=== PATIENT | female | born 1945 | race African-American/Black ===

== ENCOUNTER 2021-05-13 13:48 | Inpatient (IN) | payer MEDICARE, OTHER ==
[~2021-05-13] VITALS: Ht 157.5 cm; Wt 105.8 kg
[2021-05-13 14:52] LABS: BASO % 1 % (0-3); EOS % 0 % (0-3); HEMOGLOBIN 11.1 g/dL (12.0-15.5); LYMPH # 1.1 x10^3/uL (1.0-4.8); LYMPH % 28 % (24-48); MEAN CORPUSCULAR HEMOGLOBIN 30 pg (25-35); MEAN CORPUSCULAR HGB CONC 33 g/dL (31-37); MEAN CORPUSCULAR VOLUME 91 fL (79-100); MONO # 0.4 x10^3/uL (0.0-1.1); MONO % 11 % (0-9); NEUT # 2.4 x10^3/uL (1.8-7.7); NEUT % 60 % (31-73); PLATELET COUNT 156 x10^3/uL (140-400); RED BLOOD COUNT 3.74 x10^6/uL (3.50-5.40); RED CELL DISTRIBUTION WIDTH 14.3 % (11.5-14.5)
[2021-05-13 15:06] LABS: CALCIUM 8.8 mg/dL (8.5-10.1); CREATININE 2.4 mg/dL (0.6-1.0); GFR 23.7; POTASSIUM 4.6 mmol/L (3.5-5.1)
[2021-05-13 15:12] LABS: ALBUMIN 2.9 g/dL (3.4-5.0); ALBUMIN/GLOBULIN RATIO 0.6 (1.0-1.7); MAGNESIUM 1.7 mg/dL (1.8-2.4); TOTAL BILIRUBIN 0.3 mg/dL (0.2-1.0); TOTAL PROTEIN 7.6 g/dL (6.4-8.2)
--- NOTE | 2021-05-13 15:26 | RAD ---
Single view of the chest. 05/13/2021 2:56 PM Indication: Reason: SOA / Spl. Instructions: / History: Comparison: None Findings: There are patchy bilateral interstitial alveolar infiltrates. Left basilar obscuration coul d reflect an associated pleural effusion or atelectasis. No pneumothorax is identified. Median sterno efrain noted. No acute osseous changes are seen. IMPRESSION: 1. Bilateral interstitial alveolar infiltrates. 2. Left basilar effusion or atelectasis Electronically signed by: Shravan Winkler MD (05/13/2021 3:23 PM) [id number]
[2021-05-13] MEDS ORDERED: MAGNESIUM SULFATE 2GM 50 ML IV ONE ×2 (15:45→16:15)
[2021-05-13] MEDS ORDERED: methylPREDNISolone SOD SUCC PF 125 MG/2 ML VIAL. IV ONE (15:45)
[2021-05-13] MEDS ORDERED: cefTRIAXone IV Push 1 GM VIAL. IVP ONE (16:00)
--- NOTE | 2021-05-13 16:01 | PHYS DOC ---
Past Medical History Past Medical History: CAD, CHF, Diabetes-Type II Past Surgical History: Coronary Bypass Surgery Smoking Status: Never Smoker Alcohol Use: None General Adult EDM: Chief Complaint: SHORTNESS OF BREATH HPI: HPI: Patient is a 75 year old female who present to ER due to trouble breathing, cough, fever for 1 week. Patient was not vaccinated for COVID-19. Patient denies any chest pain. Patient denies abdominal pain, no nausea vomiting. Patient is not on any oxygen at home. Review of Systems: Review of Systems: Constitutional: Positive for fever or chills. [] Eyes: Denies change in visual acuity. [] HENT: Denies nasal congestion or sore throat. [] Respiratory: Positive for cough and shortness of breath. [] Cardiovascular: Denies chest pain or edema. [] GI: Denies abdominal pain, nausea, vomiting, bloody stools or diarrhea. [] : Denies dysuria. [] Musculoskeletal: Denies back pain or joint pain. [] Integument: Denies rash. [] Neurologic: Denies headache, focal weakness or sensory changes. [] Endocrine: Denies polyuria or polydipsia. [] Lymphatic: Denies swollen glands. [] Psychiatric: Denies depression or anxiety. [] Heart Score: C/O Chest Pain: N/A Risk Factors: Risk Factors: DM, Current or recent (<one month) smoker, HTN, HLP, family history of CAD, obesity. Risk Scores: Score 0 - 3: 2.5% MACE over next 6 weeks - Discharge Home Score 4 - 6: 20.3% MACE over next 6 weeks - Admit for Clinical Observation Score 7 - 10: 72.7% MACE over next 6 weeks - Early Invasive Strategies Current Medications: Current Medications Medications (Trade) Dose Ordered Sig/Lemuel Start Time Stop Time Status Last Admin Dose Admin Magnesium Sulfate 50 ml @ 25 mls/hr 1X ONCE 05/13/21 15:45 05/13/21 17:44 05/13/21 15:58 25 MLS/HR Methylprednisolone Sodium Succinate (SOLU-Medrol 125MG VIAL) 125 mg 1X ONCE 05/13/21 15:45 05/13/21 15:46 DC 05/13/21 15:58 125 MG Allergies: Allergies: Allergies Coded Allergies Type Severity Reaction Last Updated Verified No Known Drug Allergies 05/13/21 No Physical Exam: PE: Constitutional: Well developed, well nourished, no acute distress, non-toxic appearance. [] HENT: Normocephalic, atraumatic, bilateral external ears normal, oropharynx moist, no oral exudates, nose normal. [] Eyes: right eye blind (chronic) , conjunctiva normal on left, no discharge. [] Neck: Normal range of motion, no tenderness, supple, no stridor. [] Cardiovascular:Heart rate regular rhythm, no murmur [] Lungs & Thorax: Bilateral breath sounds with crackles at lung bases to auscultation [] Abdomen: Bowel sounds normal, soft, no tenderness, no masses, no pulsatile masses. [] Skin: Warm, dry, no erythema, no rash. [] Back: No tenderness, no CVA tenderness. [] Extremities: No tenderness, no cyanosis, no clubbing, ROM intact, no edema. [] Neurologic: Alert and oriented X 3, normal motor function, normal sensory function, no focal deficits noted. [] Psychologic: Affect normal, judgement normal, mood normal. [] Current Patient Data: Labs: Laboratory Tests Test 05/13/21 14:19 05/13/21 14:40 SARS-CoV-2 Antigen (Rapid) Positive (NEGATIVE) *A White Blood Count 4.0 x10^3/uL (4.0-11.0) Red Blood Count 3.74 x10^6/uL (3.50-5.40) Hemoglobin 11.1 g/dL (12.0-15.5) L Hematocrit 34.0 % (36.0-47.0) L Mean Corpuscular Volume 91 fL (79-100) Mean Corpuscular Hemoglobin 30 pg (25-35) Mean Corpuscular Hemoglobin Concent 33 g/dL (31-37) Red Cell Distribution Width 14.3 % (11.5-14.5) Platelet Count 156 x10^3/uL (140-400) Neutrophils (%) (Auto) 60 % (31-73) Lymphocytes (%) (Auto) 28 % (24-48) Monocytes (%) (Auto) 11 % (0-9) H Eosinophils (%) (Auto) 0 % (0-3) Basophils (%) (Auto) 1 % (0-3) Neutrophils # (Auto) 2.4 x10^3/uL (1.8-7.7) Lymphocytes # (Auto) 1.1 x10^3/uL (1.0-4.8) Monocytes # (Auto) 0.4 x10^3/uL (0.0-1.1) Eosinophils # (Auto) 0.0 x10^3/uL (0.0-0.7) Basophils # (Auto) 0.0 x10^3/uL (0.0-0.2) Sodium Level 140 mmol/L (136-145) Potassium Level 4.6 mmol/L (3.5-5.1) Chloride Level 102 mmol/L (98-107) Carbon Dioxide Level 28 mmol/L (21-32) Anion Gap 10 (6-14) Blood Urea Nitrogen 50 mg/dL (7-20) H Creatinine 2.4 mg/dL (0.6-1.0) H Estimated GFR (Cockcroft-Gault) 23.7 BUN/Creatinine Ratio 21 (6-20) H Glucose Level 117 mg/dL (70-99) H Lactic Acid Level 0.6 mmol/L (0.4-2.0) Calcium Level 8.8 mg/dL (8.5-10.1) Magnesium Level 1.7 mg/dL (1.8-2.4) L Total Bilirubin 0.3 mg/dL (0.2-1.0) Aspartate Amino Transferase (AST) 25 U/L (15-37) Alanine Aminotransferase (ALT) 22 U/L (14-59) Alkaline Phosphatase 116 U/L (46-116) Troponin I Quantitative 0.032 ng/mL (0.000-0.055) [id number]-Vxu-[id number]-Type Natriuretic Peptide 2067 pg/mL (0-449) H Total Protein 7.6 g/dL (6.4-8.2) Albumin 2.9 g/dL (3.4-5.0) L Albumin/Globulin Ratio 0.6 (1.0-1.7) L Laboratory Tests 05/13/21 14:40 Laboratory Tests 05/13/21 14:40 Vital Signs: Vital Signs Date Time Temp Pulse Resp B/P (MAP) Pulse Ox O2 Delivery O2 Flow Rate FiO2 05/13/21 13:55 101.3 76 20 168/76 89 Room Air 101.3 EKG: EKG: EKG was done at 1356, heart rate of 75 bpm, sinus rhythm, no ST segment elevation. Radiology/Procedures: Radiology/Procedures: [facility] [address] [place] [address] IMAGING REPORT Signed PATIENT: VALERIE TRAVIS ACCOUNT: [id number] : 1945 LOCATION: ER AGE: 75 SEX: F EXAM STATUS: REG ER ORD. PHYSICIAN: ROSHAN ANSARI DO REASON: SOA PROCEDURE: CHEST AP ONLY Single view of the chest. 05/13/2021 2:56 PM Indication: Reason: SOA / Spl. Instructions: / History: Comparison: None Findings: There are patchy bilateral interstitial alveolar infiltrates. Left basilar obscuration could reflect an associated pleural effusion or atelectasis. No pneumothorax is identified. Median sternotomy noted. No acute osseous changes are seen. IMPRESSION: 1. Bilateral interstitial alveolar infiltrates. 2. Left basilar effusion or atelectasis Electronically signed by: Shravan Hutson MD (05/13/2021 3:23 PM) [id number] DICTATED and SIGNED BY: SHRAVAN HUTSON MD DATE: 05/13/21 [id number] Course & Med Decision Making: Course & Med Decision Making Pertinent Labs and Imaging studies reviewed. (See chart for details) Patient is a 75-year-old female who present to ER due to cough and trouble breathing with fever. Patient was tested positive for COVID-19. Patient is hypoxic, therefore patient will need to be admitted to hospital for further evaluation and treatment, discussed with the hospitalist on-call Dr. Amor who agreed to admit the patient. Dragon Disclaimer: Dragon Disclaimer: This electronic medical record was generated, in whole or in part, using a voice recognition dictation system. Departure Departure Impression: Primary Impression: Pneumonia due to COVID-19 virus Additional Impressions: Hypoxia Hypomagnesemia syndrome Disposition: ADMITTED INPATIENT Admitting Physician: MAIRA (Dr. Amor) Condition: STABLE Referrals: PHANI MCNAMARA MD (PCP) ROSHAN ANSARI DO May 13, 2021 16:01
[2021-05-13] MEDS ORDERED: PIP/TAZO PER PHARMACY MC PRN (16:15)
[2021-05-13] MEDS ORDERED: guaiFENesin/CODEINE 100mg/10mg 5 ML LIQUID PO PRN (16:15)
[2021-05-13] MEDS ORDERED: AZITHRMYCN 500MG IVPB FOR OMNI 250 ML IV ONE (16:15)
[2021-05-13] MEDS ORDERED: oxyCODONE IR 5 MG TABLET PO PRN (17:00)
[2021-05-13] MEDS ORDERED: ACETAMINOPHEN 325 MG TABLET. PO PRN (17:00)
[2021-05-13] MEDS ORDERED: ZOLPIDEM 5 MG TABLET. PO PRN (17:00)
[2021-05-13] MEDS ORDERED: ELECTROLYTE (NON-ICU) PROTOCOL. MC PRN (17:00)
[2021-05-13] MEDS ORDERED: CALCIUM CARBONATE 500 MG TAB.CHEW PO PRN (17:00)
[2021-05-13] MEDS ORDERED: ONDANSETRON PF 4 MG/2 ML VIAL. IVP PRN (17:00)
[2021-05-13] MEDS ORDERED: REMDESIVIR LOAD in IV NORMAL SALINE 250ML TV IV ONE (17:00)
[2021-05-13] MEDS ORDERED: MAGN500C10 PO (17:26)
[2021-05-13] MEDS ORDERED: LOSA-73 PO (17:26)
[2021-05-13] MEDS ORDERED: ATOR80TA72 PO (17:26)
[2021-05-13] MEDS ORDERED: METF500T16 PO (17:26)
[2021-05-13] MEDS ORDERED: HYDR-2761 PO (17:27)
[2021-05-13] MEDS ORDERED: HYDR-2868 PO (17:27)
[2021-05-13] MEDS ORDERED: EZET10TA20 PO (17:27)
[2021-05-13] MEDS ORDERED: FURO40TA4 PO (17:27)
[2021-05-13] MEDS ORDERED: AMLO-186 PO (17:27)
[2021-05-13] MEDS ORDERED: ALLO100T PO (17:27)
[2021-05-13] MEDS ORDERED: GABA-585 PO (17:27)
[2021-05-13] MEDS ORDERED: LEVO175T5 PO (17:27)
[2021-05-13] MEDS ORDERED: ASPI-630 PO (17:27)
[2021-05-13] MEDS: PIPERACILLIN/TAZOBACTAM 2.25 GM in IV NORMAL SALINE 50ML 50 ML IV SCH (17:58)
--- NOTE | 2021-05-13 18:24 | PDOC1 ---
History and Physical Date of Service: DOS: DATE: 05/13/21 TIME: 18:20 Chief Complaint: Problems: (1) Pneumonia due to COVID-19 virus (2) Hypoxia (3) Hypomagnesemia syndrome History of Present Illness: HPI: Patient is 75-year-old female who presented to the emergency room this morning due to shortness of breath, cough, subjective fever, and fatigue for the past 7 to 10 days patient reports initially thought it was a common cold but when it kept persisting presents to the emergency room today. In the emergency room she was found to be COVID-19 positive. Patient did not receive Covid vaccine. Unknown of Covid exposures. Patient develops O2 requirement in emergency room of 2 L. Received Solu-Medrol and Rocephin and was then admitted. Evaluated patient was resting on 2 L nasal cannula. She was denying any headache, vision changes, dizziness, chest pain, abdominal pain, dysuria, abnormal joint pains. Past Medical/Surgical History: PMH/PSH: CAD, type 2 diabetes Allergies: Allergies: Coded Allergies: No Known Drug Allergies (Unverified , 05/13/21) Family History: Family History: Unknown Social History: Social History: Denies alcohol tobacco or drug use Current Medications: Current Medications Current Medications Magnesium Sulfate 50 ml @ 25 mls/hr 1X ONCE IV Last administered on 05/13/21at 15:58; Start 05/13/21 at 15:45; Stop 05/13/21 at 17:44; Status DC Methylprednisolone Sodium Succinate (SOLU-Medrol 125MG VIAL) 125 mg 1X ONCE IV Last administered on 05/13/21at 15:58; Start 05/13/21 at 15:45; Stop 05/13/21 at 15:46; Status DC Ceftriaxone Sodium (Rocephin) 1 gm 1X ONCE IVP Last administered on 05/13/21at 16:37; Start 05/13/21 at 16:00; Stop 05/13/21 at 16:02; Status DC Piperacillin Sod/ Tazobactam Sod (Zosyn Per Pharmacy) 1 each PRN DAILY PRN MC SEE COMMENTS; Start 05/13/21 at 16:15 Dexamethasone Sodium Phosphate (Decadron) 6 mg DAILY IVP ; Start 05/14/21 at 09:00 Remdesivir 200 mg/ Sodium Chloride 210 ml @ 210 mls/hr 1X ONCE IV ; Start 05/13/21 at 17:00; Stop 05/13/21 at 17:59; Status DC Remdesivir 100 mg/ Sodium Chloride 230 ml @ 460 mls/hr Q24H IV ; Start 05/14/21 at 17:00; Stop 05/17/21 at 17:29 Multivitamins (Thera M Plus) 1 tab DAILY PO ; Start 05/14/21 at 09:00 Aspirin (Ecotrin) 81 mg DAILYWBKFT PO ; Start 05/14/21 at 08:00; Stop 05/13/21 at 18:10; Status DC Guaifenesin/ Codeine Phosphate (Robitussin Ac) 5 ml PRN Q6HRS PRN PO COUGH; Start 05/13/21 at 16:15 Azithromycin 250 ml @ 250 mls/hr 1X ONCE IV Last administered on 05/13/21at 16:37; Start 05/13/21 at 16:15; Stop 05/13/21 at 17:14; Status DC Magnesium Sulfate 50 ml @ 25 mls/hr 1X ONCE IV ; Start 05/13/21 at 16:15; Stop 05/13/21 at 18:14; Status Cancel Piperacillin Sod/ Tazobactam Sod 2.25 gm/Sodium Chloride 50 ml @ 100 mls/hr Q6HRS IV Last administered on 05/13/21at 17:58; Start 05/13/21 at 18:00 Ondansetron HCl (Zofran) 4 mg PRN Q6HRS PRN IVP NAUSEA/VOMITING; Start 05/13/21 at 17:00 Calcium Carbonate/ Glycine (Tums) 500 mg PRN Q3HRS PRN PO UPSET STOMACH; Start 05/13/21 at 17:00 Zolpidem Tartrate (Ambien) 5 mg PRN QHS PRN PO INSOMNIA, MAY REPEAT IN 1HR; Start 05/13/21 at 17:00 Info (Non-Icu Electrolyte Protocol) 1 ea PRN DAILY PRN MC SEE COMMENTS; Start 05/13/21 at 17:00 Oxycodone HCl (Roxicodone) 5 mg PRN Q3HRS PRN PO BREAKTHROUGH PAIN; Start 05/13/21 at 17:00 Oxycodone/ Acetaminophen (Percocet 5/325) 1 tab PRN Q4HRS PRN PO MILD PAIN, 1ST CHOICE; Start 05/13/21 at 17:00 Oxycodone/ Acetaminophen (Percocet 5/325) 2 tab PRN Q4HRS PRN PO MODERATE PAIN, SEVERE PAIN; Start 05/13/21 at 17:00 Acetaminophen (Tylenol) 650 mg PRN Q6HRS PRN PO Headaches, Temp > 101.5F; Start 05/13/21 at 17:00 Senna/Docusate Sodium (Senna Plus) 1 tab BID PO ; Start 05/13/21 at 21:00 Heparin Sodium (Porcine) (Heparin Sodium) 5,000 unit Q8HRS SQ ; Start 05/13/21 at 22:00 Allopurinol (Zyloprim) 100 mg DAILY PO ; Start 05/14/21 at 09:00 Amlodipine Besylate (Norvasc) 5 mg DAILY PO ; Start 05/14/21 at 09:00 Aspirin (Aspirin Chewable) 81 mg DAILY PO ; Start 05/14/21 at 09:00 EZETIMIBE (Zetia) 10 mg DAILY PO ; Start 05/14/21 at 09:00 Furosemide (Lasix) 40 mg DAILY PO ; Start 05/14/21 at 09:00 Gabapentin (Neurontin) 100 mg HS PO ; Start 05/13/21 at 21:00 Levothyroxine Sodium (Synthroid) 175 mcg DAILYAC PO ; Start 05/14/21 at 07:30 Losartan Potassium (Cozaar) 50 mg DAILY PO ; Start 05/14/21 at 09:00 Atorvastatin Calcium (Lipitor) 80 mg QHS PO ; Start 05/13/21 at 21:00 Active Scripts Active Reported Zetia (Ezetimibe) 10 Mg Tablet 10 Mg PO DAILY Furosemide 40 Mg Tablet 1 Tab PO DAILY Hydrocodone-Apap 5-325 (Hydrocodone Bit/Acetaminophen) 1 Tab Tablet 1 Tab PO PRN BID PRN Allopurinol 100 Mg Tablet 1 Tab PO DAILY Aspirin 81 Mg Tab.chew 1 Tab PO DAILY Levothyroxine Sodium 175 Mcg Tablet 175 Mcg PO DAILYAC Amlodipine Besylate 5 Mg Tablet 5 Mg PO DAILY Hydralazine Hcl 25 Mg Tablet 1 Tab PO TID Gabapentin (Gabapentin) 100 Mg Capsule 100 Mg PO HS Atorvastatin Calcium 80 Mg Tablet 80 Mg PO DAILY Losartan Potassium 50 Mg Tablet 50 Mg PO DAILY Metformin Hcl 500 Mg Tablet 500 Mg PO BIDWMEALS Magnesium (Magnesium Oxide) 500 Mg Capsule 1 Cap PO BID 30 Days ROS: Review of Systems Review of System Negative unless noted in HPI Physical Exam: Vital Signs: Vital Signs Date Time Temp Pulse Resp B/P (MAP) Pulse Ox O2 Delivery O2 Flow Rate FiO2 05/13/21 15:58 74 23 126/58 (80) 97 Nasal Cannula 2.0 05/13/21 13:55 101.3 101.3 Physcial Exam: GEN: No apparent distress. Alert and oriented HEENT: Normal cephalic, atraumatic, external auditory canals are patent EYES: Extraocular muscles are intact, pupil are equally round and reactive to light and accommodation MUSCULOSKELETAL: Well developed , well nourished, good range of motion ENDOCRINE: No thyromegaly was palpated LYMPHATICS: No cervical chain or axillary nodes were noted HEMATOPOIETIC: No bruising NECK: Supple, no JVD, no thyromegaly was noted LUNGS: Decreased air entry throughout HEART: RRR, S1, S2 present. Peripheral pulses intact, no obvious murmurs noted ABDOMEN: Soft, nontender. Positive bowel sounds, no organomegaly, normal bowel sounds EXTREMITIES: Without clubbing, cyanosis, or edema. Pedal pulses intact. Negative Homans sign NEUROLOGIC: Normal speech and tone. A&O x 3, moves all extremities, no obvious focal deficits PSYCHIATRIC: Normal affect, normal mood. Stable SKIN: No ulcerations or rashes, good skin turgor, no jaundice VASCULAR: Good capillary refill, neurovascular bundle appears to be intact Labs: Labs: Laboratory Tests Test 05/13/21 14:19 05/13/21 14:40 SARS-CoV-2 Antigen (Rapid) Positive (NEGATIVE) White Blood Count 4.0 x10^3/uL (4.0-11.0) Red Blood Count 3.74 x10^6/uL (3.50-5.40) Hemoglobin 11.1 g/dL (12.0-15.5) Hematocrit 34.0 % (36.0-47.0) Mean Corpuscular Volume 91 fL (79-100) Mean Corpuscular Hemoglobin 30 pg (25-35) Mean Corpuscular Hemoglobin Concent 33 g/dL (31-37) Red Cell Distribution Width 14.3 % (11.5-14.5) Platelet Count 156 x10^3/uL (140-400) Neutrophils (%) (Auto) 60 % (31-73) Lymphocytes (%) (Auto) 28 % (24-48) Monocytes (%) (Auto) 11 % (0-9) Eosinophils (%) (Auto) 0 % (0-3) Basophils (%) (Auto) 1 % (0-3) Neutrophils # (Auto) 2.4 x10^3/uL (1.8-7.7) Lymphocytes # (Auto) 1.1 x10^3/uL (1.0-4.8) Monocytes # (Auto) 0.4 x10^3/uL (0.0-1.1) Eosinophils # (Auto) 0.0 x10^3/uL (0.0-0.7) Basophils # (Auto) 0.0 x10^3/uL (0.0-0.2) Sodium Level 140 mmol/L (136-145) Potassium Level 4.6 mmol/L (3.5-5.1) Chloride Level 102 mmol/L (98-107) Carbon Dioxide Level 28 mmol/L (21-32) Anion Gap 10 (6-14) Blood Urea Nitrogen 50 mg/dL (7-20) Creatinine 2.4 mg/dL (0.6-1.0) Estimated GFR (Cockcroft-Gault) 23.7 BUN/Creatinine Ratio 21 (6-20) Glucose Level 117 mg/dL (70-99) Lactic Acid Level 0.6 mmol/L (0.4-2.0) Calcium Level 8.8 mg/dL (8.5-10.1) Magnesium Level 1.7 mg/dL (1.8-2.4) Total Bilirubin 0.3 mg/dL (0.2-1.0) Aspartate Amino Transf (AST/SGOT) 25 U/L (15-37) Alanine Aminotransferase (ALT/SGPT) 22 U/L (14-59) Alkaline Phosphatase 116 U/L (46-116) Troponin I Quantitative 0.032 ng/mL (0.000-0.055) VV-Wnt-X-Type Natriuretic Peptide 2067 pg/mL (0-449) Total Protein 7.6 g/dL (6.4-8.2) Albumin 2.9 g/dL (3.4-5.0) Albumin/Globulin Ratio 0.6 (1.0-1.7) Laboratory Tests Test 05/13/21 14:19 05/13/21 14:40 SARS-CoV-2 Antigen (Rapid) Positive (NEGATIVE) White Blood Count 4.0 x10^3/uL (4.0-11.0) Red Blood Count 3.74 x10^6/uL (3.50-5.40) Hemoglobin 11.1 g/dL (12.0-15.5) Hematocrit 34.0 % (36.0-47.0) Mean Corpuscular Volume 91 fL (79-100) Mean Corpuscular Hemoglobin 30 pg (25-35) Mean Corpuscular Hemoglobin Concent 33 g/dL (31-37) Red Cell Distribution Width 14.3 % (11.5-14.5) Platelet Count 156 x10^3/uL (140-400) Neutrophils (%) (Auto) 60 % (31-73) Lymphocytes (%) (Auto) 28 % (24-48) Monocytes (%) (Auto) 11 % (0-9) Eosinophils (%) (Auto) 0 % (0-3) Basophils (%) (Auto) 1 % (0-3) Neutrophils # (Auto) 2.4 x10^3/uL (1.8-7.7) Lymphocytes # (Auto) 1.1 x10^3/uL (1.0-4.8) Monocytes # (Auto) 0.4 x10^3/uL (0.0-1.1) Eosinophils # (Auto) 0.0 x10^3/uL (0.0-0.7) Basophils # (Auto) 0.0 x10^3/uL (0.0-0.2) Sodium Level 140 mmol/L (136-145) Potassium Level 4.6 mmol/L (3.5-5.1) Chloride Level 102 mmol/L (98-107) Carbon Dioxide Level 28 mmol/L (21-32) Anion Gap 10 (6-14) Blood Urea Nitrogen 50 mg/dL (7-20) Creatinine 2.4 mg/dL (0.6-1.0) Estimated GFR (Cockcroft-Gault) 23.7 BUN/Creatinine Ratio 21 (6-20) Glucose Level 117 mg/dL (70-99) Lactic Acid Level 0.6 mmol/L (0.4-2.0) Calcium Level 8.8 mg/dL (8.5-10.1) Magnesium Level 1.7 mg/dL (1.8-2.4) Total Bilirubin 0.3 mg/dL (0.2-1.0) Aspartate Amino Transf (AST/SGOT) 25 U/L (15-37) Alanine Aminotransferase (ALT/SGPT) 22 U/L (14-59) Alkaline Phosphatase 116 U/L (46-116) Troponin I Quantitative 0.032 ng/mL (0.000-0.055) KD-Ovj-G-Type Natriuretic Peptide 2067 pg/mL (0-449) Total Protein 7.6 g/dL (6.4-8.2) Albumin 2.9 g/dL (3.4-5.0) Albumin/Globulin Ratio 0.6 (1.0-1.7) Assessment/Plan Assessment/Plan Pneumonia secondary to COVID-19 infection, acute hypoxic respiratory failure, hypomagnesemia, CAD, CHF, type 2 diabetes Patient with 1 week history of shortness of breath cough fevers fatigue Found to be COVID-19 positive in emergency room today, not Covid vaccinated Required 2 L nasal cannula, increase decrease as needed Covid measures with remdesivir, Zosyn, azithromycin, Decadron ordered Metered-dose inhaler as needed We will hold off on consults unless patient deteriorates clinically DVT prophylaxis ordered Home meds resumed as indicated Justifications for Admission Other Justification GENO QUICK MD May 13, 2021 18:24
--- NOTE | 2021-05-13 18:34 | EKG ---
[facility] [address] [place] [address] Test Date: 2021-05-13 Test Time: 13:56:42 Pat Name: VALERIE TRAVIS Department: Room: Gender: F Caponizer: : 1945 Requested By: ROSHAN ANSARI Order Number: [id number] Reading MD: Measurements Intervals [place] Rate: 75 P: 51 NV: 162 QRS: 67 QRSD: 96 T: 53 QT: 394 QTc: 443 Interpretive Statements No previous ECG available for comparison
[2021-05-13 20:07] VITALS: BP 166/50
[2021-05-13] MEDS: SENNOSIDES/DOCUSATE 8.6/50MG TABLET. PO SCH (21:00)
[2021-05-13] MEDS: ATORVASTATIN CALCIUM 40 MG TABLET. PO SCH (21:00)
[2021-05-13] MEDS: GABAPENTIN 100 MG CAPSULE. PO SCH (21:00)
[2021-05-13] MEDS: HEPARIN for SUB-Q USE 5,000 UNIT/ML VIAL. SQ SCH (21:03)
[2021-05-13 23:49] VITALS: BP 148/61
[2021-05-14] MEDS: PIPERACILLIN/TAZOBACTAM 2.25 GM in IV NORMAL SALINE 50ML 50 ML IV SCH ×6 (00:06→23:09)
[2021-05-14 03:00] VITALS: BP 188/71
[2021-05-14] MEDS: HEPARIN for SUB-Q USE 5,000 UNIT/ML VIAL. SQ SCH ×3 (05:43→20:32)
[2021-05-14 07:09] VITALS: BP 143/69
[2021-05-14] MEDS ORDERED: ASPIRIN ENTERIC COATED 81 MG TABLET.DR. PO SCH (08:00)
[2021-05-14] MEDS: LOSARTAN POTASSIUM 50 MG TABLET. PO SCH (09:28)
[2021-05-14] MEDS: FUROSEMIDE 40 MG TABLET. PO SCH (09:28)
[2021-05-14] MEDS: MULTIVITAMIN with MINERAL TABLET. PO SCH (09:28)
[2021-05-14] MEDS: EZETIMIBE 10 MG TABLET. PO SCH (09:28)
[2021-05-14] MEDS: ALLOPURINOL 100 MG TABLET. PO SCH (09:28)
[2021-05-14] MEDS: ASPIRIN CHEWABLE 81 MG TABLET. PO SCH (09:29)
[2021-05-14] MEDS: LEVOTHYROXINE 175 MCG TABLET PO SCH (09:29)
[2021-05-14] MEDS: SENNOSIDES/DOCUSATE 8.6/50MG TABLET. PO SCH ×2 (09:29→20:32)
[2021-05-14] MEDS: DEXAMETHASONE SOD PHOS 4 MG/ML VIAL IVP SCH (09:29)
[2021-05-14 11:00] VITALS: BP 161/71
--- NOTE | 2021-05-14 12:21 | PDOC ---
[employer] PROGRESS NOTE Date of Service DOS: DATE: 05/14/21 TIME: 12:10 Chief Complaint Chief Complaint Pneumonia secondary to COVID-19 infection Acute Hypoxic Respiratory Failure Hypomagnesemia CAD CHF Type II Diabetes History of Present Illness History of Present Illness 05/14: Mrs. Braswell was seen and evaluated in her room this morning. Overall, she seemed week and was resting. She is currently on the COVID-19 protocol (Remdesivir, Aspirin, Multivitamins, Dexamethsone, Heparin SOdium, Piperaci llin/Tazobactam, Acetaminophen). Mrs. Braswell states that she only received 1 dose of the COVID-19 vaccination. Vitals/I&O Vitals/I&O: Vital Signs Date Time Temp Pulse Resp B/P (MAP) Pulse Ox O2 Delivery O2 Flow Rate FiO2 05/14/21 11:00 98.0 82 18 161/71 (101) 100 Nasal Cannula 2.0 98.0 I & O 05/13/21 05/13/21 05/14/21 15:00 23:00 07:00 Intake Total 550 ml 100 ml Output Total 1 ml 1 ml Balance 549 ml 99 ml Physical Exam General: Alert, No acute distress Heart: Regular rate, No murmurs Abdomen: Normal bowel sounds Extremities: No clubbing Skin: No rashes Labs Labs: Laboratory Tests Test 05/13/21 14:19 05/13/21 14:40 05/13/21 20:29 05/14/21 07:27 SARS-CoV-2 Antigen (Rapid) Positive (NEGATIVE) White Blood Count 4.0 x10^3/uL (4.0-11.0) Red Blood Count 3.74 x10^6/uL (3.50-5.40) Hemoglobin 11.1 g/dL (12.0-15.5) Hematocrit 34.0 % (36.0-47.0) Mean Corpuscular Volume 91 fL (79-100) Mean Corpuscular Hemoglobin 30 pg (25-35) Mean Corpuscular Hemoglobin Concent 33 g/dL (31-37) Red Cell Distribution Width 14.3 % (11.5-14.5) Platelet Count 156 x10^3/uL (140-400) Neutrophils (%) (Auto) 60 % (31-73) Lymphocytes (%) (Auto) 28 % (24-48) Monocytes (%) (Auto) 11 % (0-9) Eosinophils (%) (Auto) 0 % (0-3) Basophils (%) (Auto) 1 % (0-3) Neutrophils # (Auto) 2.4 x10^3/uL (1.8-7.7) Lymphocytes # (Auto) 1.1 x10^3/uL (1.0-4.8) Monocytes # (Auto) 0.4 x10^3/uL (0.0-1.1) Eosinophils # (Auto) 0.0 x10^3/uL (0.0-0.7) Basophils # (Auto) 0.0 x10^3/uL (0.0-0.2) Sodium Level 140 mmol/L (136-145) Potassium Level 4.6 mmol/L (3.5-5.1) Chloride Level 102 mmol/L (98-107) Carbon Dioxide Level 28 mmol/L (21-32) Anion Gap 10 (6-14) Blood Urea Nitrogen 50 mg/dL (7-20) Creatinine 2.4 mg/dL (0.6-1.0) Estimated GFR (Cockcroft-Gault) 23.7 BUN/Creatinine Ratio 21 (6-20) Glucose Level 117 mg/dL (70-99) Lactic Acid Level 0.6 mmol/L (0.4-2.0) Calcium Level 8.8 mg/dL (8.5-10.1) Magnesium Level 1.7 mg/dL (1.8-2.4) Total Bilirubin 0.3 mg/dL (0.2-1.0) Aspartate Amino Transf (AST/SGOT) 25 U/L (15-37) Alanine Aminotransferase (ALT/SGPT) 22 U/L (14-59) Alkaline Phosphatase 116 U/L (46-116) Troponin I Quantitative 0.032 ng/mL (0.000-0.055) IH-Gkk-B-Type Natriuretic Peptide 2067 pg/mL (0-449) Total Protein 7.6 g/dL (6.4-8.2) Albumin 2.9 g/dL (3.4-5.0) Albumin/Globulin Ratio 0.6 (1.0-1.7) Glucose (Fingerstick) 176 mg/dL (70-99) 272 mg/dL (70-99) Test 05/14/21 10:45 Glucose (Fingerstick) 339 mg/dL (70-99) Review of Systems Review of Systems: No rashes No bleeding Assessment and Plan Assessmemt and Plan Problems Medical Problems: (1) Hypomagnesemia syndrome Status: Acute (2) Hypoxia Status: Acute (3) Pneumonia due to COVID-19 virus Status: Acute Patient with 1 week history of shortness of breath cough fevers fatigue Found to be COVID-19 positive in emergency room today, not Covid vaccinated Required 2 L nasal cannula, increase decrease as needed Covid measures with remdesivir, Zosyn, azithromycin, Decadron ordered Metered-dose inhaler as needed We will hold off on consults unless patient deteriorates clinically DVT prophylaxis ordered Home meds resumed as indicated 1) Continue COVID-19 Protocol 2) Continue DVT Prophylaxis 3) Continue respiratory isolation 4) Home Medications 5) Full Code Comment Review of Relevant I have reviewed the following items maged (where applicable) has been applied. Medications: Current Medications Medications (Trade) Dose Ordered Sig/Lemuel Route PRN Reason Start Time Stop Time Status Last Admin Dose Admin Magnesium Sulfate 50 ml @ 25 mls/hr 1X ONCE IV 05/13/21 15:45 05/13/21 17:44 DC 05/13/21 15:58 Methylprednisolone Sodium Succinate (SOLU-Medrol 125MG VIAL) 125 mg 1X ONCE IV 05/13/21 15:45 05/13/21 15:46 DC 05/13/21 15:58 Ceftriaxone Sodium (Rocephin) 1 gm 1X ONCE IVP 05/13/21 16:00 05/13/21 16:02 DC 05/13/21 16:37 Dexamethasone Sodium Phosphate (Decadron) 6 mg DAILY IVP 05/14/21 09:00 05/14/21 09:29 Remdesivir 200 mg/ Sodium Chloride 210 ml @ 210 mls/hr 1X ONCE IV 05/13/21 17:00 05/13/21 17:59 DC 05/13/21 20:59 Multivitamins (Thera M Plus) 1 tab DAILY PO 05/14/21 09:00 05/14/21 09:28 Azithromycin 250 ml @ 250 mls/hr 1X ONCE IV 05/13/21 16:15 05/13/21 17:14 DC 05/13/21 16:37 Piperacillin Sod/ Tazobactam Sod 2.25 gm/Sodium Chloride 50 ml @ 100 mls/hr Q6HRS IV 05/13/21 18:00 05/14/21 05:42 Acetaminophen (Tylenol) 650 mg PRN Q6HRS PRN PO Headaches, Temp > 101.5F 05/13/21 17:00 05/13/21 21:00 Senna/Docusate Sodium (Senna Plus) 1 tab BID PO 05/13/21 21:00 05/14/21 09:29 Heparin Sodium (Porcine) (Heparin Sodium) 5,000 unit Q8HRS SQ 05/13/21 22:00 05/14/21 05:43 Allopurinol (Zyloprim) 100 mg DAILY PO 05/14/21 09:00 05/14/21 09:28 Amlodipine Besylate (Norvasc) 5 mg DAILY PO 05/14/21 09:00 05/14/21 09:29 Aspirin (Aspirin Chewable) 81 mg DAILY PO 05/14/21 09:00 05/14/21 09:29 EZETIMIBE (Zetia) 10 mg DAILY PO 05/14/21 09:00 05/14/21 09:28 Furosemide (Lasix) 40 mg DAILY PO 05/14/21 09:00 05/14/21 09:28 Gabapentin (Neurontin) 100 mg HS PO 05/13/21 21:00 05/13/21 21:00 Levothyroxine Sodium (Synthroid) 175 mcg DAILYAC PO 05/14/21 07:30 05/14/21 09:29 Losartan Potassium (Cozaar) 50 mg DAILY PO 05/14/21 09:00 05/14/21 09:28 Atorvastatin Calcium (Lipitor) 80 mg QHS PO 05/13/21 21:00 05/13/21 21:00 Justifications for Admission Other Justification KIRAN MONDRAGON III DO May 14, 2021 12:21
[2021-05-14 14:48] VITALS: BP 140/63
[2021-05-14] MEDS: REMDESIVIR 100mg in NORMAL SALINE 250ML X 4 DAYS IV SCH (17:23)
[2021-05-14] MEDS ORDERED: INSULIN LISPRO 300 UNITS/3 ML VIAL. SQ ONE ×2 (17:30→23:30)
[2021-05-14 19:00] VITALS: BP 140/65
[2021-05-14] MEDS: ATORVASTATIN CALCIUM 40 MG TABLET. PO SCH (20:32)
[2021-05-14] MEDS: GABAPENTIN 100 MG CAPSULE. PO SCH (20:32)
[2021-05-14] MEDS: INSULIN GLARGINE SYRINGE. SQ SCH (23:27)
[2021-05-14 23:50] VITALS: BP 130/59
[2021-05-15 03:45] VITALS: BP 118/52
[2021-05-15] MEDS: PIPERACILLIN/TAZOBACTAM 2.25 GM in IV NORMAL SALINE 50ML 50 ML IV SCH ×4 (05:16→23:58)
[2021-05-15] MEDS: HEPARIN for SUB-Q USE 5,000 UNIT/ML VIAL. SQ SCH ×3 (05:16→22:10)
[2021-05-15 07:00] VITALS: BP 125/84
[2021-05-15] MEDS: MULTIVITAMIN with MINERAL TABLET. PO SCH (08:18)
[2021-05-15] MEDS: EZETIMIBE 10 MG TABLET. PO SCH (08:18)
[2021-05-15] MEDS: FUROSEMIDE 40 MG TABLET. PO SCH (08:18)
[2021-05-15] MEDS: ASPIRIN CHEWABLE 81 MG TABLET. PO SCH (08:18)
[2021-05-15] MEDS: LEVOTHYROXINE 175 MCG TABLET PO SCH (08:18)
[2021-05-15] MEDS: SENNOSIDES/DOCUSATE 8.6/50MG TABLET. PO SCH ×2 (08:18→22:09)
[2021-05-15] MEDS: LOSARTAN POTASSIUM 50 MG TABLET. PO SCH (08:22)
[2021-05-15] MEDS: ALLOPURINOL 100 MG TABLET. PO SCH (08:23)
[2021-05-15] MEDS: DEXAMETHASONE SOD PHOS 4 MG/ML VIAL IVP SCH (08:24)
[2021-05-15] MEDS: INSULIN LISPRO 300 UNITS/3 ML VIAL. SQ SCH ×3 (08:25→17:08)
[2021-05-15] MEDS: INSULIN GLARGINE SYRINGE. SQ SCH ×2 (10:28→22:11)
--- NOTE | 2021-05-15 10:50 | PDOC ---
[employer] PROGRESS NOTE Date of Service DOS: DATE: 05/15/21 TIME: 10:45 Chief Complaint Chief Complaint Pneumonia secondary to COVID-19 infection Acute Hypoxic Respiratory Failure Hypomagnesemia CAD CHF Type II Diabetes History of Present Illness History of Present Illness 05/14: Mrs. Braswell was seen and evaluated in her room this morning. Overall, she seemed week and was resting. She is currently on the COVID-19 protocol (Remdesivir, Aspirin, Multivitamins, Dexamethsone, Heparin SOdium, Piperaci llin/Tazobactam, Acetaminophen). Mrs. Braswell states that she only received 1 dose of the COVID-19 vaccination. 05/15: Mrs. Braswell was evaluated and seen in while in her room this morning. She states that overall she is feeling better. This morning, she was able to eat her breakfast. She remains on the COVID-19 Protocol (Remdesivir, Aspirin, Multivitamins, Dexamethsone, Heparin Sodium, Piperacillin/Tazobactam, Acetaminophen). We reviewed the patient's chart and discussed with RN Vitals/I&O Vitals/I&O: Vital Signs Date Time Temp Pulse Resp B/P (MAP) Pulse Ox O2 Delivery O2 Flow Rate FiO2 05/15/21 08:22 61 125/84 05/15/21 07:00 97.7 16 97 Nasal Cannula 3.0 97.7 I & O 05/14/21 05/14/21 05/15/21 15:00 23:00 07:00 Intake Total 400 ml 400 ml 0 ml Output Total 1 ml 2 ml Balance 400 ml 399 ml -2 ml Physical Exam General: Alert, Oriented X3, Cooperative, No acute distress Heart: Regular rate, No murmurs Lungs: Wheezing Abdomen: Normal bowel sounds Extremities: No clubbing Skin: No rashes Labs Labs: Laboratory Tests Test 05/14/21 16:20 05/14/21 19:40 05/15/21 00:12 05/15/21 07:31 Glucose (Fingerstick) 427 mg/dL (70-99) 391 mg/dL (70-99) 336 mg/dL (70-99) 169 mg/dL (70-99) Review of Systems Review of Systems: No bleeding No rashes Assessment and Plan Assessmemt and Plan Problems Medical Problems: (1) Hypomagnesemia syndrome Status: Acute (2) Hypoxia Status: Acute (3) Pneumonia due to COVID-19 virus Status: Acute Pneumonia secondary to COVID-19 infection Acute Hypoxic Respiratory Failure Hypomagnesemia CAD CHF Type II Diabetes Plan 1) Continue COVID-19 Protocol (remdesivir antibiotics aspirin vitamins steroids Zosyn cough syrup oxygen beta agonist) 2) Continue DVT Prophylaxis 3) Home Medications 4) Continue Respiratory Isolation 5) Full Code 6) trend labs Comment Review of Relevant I have reviewed the following items maged (where applicable) has been applied. Medications: Current Medications Medications (Trade) Dose Ordered Sig/Lemuel Route PRN Reason Start Time Stop Time Status Last Admin Dose Admin Remdesivir 100 mg/ Sodium Chloride 230 ml @ 460 mls/hr Q24H IV 05/14/21 17:00 05/17/21 17:29 05/14/21 17:23 Insulin Human Lispro (HumaLOG) 10 units 1X ONCE SQ 05/14/21 17:30 05/14/21 17:31 DC 05/14/21 17:24 Insulin Human Lispro (HumaLOG) 0-9 UNITS TIDWMEALS SQ 05/15/21 08:00 05/15/21 08:25 Insulin Human Lispro (HumaLOG) 9 units 1X ONCE SQ 05/14/21 23:30 05/14/21 23:31 DC 05/14/21 23:22 Insulin Glargine (Lantus Syringe) 10 unit BID SQ 05/14/21 23:30 05/15/21 10:28 Justifications for Admission Other Justification KIRAN MONDRAGON III DO May 15, 2021 10:50
[2021-05-15 11:00] VITALS: BP 127/56
[2021-05-15 15:00] VITALS: BP 123/60
[2021-05-15] MEDS: REMDESIVIR 100mg in NORMAL SALINE 250ML X 4 DAYS IV SCH (17:05)
[2021-05-15 19:00] VITALS: BP 136/52
[2021-05-15] MEDS: GABAPENTIN 100 MG CAPSULE. PO SCH (22:08)
[2021-05-15] MEDS: ATORVASTATIN CALCIUM 40 MG TABLET. PO SCH (22:09)
[2021-05-15 22:49] VITALS: BP 134/59
[2021-05-16 03:00] VITALS: BP 132/58
[2021-05-16] MEDS: PIPERACILLIN/TAZOBACTAM 2.25 GM in IV NORMAL SALINE 50ML 50 ML IV SCH ×3 (05:35→17:35)
[2021-05-16] MEDS: LEVOTHYROXINE 175 MCG TABLET PO SCH (05:36)
[2021-05-16] MEDS: HEPARIN for SUB-Q USE 5,000 UNIT/ML VIAL. SQ SCH ×3 (05:37→22:33)
[2021-05-16 07:00] VITALS: BP 138/72
--- NOTE | 2021-05-16 07:29 | PDOC ---
[employer] PROGRESS NOTE Date of Service DOS: DATE: 05/16/21 TIME: 07:29 Chief Complaint Chief Complaint Pneumonia secondary to COVID-19 infection Acute Hypoxic Respiratory Failure Hypomagnesemia CAD CHF Type II Diabetes History of Present Illness History of Present Illness Ms Braswell is a 75yo F w/ PMHx HTN, DM2, CHF, CAD s/p CABG who came to ED on 05/13/2020 progressive shortness of breath over the prior week. In ED with O2 saturations 86% on room air febrile to 101.3 F. Tested positive for COVID-19. She had not been fully vaccinated. 05/14: Weak and was resting. She is currently on the COVID-19 protocol (Remdesivir, Aspirin, Multivitamins, Dexamethsone, Heparin SOdium, Piperacillin/Tazobactam, Acetaminophen). Mrs. Braswell states that she only received 1 dose of the COVID-19 vaccination. 05/15: She is feeling better. This morning, she was able to eat her breakfast. She remains on the COVID-19 Protocol (Remdesivir, Aspirin, Multivitamins, Dexamethsone, Heparin Sodium, Piperacillin/Tazobactam, Acetaminophen). We reviewed the patient's chart and discussed with RN Afebrile overnight. Glucose in the 200s. O2 saturations 89 to 91% on 2 L nasal cannula oxygen. She is feeling short of breath and weak. No chest pain.. Vitals/I&O Vitals/I&O: Vital Signs Date Time Temp Pulse Resp B/P (MAP) Pulse Ox O2 Delivery O2 Flow Rate FiO2 05/16/21 03:00 97.8 68 18 132/58 (82) 98 Nasal Cannula 1.0 97.8 I & O 05/15/21 05/15/21 05/16/21 15:00 23:00 07:00 Intake Total 620 ml 0 ml 300 ml Balance 620 ml 0 ml 300 ml Physical Exam General: Alert, Oriented X3, Cooperative, No acute distress Heart: Regular rate, No murmurs Lungs: Wheezing Abdomen: Normal bowel sounds Extremities: No clubbing Skin: No rashes Labs Labs: Laboratory Tests Test 05/15/21 07:31 05/15/21 11:45 05/15/21 16:48 05/15/21 19:11 Glucose (Fingerstick) 169 mg/dL (70-99) 214 mg/dL (70-99) 278 mg/dL (70-99) 292 mg/dL (70-99) Assessment and Plan Assessmemt and Plan Problems Medical Problems: (1) Hypomagnesemia syndrome Status: Acute (2) Hypoxia Status: Acute (3) Pneumonia due to COVID-19 virus Status: Acute Comment Review of Relevant I have reviewed the following items maged (where applicable) has been applied. Medications: Current Medications Medications (Trade) Dose Ordered Sig/Lemuel Route PRN Reason Start Time Stop Time Status Last Admin Dose Admin Insulin Human Lispro (HumaLOG) 0-9 UNITS TIDWMEALS SQ 05/15/21 08:00 05/15/21 17:08 Justifications for Admission Other Justification GENO YEBOAH MD May 16, 2021 07:29
[2021-05-16] MEDS ORDERED: guaiFENesin DM 200MG/20MG 10 ML SYRUP PO PRN (07:30)
[2021-05-16] MEDS: ALLOPURINOL 100 MG TABLET. PO SCH (10:08)
[2021-05-16] MEDS: DEXAMETHASONE SOD PHOS 4 MG/ML VIAL IVP SCH (10:08)
[2021-05-16] MEDS: EZETIMIBE 10 MG TABLET. PO SCH (10:08)
[2021-05-16] MEDS: FUROSEMIDE 40 MG TABLET. PO SCH (10:09)
[2021-05-16] MEDS: ASPIRIN CHEWABLE 81 MG TABLET. PO SCH (10:09)
[2021-05-16] MEDS: SENNOSIDES/DOCUSATE 8.6/50MG TABLET. PO SCH ×2 (10:09→20:58)
[2021-05-16] MEDS: LOSARTAN POTASSIUM 50 MG TABLET. PO SCH (10:09)
[2021-05-16] MEDS: MULTIVITAMIN with MINERAL TABLET. PO SCH (10:09)
[2021-05-16] MEDS: INSULIN GLARGINE SYRINGE. SQ SCH ×2 (10:24→21:09)
--- NOTE | 2021-05-16 10:24 | NUR ---
SW following. Discussed with RN, pt from home with daughter, 2L (does not use oxygen at home), cardiac diet. Rapid COVID-19 positive. Cardiology consult. Pt can return home to daughter at discharge. RN advised no SW needs at this time. SW will continue to follow.
[2021-05-16] MEDS: INSULIN LISPRO 300 UNITS/3 ML VIAL. SQ SCH ×5 (10:27→21:30)
[2021-05-16 11:00] VITALS: BP 144/60
--- NOTE | 2021-05-16 13:10 | PDOC2 ---
MOISES AGUILAR [employer]ITY GUARD 05/16/21 1310: CARDIAC CONSULT DATE OF CONSULT Date of Consult DATE: 05/16/21 TIME: 13:05 REASON FOR CONSULT Reason for Consult: v-tach REFERRING PHYSICIAN Referring Physician: Dr. Lee SOURCE Source: Chart review, Patient HISTORY OF PRESENT ILLNESS HISTORY OF PRESENT ILLNESS This is a 75 yo female who presented secondary to shortness of breath, bough, and fevers x 1 week. She initially presented to [facility] 05/13/21, but left AMA. See provider note below. Patient then presented to [facility] ED for further evaluation and treatment. Had episode of 18-beast NSVT on tele, which prompted this consult. She denies any chest pain, palpitations, dizziness, diaphoresis, or nausea/vomiting. Has a history of CAD, CHF. Follows with Dr. Lidia GARCIA. Is COVID + and not vaccinated against COVID 19. [facility] Brief Hospital Course: Ms. Braswell presented to Cardiology clinic today for routine follow-up. There she was noted to be hypoxic with oxygen saturation of 86% on room air and febrile with temperature of 101.6. She was placed on 2 L of supplemental oxygen in clinic with improvement in her oxygen saturation. Given new onset respiratory failure, fever, cough, and decreased sense of taste there was concern for potential COVID-19 infection and need for hospitalization and further workup. Patient admitted to [facility] and COVID-19 testing in addition to other workup for etiology of respiratory failure and fever. Given the fact that she was being ruled out for COVID she was not permitted to have a visitor. The patient and her daughter expressed their wishes to leave the unit. Discussed that if COVID test was negative patient could be transferred to a unit which allowed visitors. Additionally I offered for them to go via emergency department for evaluation but they declined this. Patient and her daughter expressed their desire to leav e. I stated that this would be against medical advice especially in the setting of requiring supplemental oxygen. Counseled regarding risks of worsening condition and . Patient and her daughter expressed understand and continued wish to leave. Reiterated that they were welcome to come back for care at if they desired. Per my determination the patient had medical decision making capacity and understood risks and benefits. PAST MEDICAL HISTORY Cardiovascular: CAD, CHF, HTN, Hyperlipidemia, Other (bradycardia ) Pulmonary: COPD, Other (BRITTANI) Renal/: Chronic renal insuff Endocrine: Diabetes, Hypothyroidism PAST SURGICAL HISTORY Past Surgical History: CABG FAMILY HISTORY Family History: Heart Disease, Hypertension SOCIAL HISTORY Smoke: No ALCOHOL: none Drugs: None Lives: with Family ALLERGIES ALLERGIES: Coded Allergies: No Known Drug Allergies (Unverified , 05/13/21) ROS Review of System 14 point ROS conducted with pertinent positives noted above in HPI PHYSICAL EXAM General: Alert, Oriented X3, Cooperative, No acute distress HEENT: Atraumatic Lungs: Other (on NC) Heart: Regular rate (SR/SB rate presently 56) Abdomen: Other (obese) Extremities: Other (trace bilateral LE edema ) Skin: No significant lesion Neuro: Normal speech, Sensation intact Psych/Mental Status: Mental status NL, Mood NL MUSCULOSKELETAL: Osteoarthritic changes both hands VITALS/I&O VITALS/I&O: Vital Signs Date Time Temp Pulse Resp B/P (MAP) Pulse Ox O2 Delivery O2 Flow Rate FiO2 05/16/21 10:10 68 138/72 05/16/21 08:00 Nasal Cannula 2.0 05/16/21 07:00 97.6 17 98 97.6 I & O 05/15/21 05/15/21 05/16/21 15:00 23:00 07:00 Intake Total 620 ml 0 ml 300 ml Balance 620 ml 0 ml 300 ml LABS Lab: Laboratory Tests Test 05/15/21 16:48 05/15/21 19:11 05/16/21 07:32 05/16/21 11:45 Glucose (Fingerstick) 278 mg/dL (70-99) H 292 mg/dL (70-99) H 276 mg/dL (70-99) H Magnesium Level 2.4 mg/dL (1.8-2.4) Test 05/16/21 12:06 Glucose (Fingerstick) 259 mg/dL (70-99) H ECHOCARDIOGRAM ECHOCARDIOGRAM 04/28/21 - 2D + DOPPLER ECHO Interpretation Summary Limited study given poor visualization of cardiac structures. Normal left ventricular systolic function with an ejection fraction of 55%. The right ventricle is poorly seen. Function appears to be borderline/mildly impaired. Moderate/grade 2 diastolic dysfunction. Evidence of elevated left atrial pressure. Mild right atrial enlargement. Mild left atrial enlargement. Moderate mitral annular calcification, visual restriction of anterior/posterior leaflet excursion. Mean gradient 5 to 6 mmHg suggestive of mild mitral stenosis. No pericardial effusion. Visualized portions of the aortic root and ascending thoracic aorta are within normal limits. CVP not estimated given poorly IVC. Peak PA systolic pressure cannot be estimated the current study. Compared to a prior September 2019 study. Continued preservation of LV systolic function. Limited views of cardiac structures. There has been interval increase in the mean gradient across the mitral valve now estimated 5 to 6 mmHg suggestive of a mild mitral valve stenosis with a ventricular rate of 59 to 62 bpm. The RV was not well seen on the current study though there is visual sug gestion of at least borderline/mild impairment of systolic function. No other clinically significant interval findings. STRESS TEST STRESS TEST 10/17/19 - Procedure: D-SPECT MULTI GATED THALLIUM REGADENOSON MPI STRESS TEST SUMMARY/OPINION: This study is abnormal. There is a moderate-sized area of moderate to severe intensity equally fixed and reversible inferolateral perfusion abnormality from apex to base suggestive of injury and ischemia in the circumflex distribution. Viability appears to be preserved in all the segments. Left ventricular systolic function is borderline. There are no high risk prognostic indicators present. The pharmacologic ECG portion of the study is negative for ischemia. No prior study is available for direct comparison. Patient had prior study dated 03/29/2016, a pharmacological stress thallium study using DSPECT camera. Previous study was abnormal and demonstrated moderate size moderate intensity predominantly reversible inferolateral perfusion abnormality. Left ventricular ejection fraction was 66%, end-diastolic volume 69 mL and pulmonary to myocardial count ratio was 0.25. Compared to the prior report (images are not available), current study demonstrate less reversibility in the inferolateral segments. Compared to scanned images, reversibility again appears to be less prominent in the inferolateral segments. In aggregate the current study is intermediate risk in regards to predicted annual cardiovascular mortality rate. HEART CATH HEART CATH 04/02/16 Cath: Severe [place] 3-vessel coronary artery disease. Patent vein graft to the posterior descending arterial branch with a 50% lesion of the distal anastomotic site. Sequential patent vein graft to the diagonal branch, to ramus intermedius, to the obtuse marginal branch, and then to the distal circumflex artery. The ramus intermedius has an area of about 70% to 80% lesion, probably the area which is picked up on the stress test. This is a small vessel. Patent LEIJA graft to the left anterior descending artery with moderate to significant disease of the mid LAD, but the LAD appears to be a small vessel distal. No evidence of any significant gradient across the aortic valve. ASSESSMENT/PLAN ASSESSMENT/PLAN 1. Acute respiratory failure secondary to COVID PNA 2. Arrhythmia; 18-beat NSVT noted on tele. Otherwise SR. Mg WNL. Unable to place on BB or CCB due to underlying sinus bradycardia at baseline. 3. CAD s/p CABG 2004. Follows with Dr. Lidia GARCIA. Most recent stress test as noted above 4. Chronic diastolic CHF; Echo 05/07 with preserved LV systolic function 5. Accelerated hypertension; now controlled 6. Hyperlipidemia; statin, Zetia 7. Diabetes, II 8. SUZIE on CKD; 1.1 at [facility] 05/13/21 9. Hypothyroidism 10. Morbid obesity, BRITTANI. noncompliant with CPAP Recommendations Continue secondary prevention ASA, statin therapy. Avoid AV mariaam block agents with bradycardia Hold Lasix, losartan with SUZIE Am labs Hydralazine IV PRN Keep Mg > 2.0 and K > 4.0 Ongoing lung optimization, treatment of PNA Supportive care FIOR PALMER MD 05/16/21 1652: CARDIAC CONSULT ASSESSMENT/PLAN ASSESSMENT/PLAN Patient seen and evaluated. I agree with our nurse practitioners assessment and plan. Acute respiratory failure secondary to COVID PNA. Continuing on medications as above. Arrhythmia; 18-beat NSVT noted on tele. Otherwise SR. Mg WNL. Intact LV systolic function. Unable to place on BB or CCB due to underlying sinus bradycardia at baseline. Continue to monitor. CAD s/p CABG 2004. Follows with Dr. Lidia GARCIA. Most recent stress test as noted above Chronic diastolic CHF Accelerated hypertension; now controlled Hyperlipidemia; statin, Zetia SUZIE on CKD; 1.1 at [facility] 05/13/21. Holding losartan. Morbid obesity, BRITTANI. noncompliant with CPAP MOISES AGUILAR APRN May 16, 2021 13:10 FIOR PALMER MD May 16, 2021 16:52
[2021-05-16 15:00] VITALS: BP 133/54
[2021-05-16] MEDS: REMDESIVIR 100mg in NORMAL SALINE 250ML X 4 DAYS IV SCH (16:51)
[2021-05-16 19:00] VITALS: BP 142/62
[2021-05-16] MEDS: ATORVASTATIN CALCIUM 40 MG TABLET. PO SCH (21:07)
[2021-05-16] MEDS: LACTOBACILLUS RHAMNOSUS GG 1 CAPSULE. PO SCH (21:07)
[2021-05-16] MEDS: GABAPENTIN 100 MG CAPSULE. PO SCH (21:07)
[2021-05-16] MEDS: ALBUTEROL SULFATE 8GM INHALER. INH PRN (21:15)
[2021-05-16 23:19] VITALS: BP 132/66
[2021-05-17] MEDS: PIPERACILLIN/TAZOBACTAM 2.25 GM in IV NORMAL SALINE 50ML 50 ML IV SCH ×5 (00:10→23:40)
[2021-05-17 02:38] VITALS: BP 152/56
[2021-05-17] MEDS: LEVOTHYROXINE 175 MCG TABLET PO SCH (05:43)
[2021-05-17] MEDS: HEPARIN for SUB-Q USE 5,000 UNIT/ML VIAL. SQ SCH ×3 (05:47→20:31)
[2021-05-17 07:00] VITALS: BP 117/48
[2021-05-17 07:08] LABS: BASO % 0 % (0-3); EOS % 0 % (0-3); HEMOGLOBIN 10.9 g/dL (12.0-15.5); LYMPH # 0.7 x10^3/uL (1.0-4.8); LYMPH % 21 % (24-48); MEAN CORPUSCULAR HEMOGLOBIN 30 pg (25-35); MEAN CORPUSCULAR HGB CONC 31 g/dL (31-37); MEAN CORPUSCULAR VOLUME 95 fL (79-100); MONO # 0.4 x10^3/uL (0.0-1.1); MONO % 14 % (0-9); NEUT % 64 % (31-73); PLATELET COUNT 174 x10^3/uL (140-400); RED BLOOD COUNT 3.67 x10^6/uL (3.50-5.40); RED CELL DISTRIBUTION WIDTH 15.1 % (11.5-14.5); WHITE BLOOD COUNT 3.1 x10^3/uL (4.0-11.0)
[2021-05-17 07:30] LABS: ALBUMIN 2.3 g/dL (3.4-5.0); ALBUMIN/GLOBULIN RATIO 0.6 (1.0-1.7); CREATININE 5.6 mg/dL (0.6-1.0); GFR 8.9; POTASSIUM 4.9 mmol/L (3.5-5.1); TOTAL BILIRUBIN 0.1 mg/dL (0.2-1.0); TOTAL PROTEIN 6.2 g/dL (6.4-8.2)
[2021-05-17] MEDS: DEXAMETHASONE SOD PHOS 4 MG/ML VIAL IVP SCH (08:10)
[2021-05-17] MEDS: ASPIRIN CHEWABLE 81 MG TABLET. PO SCH (08:10)
[2021-05-17] MEDS: MULTIVITAMIN with MINERAL TABLET. PO SCH (08:10)
[2021-05-17] MEDS: EZETIMIBE 10 MG TABLET. PO SCH (08:10)
[2021-05-17] MEDS: ISOSORBIDE MONONITRATE ER 30 MG TAB.ER.24H PO SCH (08:11)
[2021-05-17] MEDS: ALLOPURINOL 100 MG TABLET. PO SCH (08:11)
[2021-05-17] MEDS: LACTOBACILLUS RHAMNOSUS GG 1 CAPSULE. PO SCH ×2 (08:12→20:28)
[2021-05-17] MEDS: SENNOSIDES/DOCUSATE 8.6/50MG TABLET. PO SCH ×2 (08:14→20:28)
[2021-05-17] MEDS: INSULIN LISPRO 300 UNITS/3 ML VIAL. SQ SCH ×4 (08:14→20:31)
[2021-05-17] MEDS: INSULIN GLARGINE SYRINGE. SQ SCH ×2 (10:35→20:32)
[2021-05-17 11:00] VITALS: BP 148/62
--- NOTE | 2021-05-17 11:07 | PDOC ---
MOISES AGUILAR BOTTLE LABELER 05/17/21 1107: CARDIO Progress Notes Date and Time Date of Service 05/17/21 Time of Evaluation 1110 Subjective Subjective: No Chest Pain, No Palpitations, No Dizziness, Other (not more SOA. reports fatigue) Vitals Vitals Vital Signs Date Time Temp Pulse Resp B/P (MAP) Pulse Ox O2 Delivery O2 Flow Rate FiO2 05/17/21 08:12 60 117/48 05/17/21 07:00 98.4 24 98 Nasal Cannula 2.0 98.4 Weight Weight [ ] Input and Output Intake and Output Intake and Output 05/17/21 07:00 Intake Total 540 ml Balance 540 ml Intake Oral 540 ml # Voids 4 # Bowel Movements 3 Laboratory Labs Laboratory Tests Test 05/16/21 11:45 05/16/21 12:06 05/16/21 17:00 05/16/21 20:19 Magnesium Level 2.4 mg/dL (1.8-2.4) Glucose (Fingerstick) 259 mg/dL (70-99) 302 mg/dL (70-99) 323 mg/dL (70-99) Test 05/17/21 05:50 05/17/21 07:14 White Blood Count 3.1 x10^3/uL (4.0-11.0) Red Blood Count 3.67 x10^6/uL (3.50-5.40) Hemoglobin 10.9 g/dL (12.0-15.5) Hematocrit 35.0 % (36.0-47.0) Mean Corpuscular Volume 95 fL (79-100) Mean Corpuscular Hemoglobin 30 pg (25-35) Mean Corpuscular Hemoglobin Concent 31 g/dL (31-37) Red Cell Distribution Width 15.1 % (11.5-14.5) Platelet Count 174 x10^3/uL (140-400) Neutrophils (%) (Auto) 64 % (31-73) Lymphocytes (%) (Auto) 21 % (24-48) Monocytes (%) (Auto) 14 % (0-9) Eosinophils (%) (Auto) 0 % (0-3) Basophils (%) (Auto) 0 % (0-3) Neutrophils # (Auto) 2.0 x10^3/uL (1.8-7.7) Lymphocytes # (Auto) 0.7 x10^3/uL (1.0-4.8) Monocytes # (Auto) 0.4 x10^3/uL (0.0-1.1) Eosinophils # (Auto) 0.0 x10^3/uL (0.0-0.7) Basophils # (Auto) 0.0 x10^3/uL (0.0-0.2) Sodium Level 137 mmol/L (136-145) Potassium Level 4.9 mmol/L (3.5-5.1) Chloride Level 100 mmol/L (98-107) Carbon Dioxide Level 21 mmol/L (21-32) Anion Gap 16 (6-14) Blood Urea Nitrogen 89 mg/dL (7-20) Creatinine 5.6 mg/dL (0.6-1.0) Estimated GFR (Cockcroft-Gault) 8.9 BUN/Creatinine Ratio 16 (6-20) Glucose Level 228 mg/dL (70-99) Calcium Level 8.0 mg/dL (8.5-10.1) Total Bilirubin 0.1 mg/dL (0.2-1.0) Aspartate Amino Transf (AST/SGOT) 24 U/L (15-37) Alanine Aminotransferase (ALT/SGPT) 21 U/L (14-59) Alkaline Phosphatase 103 U/L (46-116) Total Protein 6.2 g/dL (6.4-8.2) Albumin 2.3 g/dL (3.4-5.0) Albumin/Globulin Ratio 0.6 (1.0-1.7) Glucose (Fingerstick) 210 mg/dL (70-99) Microbiology Micro Microbiology 05/13/21 Blood Culture - Preliminary, Resulted NO GROWTH AFTER 3 DAYS Physical Exam HEENT: Neck Supple W Full Motion Chest: Symmetric LUNGS: Other (on NC) Heart: RRR (SR/SB) Abdomen: Other (non-distended) Extremities: No Edema Neurology: alert, oriented, follow commands Assessment Assessment 1. Acute respiratory failure secondary to COVID PNA 2. Arrhythmia; 18-beat NSVT noted on tele 05/16. Otherwise SR. Mg WNL. Unable to place on BB or CCB due to underlying sinus bradycardia at baseline. 3. CAD s/p CABG 2004. Follows with Dr. Lidia GARCIA. 4. Chronic diastolic CHF; Echo 05/07 with preserved LV systolic function 5. Accelerated hypertension; now controlled 6. Hyperlipidemia; statin, Zetia 7. Diabetes, II 8. SUZIE on CKD; 1.1 at [facility] 05/13/21. Cr ^ 5.6 9. Hypothyroidism 10. Morbid obesity, BRITTANI. noncompliant with CPAP Recommendations Continue secondary prevention ASA, statin therapy. Avoid AV mariama block agents with bradycardia No Lasix, losartan with SUZIE Avoid nephrotoxins Renal consult Hydralazine IV PRN Keep Mg > 2.0 and K > 4.0 Ongoing lung optimization, treatment of COVID Supportive care Justicifation of Admission Dx: Justifications for Admission: Justification of Admission Dx: Yes Comments: SUZIE COVID PNA FIOR PALMER MD 05/17/21 1636: CARDIO Progress Notes Assessment Assessment Patient seen and evaluated. I agree with our nurse practitioners assessment and plan. Acute respiratory failure secondary to COVID PNA. Continuing present treatment. Arrhythmia; 18-beat NSVT noted on tele 05/16. Otherwise SR. Mg WNL. Unable to place on BB or CCB due to underlying sinus bradycardia at baseline. Continues in sinus rhythm. CAD s/p CABG 2004. Follows with Dr. Lidia GARCIA. Chronic diastolic CHF; Echo 05/07 with preserved LV systolic function Accelerated hypertension; now controlled Hyperlipidemia; statin, Zetia Diabetes, II SUZIE on CKD; 1.1 at [facility] 05/13/21. Cr ^ 5.6. Renal evaluation. Morbid obesity, BRITTANI. noncompliant with CPAP MOISES AGUILAR APRN May 17, 2021 11:07 FIOR PALMER MD May 17, 2021 16:36
--- NOTE | 2021-05-17 11:32 | PDOC2 ---
CONSULT Date of Consult Date of Consult DATE: 05/17/21 TIME: 11:19 Reason for Consult Reason for Consult: SUZIE on CKD Referring Physician Referring Physician: Andria Wilson ([employer]) Source Source: Chart review, Patient History of Present Illness Reason for Visit: Patient is 75-year-old AA female who presented to the emergency room on 05/13 with c/o shortness of breath, cough, subjective fever, and fatigue for the past 7 to 10 days patient reports initially thought it was a common cold but when it kept persisting presents to the emergency room In ED with O2 saturations 86% on room air febrile to 101.3 F. Tested positive for COVID-19.Had episode of 18-beast NSVT on tele She had not been fully vaccinated. She initially presented to [facility] 05/13/21, but left AMA. She is currently on the COVID-19 protocol (Remdesivir, Aspirin, Multivitamins, Dexamethsone, Heparin SOdium, Piperacillin/Tazobactam, Acetaminophen).She reported that that she only received 1 dose of the COVID-19 vaccination. Currently denies any N/V/D. No CP . She is feeling short of breath and weak. O2 saturations 89 to 91% on 2 L nasal cannula oxygen. No chest pain.. Denies headache, vision changes, dizziness, chest pain, abdominal pain, dysuria, abnormal joint pains.No Urinary complaints Past Medical History Cardiovascular: CAD, CHF, HTN, Hyperlipidemia, Other (bradycardia ) Pulmonary: COPD, Other (BRITTANI) Renal/: Chronic renal insuff Endocrine: Diabetes, Hypothyroidism Past Surgical History Past Surgical History: CABG Family History Family History: Heart Disease, Hypertension Social History No ALCOHOL: none Drugs: None Lives: with Family Current Problem List Problem List Problems Medical Problems: (1) Hypomagnesemia syndrome Status: Acute (2) Hypoxia Status: Acute (3) Pneumonia due to COVID-19 virus Status: Acute Current Medications Current Medications Current Medications Magnesium Sulfate 50 ml @ 25 mls/hr 1X ONCE IV Last administered on 05/13/21at 15:58; Start 05/13/21 at 15:45; Stop 05/13/21 at 17:44; Status DC Methylprednisolone Sodium Succinate (SOLU-Medrol 125MG VIAL) 125 mg 1X ONCE IV Last administered on 05/13/21at 15:58; Start 05/13/21 at 15:45; Stop 05/13/21 at 15:46; Status DC Ceftriaxone Sodium (Rocephin) 1 gm 1X ONCE IVP Last administered on 05/13/21at 16:37; Start 05/13/21 at 16:00; Stop 05/13/21 at 16:02; Status DC Piperacillin Sod/ Tazobactam Sod (Zosyn Per Pharmacy) 1 each PRN DAILY PRN MC SEE COMMENTS; Start 05/13/21 at 16:15 Dexamethasone Sodium Phosphate (Decadron) 6 mg DAILY IVP Last administered on 05/17/21at 08:10; Start 05/14/21 at 09:00 Remdesivir 200 mg/ Sodium Chloride 210 ml @ 210 mls/hr 1X ONCE IV Last administered on 05/13/21at 20:59; Start 05/13/21 at 17:00; Stop 05/13/21 at 17:59; Status DC Remdesivir 100 mg/ Sodium Chloride 230 ml @ 460 mls/hr Q24H IV Last administered on 05/16/21at 16:51; Start 05/14/21 at 17:00; Stop 05/17/21 at 17:29 Multivitamins (Thera M Plus) 1 tab DAILY PO Last administered on 05/17/21at 08: 10; Start 05/14/21 at 09:00 Aspirin (Ecotrin) 81 mg DAILYWBKFT PO ; Start 05/14/21 at 08:00; Stop 05/13/21 at 18:10; Status DC Guaifenesin/ Codeine Phosphate (Robitussin Ac) 5 ml PRN Q6HRS PRN PO COUGH; Start 05/13/21 at 16:15; Stop 05/16/21 at 07:29; Status DC Azithromycin 250 ml @ 250 mls/hr 1X ONCE IV Last administered on 05/13/21at 16:37; Start 05/13/21 at 16:15; Stop 05/13/21 at 17:14; Status DC Magnesium Sulfate 50 ml @ 25 mls/hr 1X ONCE IV ; Start 05/13/21 at 16:15; Stop 05/13/21 at 18:14; Status Cancel Piperacillin Sod/ Tazobactam Sod 2.25 gm/Sodium Chloride 50 ml @ 100 mls/hr Q6HRS IV Last administered on 05/17/21at 05:39; Start 05/13/21 at 18:00 Ondansetron HCl (Zofran) 4 mg PRN Q6HRS PRN IVP NAUSEA/VOMITING; Start 05/13/21 at 17:00 Calcium Carbonate/ Glycine (Tums) 500 mg PRN Q3HRS PRN PO UPSET STOMACH; Start 05/13/21 at 17:00 Zolpidem Tartrate (Ambien) 5 mg PRN QHS PRN PO INSOMNIA, MAY REPEAT IN 1HR; Start 05/13/21 at 17:00; Stop 05/16/21 at 07:29; Status DC Info (Non-Icu Electrolyte Protocol) 1 ea PRN DAILY PRN MC SEE COMMENTS; Start 05/13/21 at 17:00 Oxycodone HCl (Roxicodone) 5 mg PRN Q3HRS PRN PO BREAKTHROUGH PAIN; Start 05/13/21 at 17:00 Oxycodone/ Acetaminophen (Percocet 5/325) 1 tab PRN Q4HRS PRN PO MILD PAIN, 1ST CHOICE; Start 05/13/21 at 17:00 Oxycodone/ Acetaminophen (Percocet 5/325) 2 tab PRN Q4HRS PRN PO MODERATE PAIN, SEVERE PAIN; Start 05/13/21 at 17:00 Acetaminophen (Tylenol) 650 mg PRN Q6HRS PRN PO Headaches, Temp > 101.5F Last administered on 05/13/21at 21:00; Start 05/13/21 at 17:00 Senna/Docusate Sodium (Senna Plus) 1 tab BID PO Last administered on 05/16/21at 10:09; Start 05/13/21 at 21:00 Heparin Sodium (Porcine) (Heparin Sodium) 5,000 unit Q8HRS SQ Last administered on 05/17/21at 05:47; Start 05/13/21 at 22:00 Allopurinol (Zyloprim) 100 mg DAILY PO Last administered on 05/17/21at 08:11; Start 05/14/21 at 09:00 Amlodipine Besylate (Norvasc) 5 mg DAILY PO Last administered on 05/17/21at 08:12; Start 05/14/21 at 09:00 Aspirin (Aspirin Chewable) 81 mg DAILY PO Last administered on 05/17/21at 08:10; Start 05/14/21 at 09:00 EZETIMIBE (Zetia) 10 mg DAILY PO Last administered on 05/17/21 08:10; Start 05/14/21 at 09:00 Furosemide (Lasix) 40 mg DAILY PO Last administered on 05/16/21at 10:09; Start 05/14/21 at 09:00; Stop 05/16/21 at 14:56; Status DC Gabapentin (Neurontin) 100 mg HS PO Last administered on 05/16/21 21:07; Start 05/13/21 at 21:00 Levothyroxine Sodium (Synthroid) 175 mcg DAILYAC PO Last administered on 05/17/21 05:43; Start 05/14/21 at 07:30 Losartan Potassium (Cozaar) 50 mg DAILY PO Last administered on 05/16/21 10:09; Start 05/14/21 at 09:00; Stop 05/16/21 at 14:56; Status DC Atorvastatin Calcium (Lipitor) 80 mg QHS PO Last administered on 05/16/21at 21:07; Start 05/13/21 at 21:00 Insulin Human Lispro (HumaLOG) 10 units 1X ONCE SQ Last administered on 05/14/21at 17:24; Start 05/14/21 at 17:30; Stop 05/14/21 at 17:31; Status DC Insulin Human Lispro (HumaLOG) 0-9 UNITS TIDWMEALS SQ Last administered on 05/16/21at 17:12; Start 05/15/21 at 08:00; Stop 05/16/21 at 21:03; Status DC Dextrose (Dextrose 50%-Water Syringe) 12.5 gm PRN Q15MIN PRN IV SEE COMMENTS; Start 05/14/21 at 17:30 Insulin Human Lispro (HumaLOG) 9 units 1X ONCE SQ Last administered on 05/14/21at 23:22; Start 05/14/21 at 23:30; Stop 05/14/21 at 23:31; Status DC Insulin Glargine (Lantus Syringe) 10 unit BID SQ Last administered on 05/17/21at 10:35; Start 05/14/21 at 23:30 Guaifenesin (Robitussin Dm) 10 ml PRN Q6HRS PRN PO COUGH Last administered on 8/30/21at 21:16; Start 05/16/21 at 07:30 Lactobacillus Rhamnosus (Culturelle) 1 cap BID PO Last administered on 05/17/21at 08:12; Start 05/16/21 at 21:00 Hydralazine HCl (Apresoline Inj) 10 mg PRN Q4HRS PRN IVP ELEVATED BP, SEE COMMENTS; Start 05/16/21 at 15:00 Isosorbide Mononitrate (Imdur) 30 mg DAILY PO Last administered on 05/17/21at 08:11; Start 05/17/21 at 09:00 Albuterol Sulfate (Ventolin Hfa) 2 puff PRN Q4HRS PRN INH WHEEZING Last administered on 05/16/21at 21:15; Start 05/16/21 at 20:00 Insulin Human Lispro (HumaLOG) 0-9 UNITS QIDACHS SQ Last administered on 05/17/21at 08:14; Start 05/16/21 at 21:30 Active Scripts Active Reported Zetia (Ezetimibe) 10 Mg Tablet 10 Mg PO DAILY Furosemide 40 Mg Tablet 1 Tab PO DAILY Hydrocodone-Apap 5-325 (Hydrocodone Bit/Acetaminophen) 1 Tab Tablet 1 Tab PO PRN BID PRN Allopurinol 100 Mg Tablet 1 Tab PO DAILY Aspirin 81 Mg Tab.chew 1 Tab PO DAILY Levothyroxine Sodium 175 Mcg Tablet 175 Mcg PO DAILYAC Amlodipine Besylate 5 Mg Tablet 5 Mg PO DAILY Hydralazine Hcl 25 Mg Tablet 1 Tab PO TID Gabapentin (Gabapentin) 100 Mg Capsule 100 Mg PO HS Atorvastatin Calcium 80 Mg Tablet 80 Mg PO DAILY Losartan Potassium 50 Mg Tablet 50 Mg PO DAILY Metformin Hcl 500 Mg Tablet 500 Mg PO BIDWMEALS Magnesium (Magnesium Oxide) 500 Mg Capsule 1 Cap PO BID 30 Days Allergies Allergies: Coded Allergies: No Known Drug Allergies (Unverified , 05/13/21) ROS Review of System As per HPI, rest of the ROS is negative Physical Exam Physical Exam General: No acute distress HEENT: OM moist Neck Supple Lungs: CTA ant, Non labored Heart: Regular rate Abdomen: obese, NT Extremities: trace bilateral LE edema Skin: No significant lesion, no rash Neuro: Normal speech, Sensation intact Psych/Mental Status: Mental status NL, Mood NL No sanchez, No CVA or SP tenderness Vital Signs Vital Signs Date Time Temp Pulse Resp B/P (MAP) Pulse Ox O2 Delivery O2 Flow Rate FiO2 05/17/21 11:00 61 26 148/62 (90) 93 Nasal Cannula 2.0 05/17/21 07:00 98.4 98.4 Assessment & Plan SUZIE - Cr elevated at presentation to the ER to 2.5 , no labs until today - worsening renal function . Agree with holding Lasix and Losartan Check UA, Renal US , supportive care,maintain hydration (cautious with Hx of CHF ) strict I/O , avoid nephrotoxins CKD; 1.1 at [facility] 05/13/21 (no labs in our system) Acute respiratory failure secondary to COVID PNA Arrhythmia; 18-beat NSVT noted on tele. Otherwise SR. CAD s/p CABG 2004. Follows with [facility], Dr. Murillo. Chronic diastolic CHF; Echo 05/07 with preserved LV systolic function Accelerated hypertension; now controlled Diabetes, II Morbid obesity, BRITTANI. noncompliant with CPAP Labs Labs Laboratory Tests Test 05/15/21 11:45 05/15/21 16:48 05/15/21 19:11 05/16/21 07:32 Glucose (Fingerstick) 214 mg/dL (70-99) 278 mg/dL (70-99) 292 mg/dL (70-99) 276 mg/dL (70-99) Test 05/16/21 11:45 05/16/21 12:06 05/16/21 17:00 05/16/21 20:19 Magnesium Level 2.4 mg/dL (1.8-2.4) Glucose (Fingerstick) 259 mg/dL (70-99) 302 mg/dL (70-99) 323 mg/dL (70-99) Test 05/17/21 05:50 05/17/21 07:14 White Blood Count 3.1 x10^3/uL (4.0-11.0) Red Blood Count 3.67 x10^6/uL (3.50-5.40) Hemoglobin 10.9 g/dL (12.0-15.5) Hematocrit 35.0 % (36.0-47.0) Mean Corpuscular Volume 95 fL (79-100) Mean Corpuscular Hemoglobin 30 pg (25-35) Mean Corpuscular Hemoglobin Concent 31 g/dL (31-37) Red Cell Distribution Width 15.1 % (11.5-14.5) Platelet Count 174 x10^3/uL (140-400) Neutrophils (%) (Auto) 64 % (31-73) Lymphocytes (%) (Auto) 21 % (24-48) Monocytes (%) (Auto) 14 % (0-9) Eosinophils (%) (Auto) 0 % (0-3) Basophils (%) (Auto) 0 % (0-3) Neutrophils # (Auto) 2.0 x10^3/uL (1.8-7.7) Lymphocytes # (Auto) 0.7 x10^3/uL (1.0-4.8) Monocytes # (Auto) 0.4 x10^3/uL (0.0-1.1) Eosinophils # (Auto) 0.0 x10^3/uL (0.0-0.7) Basophils # (Auto) 0.0 x10^3/uL (0.0-0.2) Sodium Level 137 mmol/L (136-145) Potassium Level 4.9 mmol/L (3.5-5.1) Chloride Level 100 mmol/L (98-107) Carbon Dioxide Level 21 mmol/L (21-32) Anion Gap 16 (6-14) Blood Urea Nitrogen 89 mg/dL (7-20) Creatinine 5.6 mg/dL (0.6-1.0) Estimated GFR (Cockcroft-Gault) 8.9 BUN/Creatinine Ratio 16 (6-20) Glucose Level 228 mg/dL (70-99) Calcium Level 8.0 mg/dL (8.5-10.1) Total Bilirubin 0.1 mg/dL (0.2-1.0) Aspartate Amino Transf (AST/SGOT) 24 U/L (15-37) Alanine Aminotransferase (ALT/SGPT) 21 U/L (14-59) Alkaline Phosphatase 103 U/L (46-116) Total Protein 6.2 g/dL (6.4-8.2) Albumin 2.3 g/dL (3.4-5.0) Albumin/Globulin Ratio 0.6 (1.0-1.7) Glucose (Fingerstick) 210 mg/dL (70-99) Laboratory Tests Test 05/16/21 11:45 05/16/21 12:06 05/16/21 17:00 05/16/21 20:19 Magnesium Level 2.4 mg/dL (1.8-2.4) Glucose (Fingerstick) 259 mg/dL (70-99) 302 mg/dL (70-99) 323 mg/dL (70-99) Test 05/17/21 05:50 05/17/21 07:14 White Blood Count 3.1 x10^3/uL (4.0-11.0) Red Blood Count 3.67 x10^6/uL (3.50-5.40) Hemoglobin 10.9 g/dL (12.0-15.5) Hematocrit 35.0 % (36.0-47.0) Mean Corpuscular Volume 95 fL (79-100) Mean Corpuscular Hemoglobin 30 pg (25-35) Mean Corpuscular Hemoglobin Concent 31 g/dL (31-37) Red Cell Distribution Width 15.1 % (11.5-14.5) Platelet Count 174 x10^3/uL (140-400) Neutrophils (%) (Auto) 64 % (31-73) Lymphocytes (%) (Auto) 21 % (24-48) Monocytes (%) (Auto) 14 % (0-9) Eosinophils (%) (Auto) 0 % (0-3) Basophils (%) (Auto) 0 % (0-3) Neutrophils # (Auto) 2.0 x10^3/uL (1.8-7.7) Lymphocytes # (Auto) 0.7 x10^3/uL (1.0-4.8) Monocytes # (Auto) 0.4 x10^3/uL (0.0-1.1) Eosinophils # (Auto) 0.0 x10^3/uL (0.0-0.7) Basophils # (Auto) 0.0 x10^3/uL (0.0-0.2) Sodium Level 137 mmol/L (136-145) Potassium Level 4.9 mmol/L (3.5-5.1) Chloride Level 100 mmol/L (98-107) Carbon Dioxide Level 21 mmol/L (21-32) Anion Gap 16 (6-14) Blood Urea Nitrogen 89 mg/dL (7-20) Creatinine 5.6 mg/dL (0.6-1.0) Estimated GFR (Cockcroft-Gault) 8.9 BUN/Creatinine Ratio 16 (6-20) Glucose Level 228 mg/dL (70-99) Calcium Level 8.0 mg/dL (8.5-10.1) Total Bilirubin 0.1 mg/dL (0.2-1.0) Aspartate Amino Transf (AST/SGOT) 24 U/L (15-37) Alanine Aminotransferase (ALT/SGPT) 21 U/L (14-59) Alkaline Phosphatase 103 U/L (46-116) Total Protein 6.2 g/dL (6.4-8.2) Albumin 2.3 g/dL (3.4-5.0) Albumin/Globulin Ratio 0.6 (1.0-1.7) Glucose (Fingerstick) 210 mg/dL (70-99) Review All relevant outside records, renal labs, imaging studies, telemetry/EKG's were reviewed. Images Images Findings: There are patchy bilateral interstitial alveolar infiltrates. Left bas ilar obscuration could reflect an associated pleural effusion or atelectasis. No pneumothorax is identified. Median sternotomy noted. No acute osseous changes are seen. IMPRESSION: 1. Bilateral interstitial alveolar infiltrates. 2. Left basilar effusion or atelectasis AMINA MÁRQUEZ MD May 17, 2021 11:32
--- NOTE | 2021-05-17 11:40 | PDOC ---
[employer] PROGRESS NOTE Date of Service DOS: DATE: 05/17/21 TIME: 11:40 Chief Complaint Chief Complaint Pneumonia secondary to COVID-19 infection Acute Hypoxic Respiratory Failure Hypomagnesemia CAD CHF Type II Diabetes History of Present Illness History of Present Illness Ms Braswell is a 75yo F w/ PMHx HTN, DM2, CHF, CAD s/p CABG who came to ED on 05/13/2020 progressive shortness of breath over the prior week. In ED with O2 saturations 86% on room air febrile to 101.3 F. Tested positive for COVID-19. She had not been fully vaccinated. 05/14: Weak and was resting. She is currently on the COVID-19 protocol (Remdesivir, Aspirin, Multivitamins, Dexamethsone, Heparin SOdium, Piperacillin/Tazobactam, Acetaminophen). Mrs. Braswell states that she only received 1 dose of the COVID-19 vaccination. 05/15: She is feeling better. This morning, she was able to eat her breakfast. She remains on the COVID-19 Protocol (Remdesivir, Aspirin, Multivitamins, Dexamethsone, Heparin Sodium, Piperacillin/Tazobactam, Acetaminophen). We reviewed the patient's chart and discussed with RN 05/16: Afebrile overnight. Glucose in the 200s. O2 saturations 89 to 91% on 2 L nasal cannula oxygen. She is feeling short of breath and weak. No chest pain.. Had some V. tach overnight. Afebrile. BUN over 88 and creatinine elevated. Holding furosemide and losartan. Baseline CR at [facility] was 1.1. Cardiology nephrology consulted today. Vitals/I&O Vitals/I&O: Vital Signs Date Time Temp Pulse Resp B/P (MAP) Pulse Ox O2 Delivery O2 Flow Rate FiO2 05/17/21 11:00 61 26 148/62 (90) 93 Nasal Cannula 2.0 05/17/21 07:00 98.4 98.4 I & O 05/16/21 05/16/21 05/17/21 15:00 23:00 07:00 Intake Total 190 ml 50 ml 300 ml Balance 190 ml 50 ml 300 ml Physical Exam General: Alert, Oriented X3, Cooperative, No acute distress Heart: Regular rate (SR/SB rate presently 56) Lungs: Wheezing Abdomen: Other (obese) Extremities: Other (trace bilateral LE edema ) Skin: No significant lesion Labs Labs: Laboratory Tests Test 05/16/21 11:45 05/16/21 12:06 05/16/21 17:00 05/16/21 20:19 Magnesium Level 2.4 mg/dL (1.8-2.4) Glucose (Fingerstick) 259 mg/dL (70-99) 302 mg/dL (70-99) 323 mg/dL (70-99) Test 05/17/21 05:50 05/17/21 07:14 White Blood Count 3.1 x10^3/uL (4.0-11.0) Red Blood Count 3.67 x10^6/uL (3.50-5.40) Hemoglobin 10.9 g/dL (12.0-15.5) Hematocrit 35.0 % (36.0-47.0) Mean Corpuscular Volume 95 fL (79-100) Mean Corpuscular Hemoglobin 30 pg (25-35) Mean Corpuscular Hemoglobin Concent 31 g/dL (31-37) Red Cell Distribution Width 15.1 % (11.5-14.5) Platelet Count 174 x10^3/uL (140-400) Neutrophils (%) (Auto) 64 % (31-73) Lymphocytes (%) (Auto) 21 % (24-48) Monocytes (%) (Auto) 14 % (0-9) Eosinophils (%) (Auto) 0 % (0-3) Basophils (%) (Auto) 0 % (0-3) Neutrophils # (Auto) 2.0 x10^3/uL (1.8-7.7) Lymphocytes # (Auto) 0.7 x10^3/uL (1.0-4.8) Monocytes # (Auto) 0.4 x10^3/uL (0.0-1.1) Eosinophils # (Auto) 0.0 x10^3/uL (0.0-0.7) Basophils # (Auto) 0.0 x10^3/uL (0.0-0.2) Sodium Level 137 mmol/L (136-145) Potassium Level 4.9 mmol/L (3.5-5.1) Chloride Level 100 mmol/L (98-107) Carbon Dioxide Level 21 mmol/L (21-32) Anion Gap 16 (6-14) Blood Urea Nitrogen 89 mg/dL (7-20) Creatinine 5.6 mg/dL (0.6-1.0) Estimated GFR (Cockcroft-Gault) 8.9 BUN/Creatinine Ratio 16 (6-20) Glucose Level 228 mg/dL (70-99) Calcium Level 8.0 mg/dL (8.5-10.1) Total Bilirubin 0.1 mg/dL (0.2-1.0) Aspartate Amino Transf (AST/SGOT) 24 U/L (15-37) Alanine Aminotransferase (ALT/SGPT) 21 U/L (14-59) Alkaline Phosphatase 103 U/L (46-116) Total Protein 6.2 g/dL (6.4-8.2) Albumin 2.3 g/dL (3.4-5.0) Albumin/Globulin Ratio 0.6 (1.0-1.7) Glucose (Fingerstick) 210 mg/dL (70-99) Assessment and Plan Assessmemt and Plan Problems Medical Problems: (1) Hypomagnesemia syndrome Status: Acute (2) Hypoxia Status: Acute (3) Pneumonia due to COVID-19 virus Status: Acute Comment Review of Relevant I have reviewed the following items maged (where applicable) has been applied. Medications: Current Medications Medications (Trade) Dose Ordered Sig/Lemuel Route PRN Reason Start Time Stop Time Status Last Admin Dose Admin Lactobacillus Rhamnosus (Culturelle) 1 cap BID PO 05/16/21 21:00 05/17/21 08:12 Isosorbide Mononitrate (Imdur) 30 mg DAILY PO 05/17/21 09:00 05/17/21 08:11 Albuterol Sulfate (Ventolin Hfa) 2 puff PRN Q4HRS PRN INH WHEEZING 05/16/21 20:00 05/16/21 21:15 Insulin Human Lispro (HumaLOG) 0-9 UNITS QIDACHS SQ 05/16/21 21:30 05/17/21 08:14 Justifications for Admission Other Justification GENO YEBOAH MD May 17, 2021 11:40
[2021-05-17] MEDS: IV NORMAL SALINE 1000ML BAG 1,000 ML IV SCH ×2 (13:13→23:41)
[2021-05-17 15:00] VITALS: BP 115/48
--- NOTE | 2021-05-17 17:23 | RAD ---
EXAM: RENAL ULTRASOUND CLINICAL HISTORY: Acute renal insufficiency. COMPARISON: None available. TECHNIQUE: Ultrasound examination of the bilateral kidneys and urinary bladder was performed. FINDINGS: The right kidney measures 10.1 x 3.8 x 4.8 cm. The left kidney measures 10.0 x 3.8 x 4.5 cm. The bladder is empty. Very limited study due to patient body habitus. IMPRESSION: Limited examination due to patient body habitus. No evidence of hydronephrosis. Electronically signed by: Hu Velazquez MD (05/17/2021 5:20 PM) [id number]
[2021-05-17] MEDS: REMDESIVIR 100mg in NORMAL SALINE 250ML X 4 DAYS IV SCH (17:45)
[2021-05-17 19:00] VITALS: BP 123/57
[2021-05-17] MEDS: GABAPENTIN 100 MG CAPSULE. PO SCH (20:29)
[2021-05-17] MEDS: ATORVASTATIN CALCIUM 40 MG TABLET. PO SCH (20:29)
[2021-05-17 23:00] VITALS: BP 140/50
[2021-05-18 03:00] VITALS: BP 114/50
[2021-05-18] MEDS: PIPERACILLIN/TAZOBACTAM 2.25 GM in IV NORMAL SALINE 50ML 50 ML IV SCH ×3 (05:45→17:44)
[2021-05-18] MEDS: HEPARIN for SUB-Q USE 5,000 UNIT/ML VIAL. SQ SCH ×3 (05:58→20:52)
[2021-05-18 07:00] VITALS: BP 151/53
[2021-05-18] MEDS: INSULIN LISPRO 300 UNITS/3 ML VIAL. SQ SCH ×4 (07:23→20:52)
[2021-05-18] MEDS: LEVOTHYROXINE 175 MCG TABLET PO SCH (07:51)
[2021-05-18 08:18] LABS: ALBUMIN 2.1 g/dL (3.4-5.0); CALCIUM 7.9 mg/dL (8.5-10.1); CREATININE 6.9 mg/dL (0.6-1.0); PHOSPHORUS 8.1 mg/dL (2.6-4.7); POTASSIUM 4.2 mmol/L (3.5-5.1)
[2021-05-18] MEDS: SENNOSIDES/DOCUSATE 8.6/50MG TABLET. PO SCH ×2 (09:00→20:51)
--- NOTE | 2021-05-18 09:16 | PDOC ---
DATE OF SERVICE DATE: 05/18/21 TIME: 09:12 SUBJECTIVE ROS stable , per nursing she is having diarrhea , No UOP since this morning No N/V OBJECTIVE Vital Signs Vital Signs Date Time Temp Pulse Resp B/P (MAP) Pulse Ox O2 Delivery O2 Flow Rate FiO2 05/18/21 07:00 96.6 87 18 151/53 (85) 95 96.6 05/17/21 20:00 Nasal Cannula 2.0 I & 0 Intake and Output 05/18/21 07:00 Intake Total 970 ml Balance 970 ml Intake Oral 620 ml IV Total 350 ml # Voids 2 # Bowel Movements 3 PHYSICAL EXAM Physical Exam General: No acute distress HEENT: OM moist Neck Supple Lungs: CTA ant, Non labored Heart: Regular rate Abdomen: obese, NT Extremities: trace bilateral LE edema Skin: No significant lesion, no rash Neuro: Normal speech, Sensation intact Psych/Mental Status: Mental status NL, Mood NL No sanchez, No CVA or SP tenderness DIAGNOSIS/ASSESSMENT Assessment & Plan SUZIE - Cr elevated at presentation to the ER to 2.5 worsening renal function . Lasix and Losartan held UA was ordered yesterday, not collected, Renal US unremarkable , supportive care,maintain hydration (cautious with Hx of CHF ) strict I/O (uop not recorded) , avoid nephrotoxins, if no improvement will need dialysis and temp HDC in the morning . Enrique RN CKD; 1.1 at [facility] 05/13/21 (no labs in our system) Acute respiratory failure secondary to COVID PNA Arrhythmia; 18-beat NSVT noted on tele. Otherwise SR. CAD s/p CABG 2004. Follows with [facility], Dr. Murillo. Chronic diastolic CHF; Echo 05/07 with preserved LV systolic function Accelerated hypertension; now controlled Diabetes, II Morbid obesity, BRITTANI. noncompliant with CPAP COMMENT/RELEVANT DATA Meds Current Medications Medications (Trade) Dose Ordered Sig/Lemuel Start Time Stop Time Status Last Admin Dose Admin Acetaminophen (Tylenol) 650 mg PRN Q6HRS PRN 05/13/21 17:00 05/13/21 21:00 650 MG Albuterol Sulfate (Ventolin Hfa) 2 puff PRN Q4HRS PRN 05/16/21 20:00 05/16/21 21:15 2 PUFF Allopurinol (Zyloprim) 100 mg DAILY 05/14/21 09:00 05/17/21 08:11 100 MG Amlodipine Besylate (Norvasc) 5 mg DAILY 05/14/21 09:00 05/17/21 08:12 5 MG Aspirin (Aspirin Chewable) 81 mg DAILY 05/14/21 09:00 05/17/21 08:10 81 MG Aspirin (Ecotrin) 81 mg DAILYWBKFT 05/14/21 08:00 05/13/21 18:10 DC Atorvastatin Calcium (Lipitor) 80 mg QHS 05/13/21 21:00 05/17/21 20:29 80 MG Azithromycin 250 ml @ 250 mls/hr 1X ONCE 05/13/21 16:15 05/13/21 17:14 DC 05/13/21 16:37 250 MLS/HR Calcium Carbonate/ Glycine (Tums) 500 mg PRN Q3HRS PRN 05/13/21 17:00 Ceftriaxone Sodium (Rocephin) 1 gm 1X ONCE 05/13/21 16:00 05/13/21 16:02 DC 05/13/21 16:37 1 GM Dexamethasone Sodium Phosphate (Decadron) 6 mg DAILY 05/14/21 09:00 05/17/21 08:10 6 MG Dextrose (Dextrose 50%-Water Syringe) 12.5 gm PRN Q15MIN PRN 05/14/21 17:30 EZETIMIBE (Zetia) 10 mg DAILY 05/14/21 09:00 05/17/21 08:10 10 MG Furosemide (Lasix) 40 mg DAILY 05/14/21 09:00 05/16/21 14:56 DC 05/16/21 10:09 40 MG Gabapentin (Neurontin) 100 mg HS 05/13/21 21:00 05/17/21 20:29 100 MG Guaifenesin (Robitussin Dm) 10 ml PRN Q6HRS PRN 05/16/21 07:30 05/16/21 21:16 10 ML Guaifenesin/ Codeine Phosphate (Robitussin Ac) 5 ml PRN Q6HRS PRN 05/13/21 16:15 05/16/21 07:29 DC Heparin Sodium (Porcine) (Heparin Sodium) 5,000 unit Q8HRS 05/13/21 22:00 05/18/21 05:58 5,000 UNIT Hydralazine HCl (Apresoline Inj) 10 mg PRN Q4HRS PRN 05/16/21 15:00 Info (Non-Icu Electrolyte Protocol) 1 ea PRN DAILY PRN 05/13/21 17:00 Insulin Glargine (Lantus Syringe) 10 unit BID 05/14/21 23:30 05/17/21 20:32 10 UNIT Insulin Human Lispro (HumaLOG) 0-9 UNITS QIDACHS 05/16/21 21:30 05/17/21 20:31 5 UNITS Isosorbide Mononitrate (Imdur) 30 mg DAILY 05/17/21 09:00 05/17/21 08:11 30 MG Lactobacillus Rhamnosus (Culturelle) 1 cap BID 05/16/21 21:00 05/17/21 20:28 1 CAP Levothyroxine Sodium (Synthroid) 175 mcg DAILYAC 05/14/21 07:30 05/18/21 07:51 175 MCG Losartan Potassium (Cozaar) 50 mg DAILY 05/14/21 09:00 05/16/21 14:56 DC 05/16/21 10:09 50 MG Magnesium Sulfate 50 ml @ 25 mls/hr 1X ONCE 05/13/21 16:15 05/13/21 18:14 Cancel Methylprednisolone Sodium Succinate (SOLU-Medrol 125MG VIAL) 125 mg 1X ONCE 05/13/21 15:45 05/13/21 15:46 DC 05/13/21 15:58 125 MG Multivitamins (Thera M Plus) 1 tab DAILY 05/14/21 09:00 05/17/21 08:10 1 TAB Ondansetron HCl (Zofran) 4 mg PRN Q6HRS PRN 05/13/21 17:00 Oxycodone HCl (Roxicodone) 5 mg PRN Q3HRS PRN 05/13/21 17:00 Oxycodone/ Acetaminophen (Percocet 5/325) 2 tab PRN Q4HRS PRN 05/13/21 17:00 Piperacillin Sod/ Tazobactam Sod (Zosyn Per Pharmacy) 1 each PRN DAILY PRN 05/13/21 16:15 Piperacillin Sod/ Tazobactam Sod 2.25 gm/Sodium Chloride 50 ml @ 100 mls/hr Q6HRS 05/13/21 18:00 05/18/21 05:45 100 MLS/HR Remdesivir 100 mg/ Sodium Chloride 230 ml @ 460 mls/hr Q24H 05/14/21 17:00 05/17/21 17:29 DC 05/17/21 17:45 460 MLS/HR Remdesivir 200 mg/ Sodium Chloride 210 ml @ 210 mls/hr 1X ONCE 05/13/21 17:00 05/13/21 17:59 DC 05/13/21 20:59 210 MLS/HR Senna/Docusate Sodium (Senna Plus) 1 tab BID 05/13/21 21:00 05/17/21 20:28 1 TAB Sodium Chloride 1,000 ml @ 75 mls/hr [id number] 05/17/21 11:45 05/17/21 23:41 75 MLS/HR Zolpidem Tartrate (Ambien) 5 mg PRN QHS PRN 05/13/21 17:00 05/16/21 07:29 DC Lab Laboratory Tests Test 05/17/21 11:58 05/17/21 17:18 05/17/21 21:08 05/18/21 06:40 Glucose (Fingerstick) 231 mg/dL (70-99) 248 mg/dL (70-99) 245 mg/dL (70-99) Sodium Level 138 mmol/L (136-145) Potassium Level 4.2 mmol/L (3.5-5.1) Chloride Level 101 mmol/L (98-107) Carbon Dioxide Level 20 mmol/L (21-32) Anion Gap 17 (6-14) Blood Urea Nitrogen 106 mg/dL (7-20) Creatinine 6.9 mg/dL (0.6-1.0) Estimated GFR (Cockcroft-Gault) 7.0 Glucose Level 139 mg/dL (70-99) Calcium Level 7.9 mg/dL (8.5-10.1) Phosphorus Level 8.1 mg/dL (2.6-4.7) Albumin 2.1 g/dL (3.4-5.0) Test 05/18/21 07:16 Glucose (Fingerstick) 131 mg/dL (70-99) Results All relevant outside records, renal labs, imaging studies, telemetry/EKG's were reviewed. Other Renal US The right kidney measures 10.1 x 3.8 x 4.8 cm. The left kidney measures 10.0 x 3.8 x 4.5 cm. The bladder is empty. Very limited study due to patient body habitus. IMPRESSION: Limited examination due to patient body habitus. No evidence of hydronephrosis. Justicifation of Admission Dx: Justifications for Admission: Justification of Admission Dx: Yes AMINA MÁRQUEZ MD May 18, 2021 09:16
[2021-05-18] MEDS: ASPIRIN CHEWABLE 81 MG TABLET. PO SCH (09:33)
[2021-05-18] MEDS: EZETIMIBE 10 MG TABLET. PO SCH (09:33)
[2021-05-18] MEDS: MULTIVITAMIN with MINERAL TABLET. PO SCH (09:33)
[2021-05-18] MEDS: LACTOBACILLUS RHAMNOSUS GG 1 CAPSULE. PO SCH ×2 (09:33→20:51)
[2021-05-18] MEDS: ALLOPURINOL 100 MG TABLET. PO SCH (09:33)
[2021-05-18] MEDS: ISOSORBIDE MONONITRATE ER 30 MG TAB.ER.24H PO SCH (09:33)
[2021-05-18] MEDS: DEXAMETHASONE SOD PHOS 4 MG/ML VIAL IVP SCH (09:35)
[2021-05-18] MEDS: INSULIN GLARGINE SYRINGE. SQ SCH ×2 (09:38→20:53)
--- NOTE | 2021-05-18 09:57 | PDOC ---
PROGRESS NOTES Date of Service: DATE: 05/18/21 TIME: 09:55 Chief Complaint Chief Complaint Pneumonia secondary to COVID-19 infection Acute Hypoxic Respiratory Failure Hypomagnesemia CAD CHF Type II Diabetes History of Present Illness History of Present Illness Ms Braswell is a 75yo F w/ PMHx HTN, DM2, CHF, CAD s/p CABG who came to ED on 05/13/2020 progressive shortness of breath over the prior week. In ED with O2 saturations 86% on room air febrile to 101.3 F. Tested positive for COVID-19. She had not been fully vaccinated. 05/14: Weak and was resting. She is currently on the COVID-19 protocol (Remdesivir, Aspirin, Multivitamins, Dexamethsone, Heparin SOdium, Piperacillin/Tazobactam, Acetaminophen). Mrs. Braswell states that she only received 1 dose of the COVID-19 vaccination. 05/15: She is feeling better. This morning, she was able to eat her breakfast. She remains on the COVID-19 Protocol (Remdesivir, Aspirin, Multivitamins, Dexamethsone, Heparin Sodium, Piperacillin/Tazobactam, Acetaminophen). We reviewed the patient's chart and discussed with RN 05/16: Afebrile overnight. Glucose in the 200s. O2 saturations 89 to 91% on 2 L nasal cannula oxygen. She is feeling short of breath and weak. No chest pain.. Had some V. tach overnight. Afebrile. BUN over 88 and creatinine elevated. Holding furosemide and losartan. Baseline CR at [facility] was 1.1. Cardiology nephrology consulted today. 05-18 V. tach overnight. 05-16 Afebrile. BUN over 88 and creatinine elevated. 6.9 d/c furosemide and losartan. Baseline CR // [facility] was 1.1. D/W therapist's assistant nephrology consulted ASA, statin therapy. NO AV mariama block agents with bradycardia Hold Lasix, losartan with SUZIE Am labs if no improvement will need dialysis and temp HDC in the morning 05-19. Enrique RN 37 MIN PT exam, chart review, > 50% of time spent with exam, chart review, pt care coordination Vitals Vitals Vital Signs Date Time Temp Pulse Resp B/P (MAP) Pulse Ox O2 Delivery O2 Flow Rate FiO2 05/18/21 09:34 87 151/53 05/18/21 07:00 96.6 18 95 96.6 05/17/21 20:00 Nasal Cannula 2.0 Physical Exam General: Alert, Oriented X3, Cooperative, No acute distress Heart: Regular rate (SR/SB rate presently 56), Normal S1, Normal S2 Lungs: Wheezing Abdomen: Other (obese) Extremities: Other (trace bilateral LE edema ) Skin: No significant lesion Labs LABS alk about your own wishes for healthcare in case youre ever not able to tell your loved ones or healthcare team what your wishes are. If you became really sick tomorrow, would your loved ones or healthcare team know what your wishes were? Here are some examples of different sets of goals and health care directives for your conversations: My wish is to use all medical therapies including resuscitation (such as CPR) and artificial life-sustaining treatments (such as machines and medicine) in an intensive care unit, to keep me alive if at all possible. My wish is to live as long as possible, but I dont want attempts to bring me back to life if my heart and breathing stop. I would like full medical care but without using resuscitation or artificial life-sustaining intensive treatments, if these are unlikely to make me live longer or restore me to a certain quality of life. I will accept treatments that try to fix medical problems, but if Im not getting better or going to have a certain quality of life, I would want to switch to focusing only on my comfort and letting my happen naturally. My wish is for healthcare to focus on my comfort and lessen suffering. I would like medical care that focuses only on my quality of life and that allows me to naturally. Consider: What does a good quality of life mean for me? For many people, it is the ability to live independently and tell their own story. I may define it differently. Under what circumstances would I not want to be kept alive by medical treatments, resuscitation, or intensive care? What kind of changes to my health or life might make me change my mind? If I clearly am facing the last chapter of my life, how do I want the story to end? Who do I want to speak for me if I cant speak for myself? Do they understand my preferences? Are they willing to assume the role of my Durable Power of Needleworker? Can I change my Goals of Care Designation? Yes, your Goals of Care Designation can be changed at any time. It should be reviewed if: your health condition changes your circumstances change (such as new understanding) you are transferred or admitted to another healthcare setting dpoa review, to pt portal 17 min and question review PATIENT: VALERIE BRASWELL ACCOUNT: [id number] : 1945 LOCATION: [address] [place] [address] AGE: 75 SEX: F EXAM STATUS: ADM IN ORD. PHYSICIAN: AMINA MÁRQUEZ MD REASON: SUZIE (Cr 5.6) , CoVid 19 Pneumonia , Baseline Cr 1.1 PROCEDURE: RENAL COMPLETE BILATERAL EXAM: RENAL ULTRASOUND CLINICAL HISTORY: Acute renal insufficiency. COMPARISON: None available. TECHNIQUE: Ultrasound examination of the bilateral kidneys and urinary bladder was performed. FINDINGS: The right kidney measures 10.1 x 3.8 x 4.8 cm. The left kidney measures 10.0 x 3.8 x 4.5 cm. The bladder is empty. Very limited study due to patient body habitus. IMPRESSION: Limited examination due to patient body habitus. No evidence of hydronephrosis. Electronically signed by: Hu Velazquez MD (05/17/2021 5:20 PM) [id number] DICTATED and SIGNED BY: HU VELAZQUEZ MD DATE: 05/17/21 [id number] Laboratory Tests Test 05/17/21 11:58 05/17/21 17:18 05/17/21 21:08 05/18/21 06:40 Glucose (Fingerstick) 231 mg/dL (70-99) 248 mg/dL (70-99) 245 mg/dL (70-99) Sodium Level 138 mmol/L (136-145) Potassium Level 4.2 mmol/L (3.5-5.1) Chloride Level 101 mmol/L (98-107) Carbon Dioxide Level 20 mmol/L (21-32) Anion Gap 17 (6-14) Blood Urea Nitrogen 106 mg/dL (7-20) Creatinine 6.9 mg/dL (0.6-1.0) Estimated GFR (Cockcroft-Gault) 7.0 Glucose Level 139 mg/dL (70-99) Calcium Level 7.9 mg/dL (8.5-10.1) Phosphorus Level 8.1 mg/dL (2.6-4.7) Albumin 2.1 g/dL (3.4-5.0) Test 05/18/21 07:16 Glucose (Fingerstick) 131 mg/dL (70-99) Assessment and Plan Assessmemt and Plan Problems Medical Problems: (1) Hypomagnesemia syndrome Status: Acute (2) Hypoxia Status: Acute (3) Pneumonia due to COVID-19 virus Status: Acute Comment Review of Relevant I have reviewed the following items maged (where applicable) has been applied. Labs Laboratory Tests Test 05/16/21 11:45 05/16/21 12:06 05/16/21 17:00 05/16/21 20:19 Magnesium Level 2.4 mg/dL (1.8-2.4) Glucose (Fingerstick) 259 mg/dL (70-99) 302 mg/dL (70-99) 323 mg/dL (70-99) Test 05/17/21 05:50 05/17/21 07:14 05/17/21 11:58 05/17/21 17:18 White Blood Count 3.1 x10^3/uL (4.0-11.0) Red Blood Count 3.67 x10^6/uL (3.50-5.40) Hemoglobin 10.9 g/dL (12.0-15.5) Hematocrit 35.0 % (36.0-47.0) Mean Corpuscular Volume 95 fL (79-100) Mean Corpuscular Hemoglobin 30 pg (25-35) Mean Corpuscular Hemoglobin Concent 31 g/dL (31-37) Red Cell Distribution Width 15.1 % (11.5-14.5) Platelet Count 174 x10^3/uL (140-400) Neutrophils (%) (Auto) 64 % (31-73) Lymphocytes (%) (Auto) 21 % (24-48) Monocytes (%) (Auto) 14 % (0-9) Eosinophils (%) (Auto) 0 % (0-3) Basophils (%) (Auto) 0 % (0-3) Neutrophils # (Auto) 2.0 x10^3/uL (1.8-7.7) Lymphocytes # (Auto) 0.7 x10^3/uL (1.0-4.8) Monocytes # (Auto) 0.4 x10^3/uL (0.0-1.1) Eosinophils # (Auto) 0.0 x10^3/uL (0.0-0.7) Basophils # (Auto) 0.0 x10^3/uL (0.0-0.2) Sodium Level 137 mmol/L (136-145) Potassium Level 4.9 mmol/L (3.5-5.1) Chloride Level 100 mmol/L (98-107) Carbon Dioxide Level 21 mmol/L (21-32) Anion Gap 16 (6-14) Blood Urea Nitrogen 89 mg/dL (7-20) Creatinine 5.6 mg/dL (0.6-1.0) Estimated GFR (Cockcroft-Gault) 8.9 BUN/Creatinine Ratio 16 (6-20) Glucose Level 228 mg/dL (70-99) Calcium Level 8.0 mg/dL (8.5-10.1) Total Bilirubin 0.1 mg/dL (0.2-1.0) Aspartate Amino Transf (AST/SGOT) 24 U/L (15-37) Alanine Aminotransferase (ALT/SGPT) 21 U/L (14-59) Alkaline Phosphatase 103 U/L (46-116) Creatine Kinase 85 U/L (26-192) Total Protein 6.2 g/dL (6.4-8.2) Albumin 2.3 g/dL (3.4-5.0) Albumin/Globulin Ratio 0.6 (1.0-1.7) Glucose (Fingerstick) 210 mg/dL (70-99) 231 mg/dL (70-99) 248 mg/dL (70-99) Test 05/17/21 21:08 05/18/21 06:40 05/18/21 07:16 Glucose (Fingerstick) 245 mg/dL (70-99) 131 mg/dL (70-99) Sodium Level 138 mmol/L (136-145) Potassium Level 4.2 mmol/L (3.5-5.1) Chloride Level 101 mmol/L (98-107) Carbon Dioxide Level 20 mmol/L (21-32) Anion Gap 17 (6-14) Blood Urea Nitrogen 106 mg/dL (7-20) Creatinine 6.9 mg/dL (0.6-1.0) Estimated GFR (Cockcroft-Gault) 7.0 Glucose Level 139 mg/dL (70-99) Calcium Level 7.9 mg/dL (8.5-10.1) Phosphorus Level 8.1 mg/dL (2.6-4.7) Albumin 2.1 g/dL (3.4-5.0) Laboratory Tests Test 05/17/21 11:58 05/17/21 17:18 05/17/21 21:08 05/18/21 06:40 Glucose (Fingerstick) 231 mg/dL (70-99) 248 mg/dL (70-99) 245 mg/dL (70-99) Sodium Level 138 mmol/L (136-145) Potassium Level 4.2 mmol/L (3.5-5.1) Chloride Level 101 mmol/L (98-107) Carbon Dioxide Level 20 mmol/L (21-32) Anion Gap 17 (6-14) Blood Urea Nitrogen 106 mg/dL (7-20) Creatinine 6.9 mg/dL (0.6-1.0) Estimated GFR (Cockcroft-Gault) 7.0 Glucose Level 139 mg/dL (70-99) Calcium Level 7.9 mg/dL (8.5-10.1) Phosphorus Level 8.1 mg/dL (2.6-4.7) Albumin 2.1 g/dL (3.4-5.0) Test 05/18/21 07:16 Glucose (Fingerstick) 131 mg/dL (70-99) Microbiology 05/13/21 Blood Culture - Preliminary, Resulted NO GROWTH AFTER 4 DAYS Medications Current Medications Magnesium Sulfate 50 ml @ 25 mls/hr 1X ONCE IV Last administered on 05/13/21at 15:58; Start 05/13/21 at 15:45; Stop 05/13/21 at 17:44; Status DC Methylprednisolone Sodium Succinate (SOLU-Medrol 125MG VIAL) 125 mg 1X ONCE IV Last administered on 05/13/21at 15:58; Start 05/13/21 at 15:45; Stop 05/13/21 at 15:46; Status DC Ceftriaxone Sodium (Rocephin) 1 gm 1X ONCE IVP Last administered on 05/13/21at 16:37; Start 05/13/21 at 16:00; Stop 05/13/21 at 16:02; Status DC Piperacillin Sod/ Tazobactam Sod (Zosyn Per Pharmacy) 1 each PRN DAILY PRN MC SEE COMMENTS; Start 05/13/21 at 16:15 Dexamethasone Sodium Phosphate (Decadron) 6 mg DAILY IVP Last administered on 05/18/21at 09:35; Start 05/14/21 at 09:00 Remdesivir 200 mg/ Sodium Chloride 210 ml @ 210 mls/hr 1X ONCE IV Last administered on 05/13/21at 20:59; Start 05/13/21 at 17:00; Stop 05/13/21 at 17:59; Status DC Remdesivir 100 mg/ Sodium Chloride 230 ml @ 460 mls/hr Q24H IV Last administered on 05/17/21at 17:45; Start 05/14/21 at 17:00; Stop 05/17/21 at 17:29; Status DC Multivitamins (Thera M Plus) 1 tab DAILY PO Last administered on 05/18/21at 09:33; Start 05/14/21 at 09:00 Aspirin (Ecotrin) 81 mg DAILYWBKFT PO ; Start 05/14/21 at 08:00; Stop 05/13/21 at 18:10; Status DC Guaifenesin/ Codeine Phosphate (Robitussin Ac) 5 ml PRN Q6HRS PRN PO COUGH; Start 05/13/21 at 16:15; Stop 05/16/21 at 07:29; Status DC Azithromycin 250 ml @ 250 mls/hr 1X ONCE IV Last administered on 05/13/21at 16:37; Start 05/13/21 at 16:15; Stop 05/13/21 at 17:14; Status DC Magnesium Sulfate 50 ml @ 25 mls/hr 1X ONCE IV ; Start 05/13/21 at 16:15; Stop 05/13/21 at 18:14; Status Cancel Piperacillin Sod/ Tazobactam Sod 2.25 gm/Sodium Chloride 50 ml @ 100 mls/hr Q6HRS IV Last administered on 05/18/21at 05:45; Start 05/13/21 at 18:00 Ondansetron HCl (Zofran) 4 mg PRN Q6HRS PRN IVP NAUSEA/VOMITING; Start 05/13/21 at 17:00 Calcium Carbonate/ Glycine (Tums) 500 mg PRN Q3HRS PRN PO UPSET STOMACH; Start 05/13/21 at 17:00 Zolpidem Tartrate (Ambien) 5 mg PRN QHS PRN PO INSOMNIA, MAY REPEAT IN 1HR; Start 05/13/21 at 17:00; Stop 05/16/21 at 07:29; Status DC Info (Non-Icu Electrolyte Protocol) 1 ea PRN DAILY PRN MC SEE COMMENTS; Start 05/13/21 at 17:00 Oxycodone HCl (Roxicodone) 5 mg PRN Q3HRS PRN PO BREAKTHROUGH PAIN; Start 05/13/21 at 17:00 Oxycodone/ Acetaminophen (Percocet 5/325) 1 tab PRN Q4HRS PRN PO MILD PAIN, 1ST CHOICE; Start 05/13/21 at 17:00 Oxycodone/ Acetaminophen (Percocet 5/325) 2 tab PRN Q4HRS PRN PO MODERATE PAIN, SEVERE PAIN; Start 05/13/21 at 17:00 Acetaminophen (Tylenol) 650 mg PRN Q6HRS PRN PO Headaches, Temp > 101.5F Last administered on 05/13/21at 21:00; Start 05/13/21 at 17:00 Senna/Docusate Sodium (Senna Plus) 1 tab BID PO Last administered on 05/17/21at 20:28; Start 05/13/21 at 21:00 Heparin Sodium (Porcine) (Heparin Sodium) 5,000 unit Q8HRS SQ Last administered on 05/18/21at 05:58; Start 05/13/21 at 22:00 Allopurinol (Zyloprim) 100 mg DAILY PO Last administered on 05/18/21at 09:33; Start 05/14/21 at 09:00 Amlodipine Besylate (Norvasc) 5 mg DAILY PO Last administered on 05/18/21at 09:34; Start 05/14/21 at 09:00 Aspirin (Aspirin Chewable) 81 mg DAILY PO Last administered on 05/18/21 09:33; Start 05/14/21 at 09:00 EZETIMIBE (Zetia) 10 mg DAILY PO Last administered on 05/18/21 09:33; Start 05/14/21 at 09:00 Furosemide (Lasix) 40 mg DAILY PO Last administered on 05/16/21at 10:09; Start 05/14/21 at 09:00; Stop 05/16/21 at 14:56; Status DC Gabapentin (Neurontin) 100 mg HS PO Last administered on 05/17/21at 20:29; Start 05/13/21 at 21:00 Levothyroxine Sodium (Synthroid) 175 mcg DAILYAC PO Last administered on 05/18/21at 07:51; Start 05/14/21 at 07:30 Losartan Potassium (Cozaar) 50 mg DAILY PO Last administered on 05/16/21at 10:09; Start 05/14/21 at 09:00; Stop 05/16/21 at 14:56; Status DC Atorvastatin Calcium (Lipitor) 80 mg QHS PO Last administered on 05/17/21at 20:29; Start 05/13/21 at 21:00 Insulin Human Lispro (HumaLOG) 10 units 1X ONCE SQ Last administered on 05/14/21at 17:24; Start 05/14/21 at 17:30; Stop 05/14/21 at 17:31; Status DC Insulin Human Lispro (HumaLOG) 0-9 UNITS TIDWMEALS SQ Last administered on 05/16/21at 17:12; Start 05/15/21 at 08:00; Stop 05/16/21 at 21:03; Status DC Dextrose (Dextrose 50%-Water Syringe) 12.5 gm PRN Q15MIN PRN IV SEE COMMENTS; Start 05/14/21 at 17:30 Insulin Human Lispro (HumaLOG) 9 units 1X ONCE SQ Last administered on 05/14/21at 23:22; Start 05/14/21 at 23:30; Stop 05/14/21 at 23:31; Status DC Insulin Glargine (Lantus Syringe) 10 unit BID SQ Last administered on 05/18/21at 09:38; Start 05/14/21 at 23:30 Guaifenesin (Robitussin Dm) 10 ml PRN Q6HRS PRN PO COUGH Last administered on 05/16/21at 21:16; Start 05/16/21 at 07:30 Lactobacillus Rhamnosus (Culturelle) 1 cap BID PO Last administered on 05/18/21at 09:33; Start 05/16/21 at 21:00 Hydralazine HCl (Apresoline Inj) 10 mg PRN Q4HRS PRN IVP ELEVATED BP, SEE COMMENTS; Start 05/16/21 at 15:00 Isosorbide Mononitrate (Imdur) 30 mg DAILY PO Last administered on 05/18/21at 09:33; Start 05/17/21 at 09:00 Albuterol Sulfate (Ventolin Hfa) 2 puff PRN Q4HRS PRN INH WHEEZING Last administered on 05/16/21at 21:15; Start 05/16/21 at 20:00 Insulin Human Lispro (HumaLOG) 0-9 UNITS QIDACHS SQ Last administered on 05/17/21at 20:31; Start 05/16/21 at 21:30 Sodium Chloride 1,000 ml @ 75 mls/hr [id number] IV Last administered on 05/17/21at 23:41; Start 05/17/21 at 11:45 Active Scripts Active Reported Zetia (Ezetimibe) 10 Mg Tablet 10 Mg PO DAILY Furosemide 40 Mg Tablet 1 Tab PO DAILY Hydrocodone-Apap 5-325 (Hydrocodone Bit/Acetaminophen) 1 Tab Tablet 1 Tab PO PRN BID PRN Allopurinol 100 Mg Tablet 1 Tab PO DAILY Aspirin 81 Mg Tab.chew 1 Tab PO DAILY Levothyroxine Sodium 175 Mcg Tablet 175 Mcg PO DAILYAC Amlodipine Besylate 5 Mg Tablet 5 Mg PO DAILY Hydralazine Hcl 25 Mg Tablet 1 Tab PO TID Gabapentin (Gabapentin) 100 Mg Capsule 100 Mg PO HS Atorvastatin Calcium 80 Mg Tablet 80 Mg PO DAILY Losartan Potassium 50 Mg Tablet 50 Mg PO DAILY Metformin Hcl 500 Mg Tablet 500 Mg PO BIDWMEALS Magnesium (Magnesium Oxide) 500 Mg Capsule 1 Cap PO BID 30 Days Vitals/I & O Vital Sign - Last 24 Hours 05/17/21 05/17/21 05/17/21 05/17/21 11:00 15:00 19:00 20:00 Temp 97.8 96.0 97.8 96.0 Pulse 61 56 71 Resp 26 22 20 B/P (MAP) 148/62 (90) 115/48 (70) 123/57 (79) Pulse Ox 93 98 94 O2 Delivery Nasal Cannula Nasal Cannula Nasal Cannula O2 Flow Rate 2.0 2.0 2.0 05/17/21 05/18/21 05/18/21 05/18/21 23:00 03:00 07:00 09:33 Temp 96.8 96.9 96.6 96.8 96.9 96.6 Pulse 73 75 87 87 Resp 18 18 18 B/P (MAP) 140/50 (80) 114/50 (71) 151/53 (85) 151/53 Pulse Ox 97 96 95 05/18/21 09:34 Pulse 87 B/P (MAP) 151/53 Intake and Output 05/17/21 05/17/21 05/18/21 14:59 22:59 06:59 Intake Total 50 ml 920 ml Balance 50 ml 920 ml Justicifation of Admission Dx: Justifications for Admission: Justification of Admission Dx: Yes HEENA LOVE MD May 18, 2021 09:57
--- NOTE | 2021-05-18 10:21 | NUR ---
SW following. Discussed with RN, pt from home with daughter, 2L (does not use oxygen at home), cardiac diet. COVID-19 positive. Pt will need a 6 minute walk prior to discharge. BUN/ Creatinine elevated today. SW will continue to follow.
--- NOTE | 2021-05-18 10:57 | PDOC ---
MOISES AGUILAR TWISTER TENDER 05/18/21 1057: CARDIO Progress Notes Date and Time Date of Service 05/18/21 Time of Evaluation 1050 Subjective Subjective: No Chest Pain, No Palpitations, No Dizziness, Other (not more SOA) Vitals Vitals Vital Signs Date Time Temp Pulse Resp B/P (MAP) Pulse Ox O2 Delivery O2 Flow Rate FiO2 05/18/21 09:34 87 151/53 05/18/21 07:00 96.6 18 95 96.6 05/17/21 20:00 Nasal Cannula 2.0 Weight Weight [ ] Input and Output Intake and Output Intake and Output 05/18/21 07:00 Intake Total 970 ml Balance 970 ml Intake Oral 620 ml IV Total 350 ml # Voids 2 # Bowel Movements 3 Laboratory Labs Laboratory Tests Test 05/17/21 11:58 05/17/21 17:18 05/17/21 21:08 05/18/21 06:40 Glucose (Fingerstick) 231 mg/dL (70-99) 248 mg/dL (70-99) 245 mg/dL (70-99) Sodium Level 138 mmol/L (136-145) Potassium Level 4.2 mmol/L (3.5-5.1) Chloride Level 101 mmol/L (98-107) Carbon Dioxide Level 20 mmol/L (21-32) Anion Gap 17 (6-14) Blood Urea Nitrogen 106 mg/dL (7-20) Creatinine 6.9 mg/dL (0.6-1.0) Estimated GFR (Cockcroft-Gault) 7.0 Glucose Level 139 mg/dL (70-99) Calcium Level 7.9 mg/dL (8.5-10.1) Phosphorus Level 8.1 mg/dL (2.6-4.7) Albumin 2.1 g/dL (3.4-5.0) Test 05/18/21 07:16 Glucose (Fingerstick) 131 mg/dL (70-99) Microbiology Micro Microbiology 05/13/21 Blood Culture - Preliminary, Resulted NO GROWTH AFTER 4 DAYS Physical Exam HEENT: Neck Supple W Full Motion Chest: Symmetric LUNGS: Other (on NC) Heart: RRR (SR/SB) Abdomen: Other (non-distended) Extremities: No Edema Neurology: alert, oriented, follow commands Assessment Assessment 1. Acute respiratory failure secondary to COVID PNA 2. Arrhythmia; 18-beat NSVT noted on tele 05/16. Otherwise SR. Mg WNL. Unable to place on BB or CCB due to underlying sinus bradycardia at baseline. 3. CAD s/p CABG 2004. Follows with Dr. Lidia GARCIA. 4. Chronic diastolic CHF; Echo 05/07 with preserved LV systolic function 5. Accelerated hypertension; now controlled 6. Hyperlipidemia; statin, Zetia 7. Diabetes, II 8. SUZIE on CKD; 1.1 at [facility] 05/13/21. Cr ^ 6.9 9. Hypothyroidism 10. Morbid obesity, BRITTANI. noncompliant with CPAP Recommendations Continue secondary prevention ASA, statin therapy. Avoid AV mariama block agents with bradycardia No Lasix, losartan with SUZIE Avoid nephrotoxins Follow renal recs Hydralazine IV PRN Keep Mg > 2.0 and K > 4.0 Ongoing lung optimization, treatment of COVID Supportive care Justicifation of Admission Dx: Justifications for Admission: Justification of Admission Dx: Yes FIOR PALMER MD 05/18/21 1605: CARDIO Progress Notes Assessment Assessment Patient seen and evaluated. I agree with our nurse practitioners assessment and plan. Acute respiratory failure secondary to COVID PNA. Mildly improved. Continue present treatment. Arrhythmia; 18-beat NSVT noted on tele 05/16. Otherwise SR. Mg WNL. Unable to place on BB or CCB due to underlying sinus bradycardia at baseline. CAD s/p CABG 2004. Follows with Dr. Lidia GARCIA. Chronic diastolic CHF; Echo 05/07 with preserved LV systolic function Accelerated hypertension; now controlled Hyperlipidemia; statin, Zetia Diabetes, II SUZIE on CKD; as per renal. Morbid obesity, BRITTANI. noncompliant with CPAP MOISES AGUILAR APRN May 18, 2021 10:57 FIOR PALMER MD May 18, 2021 16:05
[2021-05-18 11:00] VITALS: BP 126/54
[2021-05-18] MEDS: IV NORMAL SALINE 1000ML BAG 1,000 ML IV SCH (13:54)
[2021-05-18 15:00] VITALS: BP 143/70
[2021-05-18 19:00] VITALS: BP 143/64
[2021-05-18] MEDS: ATORVASTATIN CALCIUM 40 MG TABLET. PO SCH (20:51)
[2021-05-18] MEDS: GABAPENTIN 100 MG CAPSULE. PO SCH (20:51)
[2021-05-18 23:00] VITALS: BP 148/89
[2021-05-19] MEDS: PIPERACILLIN/TAZOBACTAM 2.25 GM in IV NORMAL SALINE 50ML 50 ML IV SCH ×4 (00:03→18:17)
[2021-05-19 03:00] VITALS: BP 121/48
[2021-05-19] MEDS: IV NORMAL SALINE 1000ML BAG 1,000 ML IV SCH ×2 (03:50→18:17)
[2021-05-19] MEDS: HEPARIN for SUB-Q USE 5,000 UNIT/ML VIAL. SQ SCH ×3 (05:53→22:00)
[2021-05-19 07:00] VITALS: BP 141/49
[2021-05-19] MEDS: INSULIN LISPRO 300 UNITS/3 ML VIAL. SQ SCH ×4 (07:30→21:00)
[2021-05-19] MEDS: SENNOSIDES/DOCUSATE 8.6/50MG TABLET. PO SCH ×2 (09:00→22:47)
[2021-05-19] MEDS: INSULIN GLARGINE SYRINGE. SQ SCH ×2 (09:00→21:00)
--- NOTE | 2021-05-19 09:01 | PDOC ---
DATE OF SERVICE DATE: 05/19/21 TIME: 09:00 SUBJECTIVE ROS stable , No N/V OBJECTIVE Vital Signs Vital Signs Date Time Temp Pulse Resp B/P (MAP) Pulse Ox O2 Delivery O2 Flow Rate FiO2 05/19/21 03:00 97.8 82 20 121/48 (72) 92 Nasal Cannula 97.8 05/18/21 20:00 2.0 I & 0 Intake and Output 05/19/21 07:00 Intake Total 40 ml Balance 40 ml Intake Oral 40 ml # Voids 3 # Bowel Movements 2 PHYSICAL EXAM Physical Exam General: No acute distress HEENT: OM moist Neck Supple Lungs: CTA ant, Non labored Heart: Regular rate Abdomen: obese, NT Extremities: trace bilateral LE edema Skin: No significant lesion, no rash Neuro: Normal speech, Sensation intact Psych/Mental Status: Mental status NL, Mood NL No sanchez, No CVA or SP tenderness DIAGNOSIS/ASSESSMENT Assessment & Plan SUZIE - Cr elevated at presentation to the ER to 2.5 worsening renal function . Lasix and Losartan held . Will Initiate dialysis, 1st treatment today, needs Temp HDC . Discussed treatment plan with Reinaldo UA was ordered 05/17 - not collected , Renal US unremarkable , supportive care,maintain hydration (cautious with Hx of CHF ) strict I/O (uop not recorded) , avoid nephrotoxins, if no improvement will need dialysis and temp HDC in the morning . Enrique RN CKD; 1.1 at [facility] 05/13/21 (no labs in our system) Acute respiratory failure secondary to COVID PNA Arrhythmia; 18-beat NSVT noted on tele. Otherwise SR. CAD s/p CABG 2004. Follows with [facility], Dr. Murillo. Chronic diastolic CHF; Echo 05/07 with preserved LV systolic function Accelerated hypertension; now controlled Diabetes, II Morbid obesity, BRITTANI. noncompliant with CPAP COMMENT/RELEVANT DATA Meds Current Medications Medications (Trade) Dose Ordered Sig/Lemuel Start Time Stop Time Status Last Admin Dose Admin Acetaminophen (Tylenol) 650 mg PRN Q6HRS PRN 05/13/21 17:00 05/13/21 21:00 650 MG Albuterol Sulfate (Ventolin Hfa) 2 puff PRN Q4HRS PRN 05/16/21 20:00 05/16/21 21:15 2 PUFF Allopurinol (Zyloprim) 100 mg DAILY 05/14/21 09:00 05/18/21 09:33 100 MG Amlodipine Besylate (Norvasc) 5 mg DAILY 05/14/21 09:00 05/18/21 09:34 5 MG Aspirin (Aspirin Chewable) 81 mg DAILY 05/14/21 09:00 05/18/21 09:33 81 MG Aspirin (Ecotrin) 81 mg [id number] 05/14/21 08:00 05/13/21 18:10 DC Atorvastatin Calcium (Lipitor) 80 mg QHS 05/13/21 21:00 05/18/21 20:51 80 MG Azithromycin 250 ml @ 250 mls/hr 1X ONCE 05/13/21 16:15 05/13/21 17:14 DC 05/13/21 16:37 250 MLS/HR Calcium Carbonate/ Glycine (Tums) 500 mg PRN Q3HRS PRN 05/13/21 17:00 Ceftriaxone Sodium (Rocephin) 1 gm 1X ONCE 05/13/21 16:00 05/13/21 16:02 DC 05/13/21 16:37 1 GM Dexamethasone Sodium Phosphate (Decadron) 6 mg DAILY 05/14/21 09:00 05/18/21 09:35 6 MG Dextrose (Dextrose 50%-Water Syringe) 12.5 gm PRN Q15MIN PRN 05/14/21 17:30 EZETIMIBE (Zetia) 10 mg DAILY 05/14/21 09:00 05/18/21 09:33 10 MG Furosemide (Lasix) 40 mg DAILY 05/14/21 09:00 05/16/21 14:56 DC 05/16/21 10:09 40 MG Gabapentin (Neurontin) 100 mg HS 05/13/21 21:00 05/18/21 20:51 100 MG Guaifenesin (Robitussin Dm) 10 ml PRN Q6HRS PRN 05/16/21 07:30 05/16/21 21:16 10 ML Guaifenesin/ Codeine Phosphate (Robitussin Ac) 5 ml PRN Q6HRS PRN 05/13/21 16:15 05/16/21 07:29 DC Heparin Sodium (Porcine) (Heparin Sodium) 5,000 unit Q8HRS 05/13/21 22:00 05/19/21 05:53 5,000 UNIT Hydralazine HCl (Apresoline Inj) 10 mg PRN Q4HRS PRN 05/16/21 15:00 Info (Non-Icu Electrolyte Protocol) 1 ea PRN DAILY PRN 05/13/21 17:00 Insulin Glargine (Lantus Syringe) 10 unit BID 05/14/21 23:30 05/18/21 20:53 10 UNIT Insulin Human Lispro (HumaLOG) 0-9 UNITS QIDACHS 05/16/21 21:30 05/18/21 20:52 5 UNITS Isosorbide Mononitrate (Imdur) 30 mg DAILY 05/17/21 09:00 05/18/21 09:33 30 MG Lactobacillus Rhamnosus (Culturelle) 1 cap BID 05/16/21 21:00 05/18/21 20:51 1 CAP Levothyroxine Sodium (Synthroid) 175 mcg DAILYAC 05/14/21 07:30 05/18/21 07:51 175 MCG Losartan Potassium (Cozaar) 50 mg DAILY 05/14/21 09:00 05/16/21 14:56 DC 05/16/21 10:09 50 MG Magnesium Sulfate 50 ml @ 25 mls/hr 1X ONCE 05/13/21 16:15 05/13/21 18:14 Cancel Methylprednisolone Sodium Succinate (SOLU-Medrol 125MG VIAL) 125 mg 1X ONCE 05/13/21 15:45 05/13/21 15:46 DC 05/13/21 15:58 125 MG Multivitamins (Thera M Plus) 1 tab DAILY 05/14/21 09:00 05/18/21 09:33 1 TAB Ondansetron HCl (Zofran) 4 mg PRN Q6HRS PRN 05/13/21 17:00 Oxycodone HCl (Roxicodone) 5 mg PRN Q3HRS PRN 05/13/21 17:00 Oxycodone/ Acetaminophen (Percocet 5/325) 2 tab PRN Q4HRS PRN 05/13/21 17:00 Piperacillin Sod/ Tazobactam Sod (Zosyn Per Pharmacy) 1 each PRN DAILY PRN 05/13/21 16:15 Piperacillin Sod/ Tazobactam Sod 2.25 gm/Sodium Chloride 50 ml @ 100 mls/hr Q6HRS 05/13/21 18:00 9/21 05:49 100 MLS/HR Remdesivir 100 mg/ Sodium Chloride 230 ml @ 460 mls/hr Q24H 05/14/21 17:00 05/17/21 17:29 DC 05/17/21 17:45 460 MLS/HR Remdesivir 200 mg/ Sodium Chloride 210 ml @ 210 mls/hr 1X ONCE 05/13/21 17:00 05/13/21 17:59 DC 05/13/21 20:59 210 MLS/HR Senna/Docusate Sodium (Senna Plus) 1 tab BID 05/13/21 21:00 05/17/21 20:28 1 TAB Sodium Chloride 1,000 ml @ 75 mls/hr [id number] 05/17/21 11:45 05/19/21 03:50 75 MLS/HR Zolpidem Tartrate (Ambien) 5 mg PRN QHS PRN 05/13/21 17:00 05/16/21 07:29 DC Lab Laboratory Tests Test 05/18/21 12:15 05/18/21 16:48 05/18/21 20:47 05/19/21 08:37 Glucose (Fingerstick) 116 mg/dL (70-99) 225 mg/dL (70-99) 238 mg/dL (70-99) 94 mg/dL (70-99) Results All relevant outside records, renal labs, imaging studies, telemetry/EKG's were reviewed. Justicifation of Admission Dx: Justifications for Admission: Justification of Admission Dx: Yes AMINA MÁRQUEZ MD May 19, 2021 09:01
--- NOTE | 2021-05-19 09:14 | PDOC ---
PROGRESS NOTES Date of Service: DATE: 05/19/21 TIME: 09:13 Chief Complaint Chief Complaint impression Pneumonia secondary to COVID-19 infection Acute Hypoxic Respiratory Failure Hypomagnesemia CAD CHF Type II Diabetes History of Present Illness History of Present Illness Ms Braswell is a 75yo F w/ PMHx HTN, DM2, CHF, CAD s/p CABG who came to ED on 05/13/2020 progressive shortness of breath over the prior week. In ED with O2 saturations 86% on room air febrile to 101.3 F. Tested positive for COVID-19. She had not been fully vaccinated. 05/14: Weak and was resting. She is currently on the COVID-19 protocol (Re mdesivir, Aspirin, Multivitamins, Dexamethsone, Heparin SOdium, Piperacillin/Tazobactam, Acetaminophen). Mrs. Braswell states that she only received 1 dose of the COVID-19 vaccination. 05/15: She is feeling better. This morning, she was able to eat her breakfast. She remains on the COVID-19 Protocol (Remdesivir, Aspirin, Multivitamins, Dexamethsone, Heparin Sodium, Piperacillin/Tazobactam, Acetaminophen). We reviewed the patient's chart and discussed with RN 05/16: Afebrile overnight. Glucose in the 200s. O2 saturations 89 to 91% on 2 L nasal cannula oxygen. She is feeling short of breath and weak. No chest pain.. Had some V. tach overnight. Afebrile. BUN over 88 and creatinine elevated. Holding furosemide and losartan. Baseline CR at [facility] was 1.1. Cardiology nephrology consulted today. 05-18 V. tach overnight. 8-30 Afebrile. BUN over 88 and creatinine elevated. 6.9 d/c furosemide and losartan. Baseline CR // [facility] was 1.1. D/W pmp certified project manager nephrology consulted ASA, statin therapy. NO AV mariama block agents with bradycardia Hold Lasix, losartan with SUZIE Am labs if no improvement will need dialysis and temp HDC in the morning 05-19. Enrique RN 37 MIN PT exam, chart review, > 50% of time spent with exam, chart review, pt care coordination 05-19 V. tach overnight. 8-30 Afebrile. BUN over 88 and creatinine elevated. 6.9 d/c furosemide and losartan. Baseline CR // [facility] was 1.1. D/W pmp certified project manager nephrology consulted ASA, statin therapy. NO AV mariama block agents with bradycardia Hold Lasix, losartan with SUZIE Am labs if no improvement will need dialysis and temp HDC in the morning -. Enrique RN 36 MIN PT exam, chart review, > 50% of time spent with exam, chart review, pt care coordination Vitals Vitals Vital Signs Date Time Temp Pulse Resp B/P (MAP) Pulse Ox O2 Delivery O2 Flow Rate FiO2 05/19/21 03:00 97.8 82 20 121/48 (72) 92 Nasal Cannula 97.8 05/18/21 20:00 2.0 Physical Exam General: Alert, Oriented X3, Cooperative, No acute distress Heart: Regular rate (SR/SB rate presently 56), Normal S1, Normal S2 Lungs: Wheezing Abdomen: Other (obese) Extremities: Other (trace bilateral LE edema ) Skin: No significant lesion Labs LABS Laboratory Tests Test 05/18/21 12:15 05/18/21 16:48 05/18/21 20:47 05/19/21 08:37 Glucose (Fingerstick) 116 mg/dL (70-99) 225 mg/dL (70-99) 238 mg/dL (70-99) 94 mg/dL (70-99) Assessment and Plan Assessmemt and Plan Problems Medical Problems: (1) Hypomagnesemia syndrome Status: Acute (2) Hypoxia Status: Acute (3) Pneumonia due to COVID-19 virus Status: Acute Comment Review of Relevant I have reviewed the following items maged (where applicable) has been applied. Labs Laboratory Tests Test 05/17/21 11:58 05/17/21 17:18 05/17/21 21:08 05/18/21 06:40 Glucose (Fingerstick) 231 mg/dL (70-99) 248 mg/dL (70-99) 245 mg/dL (70-99) Sodium Level 138 mmol/L (136-145) Potassium Level 4.2 mmol/L (3.5-5.1) Chloride Level 101 mmol/L (98-107) Carbon Dioxide Level 20 mmol/L (21-32) Anion Gap 17 (6-14) Blood Urea Nitrogen 106 mg/dL (7-20) Creatinine 6.9 mg/dL (0.6-1.0) Estimated GFR (Cockcroft-Gault) 7.0 Glucose Level 139 mg/dL (70-99) Calcium Level 7.9 mg/dL (8.5-10.1) Phosphorus Level 8.1 mg/dL (2.6-4.7) Albumin 2.1 g/dL (3.4-5.0) Test 05/18/21 07:16 05/18/21 12:15 05/18/21 16:48 05/18/21 20:47 Glucose (Fingerstick) 131 mg/dL (70-99) 116 mg/dL (70-99) 225 mg/dL (70-99) 238 mg/dL (70-99) Test 05/19/21 08:37 Glucose (Fingerstick) 94 mg/dL (70-99) Laboratory Tests Test 05/18/21 12:15 05/18/21 16:48 05/18/21 20:47 05/19/21 08:37 Glucose (Fingerstick) 116 mg/dL (70-99) 225 mg/dL (70-99) 238 mg/dL (70-99) 94 mg/dL (70-99) Microbiology 05/13/21 Blood Culture - Final, Complete NO GROWTH AFTER 5 DAYS Medications Current Medications Magnesium Sulfate 50 ml @ 25 mls/hr 1X ONCE IV Last administered on 05/13/21at 15:58; Start 05/13/21 at 15:45; Stop 05/13/21 at 17:44; Status DC Methylprednisolone Sodium Succinate (SOLU-Medrol 125MG VIAL) 125 mg 1X ONCE IV Last administered on 05/13/21at 15:58; Start 05/13/21 at 15:45; Stop 05/13/21 at 15:46; Status DC Ceftriaxone Sodium (Rocephin) 1 gm 1X ONCE IVP Last administered on 05/13/21at 16:37; Start 05/13/21 at 16:00; Stop 05/13/21 at 16:02; Status DC Piperacillin Sod/ Tazobactam Sod (Zosyn Per Pharmacy) 1 each PRN DAILY PRN MC SEE COMMENTS; Start 05/13/21 at 16:15 Dexamethasone Sodium Phosphate (Decadron) 6 mg DAILY IVP Last administered on 05/18/21at 09:35; Start 05/14/21 at 09:00 Remdesivir 200 mg/ Sodium Chloride 210 ml @ 210 mls/hr 1X ONCE IV Last administered on 05/13/21at 20:59; Start 05/13/21 at 17:00; Stop 05/13/21 at 17:59; Status DC Remdesivir 100 mg/ Sodium Chloride 230 ml @ 460 mls/hr Q24H IV Last administered on 05/17/21at 17:45; Start 05/14/21 at 17:00; Stop 05/17/21 at 17:29; Status DC Multivitamins (Thera M Plus) 1 tab DAILY PO Last administered on 05/18/21at 09:33; Start 05/14/21 at 09:00 Aspirin (Ecotrin) 81 mg DAILYWBKFT PO ; Start 05/14/21 at 08:00; Stop 05/13/21 at 18:10; Status DC Guaifenesin/ Codeine Phosphate (Robitussin Ac) 5 ml PRN Q6HRS PRN PO COUGH; Start 05/13/21 at 16:15; Stop 05/16/21 at 07:29; Status DC Azithromycin 250 ml @ 250 mls/hr 1X ONCE IV Last administered on 05/13/21at 16:37; Start 05/13/21 at 16:15; Stop 05/13/21 at 17:14; Status DC Magnesium Sulfate 50 ml @ 25 mls/hr 1X ONCE IV ; Start 05/13/21 at 16:15; Stop 05/13/21 at 18:14; Status Cancel Piperacillin Sod/ Tazobactam Sod 2.25 gm/Sodium Chloride 50 ml @ 100 mls/hr Q6HRS IV Last administered on 05/19/21at 05:49; Start 05/13/21 at 18:00 Ondansetron HCl (Zofran) 4 mg PRN Q6HRS PRN IVP NAUSEA/VOMITING; Start 05/13/21 at 17:00 Calcium Carbonate/ Glycine (Tums) 500 mg PRN Q3HRS PRN PO UPSET STOMACH; Start 05/13/21 at 17:00 Zolpidem Tartrate (Ambien) 5 mg PRN QHS PRN PO INSOMNIA, MAY REPEAT IN 1HR; Start 05/13/21 at 17:00; Stop 05/16/21 at 07:29; Status DC Info (Non-Icu Electrolyte Protocol) 1 ea PRN DAILY PRN MC SEE COMMENTS; Start 05/13/21 at 17:00 Oxycodone HCl (Roxicodone) 5 mg PRN Q3HRS PRN PO BREAKTHROUGH PAIN; Start 05/13/21 at 17:00 Oxycodone/ Acetaminophen (Percocet 5/325) 1 tab PRN Q4HRS PRN PO MILD PAIN, 1ST CHOICE; Start 05/13/21 at 17:00 Oxycodone/ Acetaminophen (Percocet 5/325) 2 tab PRN Q4HRS PRN PO MODERATE PAIN, SEVERE PAIN; Start 05/13/21 at 17:00 Acetaminophen (Tylenol) 650 mg PRN Q6HRS PRN PO Headaches, Temp > 101.5F Last administered on 05/13/21at 21:00; Start 05/13/21 at 17:00 Senna/Docusate Sodium (Senna Plus) 1 tab BID PO Last administered on 05/17/21at 20:28; Start 05/13/21 at 21:00 Heparin Sodium (Porcine) (Heparin Sodium) 5,000 unit Q8HRS SQ Last administered on 05/19/21at 05:53; Start 05/13/21 at 22:00 Allopurinol (Zyloprim) 100 mg DAILY PO Last administered on 05/18/21at 09:33; Start 05/14/21 at 09:00 Amlodipine Besylate (Norvasc) 5 mg DAILY PO Last administered on 05/18/21at 09:34; Start 05/14/21 at 09:00 Aspirin (Aspirin Chewable) 81 mg DAILY PO Last administered on 05/18/21at 09:33; Start 05/14/21 at 09:00 EZETIMIBE (Zetia) 10 mg DAILY PO Last administered on 05/18/21 09:33; Start 05/14/21 at 09:00 Furosemide (Lasix) 40 mg DAILY PO Last administered on 05/16/21at 10:09; Start 05/14/21 at 09:00; Stop 05/16/21 at 14:56; Status DC Gabapentin (Neurontin) 100 mg HS PO Last administered on 05/18/21at 20:51; Start 05/13/21 at 21:00 Levothyroxine Sodium (Synthroid) 175 mcg DAILYAC PO Last administered on 05/18/21at 07:51; Start 05/14/21 at 07:30 Losartan Potassium (Cozaar) 50 mg DAILY PO Last administered on 05/16/21at 10:09; Start 05/14/21 at 09:00; Stop 05/16/21 at 14:56; Status DC Atorvastatin Calcium (Lipitor) 80 mg QHS PO Last administered on 05/18/21at 20:51; Start 05/13/21 at 21:00 Insulin Human Lispro (HumaLOG) 10 units 1X ONCE SQ Last administered on 05/14/21at 17:24; Start 05/14/21 at 17:30; Stop 05/14/21 at 17:31; Status DC Insulin Human Lispro (HumaLOG) 0-9 UNITS TIDWMEALS SQ Last administered on 05/16/21at 17:12; Start 05/15/21 at 08:00; Stop 05/16/21 at 21:03; Status DC Dextrose (Dextrose 50%-Water Syringe) 12.5 gm PRN Q15MIN PRN IV SEE COMMENTS; Start 05/14/21 at 17:30 Insulin Human Lispro (HumaLOG) 9 units 1X ONCE SQ Last administered on 05/14/21at 23:22; Start 05/14/21 at 23:30; Stop 05/14/21 at 23:31; Status DC Insulin Glargine (Lantus Syringe) 10 unit BID SQ Last administered on 05/18/21at 20:53; Start 05/14/21 at 23:30 Guaifenesin (Robitussin Dm) 10 ml PRN Q6HRS PRN PO COUGH Last administered on 05/16/21at 21:16; Start 05/16/21 at 07:30 Lactobacillus Rhamnosus (Culturelle) 1 cap BID PO Last administered on 05/18/21at 20:51; Start 05/16/21 at 21:00 Hydralazine HCl (Apresoline Inj) 10 mg PRN Q4HRS PRN IVP ELEVATED BP, SEE COMMENTS; Start 05/16/21 at 15:00 Isosorbide Mononitrate (Imdur) 30 mg DAILY PO Last administered on 05/18/21at 09:33; Start 05/17/21 at 09:00 Albuterol Sulfate (Ventolin Hfa) 2 puff PRN Q4HRS PRN INH WHEEZING Last administered on 05/16/21at 21:15; Start 05/16/21 at 20:00 Insulin Human Lispro (HumaLOG) 0-9 UNITS QIDACHS SQ Last administered on 05/18/21at 20:52; Start 05/16/21 at 21:30 Sodium Chloride 1,000 ml @ 75 mls/hr [id number] IV Last administered on 05/19/21at 03:50; Start 05/17/21 at 11:45 Active Scripts Active Reported Zetia (Ezetimibe) 10 Mg Tablet 10 Mg PO DAILY Furosemide 40 Mg Tablet 1 Tab PO DAILY Hydrocodone-Apap 5-325 (Hydrocodone Bit/Acetaminophen) 1 Tab Tablet 1 Tab PO PRN BID PRN Allopurinol 100 Mg Tablet 1 Tab PO DAILY Aspirin 81 Mg Tab.chew 1 Tab PO DAILY Levothyroxine Sodium 175 Mcg Tablet 175 Mcg PO DAILYAC Amlodipine Besylate 5 Mg Tablet 5 Mg PO DAILY Hydralazine Hcl 25 Mg Tablet 1 Tab PO TID Gabapentin (Gabapentin) 100 Mg Capsule 100 Mg PO HS Atorvastatin Calcium 80 Mg Tablet 80 Mg PO DAILY Losartan Potassium 50 Mg Tablet 50 Mg PO DAILY Metformin Hcl 500 Mg Tablet 500 Mg PO BIDWMEALS Magnesium (Magnesium Oxide) 500 Mg Capsule 1 Cap PO BID 30 Days Vitals/I & O Vital Sign - Last 24 Hours 05/18/21 05/18/21 05/18/21 05/18/21 09:33 09:34 11:00 15:00 Temp 97.2 97.4 97.2 97.4 Pulse 87 87 62 69 Resp 18 18 B/P (MAP) 151/53 151/53 126/54 (78) 143/70 (94) Pulse Ox 93 93 05/18/21 05/18/21 05/18/21 05/19/21 19:00 20:00 23:00 03:00 Temp 98.1 96.6 97.8 98.1 96.6 97.8 Pulse 80 77 82 Resp 20 20 20 B/P (MAP) 143/64 (90) 148/89 (108) 121/48 (72) Pulse Ox 96 96 92 O2 Delivery Nasal Cannula Nasal Cannula Nasal Cannula Nasal Cannula O2 Flow Rate 2.0 Intake and Output 05/18/21 05/18/21 05/19/21 15:00 23:00 07:00 Intake Total 40 ml Balance 40 ml Justicifation of Admission Dx: Justifications for Admission: Justification of Admission Dx: Yes HEENA LOVE MD May 19, 2021 09:13
[2021-05-19 09:37] LABS: CALCIUM 8.3 mg/dL (8.5-10.1); CREATININE 8.2 mg/dL (0.6-1.0); GFR 5.8; POTASSIUM 4.4 mmol/L (3.5-5.1)
[2021-05-19] MEDS: LACTOBACILLUS RHAMNOSUS GG 1 CAPSULE. PO SCH ×2 (09:38→22:51)
[2021-05-19] MEDS: EZETIMIBE 10 MG TABLET. PO SCH (09:38)
[2021-05-19] MEDS: LEVOTHYROXINE 175 MCG TABLET PO SCH (09:38)
[2021-05-19] MEDS: ISOSORBIDE MONONITRATE ER 30 MG TAB.ER.24H PO SCH (09:39)
[2021-05-19] MEDS: ALLOPURINOL 100 MG TABLET. PO SCH (09:39)
[2021-05-19] MEDS: ASPIRIN CHEWABLE 81 MG TABLET. PO SCH (09:39)
[2021-05-19] MEDS: MULTIVITAMIN with MINERAL TABLET. PO SCH (09:39)
[2021-05-19] MEDS: DEXAMETHASONE SOD PHOS 4 MG/ML VIAL IVP SCH (09:40)
[2021-05-19 09:48] LABS: FECAL OB PT POSITIVE (NEG)
[2021-05-19 11:00] VITALS: BP 156/57
[2021-05-19] MEDS: ALBUTEROL SULFATE 8GM INHALER. INH PRN (13:29)
--- NOTE | 2021-05-19 13:30 | PDOC2 ---
GI CONSULT Date of Service: DATE: 05/19/21 TIME: 13:21 Reason For Consult: GI bleed HPI: HPI: 75 y/o female w/ COVID and SUZIE w/ plans for HD. D/w nurse - pt is more confused today. Not able to give much history. Nurse reports diarrhea that was dark brown and looked like coffee grounds so a H emoccult was checked which was positive. We are asked to see for this. C Diff was also ordered. Pt denies bleeding and says she has never had a colonoscopy. Hgb was 11.1, now 10.9. BUN 111, Cr 8.2. PMH: PMH: per chart: CAD, CHF, HTN, HLD, DM, CKD, hypothyroidism, BRITTANI CABG FH: Family History: Other (unable to obtain) Social History: Smoke: No ALCOHOL: none Drugs: None ROS: difficult to obtain Vitals: Vitals: Vital Signs Date Time Temp Pulse Resp B/P (MAP) Pulse Ox O2 Delivery O2 Flow Rate FiO2 05/19/21 11:00 97.3 73 20 156/57 (90) 100 Nasal Cannula 2.0 97.3 Labs: Labs: Laboratory Tests Test 05/18/21 16:48 05/18/21 20:47 05/19/21 07:40 05/19/21 08:37 Glucose (Fingerstick) 225 mg/dL (70-99) 238 mg/dL (70-99) 94 mg/dL (70-99) Stool Occult Blood Positive (NEG) Test 05/19/21 08:40 05/19/21 11:56 Sodium Level 137 mmol/L (136-145) Potassium Level 4.4 mmol/L (3.5-5.1) Chloride Level 99 mmol/L (98-107) Carbon Dioxide Level 22 mmol/L (21-32) Anion Gap 16 (6-14) Blood Urea Nitrogen 111 mg/dL (7-20) Creatinine 8.2 mg/dL (0.6-1.0) Estimated GFR (Cockcroft-Gault) 5.8 Glucose Level 102 mg/dL (70-99) Calcium Level 8.3 mg/dL (8.5-10.1) Hepatitis B Surface Antigen Nonreactive (Nonreactive) Hepatitis B Surface Antibody Nonreactive Glucose (Fingerstick) 105 mg/dL (70-99) BLOOD CULTURE Final NO GROWTH AFTER 5 DAYS Allergies: Coded Allergies: No Known Drug Allergies (Unverified , 05/13/21) Medications: see emr Imaging: Imaging: CXR 05/13 IMPRESSION: 1. Bilateral interstitial alveolar infiltrates. 2. Left basilar effusion or atelectasis. Renal US 05/17 IMPRESSION: Limited examination due to patient body habitus. No evidence of hydronephrosis. PE: GEN: appears ill HEENT: Atraumatic, PERRLA LUNGS: diminished, NC 2L HEART: RRR ABD: quiet BS, soft, non-tender, large EXTREMITY: No edema SKIN: No rashes, no jaundice NEURO/PSYCH: lethargic A/P: A/P: COVID pneumonia, SUZIE/CKD, AMS Dark diarrhea, +Hemoccult Mild anemia CRC screen - none CAD on ASA BMI 43 -- Observe. Check anemia parameters. Add acid-patient ambassador. Await C Diff. Address resp and renal issues. Not a good endoscopy candidate. HARJINDER LAFLEUR May 19, 2021 13:30
[2021-05-19] MEDS ORDERED: LIDOCAINE WITH 8.4% SOD BICARB 3 ML DISP.SYRIN. ONE (13:31)
[2021-05-19] MEDS ORDERED: LIDOCAINE WITH 8.4% SOD BICARB 3 ML DISP.SYRIN. INJ ONE (13:45)
[2021-05-19] MEDS ORDERED: DIALYSIS PATIENT. MC PRN ×2 (14:15)
[2021-05-19] MEDS ORDERED: IV NORMAL SALINE 1000ML BAG 1,000 ML IV PRN ×2 (14:15)
[2021-05-19 15:00] VITALS: BP 148/60
--- NOTE | 2021-05-19 15:45 | RAD ---
Procedure: Temporary hemodialysis catheter placement at the bedside, ultrasound-guided Sterility: All elements of maximal sterile barrier technique including the use of a cap, mask, steril e gown, sterile gloves, large sterile sheet, appropriate hand hygiene, and 2% chlorhexidine for cutan eous antisepsis (or acceptable alternative antiseptic per current guidelines) were followed for this procedure. Consent: The procedure was explained in its entirety to the patient or the patients designated repres entative by a member of the treatment team, including a discussion of the risks, benefits and commonl y accepted alternatives to the procedure, as well as the expected consequences of no therapy whatsoev er. Discussion of the risks included, but was not limited to, those that are most frequent and thos e that are rare but possibly severe or life-threatening, as well as the possibility of unforeseen com plications. Technique and Findings: Following informed consent, the patient was prepped and draped in the usual s terile fashion. Ultrasound interrogation of the right neck revealed patency and compressibility of t he right internal jugular vein. A 21-gauge micropuncture was then used to gain access to this vein u nder ultrasound guidance. A hard copy ultrasound image was recorded. A guidewire was advanced centra lly over which, following dilatation, a temporary dialysis catheter was placed. The new catheter wa s found to flush and aspirate normally. The catheter was secured in place. Sterile dressings were mayela lied. No immediate complications were identified. IMPRESSION: Placement of a right internal jugular temporary dialysis catheter Electronically signed by: Shravan Winkler MD (05/19/2021 3:43 PM) [id number]
[2021-05-19] MEDS: PANTOPRAZOLE 40 MG TABLET.DR. PO SCH (16:30)
--- NOTE | 2021-05-19 16:57 | RAD ---
XR CHEST 1V History: Reason: POST TEMP HDC PLACEMENT / Spl. Instructions: / History: Comparison: May 13, 2021 Findings: Diffuse interstitial thickening with ill-defined opacities, similar compared to prior. And enlarged c ardiac size, unchanged. No pleural effusion. No pneumothorax. Interval placement right IJ central sadiq e with tip projecting over the right atrium. Impression: 1. Interval placement right IJ central line. No pneumothorax. 2. Diffuse interstitial and ill-defined opacities, unchanged. Electronically signed by: Phi Gotti DO (05/19/2021 4:54 PM) [id number]
[2021-05-19 19:00] VITALS: BP 185/87
[2021-05-19 22:32] VITALS: BP 169/82
[2021-05-19] MEDS: GABAPENTIN 100 MG CAPSULE. PO SCH (22:47)
[2021-05-19] MEDS: ATORVASTATIN CALCIUM 40 MG TABLET. PO SCH (22:51)
[2021-05-20] MEDS: PIPERACILLIN/TAZOBACTAM 2.25 GM in IV NORMAL SALINE 50ML 50 ML IV SCH ×4 (00:20→22:43)
[2021-05-20 03:00] VITALS: BP 183/66
[2021-05-20] MEDS: IV NORMAL SALINE 1000ML BAG 1,000 ML IV SCH ×2 (05:07→19:45)
[2021-05-20] MEDS: HEPARIN for SUB-Q USE 5,000 UNIT/ML VIAL. SQ SCH ×3 (05:15→22:43)
[2021-05-20 07:00] VITALS: BP 194/69
[2021-05-20] MEDS: DEXTROSE 50% 25 GM / 50ML DISP.SYRIN. IV PRN (07:27)
[2021-05-20 07:30] LABS: HEMATOCRIT 28.9 % (36.0-47.0); HEMOGLOBIN 9.4 g/dL (12.0-15.5); RED BLOOD COUNT 3.22 x10^6/uL (3.50-5.40); RED CELL DISTRIBUTION WIDTH 15.2 % (11.5-14.5); WHITE BLOOD COUNT 5.3 x10^3/uL (4.0-11.0)
[2021-05-20] MEDS: INSULIN LISPRO 300 UNITS/3 ML VIAL. SQ SCH ×4 (07:30→22:42)
[2021-05-20 07:42] LABS: CALCIUM 8.2 mg/dL (8.5-10.1); CREATININE 5.8 mg/dL (0.6-1.0); GFR 8.6; POTASSIUM 3.6 mmol/L (3.5-5.1)
[2021-05-20] MEDS: INSULIN GLARGINE SYRINGE. SQ SCH ×2 (09:00→22:43)
[2021-05-20] MEDS: ASPIRIN CHEWABLE 81 MG TABLET. PO SCH ×2 (09:00→09:31)
[2021-05-20] MEDS: SENNOSIDES/DOCUSATE 8.6/50MG TABLET. PO SCH ×2 (09:00→22:42)
--- NOTE | 2021-05-20 09:27 | PDOC ---
DATE OF SERVICE DATE: 05/20/21 TIME: 09:26 SUBJECTIVE ROS stable , No N/V, poor appetite OBJECTIVE Vital Signs Vital Signs Date Time Temp Pulse Resp B/P (MAP) Pulse Ox O2 Delivery O2 Flow Rate FiO2 05/20/21 07:00 98.8 68 18 194/69 (110) 97 Nasal Cannula 2.0 98.8 I & 0 Intake and Output 05/20/21 07:00 # Voids 2 # Bowel Movements 2 PHYSICAL EXAM Physical Exam General: No acute distress HEENT: OM moist Neck Supple Lungs: CTA ant, Non labored Heart: Regular rate Abdomen: obese, NT Extremities: trace bilateral LE edema Skin: No significant lesion, no rash Neuro: Normal speech, Sensation intact Psych/Mental Status: Mental status NL, Mood NL No sanchez, No CVA or SP tenderness DIAGNOSIS/ASSESSMENT Assessment & Plan SUZIE - Cr elevated at presentation to the ER to 2.5 worsening renal function . Lasix and Losartan held .Initially family refused dialysis, later agreeable, dialyzed yesterday . Dialysis again today . Discussed Treatment plan with Reinaldo UA was ordered 05/17 - not collected , Renal US unremarkable , supportive care,maintain hydration (cautious with Hx of CHF ) strict I/O (uop not recorded) , CKD; 1.1 at [facility] 05/13/21 (no labs in our system) Acute respiratory failure secondary to COVID PNA Arrhythmia; 18-beat NSVT noted on tele. Otherwise SR. CAD s/p CABG 2004. Follows with [facility], Dr. Murillo. Chronic diastolic CHF; Echo 05/07 with preserved LV systolic function Accelerated hypertension; now controlled Diabetes, II Morbid obesity, BRITTANI. noncompliant with CPAP COMMENT/RELEVANT DATA Meds Current Medications Medications (Trade) Dose Ordered Sig/Lemuel Start Time Stop Time Status Last Admin Dose Admin Acetaminophen (Tylenol) 650 mg PRN Q6HRS PRN 05/13/21 17:00 05/13/21 21:00 650 MG Albuterol Sulfate (Ventolin Hfa) 2 puff PRN Q4HRS PRN 05/16/21 20:00 05/19/21 13:29 2 PUFF Allopurinol (Zyloprim) 100 mg DAILY 05/14/21 09:00 05/19/21 09:39 100 MG Amlodipine Besylate (Norvasc) 5 mg DAILY 05/14/21 09:00 05/19/21 09:39 5 MG Aspirin (Aspirin Chewable) 81 mg DAILY 05/14/21 09:00 05/19/21 09:39 81 MG Aspirin (Ecotrin) 81 mg [id number] 05/14/21 08:00 05/13/21 18:10 DC Atorvastatin Calcium (Lipitor) 80 mg QHS 05/13/21 21:00 05/18/21 20:51 80 MG Azithromycin 250 ml @ 250 mls/hr 1X ONCE 05/13/21 16:15 05/13/21 17:14 DC 05/13/21 16:37 250 MLS/HR Calcium Carbonate/ Glycine (Tums) 500 mg PRN Q3HRS PRN 05/13/21 17:00 Ceftriaxone Sodium (Rocephin) 1 gm 1X ONCE 05/13/21 16:00 05/13/21 16:02 DC 05/13/21 16:37 1 GM Dexamethasone Sodium Phosphate (Decadron) 6 mg DAILY 05/14/21 09:00 05/19/21 09:40 6 MG Dextrose (Dextrose 50%-Water Syringe) 12.5 gm PRN Q15MIN PRN 05/14/21 17:30 05/20/21 07:27 12.5 GM EZETIMIBE (Zetia) 10 mg DAILY 05/14/21 09:00 05/19/21 09:38 10 MG Furosemide (Lasix) 40 mg DAILY 05/14/21 09:00 05/16/21 14:56 DC 05/16/21 10:09 40 MG Gabapentin (Neurontin) 100 mg HS 05/13/21 21:00 05/18/21 20:51 100 MG Guaifenesin (Robitussin Dm) 10 ml PRN Q6HRS PRN 05/16/21 07:30 05/16/21 21:16 10 ML Guaifenesin/ Codeine Phosphate (Robitussin Ac) 5 ml PRN Q6HRS PRN 05/13/21 16:15 05/16/21 07:29 DC Heparin Sodium (Porcine) (Heparin Sodium) 5,000 unit Q8HRS 05/13/21 22:00 05/19/21 05:53 5,000 UNIT Hydralazine HCl (Apresoline Inj) 10 mg PRN Q4HRS PRN 05/16/21 15:00 Info (Non-Icu Electrolyte Protocol) 1 ea PRN DAILY PRN 05/13/21 17:00 Info (PHARMACY MONITORING -- do not chart) 1 each PRN DAILY PRN 05/19/21 14:15 Cancel Insulin Glargine (Lantus Syringe) 10 unit BID 05/14/21 23:30 05/18/21 20:53 10 UNIT Insulin Human Lispro (HumaLOG) 0-9 UNITS QIDACHS 05/16/21 21:30 05/18/21 20:52 5 UNITS Isosorbide Mononitrate (Imdur) 30 mg DAILY 05/17/21 09:00 05/19/21 09:39 30 MG Lactobacillus Rhamnosus (Culturelle) 1 cap BID 05/16/21 21:00 05/19/21 09:38 1 CAP Levothyroxine Sodium (Synthroid) 175 mcg DAILYAC 05/14/21 07:30 05/19/21 09:38 175 MCG Lidocaine HCl (Buffered Lidocaine 1%) 3 ml 1X ONCE 05/19/21 13:45 05/19/21 13:46 DC 05/19/21 14:15 6 ML Losartan Potassium (Cozaar) 50 mg DAILY 05/14/21 09:00 05/16/21 14:56 DC 05/16/21 10:09 50 MG Magnesium Sulfate 50 ml @ 25 mls/hr 1X ONCE 05/13/21 16:15 05/13/21 18:14 Cancel Methylprednisolone Sodium Succinate (SOLU-Medrol 125MG VIAL) 125 mg 1X ONCE 05/13/21 15:45 05/13/21 15:46 DC 05/13/21 15:58 125 MG Multivitamins (Thera M Plus) 1 tab DAILY 05/14/21 09:00 05/19/21 09:39 1 TAB Ondansetron HCl (Zofran) 4 mg PRN Q6HRS PRN 05/13/21 17:00 Oxycodone HCl (Roxicodone) 5 mg PRN Q3HRS PRN 05/13/21 17:00 Oxycodone/ Acetaminophen (Percocet 5/325) 2 tab PRN Q4HRS PRN 05/13/21 17:00 Pantoprazole Sodium (Protonix) 40 mg DAILYAC 05/19/21 16:30 Piperacillin Sod/ Tazobactam Sod (Zosyn Per Pharmacy) 1 each PRN DAILY PRN 05/13/21 16:15 Piperacillin Sod/ Tazobactam Sod 2.25 gm/Sodium Chloride 50 ml @ 100 mls/hr Q6HRS 05/13/21 18:00 05/20/21 05:07 100 MLS/HR Remdesivir 100 mg/ Sodium Chloride 230 ml @ 460 mls/hr Q24H 05/14/21 17:00 05/17/21 17:29 DC 05/17/21 17:45 460 MLS/HR Remdesivir 200 mg/ Sodium Chloride 210 ml @ 210 mls/hr 1X ONCE 05/13/21 17:00 05/13/21 17:59 DC 05/13/21 20:59 210 MLS/HR Senna/Docusate Sodium (Senna Plus) 1 tab BID 05/13/21 21:00 05/17/21 20:28 1 TAB Sodium Chloride 1,000 ml @ 400 mls/hr Q2H30M PRN 05/19/21 14:15 05/20/21 02:14 DC Zolpidem Tartrate (Ambien) 5 mg PRN QHS PRN 05/13/21 17:00 05/16/21 07:29 DC Lab Laboratory Tests Test 05/19/21 11:56 05/19/21 18:25 05/19/21 19:16 05/20/21 07:10 Glucose (Fingerstick) 105 mg/dL (70-99) 115 mg/dL (70-99) 113 mg/dL (70-99) White Blood Count 5.3 x10^3/uL (4.0-11.0) Red Blood Count 3.22 x10^6/uL (3.50-5.40) Hemoglobin 9.4 g/dL (12.0-15.5) Hematocrit 28.9 % (36.0-47.0) Mean Corpuscular Volume 90 fL (79-100) Mean Corpuscular Hemoglobin 29 pg (25-35) Mean Corpuscular Hemoglobin Concent 33 g/dL (31-37) Red Cell Distribution Width 15.2 % (11.5-14.5) Platelet Count 192 x10^3/uL (140-400) Sodium Level 140 mmol/L (136-145) Potassium Level 3.6 mmol/L (3.5-5.1) Chloride Level 102 mmol/L (98-107) Carbon Dioxide Level 27 mmol/L (21-32) Anion Gap 11 (6-14) Blood Urea Nitrogen 60 mg/dL (7-20) Creatinine 5.8 mg/dL (0.6-1.0) Estimated GFR (Cockcroft-Gault) 8.6 Glucose Level 65 mg/dL (70-99) Calcium Level 8.2 mg/dL (8.5-10.1) Test 05/20/21 07:21 05/20/21 08:04 Glucose (Fingerstick) 58 mg/dL (70-99) 126 mg/dL (70-99) Results All relevant outside records, renal labs, imaging studies, telemetry/EKG's were reviewed. Justicifation of Admission Dx: Justifications for Admission: Justification of Admission Dx: Yes AMINA MÁRQUEZ MD May 20, 2021 09:27
[2021-05-20] MEDS: PANTOPRAZOLE 40 MG TABLET.DR. PO SCH (09:30)
[2021-05-20] MEDS: ALLOPURINOL 100 MG TABLET. PO SCH (09:30)
[2021-05-20] MEDS: MULTIVITAMIN with MINERAL TABLET. PO SCH (09:30)
[2021-05-20] MEDS: LACTOBACILLUS RHAMNOSUS GG 1 CAPSULE. PO SCH ×2 (09:30→22:42)
[2021-05-20] MEDS: EZETIMIBE 10 MG TABLET. PO SCH (09:30)
[2021-05-20] MEDS: DEXAMETHASONE SOD PHOS 4 MG/ML VIAL IVP SCH (09:32)
[2021-05-20] MEDS: LEVOTHYROXINE 175 MCG TABLET PO SCH (09:32)
[2021-05-20] MEDS: ISOSORBIDE MONONITRATE ER 30 MG TAB.ER.24H PO SCH (09:32)
--- NOTE | 2021-05-20 10:57 | PDOC ---
PROGRESS NOTES Date of Service: DATE: 05/20/21 TIME: 10:56 Chief Complaint Chief Complaint impression Pneumonia secondary to COVID-19 infection Acute Hypoxic Respiratory Failure Hypomagnesemia CAD CHF Type II Diabetes History of Present Illness History of Present Illness Ms Braswell is a 75yo F w/ PMHx HTN, DM2, CHF, CAD s/p CABG who came to ED on 05/13/2020 progressive shortness of breath over the prior week. In ED with O2 saturations 86% on room air febrile to 101.3 F. Tested positive for COVID-19. She had not been fully vaccinated. 05/14: Weak and was resting. She is currently on the COVID-19 protocol (Re mdesivir, Aspirin, Multivitamins, Dexamethsone, Heparin SOdium, Piperacillin/Tazobactam, Acetaminophen). Mrs. Braswell states that she only received 1 dose of the COVID-19 vaccination. 05/15: She is feeling better. This morning, she was able to eat her breakfast. She remains on the COVID-19 Protocol (Remdesivir, Aspirin, Multivitamins, Dexamethsone, Heparin Sodium, Piperacillin/Tazobactam, Acetaminophen). We reviewed the patient's chart and discussed with RN 05/16: Afebrile overnight. Glucose in the 200s. O2 saturations 89 to 91% on 2 L nasal cannula oxygen. She is feeling short of breath and weak. No chest pain.. Had some V. tach overnight. Afebrile. BUN over 88 and creatinine elevated. Holding furosemide and losartan. Baseline CR at [facility] was 1.1. Cardiology nephrology consulted today. 05-18 V. tach overnight. 8-30 Afebrile. BUN over 88 and creatinine elevated. 6.9 d/c furosemide and losartan. Baseline CR // [facility] was 1.1. D/W supervisor [facility] nephrology consulted ASA, statin therapy. NO AV mariama block agents with bradycardia Hold Lasix, losartan with SUZIE Am labs if no improvement will need dialysis and temp HDC in the morning 05-19. Enrique RN 37 MIN PT exam, chart review, > 50% of time spent with exam, chart review, pt care coordination 05-19 V. tach overnight. 8-30 Afebrile. BUN over 88 and creatinine elevated. 6.9 d/c furosemide and losartan. Baseline CR // [facility] was 1.1. D/W supervisor [facility] nephrology consulted ASA, statin therapy. NO AV mariama block agents with bradycardia Hold Lasix, losartan with SUZIE Am labs if no improvement will need dialysis and temp HDC in the morning 05-19. Enrique RN 36 MIN PT exam, chart review, > 50% of time spent with exam, chart review, pt care coordination 05-20 Continue empiric PPI. Follow hemoglobin. Confused, not eating well V. tach overnight. 8-30 Afebrile. BUN over 88 and creatinine elevated. 6.9 d/c furosemide and losartan. Baseline CR // [facility] was 1.1. D/W supervisor [facility] consulted ASA, statin therapy. NO AV mariama block agents with bradycardia Hold Lasix, losartan with SUZIE Am labs if no improvement will need dialysis and temp HDC in the morning 05-19. Enrique RN 37 MIN PT exam, chart review, > 50% of time spent with exam, chart review, pt care coordination Vitals Vitals Vital Signs Date Time Temp Pulse Resp B/P (MAP) Pulse Ox O2 Delivery O2 Flow Rate FiO2 05/20/21 09:33 80 170/77 05/20/21 07:00 98.8 18 97 Nasal Cannula 2.0 98.8 Physical Exam General: Alert, Oriented X3, Cooperative, No acute distress Heart: Regular rate (SR/SB rate presently 56), Normal S1, Normal S2 Lungs: Wheezing Abdomen: Other (obese) Extremities: Other (trace bilateral LE edema ) Skin: No significant lesion Labs LABS Laboratory Tests Test 05/19/21 11:56 05/19/21 18:25 05/19/21 19:16 05/20/21 07:10 Glucose (Fingerstick) 105 mg/dL (70-99) 115 mg/dL (70-99) 113 mg/dL (70-99) White Blood Count 5.3 x10^3/uL (4.0-11.0) Red Blood Count 3.22 x10^6/uL (3.50-5.40) Hemoglobin 9.4 g/dL (12.0-15.5) Hematocrit 28.9 % (36.0-47.0) Mean Corpuscular Volume 90 fL (79-100) Mean Corpuscular Hemoglobin 29 pg (25-35) Mean Corpuscular Hemoglobin Concent 33 g/dL (31-37) Red Cell Distribution Width 15.2 % (11.5-14.5) Platelet Count 192 x10^3/uL (140-400) Sodium Level 140 mmol/L (136-145) Potassium Level 3.6 mmol/L (3.5-5.1) Chloride Level 102 mmol/L (98-107) Carbon Dioxide Level 27 mmol/L (21-32) Anion Gap 11 (6-14) Blood Urea Nitrogen 60 mg/dL (7-20) Creatinine 5.8 mg/dL (0.6-1.0) Estimated GFR (Cockcroft-Gault) 8.6 Glucose Level 65 mg/dL (70-99) Calcium Level 8.2 mg/dL (8.5-10.1) Test 05/20/21 07:21 05/20/21 08:04 Glucose (Fingerstick) 58 mg/dL (70-99) 126 mg/dL (70-99) Assessment and Plan Assessmemt and Plan Problems Medical Problems: (1) Hypomagnesemia syndrome Status: Acute (2) Hypoxia Status: Acute (3) Pneumonia due to COVID-19 virus Status: Acute Comment Review of Relevant I have reviewed the following items maged (where applicable) has been applied. Labs Laboratory Tests Test 05/18/21 12:15 05/18/21 16:48 05/18/21 20:47 05/19/21 07:40 Glucose (Fingerstick) 116 mg/dL (70-99) 225 mg/dL (70-99) 238 mg/dL (70-99) Stool Occult Blood Positive (NEG) Clostridium difficile Toxin (PCR) Negative (NEGATIVE) Test 05/19/21 08:37 05/19/21 08:40 05/19/21 11:56 05/19/21 18:25 Glucose (Fingerstick) 94 mg/dL (70-99) 105 mg/dL (70-99) 115 mg/dL (70-99) Sodium Level 137 mmol/L (136-145) Potassium Level 4.4 mmol/L (3.5-5.1) Chloride Level 99 mmol/L (98-107) Carbon Dioxide Level 22 mmol/L (21-32) Anion Gap 16 (6-14) Blood Urea Nitrogen 111 mg/dL (7-20) Creatinine 8.2 mg/dL (0.6-1.0) Estimated GFR (Cockcroft-Gault) 5.8 Glucose Level 102 mg/dL (70-99) Calcium Level 8.3 mg/dL (8.5-10.1) Iron Level 138 ug/dL (50-170) Total Iron Binding Capacity 147 ug/dL (250-450) Iron Saturation 94 % (15-34) Vitamin B12 Level 983 pg/mL (247-911) Hepatitis B Surface Antigen Nonreactive (Nonreactive) Hepatitis B Surface Antibody Nonreactive Test 05/19/21 19:16 05/20/21 07:10 05/20/21 07:21 05/20/21 08:04 Glucose (Fingerstick) 113 mg/dL (70-99) 58 mg/dL (70-99) 126 mg/dL (70-99) White Blood Count 5.3 x10^3/uL (4.0-11.0) Red Blood Count 3.22 x10^6/uL (3.50-5.40) Hemoglobin 9.4 g/dL (12.0-15.5) Hematocrit 28.9 % (36.0-47.0) Mean Corpuscular Volume 90 fL (79-100) Mean Corpuscular Hemoglobin 29 pg (25-35) Mean Corpuscular Hemoglobin Concent 33 g/dL (31-37) Red Cell Distribution Width 15.2 % (11.5-14.5) Platelet Count 192 x10^3/uL (140-400) Sodium Level 140 mmol/L (136-145) Potassium Level 3.6 mmol/L (3.5-5.1) Chloride Level 102 mmol/L (98-107) Carbon Dioxide Level 27 mmol/L (21-32) Anion Gap 11 (6-14) Blood Urea Nitrogen 60 mg/dL (7-20) Creatinine 5.8 mg/dL (0.6-1.0) Estimated GFR (Cockcroft-Gault) 8.6 Glucose Level 65 mg/dL (70-99) Calcium Level 8.2 mg/dL (8.5-10.1) Laboratory Tests Test 05/19/21 11:56 05/19/21 18:25 05/19/21 19:16 05/20/21 07:10 Glucose (Fingerstick) 105 mg/dL (70-99) 115 mg/dL (70-99) 113 mg/dL (70-99) White Blood Count 5.3 x10^3/uL (4.0-11.0) Red Blood Count 3.22 x10^6/uL (3.50-5.40) Hemoglobin 9.4 g/dL (12.0-15.5) Hematocrit 28.9 % (36.0-47.0) Mean Corpuscular Volume 90 fL (79-100) Mean Corpuscular Hemoglobin 29 pg (25-35) Mean Corpuscular Hemoglobin Concent 33 g/dL (31-37) Red Cell Distribution Width 15.2 % (11.5-14.5) Platelet Count 192 x10^3/uL (140-400) Sodium Level 140 mmol/L (136-145) Potassium Level 3.6 mmol/L (3.5-5.1) Chloride Level 102 mmol/L (98-107) Carbon Dioxide Level 27 mmol/L (21-32) Anion Gap 11 (6-14) Blood Urea Nitrogen 60 mg/dL (7-20) Creatinine 5.8 mg/dL (0.6-1.0) Estimated GFR (Cockcroft-Gault) 8.6 Glucose Level 65 mg/dL (70-99) Calcium Level 8.2 mg/dL (8.5-10.1) Test 05/20/21 07:21 05/20/21 08:04 Glucose (Fingerstick) 58 mg/dL (70-99) 126 mg/dL (70-99) Microbiology 05/13/21 Blood Culture - Final, Complete NO GROWTH AFTER 5 DAYS Medications Current Medications Magnesium Sulfate 50 ml @ 25 mls/hr 1X ONCE IV Last administered on 05/13/21at 15:58; Start 05/13/21 at 15:45; Stop 05/13/21 at 17:44; Status DC Methylprednisolone Sodium Succinate (SOLU-Medrol 125MG VIAL) 125 mg 1X ONCE IV Last administered on 05/13/21at 15:58; Start 05/13/21 at 15:45; Stop 05/13/21 at 15:46; Status DC Ceftriaxone Sodium (Rocephin) 1 gm 1X ONCE IVP Last administered on 05/13/21at 16:37; Start 05/13/21 at 16:00; Stop 05/13/21 at 16:02; Status DC Piperacillin Sod/ Tazobactam Sod (Zosyn Per Pharmacy) 1 each PRN DAILY PRN MC SEE COMMENTS; Start 05/13/21 at 16:15 Dexamethasone Sodium Phosphate (Decadron) 6 mg DAILY IVP Last administered on 05/20/21at 09:32; Start 05/14/21 at 09:00 Remdesivir 200 mg/ Sodium Chloride 210 ml @ 210 mls/hr 1X ONCE IV Last administered on 05/13/21at 20:59; Start 05/13/21 at 17:00; Stop 05/13/21 at 17:59; Status DC Remdesivir 100 mg/ Sodium Chloride 230 ml @ 460 mls/hr Q24H IV Last administered on 05/17/21at 17:45; Start 05/14/21 at 17:00; Stop 05/17/21 at 17:29; Status DC Multivitamins (Thera M Plus) 1 tab DAILY PO Last administered on 05/20/21at 09:30; Start 05/14/21 at 09:00 Aspirin (Ecotrin) 81 mg DAILYWBKFT PO ; Start 05/14/21 at 08:00; Stop 05/13/21 at 18:10; Status DC Guaifenesin/ Codeine Phosphate (Robitussin Ac) 5 ml PRN Q6HRS PRN PO COUGH; Start 05/13/21 at 16:15; Stop 05/16/21 at 07:29; Status DC Azithromycin 250 ml @ 250 mls/hr 1X ONCE IV Last administered on 05/13/21at 16:37; Start 05/13/21 at 16:15; Stop 05/13/21 at 17:14; Status DC Magnesium Sulfate 50 ml @ 25 mls/hr 1X ONCE IV ; Start 05/13/21 at 16:15; Stop 05/13/21 at 18:14; Status Cancel Piperacillin Sod/ Tazobactam Sod 2.25 gm/Sodium Chloride 50 ml @ 100 mls/hr Q6HRS IV Last administered on 05/20/21at 05:07; Start 05/13/21 at 18:00 Ondansetron HCl (Zofran) 4 mg PRN Q6HRS PRN IVP NAUSEA/VOMITING; Start 05/13/21 at 17:00 Calcium Carbonate/ Glycine (Tums) 500 mg PRN Q3HRS PRN PO UPSET STOMACH; Start 05/13/21 at 17:00 Zolpidem Tartrate (Ambien) 5 mg PRN QHS PRN PO INSOMNIA, MAY REPEAT IN 1HR; Start 05/13/21 at 17:00; Stop 05/16/21 at 07:29; Status DC Info (Non-Icu Electrolyte Protocol) 1 ea PRN DAILY PRN MC SEE COMMENTS; Start 05/13/21 at 17:00 Oxycodone HCl (Roxicodone) 5 mg PRN Q3HRS PRN PO BREAKTHROUGH PAIN; Start 05/13/21 at 17:00 Oxycodone/ Acetaminophen (Percocet 5/325) 1 tab PRN Q4HRS PRN PO MILD PAIN, 1ST CHOICE; Start 05/13/21 at 17:00 Oxycodone/ Acetaminophen (Percocet 5/325) 2 tab PRN Q4HRS PRN PO MODERATE PAIN, SEVERE PAIN; Start 05/13/21 at 17:00 Acetaminophen (Tylenol) 650 mg PRN Q6HRS PRN PO Headaches, Temp > 101.5F Last administered on 05/13/21at 21:00; Start 05/13/21 at 17:00 Senna/Docusate Sodium (Senna Plus) 1 tab BID PO Last administered on 05/17/21at 20:28; Start 05/13/21 at 21:00 Heparin Sodium (Porcine) (Heparin Sodium) 5,000 unit Q8HRS SQ Last administered on 05/19/21at 05:53; Start 05/13/21 at 22:00 Allopurinol (Zyloprim) 100 mg DAILY PO Last administered on 05/20/21at 09:30; Start 05/14/21 at 09:00 Amlodipine Besylate (Norvasc) 5 mg DAILY PO Last administered on 05/20/21at 09:33; Start 05/14/21 at 09:00 Aspirin (Aspirin Chewable) 81 mg DAILY PO Last administered on 05/20/21at 09:31; Start 05/14/21 at 09:00 EZETIMIBE (Zetia) 10 mg DAILY PO Last administered on 05/20/21 09:30; Start 05/14/21 at 09:00 Furosemide (Lasix) 40 mg DAILY PO Last administered on 05/16/21 10:09; Start 05/14/21 at 09:00; Stop 05/16/21 at 14:56; Status DC Gabapentin (Neurontin) 100 mg HS PO Last administered on 05/18/21 20:51; Start 05/13/21 at 21:00 Levothyroxine Sodium (Synthroid) 175 mcg DAILYAC PO Last administered on 05/20/21 09:32; Start 05/14/21 at 07:30 Losartan Potassium (Cozaar) 50 mg DAILY PO Last administered on 05/16/21 10:09; Start 05/14/21 at 09:00; Stop 05/16/21 at 14:56; Status DC Atorvastatin Calcium (Lipitor) 80 mg QHS PO Last administered on 05/18/21 20:51; Start 05/13/21 at 21:00 Insulin Human Lispro (HumaLOG) 10 units 1X ONCE SQ Last administered on 05/14/21at 17:24; Start 05/14/21 at 17:30; Stop 05/14/21 at 17:31; Status DC Insulin Human Lispro (HumaLOG) 0-9 UNITS TIDWMEALS SQ Last administered on 05/16/21at 17:12; Start 05/15/21 at 08:00; Stop 05/16/21 at 21:03; Status DC Dextrose (Dextrose 50%-Water Syringe) 12.5 gm PRN Q15MIN PRN IV SEE COMMENTS Last administered on 05/20/21at 07:27; Start 05/14/21 at 17:30 Insulin Human Lispro (HumaLOG) 9 units 1X ONCE SQ Last administered on 05/14/21 23:22; Start 05/14/21 at 23:30; Stop 05/14/21 at 23:31; Status DC Insulin Glargine (Lantus Syringe) 10 unit BID SQ Last administered on 05/18/21 20:53; Start 05/14/21 at 23:30 Guaifenesin (Robitussin Dm) 10 ml PRN Q6HRS PRN PO COUGH Last administered on 05/16/21at 21:16; Start 05/16/21 at 07:30 Lactobacillus Rhamnosus (Culturelle) 1 cap BID PO Last administered on 05/20/21at 09:30; Start 05/16/21 at 21:00 Hydralazine HCl (Apresoline Inj) 10 mg PRN Q4HRS PRN IVP ELEVATED BP, SEE COMMENTS; Start 05/16/21 at 15:00 Isosorbide Mononitrate (Imdur) 30 mg DAILY PO Last administered on 05/20/21at 09:32; Start 05/17/21 at 09:00 Albuterol Sulfate (Ventolin Hfa) 2 puff PRN Q4HRS PRN INH WHEEZING Last administered on 05/19/21at 13:29; Start 05/16/21 at 20:00 Insulin Human Lispro (HumaLOG) 0-9 UNITS QIDACHS SQ Last administered on 05/18/21at 20:52; Start 05/16/21 at 21:30 Sodium Chloride 1,000 ml @ 75 mls/hr [id number] IV Last administered on 05/20/21at 05:07; Start 05/17/21 at 11:45 Pantoprazole Sodium (Protonix) 40 mg DAILYAC PO Last administered on 05/20/21at 09:30; Start 05/19/21 at 16:30 Lidocaine HCl (Buffered Lidocaine 1%) 3 ml STK-MED ONCE .ROUTE ; Start 05/19/21 at 13:31; Stop 05/19/21 at 13:31; Status DC Lidocaine HCl (Buffered Lidocaine 1%) 3 ml 1X ONCE INJ Last administered on 05/19/21at 14:15; Start 05/19/21 at 13:45; Stop 05/19/21 at 13:46; Status DC Sodium Chloride 1,000 ml @ 1,000 mls/hr Q1H PRN IV hypotension; Start 05/19/21 at 14:15; Stop 05/19/21 at 20:14; Status DC Sodium Chloride 1,000 ml @ 400 mls/hr Q2H30M PRN IV PATENCY; Start 05/19/21 at 14:15; Stop 05/20/21 at 02:14; Status DC Info (PHARMACY MONITORING -- do not chart) 1 each PRN DAILY PRN MC SEE COMMENTS; Start 05/19/21 at 14:15 Info (PHARMACY MONITORING -- do not chart) 1 each PRN DAILY PRN MC SEE COMMENTS; Start 05/19/21 at 14:15; Status Cancel Active Scripts Active Reported Zetia (Ezetimibe) 10 Mg Tablet 10 Mg PO DAILY Furosemide 40 Mg Tablet 1 Tab PO DAILY Hydrocodone-Apap 5-325 (Hydrocodone Bit/Acetaminophen) 1 Tab Tablet 1 Tab PO PRN BID PRN Allopurinol 100 Mg Tablet 1 Tab PO DAILY Aspirin 81 Mg Tab.chew 1 Tab PO DAILY Levothyroxine Sodium 175 Mcg Tablet 175 Mcg PO DAILYAC Amlodipine Besylate 5 Mg Tablet 5 Mg PO DAILY Hydralazine Hcl 25 Mg Tablet 1 Tab PO TID Gabapentin (Gabapentin) 100 Mg Capsule 100 Mg PO HS Atorvastatin Calcium 80 Mg Tablet 80 Mg PO DAILY Losartan Potassium 50 Mg Tablet 50 Mg PO DAILY Metformin Hcl 500 Mg Tablet 500 Mg PO BIDWMEALS Magnesium (Magnesium Oxide) 500 Mg Capsule 1 Cap PO BID 30 Days Vitals/I & O Vital Sign - Last 24 Hours 05/19/21 05/19/21 05/19/21 05/19/21 11:00 15:00 19:00 20:45 Temp 97.3 97.8 99.1 97.3 97.8 99.1 Pulse 73 69 72 Resp 20 20 19 B/P (MAP) 156/57 (90) 148/60 (89) 185/87 (119) Pulse Ox 100 97 95 O2 Delivery Nasal Cannula Nasal Cannula Nasal Cannula Nasal Cannula O2 Flow Rate 2.0 2.0 2.0 2.0 05/19/21 05/20/21 05/20/21 05/20/21 22:32 03:00 07:00 09:32 Temp 98.9 98.9 98.8 98.9 98.9 98.8 Pulse 74 70 68 80 Resp 19 18 18 B/P (MAP) 169/82 (111) 183/66 (105) 194/69 (110) 170/77 Pulse Ox 95 97 97 O2 Delivery Nasal Cannula Nasal Cannula Nasal Cannula O2 Flow Rate 2.0 2.0 2.0 05/20/21 09:33 Pulse 80 B/P (MAP) 170/77 Justicifation of Admission Dx: Justifications for Admission: Justification of Admission Dx: Yes HEENA LOVE MD May 20, 2021 10:57
[2021-05-20 11:00] VITALS: BP 190/86
--- NOTE | 2021-05-20 13:18 | PDOC ---
G I PROGRESS NOTE Reason for Follow-up GIB? Subjective In COVID isolation. Objective Nurses report melena. Physical Exam In isolation. Vital more than stable. Review of Relevant I have reviewed the following items maged (where applicable) has been applied. Labs Laboratory Tests Test 05/18/21 16:48 05/18/21 20:47 05/19/21 07:40 05/19/21 08:37 Glucose (Fingerstick) 225 mg/dL (70-99) 238 mg/dL (70-99) 94 mg/dL (70-99) Stool Occult Blood Positive (NEG) Clostridium difficile Toxin (PCR) Negative (NEGATIVE) Test 05/19/21 08:40 05/19/21 11:56 05/19/21 18:25 05/19/21 19:16 Sodium Level 137 mmol/L (136-145) Potassium Level 4.4 mmol/L (3.5-5.1) Chloride Level 99 mmol/L (98-107) Carbon Dioxide Level 22 mmol/L (21-32) Anion Gap 16 (6-14) Blood Urea Nitrogen 111 mg/dL (7-20) Creatinine 8.2 mg/dL (0.6-1.0) Estimated GFR (Cockcroft-Gault) 5.8 Glucose Level 102 mg/dL (70-99) Calcium Level 8.3 mg/dL (8.5-10.1) Iron Level 138 ug/dL (50-170) Total Iron Binding Capacity 147 ug/dL (250-450) Iron Saturation 94 % (15-34) Vitamin B12 Level 983 pg/mL (247-911) Hepatitis B Surface Antigen Nonreactive (Nonreactive) Hepatitis B Surface Antibody Nonreactive Glucose (Fingerstick) 105 mg/dL (70-99) 115 mg/dL (70-99) 113 mg/dL (70-99) Test 05/20/21 07:10 05/20/21 07:21 05/20/21 08:04 05/20/21 11:35 White Blood Count 5.3 x10^3/uL (4.0-11.0) Red Blood Count 3.22 x10^6/uL (3.50-5.40) Hemoglobin 9.4 g/dL (12.0-15.5) Hematocrit 28.9 % (36.0-47.0) Mean Corpuscular Volume 90 fL (79-100) Mean Corpuscular Hemoglobin 29 pg (25-35) Mean Corpuscular Hemoglobin Concent 33 g/dL (31-37) Red Cell Distribution Width 15.2 % (11.5-14.5) Platelet Count 192 x10^3/uL (140-400) Sodium Level 140 mmol/L (136-145) Potassium Level 3.6 mmol/L (3.5-5.1) Chloride Level 102 mmol/L (98-107) Carbon Dioxide Level 27 mmol/L (21-32) Anion Gap 11 (6-14) Blood Urea Nitrogen 60 mg/dL (7-20) Creatinine 5.8 mg/dL (0.6-1.0) Estimated GFR (Cockcroft-Gault) 8.6 Glucose Level 65 mg/dL (70-99) Calcium Level 8.2 mg/dL (8.5-10.1) Glucose (Fingerstick) 58 mg/dL (70-99) 126 mg/dL (70-99) 83 mg/dL (70-99) Laboratory Tests Test 05/19/21 18:25 05/19/21 19:16 05/20/21 07:10 05/20/21 07:21 Glucose (Fingerstick) 115 mg/dL (70-99) 113 mg/dL (70-99) 58 mg/dL (70-99) White Blood Count 5.3 x10^3/uL (4.0-11.0) Red Blood Count 3.22 x10^6/uL (3.50-5.40) Hemoglobin 9.4 g/dL (12.0-15.5) Hematocrit 28.9 % (36.0-47.0) Mean Corpuscular Volume 90 fL (79-100) Mean Corpuscular Hemoglobin 29 pg (25-35) Mean Corpuscular Hemoglobin Concent 33 g/dL (31-37) Red Cell Distribution Width 15.2 % (11.5-14.5) Platelet Count 192 x10^3/uL (140-400) Sodium Level 140 mmol/L (136-145) Potassium Level 3.6 mmol/L (3.5-5.1) Chloride Level 102 mmol/L (98-107) Carbon Dioxide Level 27 mmol/L (21-32) Anion Gap 11 (6-14) Blood Urea Nitrogen 60 mg/dL (7-20) Creatinine 5.8 mg/dL (0.6-1.0) Estimated GFR (Cockcroft-Gault) 8.6 Glucose Level 65 mg/dL (70-99) Calcium Level 8.2 mg/dL (8.5-10.1) Test 05/20/21 08:04 05/20/21 11:35 Glucose (Fingerstick) 126 mg/dL (70-99) 83 mg/dL (70-99) Microbiology 05/13/21 Blood Culture - Final, Complete NO GROWTH AFTER 5 DAYS Some drift in hemoglobin. C.diff negative. BUN falling. Vitals/I & O Vital Sign - Last 24 Hours 05/19/21 05/19/21 05/19/21 05/19/21 15:00 19:00 20:45 22:32 Temp 97.8 99.1 98.9 97.8 99.1 98.9 Pulse 69 72 74 Resp 20 19 19 B/P (MAP) 148/60 (89) 185/87 (119) 169/82 (111) Pulse Ox 97 95 95 O2 Delivery Nasal Cannula Nasal Cannula Nasal Cannula Nasal Cannula O2 Flow Rate 2.0 2.0 2.0 2.0 05/20/21 05/20/21 05/20/21 05/20/21 03:00 07:00 09:32 09:33 Temp 98.9 98.8 98.9 98.8 Pulse 70 68 80 80 Resp 18 18 B/P (MAP) 183/66 (105) 194/69 (110) 170/77 170/77 Pulse Ox 97 97 O2 Delivery Nasal Cannula Nasal Cannula O2 Flow Rate 2.0 2.0 05/20/21 11:00 Temp 97.5 97.5 Pulse 70 Resp 18 B/P (MAP) 190/86 (120) Pulse Ox 97 O2 Delivery Nasal Cannula O2 Flow Rate 2.0 Problem List Problems Medical Problems: (1) Hypomagnesemia syndrome Status: Acute (2) Hypoxia Status: Acute (3) Pneumonia due to COVID-19 virus Status: Acute Assessment Melena, some drop in hemoglobin but very stable vital sign-mar. Plan of Care Note Continue empiric PPI. Follow hemoglobin. Justicifation of Admission Dx: Justifications for Admission: Justification of Admission Dx: Yes RADHA PADILLA MD May 20, 2021 13:18
[2021-05-20] MEDS ORDERED: DIALYSIS PATIENT. MC PRN (15:15)
--- NOTE | 2021-05-20 15:55 | NUR ---
SS following for discharge planning. SS reviewed pt chart and discussed with pt RN. Pt is from home and is currently requiring oxygen at two liters nasal canula. Pt has no home oxygen. COVID19 positive. Pt on IV Zosyn, IV Decadron, and Clinimix. PT/OT recommended correction unit. Pt has Medicaid and has no benefits for correction unit. SS will continue to follow for discharge planning.
[2021-05-20] MEDS: AA 4.25 %/CALCIUM/LYTES/D5W 1,000 ML IV SCH (16:21)
--- NOTE | 2021-05-20 16:58 | NUR ---
Nurse's note: Received 2 phone calls from the patient's daughters this morning asking about the patient's status. They were updated regarding the patient's care plan. Spoke to Dr. Lee and Dr. Riojas regarding family member's concerns. The patient is confused but knows her name and birthday. She underwent dialysis and came back on the unit at 1630, VSS, call light placed within reach. We will continue to monitor.
[2021-05-20 19:00] VITALS: BP 185/89
[2021-05-20] MEDS: GABAPENTIN 100 MG CAPSULE. PO SCH (22:42)
[2021-05-20] MEDS: ATORVASTATIN CALCIUM 40 MG TABLET. PO SCH (22:42)
[2021-05-20] MEDS: hydrALAZINE 20 MG/ML VIAL. IVP PRN (22:47)
[2021-05-20 23:00] VITALS: BP 180/61
[2021-05-21] MEDS: AA 4.25 %/CALCIUM/LYTES/D5W 1,000 ML IV SCH ×2 (01:45→15:16)
[2021-05-21 03:24] VITALS: BP 159/69
[2021-05-21] MEDS: HEPARIN for SUB-Q USE 5,000 UNIT/ML VIAL. SQ SCH ×3 (06:00→21:19)
[2021-05-21] MEDS: PIPERACILLIN/TAZOBACTAM 2.25 GM in IV NORMAL SALINE 50ML 50 ML IV SCH ×3 (06:19→21:17)
[2021-05-21 07:00] VITALS: BP 154/68
[2021-05-21] MEDS: INSULIN LISPRO 300 UNITS/3 ML VIAL. SQ SCH ×4 (07:30→21:00)
[2021-05-21 08:38] LABS: BASO % 0 % (0-3); EOS % 0 % (0-3); HEMATOCRIT 27.6 % (36.0-47.0); LYMPH # 0.8 x10^3/uL (1.0-4.8); LYMPH % 11 % (24-48); MEAN CORPUSCULAR HEMOGLOBIN 29 pg (25-35); MEAN CORPUSCULAR HGB CONC 33 g/dL (31-37); MEAN CORPUSCULAR VOLUME 89 fL (79-100); MONO # 1.1 x10^3/uL (0.0-1.1); MONO % 16 % (0-9); NEUT # 5.1 x10^3/uL (1.8-7.7); NEUT % 73 % (31-73); PLATELET COUNT 193 x10^3/uL (140-400); RED BLOOD COUNT 3.09 x10^6/uL (3.50-5.40)
[2021-05-21] MEDS: INSULIN GLARGINE SYRINGE. SQ SCH ×2 (09:00→21:16)
[2021-05-21] MEDS: LACTOBACILLUS RHAMNOSUS GG 1 CAPSULE. PO SCH ×2 (09:00→21:19)
[2021-05-21] MEDS: MULTIVITAMIN with MINERAL TABLET. PO SCH (09:00)
[2021-05-21] MEDS: SENNOSIDES/DOCUSATE 8.6/50MG TABLET. PO SCH ×2 (09:00→19:27)
[2021-05-21 09:06] LABS: ALBUMIN 1.9 g/dL (3.4-5.0); CALCIUM 8.3 mg/dL (8.5-10.1); CREATININE 4.3 mg/dL (0.6-1.0); GFR 12.1; PHOSPHORUS 4.4 mg/dL (2.6-4.7); POTASSIUM 3.5 mmol/L (3.5-5.1)
--- NOTE | 2021-05-21 10:35 | PDOC ---
PROGRESS NOTES Date of Service: DATE: 05/21/21 TIME: 10:30 Chief Complaint Chief Complaint impression Pneumonia secondary to COVID-19 infection Acute Hypoxic Respiratory Failure Hypomagnesemia CAD CHF Type II Diabetes History of Present Illness History of Present Illness Ms Braswell is a 75yo F w/ PMHx HTN, DM2, CHF, CAD s/p CABG who came to ED on 05/13/2020 progressive shortness of breath over the prior week. In ED with O2 saturations 86% on room air febrile to 101.3 F. Tested positive for COVID-19. She had not been fully vaccinated. 05/14: Weak and was resting. She is currently on the COVID-19 protocol (Re mdesivir, Aspirin, Multivitamins, Dexamethsone, Heparin SOdium, Piperacillin/Tazobactam, Acetaminophen). Mrs. Braswell states that she only received 1 dose of the COVID-19 vaccination. 05/15: She is feeling better. This morning, she was able to eat her breakfast. She remains on the COVID-19 Protocol (Remdesivir, Aspirin, Multivitamins, Dexamethsone, Heparin Sodium, Piperacillin/Tazobactam, Acetaminophen). We reviewed the patient's chart and discussed with RN 05/16: Afebrile overnight. Glucose in the 200s. O2 saturations 89 to 91% on 2 L nasal cannula oxygen. She is feeling short of breath and weak. No chest pain.. Had some V. tach overnight. Afebrile. BUN over 88 and creatinine elevated. Holding furosemide and losartan. Baseline CR at [facility] was 1.1. Cardiology nephrology consulted today. 05-18 V. tach overnight. 8-30 Afebrile. BUN over 88 and creatinine elevated. 6.9 d/c furosemide and losartan. Baseline CR // [facility] was 1.1. D/W ict sales representative nephrology consulted ASA, statin therapy. NO AV mariama block agents with bradycardia Hold Lasix, losartan with SUZIE Am labs if no improvement will need dialysis and temp HDC in the morning 05-19. Enrique RN 37 MIN PT exam, chart review, > 50% of time spent with exam, chart review, pt care coordination 05-19 V. tach overnight. 8-30 Afebrile. BUN over 88 and creatinine elevated. 6.9 d/c furosemide and losartan. Baseline CR // [facility] was 1.1. D/W ict sales representative nephrology consulted ASA, statin therapy. NO AV mariama block agents with bradycardia Hold Lasix, losartan with SUZIE Am labs if no improvement will need dialysis and temp HDC in the morning 05-19. Enrique RN 36 MIN PT exam, chart review, > 50% of time spent with exam, chart review, pt care coordination 05-20 Continue empiric PPI. Follow hemoglobin. Confused, not eating well V. tach overnight. 8-30 Afebrile. BUN over 88 and creatinine elevated. 6.9 d/c furosemide and losartan. Baseline CR // [facility] was 1.1. D/W ict sales representative nephrology consulted ASA, statin therapy. NO AV mariama block agents with bradycardia Hold Lasix, losartan with SUZIE Am labs if no improvement will need dialysis and temp HDC in the morning 05-19. Enrique RN 37 MIN PT exam, chart review, > 50% of time spent with exam, chart review, pt care coordination 05-21 Continue empiric PPI. Follow hemoglobin. Confused, not eating well pulled out temp dialysis cath 9-4 am V. tach overnight. 8-30 Afebrile. BUN over 88 and creatinine elevated. 6.9 d/c furosemide and losartan. Baseline CR // [facility] was 1.1. D/W ict sales representative/ nephrology consulted ASA, statin therapy. NO AV mariama block agents with bradycardia Hold Lasix, losartan with SUZIE Am labs dialysis and temp HDC in the morning Enrique RN 27 MIN PT exam, chart review, > 50% of time spent with exam, chart review, pt care coordination Vitals Vitals Vital Signs Date Time Temp Pulse Resp B/P (MAP) Pulse Ox O2 Delivery O2 Flow Rate FiO2 05/21/21 07:00 97.7 82 20 154/68 (96) 94 Nasal Cannula 97.7 05/20/21 22:40 2.0 Physical Exam Physical Exam pleasant, confused General: Alert, Oriented X3, Cooperative, No acute distress Heart: Regular rate (SR/SB rate presently 56), Normal S1, Normal S2 Lungs: Wheezing Abdomen: Other (obese) Extremities: Other (trace bilateral LE edema ) Skin: No significant lesion Labs LABS Laboratory Tests Test 05/20/21 11:35 05/20/21 17:23 9/3/21 20:37 05/21/21 06:58 Glucose (Fingerstick) 83 mg/dL (70-99) 115 mg/dL (70-99) 111 mg/dL (70-99) White Blood Count 7.0 x10^3/uL (4.0-11.0) Red Blood Count 3.09 x10^6/uL (3.50-5.40) Hemoglobin 9.0 g/dL (12.0-15.5) Hematocrit 27.6 % (36.0-47.0) Mean Corpuscular Volume 89 fL (79-100) Mean Corpuscular Hemoglobin 29 pg (25-35) Mean Corpuscular Hemoglobin Concent 33 g/dL (31-37) Red Cell Distribution Width 15.0 % (11.5-14.5) Platelet Count 193 x10^3/uL (140-400) Neutrophils (%) (Auto) 73 % (31-73) Lymphocytes (%) (Auto) 11 % (24-48) Monocytes (%) (Auto) 16 % (0-9) Eosinophils (%) (Auto) 0 % (0-3) Basophils (%) (Auto) 0 % (0-3) Neutrophils # (Auto) 5.1 x10^3/uL (1.8-7.7) Lymphocytes # (Auto) 0.8 x10^3/uL (1.0-4.8) Monocytes # (Auto) 1.1 x10^3/uL (0.0-1.1) Eosinophils # (Auto) 0.0 x10^3/uL (0.0-0.7) Basophils # (Auto) 0.0 x10^3/uL (0.0-0.2) Sodium Level 139 mmol/L (136-145) Potassium Level 3.5 mmol/L (3.5-5.1) Chloride Level 102 mmol/L (98-107) Carbon Dioxide Level 26 mmol/L (21-32) Anion Gap 11 (6-14) Blood Urea Nitrogen 47 mg/dL (7-20) Creatinine 4.3 mg/dL (0.6-1.0) Estimated GFR (Cockcroft-Gault) 12.1 Glucose Level 152 mg/dL (70-99) Calcium Level 8.3 mg/dL (8.5-10.1) Phosphorus Level 4.4 mg/dL (2.6-4.7) Albumin 1.9 g/dL (3.4-5.0) Test 05/21/21 07:23 Glucose (Fingerstick) 152 mg/dL (70-99) Assessment and Plan Assessmemt and Plan Problems Medical Problems: (1) Hypomagnesemia syndrome Status: Acute (2) Hypoxia Status: Acute (3) Pneumonia due to COVID-19 virus Status: Acute Comment Review of Relevant I have reviewed the following items maged (where applicable) has been applied. Labs Laboratory Tests Test 05/19/21 11:56 05/19/21 18:25 05/19/21 19:16 05/20/21 07:10 Glucose (Fingerstick) 105 mg/dL (70-99) 115 mg/dL (70-99) 113 mg/dL (70-99) White Blood Count 5.3 x10^3/uL (4.0-11.0) Red Blood Count 3.22 x10^6/uL (3.50-5.40) Hemoglobin 9.4 g/dL (12.0-15.5) Hematocrit 28.9 % (36.0-47.0) Mean Corpuscular Volume 90 fL (79-100) Mean Corpuscular Hemoglobin 29 pg (25-35) Mean Corpuscular Hemoglobin Concent 33 g/dL (31-37) Red Cell Distribution Width 15.2 % (11.5-14.5) Platelet Count 192 x10^3/uL (140-400) Sodium Level 140 mmol/L (136-145) Potassium Level 3.6 mmol/L (3.5-5.1) Chloride Level 102 mmol/L (98-107) Carbon Dioxide Level 27 mmol/L (21-32) Anion Gap 11 (6-14) Blood Urea Nitrogen 60 mg/dL (7-20) Creatinine 5.8 mg/dL (0.6-1.0) Estimated GFR (Cockcroft-Gault) 8.6 Glucose Level 65 mg/dL (70-99) Calcium Level 8.2 mg/dL (8.5-10.1) Test 05/20/21 07:21 05/20/21 08:04 05/20/21 11:35 05/20/21 17:23 Glucose (Fingerstick) 58 mg/dL (70-99) 126 mg/dL (70-99) 83 mg/dL (70-99) 115 mg/dL (70-99) Test 05/20/21 20:37 05/21/21 06:58 05/21/21 07:23 Glucose (Fingerstick) 111 mg/dL (70-99) 152 mg/dL (70-99) White Blood Count 7.0 x10^3/uL (4.0-11.0) Red Blood Count 3.09 x10^6/uL (3.50-5.40) Hemoglobin 9.0 g/dL (12.0-15.5) Hematocrit 27.6 % (36.0-47.0) Mean Corpuscular Volume 89 fL (79-100) Mean Corpuscular Hemoglobin 29 pg (25-35) Mean Corpuscular Hemoglobin Concent 33 g/dL (31-37) Red Cell Distribution Width 15.0 % (11.5-14.5) Platelet Count 193 x10^3/uL (140-400) Neutrophils (%) (Auto) 73 % (31-73) Lymphocytes (%) (Auto) 11 % (24-48) Monocytes (%) (Auto) 16 % (0-9) Eosinophils (%) (Auto) 0 % (0-3) Basophils (%) (Auto) 0 % (0-3) Neutrophils # (Auto) 5.1 x10^3/uL (1.8-7.7) Lymphocytes # (Auto) 0.8 x10^3/uL (1.0-4.8) Monocytes # (Auto) 1.1 x10^3/uL (0.0-1.1) Eosinophils # (Auto) 0.0 x10^3/uL (0.0-0.7) Basophils # (Auto) 0.0 x10^3/uL (0.0-0.2) Sodium Level 139 mmol/L (136-145) Potassium Level 3.5 mmol/L (3.5-5.1) Chloride Level 102 mmol/L (98-107) Carbon Dioxide Level 26 mmol/L (21-32) Anion Gap 11 (6-14) Blood Urea Nitrogen 47 mg/dL (7-20) Creatinine 4.3 mg/dL (0.6-1.0) Estimated GFR (Cockcroft-Gault) 12.1 Glucose Level 152 mg/dL (70-99) Calcium Level 8.3 mg/dL (8.5-10.1) Phosphorus Level 4.4 mg/dL (2.6-4.7) Albumin 1.9 g/dL (3.4-5.0) Laboratory Tests Test 05/20/21 11:35 05/20/21 17:23 05/20/21 20:37 05/21/21 06:58 Glucose (Fingerstick) 83 mg/dL (70-99) 115 mg/dL (70-99) 111 mg/dL (70-99) White Blood Count 7.0 x10^3/uL (4.0-11.0) Red Blood Count 3.09 x10^6/uL (3.50-5.40) Hemoglobin 9.0 g/dL (12.0-15.5) Hematocrit 27.6 % (36.0-47.0) Mean Corpuscular Volume 89 fL (79-100) Mean Corpuscular Hemoglobin 29 pg (25-35) Mean Corpuscular Hemoglobin Concent 33 g/dL (31-37) Red Cell Distribution Width 15.0 % (11.5-14.5) Platelet Count 193 x10^3/uL (140-400) Neutrophils (%) (Auto) 73 % (31-73) Lymphocytes (%) (Auto) 11 % (24-48) Monocytes (%) (Auto) 16 % (0-9) Eosinophils (%) (Auto) 0 % (0-3) Basophils (%) (Auto) 0 % (0-3) Neutrophils # (Auto) 5.1 x10^3/uL (1.8-7.7) Lymphocytes # (Auto) 0.8 x10^3/uL (1.0-4.8) Monocytes # (Auto) 1.1 x10^3/uL (0.0-1.1) Eosinophils # (Auto) 0.0 x10^3/uL (0.0-0.7) Basophils # (Auto) 0.0 x10^3/uL (0.0-0.2) Sodium Level 139 mmol/L (136-145) Potassium Level 3.5 mmol/L (3.5-5.1) Chloride Level 102 mmol/L (98-107) Carbon Dioxide Level 26 mmol/L (21-32) Anion Gap 11 (6-14) Blood Urea Nitrogen 47 mg/dL (7-20) Creatinine 4.3 mg/dL (0.6-1.0) Estimated GFR (Cockcroft-Gault) 12.1 Glucose Level 152 mg/dL (70-99) Calcium Level 8.3 mg/dL (8.5-10.1) Phosphorus Level 4.4 mg/dL (2.6-4.7) Albumin 1.9 g/dL (3.4-5.0) Test 05/21/21 07:23 Glucose (Fingerstick) 152 mg/dL (70-99) Microbiology 05/13/21 Blood Culture - Final, Complete NO GROWTH AFTER 5 DAYS Medications Current Medications Magnesium Sulfate 50 ml @ 25 mls/hr 1X ONCE IV Last administered on 05/13/21at 15:58; Start 05/13/21 at 15:45; Stop 05/13/21 at 17:44; Status DC Methylprednisolone Sodium Succinate (SOLU-Medrol 125MG VIAL) 125 mg 1X ONCE IV Last administered on 05/13/21at 15:58; Start 05/13/21 at 15:45; Stop 05/13/21 at 15:46; Status DC Ceftriaxone Sodium (Rocephin) 1 gm 1X ONCE IVP Last administered on 05/13/21at 16:37; Start 05/13/21 at 16:00; Stop 05/13/21 at 16:02; Status DC Piperacillin Sod/ Tazobactam Sod (Zosyn Per Pharmacy) 1 each PRN DAILY PRN MC SEE COMMENTS; Start 05/13/21 at 16:15 Dexamethasone Sodium Phosphate (Decadron) 6 mg DAILY IVP Last administered on 05/20/21at 09:32; Start 05/14/21 at 09:00 Remdesivir 200 mg/ Sodium Chloride 210 ml @ 210 mls/hr 1X ONCE IV Last administered on 05/13/21at 20:59; Start 05/13/21 at 17:00; Stop 05/13/21 at 17:59; Status DC Remdesivir 100 mg/ Sodium Chloride 230 ml @ 460 mls/hr Q24H IV Last administered on 05/17/21at 17:45; Start 05/14/21 at 17:00; Stop 05/17/21 at 17:29; Status DC Multivitamins (Thera M Plus) 1 tab DAILY PO Last administered on 05/20/21at 09:30; Start 05/14/21 at 09:00 Aspirin (Ecotrin) 81 mg [id number] PO ; Start 05/14/21 at 08:00; Stop 05/13/21 at 18:10; Status DC Guaifenesin/ Codeine Phosphate (Robitussin Ac) 5 ml PRN Q6HRS PRN PO COUGH; Start 05/13/21 at 16:15; Stop 05/16/21 at 07:29; Status DC Azithromycin 250 ml @ 250 mls/hr 1X ONCE IV Last administered on 05/13/21at 16:37; Start 05/13/21 at 16:15; Stop 05/13/21 at 17:14; Status DC Magnesium Sulfate 50 ml @ 25 mls/hr 1X ONCE IV ; Start 05/13/21 at 16:15; Stop 05/13/21 at 18:14; Status Cancel Piperacillin Sod/ Tazobactam Sod 2.25 gm/Sodium Chloride 50 ml @ 100 mls/hr Q6HRS IV Last administered on 05/20/21at 05:07; Start 05/13/21 at 18:00; Stop 05/20/21 at 13:09; Status DC Ondansetron HCl (Zofran) 4 mg PRN Q6HRS PRN IVP NAUSEA/VOMITING; Start 05/13/21 at 17:00 Calcium Carbonate/ Glycine (Tums) 500 mg PRN Q3HRS PRN PO UPSET STOMACH; Start 05/13/21 at 17:00 Zolpidem Tartrate (Ambien) 5 mg PRN QHS PRN PO INSOMNIA, MAY REPEAT IN 1HR; Start 05/13/21 at 17:00; Stop 05/16/21 at 07:29; Status DC Info (Non-Icu Electrolyte Protocol) 1 ea PRN DAILY PRN MC SEE COMMENTS; Start 05/13/21 at 17:00 Oxycodone HCl (Roxicodone) 5 mg PRN Q3HRS PRN PO BREAKTHROUGH PAIN; Start 05/13/21 at 17:00 Oxycodone/ Acetaminophen (Percocet 5/325) 1 tab PRN Q4HRS PRN PO MILD PAIN, 1ST CHOICE; Start 05/13/21 at 17:00 Oxycodone/ Acetaminophen (Percocet 5/325) 2 tab PRN Q4HRS PRN PO MODERATE PAIN, SEVERE PAIN; Start 05/13/21 at 17:00 Acetaminophen (Tylenol) 650 mg PRN Q6HRS PRN PO Headaches, Temp > 101.5F Last administered on 05/13/21at 21:00; Start 05/13/21 at 17:00 Senna/Docusate Sodium (Senna Plus) 1 tab BID PO Last administered on 05/17/21 20:28; Start 05/13/21 at 21:00 Heparin Sodium (Porcine) (Heparin Sodium) 5,000 unit Q8HRS SQ Last administered on 05/19/21 05:53; Start 05/13/21 at 22:00 Allopurinol (Zyloprim) 100 mg DAILY PO Last administered on 05/20/21 09:30; Start 05/14/21 at 09:00 Amlodipine Besylate (Norvasc) 5 mg DAILY PO Last administered on 05/20/21 09:33; Start 05/14/21 at 09:00 Aspirin (Aspirin Chewable) 81 mg DAILY PO Last administered on 05/19/21 09:39; Start 05/14/21 at 09:00 EZETIMIBE (Zetia) 10 mg DAILY PO Last administered on 05/20/21 09:30; Start 05/14/21 at 09:00 Furosemide (Lasix) 40 mg DAILY PO Last administered on 05/16/21 10:09; Start 05/14/21 at 09:00; Stop 05/16/21 at 14:56; Status DC Gabapentin (Neurontin) 100 mg HS PO Last administered on 05/18/21 20:51; Start 05/13/21 at 21:00 Levothyroxine Sodium (Synthroid) 175 mcg DAILYAC PO Last administered on 05/20/21 09:32; Start 05/14/21 at 07:30 Losartan Potassium (Cozaar) 50 mg DAILY PO Last administered on 05/16/21 10:09; Start 05/14/21 at 09:00; Stop 05/16/21 at 14:56; Status DC Atorvastatin Calcium (Lipitor) 80 mg QHS PO Last administered on 05/18/21 20:51; Start 05/13/21 at 21:00 Insulin Human Lispro (HumaLOG) 10 units 1X ONCE SQ Last administered on 05/14/21at 17:24; Start 05/14/21 at 17:30; Stop 05/14/21 at 17:31; Status DC Insulin Human Lispro (HumaLOG) 0-9 UNITS TIDWMEALS SQ Last administered on 05/16/21at 17:12; Start 05/15/21 at 08:00; Stop 05/16/21 at 21:03; Status DC Dextrose (Dextrose 50%-Water Syringe) 12.5 gm PRN Q15MIN PRN IV SEE COMMENTS Last administered on 05/20/21 07:27; Start 05/14/21 at 17:30 Insulin Human Lispro (HumaLOG) 9 units 1X ONCE SQ Last administered on at 23:22; Start 05/14/21 at 23:30; Stop 05/14/21 at 23:31; Status DC Insulin Glargine (Lantus Syringe) 10 unit BID SQ Last administered on 05/18/21 20:53; Start 05/14/21 at 23:30 Guaifenesin (Robitussin Dm) 10 ml PRN Q6HRS PRN PO COUGH Last administered on 05/16/21 21:16; Start 05/16/21 at 07:30 Lactobacillus Rhamnosus (Culturelle) 1 cap BID PO Last administered on 05/20/21 09:30; Start 05/16/21 at 21:00 Hydralazine HCl (Apresoline Inj) 10 mg PRN Q4HRS PRN IVP ELEVATED BP, SEE COMMENTS Last administered on 05/20/21 22:47; Start 05/16/21 at 15:00 Isosorbide Mononitrate (Imdur) 30 mg DAILY PO Last administered on 05/20/21 09: 32; Start 05/17/21 at 09:00 Albuterol Sulfate (Ventolin Hfa) 2 puff PRN Q4HRS PRN INH WHEEZING Last administered on 05/19/21 13:29; Start 05/16/21 at 20:00 Insulin Human Lispro (HumaLOG) 0-9 UNITS QIDACHS SQ Last administered on 05/18/21at 20:52; Start 05/16/21 at 21:30 Sodium Chloride 1,000 ml @ 75 mls/hr [id number] IV Last administered on 05/20/21at 05:07; Start 05/17/21 at 11:45 Pantoprazole Sodium (Protonix) 40 mg DAILYAC PO Last administered on 05/20/21at 09:30; Start 05/19/21 at 16:30 Lidocaine HCl (Buffered Lidocaine 1%) 3 ml STK-MED ONCE .ROUTE ; Start 05/19/21 at 13:31; Stop 05/19/21 at 13:31; Status DC Lidocaine HCl (Buffered Lidocaine 1%) 3 ml 1X ONCE INJ Last administered on 05/19/21at 14:15; Start 05/19/21 at 13:45; Stop 05/19/21 at 13:46; Status DC Sodium Chloride 1,000 ml @ 1,000 mls/hr Q1H PRN IV hypotension; Start 05/19/21 at 14:15; Stop 05/19/21 at 20:14; Status DC Sodium Chloride 1,000 ml @ 400 mls/hr Q2H30M PRN IV PATENCY; Start 05/19/21 at 14:15; Stop 05/20/21 at 02:14; Status DC Info (PHARMACY MONITORING -- do not chart) 1 each PRN DAILY PRN MC SEE COMMENTS; Start 05/19/21 at 14:15 Info (PHARMACY MONITORING -- do not chart) 1 each PRN DAILY PRN MC SEE COMMENTS; Start 05/19/21 at 14:15; Status Cancel Piperacillin Sod/ Tazobactam Sod 2.25 gm/Sodium Chloride 50 ml @ 100 mls/hr Q8HRS IV Last administered on 05/21/21at 06:19; Start 05/20/21 at 14:00 Amino Acids/ Electrolytes/ Dextrose 1,000 ml @ 80 mls/hr [id number] IV Last administered on 05/20/21at 16:21; Start 05/20/21 at 13:15 Info (PHARMACY MONITORING -- do not chart) 1 each PRN DAILY PRN MC SEE COMMENTS; Start 05/20/21 at 15:15 Active Scripts Active Reported Zetia (Ezetimibe) 10 Mg Tablet 10 Mg PO DAILY Furosemide 40 Mg Tablet 1 Tab PO DAILY Hydrocodone-Apap 5-325 (Hydrocodone Bit/Acetaminophen) 1 Tab Tablet 1 Tab PO PRN BID PRN Allopurinol 100 Mg Tablet 1 Tab PO DAILY Aspirin 81 Mg Tab.chew 1 Tab PO DAILY Levothyroxine Sodium 175 Mcg Tablet 175 Mcg PO DAILYAC Amlodipine Besylate 5 Mg Tablet 5 Mg PO DAILY Hydralazine Hcl 25 Mg Tablet 1 Tab PO TID Gabapentin (Gabapentin) 100 Mg Capsule 100 Mg PO HS Atorvastatin Calcium 80 Mg Tablet 80 Mg PO DAILY Losartan Potassium 50 Mg Tablet 50 Mg PO DAILY Metformin Hcl 500 Mg Tablet 500 Mg PO BIDWMEALS Magnesium (Magnesium Oxide) 500 Mg Capsule 1 Cap PO BID 30 Days Vitals/I & O Vital Sign - Last 24 Hours 05/20/21 05/20/21 05/20/21 05/20/21 11:00 19:00 22:40 22:47 Temp 97.5 97.7 97.5 97.7 Pulse 70 89 88 Resp 18 20 B/P (MAP) 190/86 (120) 185/89 (121) 185/89 Pulse Ox 97 99 O2 Delivery Nasal Cannula Nasal Cannula Nasal Cannula O2 Flow Rate 2.0 2.0 05/20/21 05/21/21 05/21/21 23:00 03:24 07:00 Temp 97.8 97.7 97.7 97.8 97.7 97.7 Pulse 91 83 82 Resp 20 20 20 B/P (MAP) 180/61 (100) 159/69 (99) 154/68 (96) Pulse Ox 92 97 94 O2 Delivery Nasal Cannula Nasal Cannula Nasal Cannula Justicifation of Admission Dx: Justifications for Admission: Justification of Admission Dx: Yes HEENA LOVE MD May 21, 2021 10:35
[2021-05-21] MEDS ORDERED: LIDOCAINE WITH 8.4% SOD BICARB 3 ML DISP.SYRIN. ONE (10:43)
[2021-05-21] MEDS ORDERED: HEPARIN for IV BOLUS 10,000 UNIT/10 ML VIAL. ONE (10:44)
[2021-05-21 11:00] VITALS: BP 171/61
[2021-05-21] MEDS ORDERED: LIDOCAINE WITH 8.4% SOD BICARB 3 ML DISP.SYRIN. INJ ONE (11:30)
--- NOTE | 2021-05-21 12:16 | PDOC ---
G I PROGRESS NOTE Subjective Discussed with nursing staff. Still with abnormal stools, but unclearly melena. Apparently pulled out dialysis catheter. Physical Exam Deferred due to COVID+. Review of Relevant I have reviewed the following items maged (where applicable) has been applied. Labs Laboratory Tests Test 05/19/21 18:25 05/19/21 19:16 05/20/21 07:10 05/20/21 07:21 Glucose (Fingerstick) 115 mg/dL (70-99) 113 mg/dL (70-99) 58 mg/dL (70-99) White Blood Count 5.3 x10^3/uL (4.0-11.0) Red Blood Count 3.22 x10^6/uL (3.50-5.40) Hemoglobin 9.4 g/dL (12.0-15.5) Hematocrit 28.9 % (36.0-47.0) Mean Corpuscular Volume 90 fL (79-100) Mean Corpuscular Hemoglobin 29 pg (25-35) Mean Corpuscular Hemoglobin Concent 33 g/dL (31-37) Red Cell Distribution Width 15.2 % (11.5-14.5) Platelet Count 192 x10^3/uL (140-400) Sodium Level 140 mmol/L (136-145) Potassium Level 3.6 mmol/L (3.5-5.1) Chloride Level 102 mmol/L (98-107) Carbon Dioxide Level 27 mmol/L (21-32) Anion Gap 11 (6-14) Blood Urea Nitrogen 60 mg/dL (7-20) Creatinine 5.8 mg/dL (0.6-1.0) Estimated GFR (Cockcroft-Gault) 8.6 Glucose Level 65 mg/dL (70-99) Calcium Level 8.2 mg/dL (8.5-10.1) Test 05/20/21 08:04 05/20/21 11:35 05/20/21 17:23 05/20/21 20:37 Glucose (Fingerstick) 126 mg/dL (70-99) 83 mg/dL (70-99) 115 mg/dL (70-99) 111 mg/dL (70-99) Test 05/21/21 06:58 05/21/21 07:23 05/21/21 11:41 White Blood Count 7.0 x10^3/uL (4.0-11.0) Red Blood Count 3.09 x10^6/uL (3.50-5.40) Hemoglobin 9.0 g/dL (12.0-15.5) Hematocrit 27.6 % (36.0-47.0) Mean Corpuscular Volume 89 fL (79-100) Mean Corpuscular Hemoglobin 29 pg (25-35) Mean Corpuscular Hemoglobin Concent 33 g/dL (31-37) Red Cell Distribution Width 15.0 % (11.5-14.5) Platelet Count 193 x10^3/uL (140-400) Neutrophils (%) (Auto) 73 % (31-73) Lymphocytes (%) (Auto) 11 % (24-48) Monocytes (%) (Auto) 16 % (0-9) Eosinophils (%) (Auto) 0 % (0-3) Basophils (%) (Auto) 0 % (0-3) Neutrophils # (Auto) 5.1 x10^3/uL (1.8-7.7) Lymphocytes # (Auto) 0.8 x10^3/uL (1.0-4.8) Monocytes # (Auto) 1.1 x10^3/uL (0.0-1.1) Eosinophils # (Auto) 0.0 x10^3/uL (0.0-0.7) Basophils # (Auto) 0.0 x10^3/uL (0.0-0.2) Sodium Level 139 mmol/L (136-145) Potassium Level 3.5 mmol/L (3.5-5.1) Chloride Level 102 mmol/L (98-107) Carbon Dioxide Level 26 mmol/L (21-32) Anion Gap 11 (6-14) Blood Urea Nitrogen 47 mg/dL (7-20) Creatinine 4.3 mg/dL (0.6-1.0) Estimated GFR (Cockcroft-Gault) 12.1 Glucose Level 152 mg/dL (70-99) Calcium Level 8.3 mg/dL (8.5-10.1) Phosphorus Level 4.4 mg/dL (2.6-4.7) Albumin 1.9 g/dL (3.4-5.0) Glucose (Fingerstick) 152 mg/dL (70-99) 176 mg/dL (70-99) Laboratory Tests Test 05/20/21 17:23 05/20/21 20:37 05/21/21 06:58 05/21/21 07:23 Glucose (Fingerstick) 115 mg/dL (70-99) 111 mg/dL (70-99) 152 mg/dL (70-99) White Blood Count 7.0 x10^3/uL (4.0-11.0) Red Blood Count 3.09 x10^6/uL (3.50-5.40) Hemoglobin 9.0 g/dL (12.0-15.5) Hematocrit 27.6 % (36.0-47.0) Mean Corpuscular Volume 89 fL (79-100) Mean Corpuscular Hemoglobin 29 pg (25-35) Mean Corpuscular Hemoglobin Concent 33 g/dL (31-37) Red Cell Distribution Width 15.0 % (11.5-14.5) Platelet Count 193 x10^3/uL (140-400) Neutrophils (%) (Auto) 73 % (31-73) Lymphocytes (%) (Auto) 11 % (24-48) Monocytes (%) (Auto) 16 % (0-9) Eosinophils (%) (Auto) 0 % (0-3) Basophils (%) (Auto) 0 % (0-3) Neutrophils # (Auto) 5.1 x10^3/uL (1.8-7.7) Lymphocytes # (Auto) 0.8 x10^3/uL (1.0-4.8) Monocytes # (Auto) 1.1 x10^3/uL (0.0-1.1) Eosinophils # (Auto) 0.0 x10^3/uL (0.0-0.7) Basophils # (Auto) 0.0 x10^3/uL (0.0-0.2) Sodium Level 139 mmol/L (136-145) Potassium Level 3.5 mmol/L (3.5-5.1) Chloride Level 102 mmol/L (98-107) Carbon Dioxide Level 26 mmol/L (21-32) Anion Gap 11 (6-14) Blood Urea Nitrogen 47 mg/dL (7-20) Creatinine 4.3 mg/dL (0.6-1.0) Estimated GFR (Cockcroft-Gault) 12.1 Glucose Level 152 mg/dL (70-99) Calcium Level 8.3 mg/dL (8.5-10.1) Phosphorus Level 4.4 mg/dL (2.6-4.7) Albumin 1.9 g/dL (3.4-5.0) Test 05/21/21 11:41 Glucose (Fingerstick) 176 mg/dL (70-99) Microbiology 05/13/21 Blood Culture - Final, Complete NO GROWTH AFTER 5 DAYS Vitals/I & O Vital Sign - Last 24 Hours 05/20/21 05/20/21 05/20/21 05/20/21 19:00 22:40 22:47 23:00 Temp 97.7 97.8 97.7 97.8 Pulse 89 88 91 Resp 20 20 B/P (MAP) 185/89 (121) 185/89 180/61 (100) Pulse Ox 99 92 O2 Delivery Nasal Cannula Nasal Cannula Nasal Cannula O2 Flow Rate 2.0 05/21/21 05/21/21 05/21/21 03:24 07:00 11:00 Temp 97.7 97.7 98.0 97.7 97.7 98.0 Pulse 83 82 67 Resp 20 20 20 B/P (MAP) 159/69 (99) 154/68 (96) 171/61 (97) Pulse Ox 97 94 97 O2 Delivery Nasal Cannula Nasal Cannula Nasal Cannula Problem List Problems Medical Problems: (1) Hypomagnesemia syndrome Status: Acute (2) Hypoxia Status: Acute (3) Pneumonia due to COVID-19 virus Status: Acute Assessment Melena/fall in hemoglobin--hemoglobin stable x 2. Plan of Care Note Continue PPI, observe. Justicifation of Admission Dx: Justifications for Admission: Justification of Admission Dx: Yes RADHA PADILLA MD May 21, 2021 12:16
[2021-05-21] MEDS: ASPIRIN CHEWABLE 81 MG TABLET. PO SCH (12:56)
[2021-05-21] MEDS: PANTOPRAZOLE 40 MG TABLET.DR. PO SCH (12:56)
[2021-05-21] MEDS: DEXAMETHASONE SOD PHOS 4 MG/ML VIAL IVP SCH (12:56)
[2021-05-21] MEDS: LEVOTHYROXINE 175 MCG TABLET PO SCH (12:57)
[2021-05-21] MEDS: ALLOPURINOL 100 MG TABLET. PO SCH (12:57)
[2021-05-21] MEDS: EZETIMIBE 10 MG TABLET. PO SCH (12:57)
[2021-05-21] MEDS: ISOSORBIDE MONONITRATE ER 30 MG TAB.ER.24H PO SCH (12:58)
[2021-05-21] MEDS: hydrALAZINE 25 MG TABLET PO SCH ×3 (13:06→21:19)
--- NOTE | 2021-05-21 14:09 | RAD ---
Exam Date: 05/21/2021 12:33 PM XR CHEST 1V Indication: Reason: TEMPORARY DIALYSIS CATHETER PLACEMENT / Spl. Instructions: / History: . Comparison: May 19, 2021 FINDINGS/ IMPRESSION: The aorta is calcified. Right central venous catheter terminates near the cavoatrial junction.. Pos toperative changes are again seen. The cardiac silhouette remains enlarged with improving mild congestion. Bibasilar and bilateral rodriguez hilar opacities are slightly improved since the prior exam and may represent atelectasis, infiltrates , and/or edema. There is no appreciable pleural effusion or pneumothorax. Electronically signed by: Geoff Flynn MD (05/21/2021 2:06 PM) [facility]
[2021-05-21 15:00] VITALS: BP 192/82
[2021-05-21] MEDS: IV NORMAL SALINE 1000ML BAG 1,000 ML IV SCH ×2 (15:10→22:25)
--- NOTE | 2021-05-21 18:11 | RAD ---
PLACEMENT OF NON- TUNNELED HEMODIALYSIS CATHETER , ULTRASOUND GUIDED VASCULAR ACCESS. History: Renal failure Procedure: Procedure was explained to the patient including risks, benefits and alternatives. Written informed c onsent was obtained. The patient was in a supine position on the bed. The neck was evaluated sonographically. Ultrasound-guided access: Ultrasound evaluation showed the targeted vein to be patent and compressib le and under ultrasound guidance. An ultrasound image was saved and sent to PACS. Sterile ultrasound technique was used. The patient was prepped and draped using maximum sterile technique, including the use of: Current luz deline approved cutaneous antisepsis, a large sterile sheet to establish a sterile field. 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 Sterile ultrasound technique was used. Under real-time ultrasound a 21-gauge needle was advanced into the internal jugular vein after local anesthesia with 1% lidocaine. Needle placement was confirmed by return of venous blood flow. A 0.018 wire was placed through the needle. The needle was exchanged over the wire for a transitional sheath after a dermatotomy. This was used to introduce an Amplatz guidewire. This was then secured in place with a flow switch. Transitional sheath was exchanged over the wire to introduce the catheter into the jugular vein. The catheter was accessed and showed good clinical function with aspiration and infusion. The cathete r were flushed and packed per protocol. The catheter was secured to the skin with nondissolvable mon ofilament suture. Overhead chest x-ray was performed to evaluate catheter position. Impression: 1. NON- TUNNELED Hemodialysis catheter via the right internal jugular vein approach, ready to utilize . Electronically signed by: Isac oDrsey MD (05/21/2021 6:08 PM) [id number]
--- NOTE | 2021-05-21 18:11 | RAD ---
PLACEMENT OF NON- TUNNELED HEMODIALYSIS CATHETER , ULTRASOUND GUIDED VASCULAR ACCESS. History: Renal failure Procedure: Procedure was explained to the patient including risks, benefits and alternatives. Written informed c onsent was obtained. The patient was in a supine position on the bed. The neck was evaluated sonographically. Ultrasound-guided access: Ultrasound evaluation showed the targeted vein to be patent and compressib le and under ultrasound guidance. An ultrasound image was saved and sent to PACS. Sterile ultrasound technique was used. The patient was prepped and draped using maximum sterile technique, including the use of: Current luz deline approved cutaneous antisepsis, a large sterile sheet to establish a sterile field. 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 Sterile ultrasound technique was used. Under real-time ultrasound a 21-gauge needle was advanced into the internal jugular vein after local anesthesia with 1% lidocaine. Needle placement was confirmed by return of venous blood flow. A 0.018 wire was placed through the needle. The needle was exchanged over the wire for a transitional sheath after a dermatotomy. This was used to introduce an Amplatz guidewire. This was then secured in place with a flow switch. Transitional sheath was exchanged over the wire to introduce the catheter into the jugular vein. The catheter was accessed and showed good clinical function with aspiration and infusion. The cathete r were flushed and packed per protocol. The catheter was secured to the skin with nondissolvable mon ofilament suture. Overhead chest x-ray was performed to evaluate catheter position. Impression: 1. NON- TUNNELED Hemodialysis catheter via the right internal jugular vein approach, ready to utilize . Electronically signed by: Isac Dorsey MD (05/21/2021 6:08 PM) [id number]
[2021-05-21 19:00] VITALS: BP 196/80
[2021-05-21] MEDS: ATORVASTATIN CALCIUM 40 MG TABLET. PO SCH (21:19)
[2021-05-21] MEDS: GABAPENTIN 100 MG CAPSULE. PO SCH (21:19)
[2021-05-21 23:01] VITALS: BP 166/58
[2021-05-22] MEDS: AA 4.25 %/CALCIUM/LYTES/D5W 1,000 ML IV SCH ×2 (02:55→15:15)
[2021-05-22] MEDS: hydrALAZINE 20 MG/ML VIAL. IVP PRN (02:55)
[2021-05-22 03:01] VITALS: BP 196/84
[2021-05-22] MEDS: PIPERACILLIN/TAZOBACTAM 2.25 GM in IV NORMAL SALINE 50ML 50 ML IV SCH ×3 (05:56→21:38)
[2021-05-22] MEDS: HEPARIN for SUB-Q USE 5,000 UNIT/ML VIAL. SQ SCH ×3 (05:58→21:40)
[2021-05-22 07:00] VITALS: BP 178/62
[2021-05-22] MEDS: SENNOSIDES/DOCUSATE 8.6/50MG TABLET. PO SCH ×2 (07:18→19:34)
[2021-05-22 08:59] LABS: BASO % 1 % (0-3); EOS % 0 % (0-3); HEMOGLOBIN 9.2 g/dL (12.0-15.5); LYMPH # 0.9 x10^3/uL (1.0-4.8); LYMPH % 13 % (24-48); MEAN CORPUSCULAR HEMOGLOBIN 29 pg (25-35); MEAN CORPUSCULAR HGB CONC 33 g/dL (31-37); MEAN CORPUSCULAR VOLUME 89 fL (79-100); MONO # 0.8 x10^3/uL (0.0-1.1); MONO % 12 % (0-9); NEUT # 5.5 x10^3/uL (1.8-7.7); NEUT % 75 % (31-73); PLATELET COUNT 209 x10^3/uL (140-400); RED BLOOD COUNT 3.13 x10^6/uL (3.50-5.40); RED CELL DISTRIBUTION WIDTH 14.9 % (11.5-14.5); WHITE BLOOD COUNT 7.3 x10^3/uL (4.0-11.0)
[2021-05-22] MEDS: MULTIVITAMIN with MINERAL TABLET. PO SCH (09:00)
[2021-05-22] MEDS: EZETIMIBE 10 MG TABLET. PO SCH (09:00)
[2021-05-22] MEDS: ALLOPURINOL 100 MG TABLET. PO SCH (09:00)
[2021-05-22] MEDS: ASPIRIN CHEWABLE 81 MG TABLET. PO SCH (09:32)
[2021-05-22] MEDS: LACTOBACILLUS RHAMNOSUS GG 1 CAPSULE. PO SCH ×2 (09:32→21:38)
[2021-05-22] MEDS: hydrALAZINE 25 MG TABLET PO SCH ×3 (09:33→21:39)
[2021-05-22] MEDS: ISOSORBIDE MONONITRATE ER 30 MG TAB.ER.24H PO SCH (09:33)
[2021-05-22] MEDS: PANTOPRAZOLE 40 MG TABLET.DR. PO SCH (09:33)
[2021-05-22] MEDS: DEXAMETHASONE SOD PHOS 4 MG/ML VIAL IVP SCH (09:34)
[2021-05-22] MEDS: INSULIN GLARGINE SYRINGE. SQ SCH ×2 (09:36→21:41)
[2021-05-22] MEDS: INSULIN LISPRO 300 UNITS/3 ML VIAL. SQ SCH ×4 (09:36→21:40)
[2021-05-22] MEDS: LEVOTHYROXINE 175 MCG TABLET PO SCH (09:37)
[2021-05-22 09:42] LABS: ALBUMIN 2.1 g/dL (3.4-5.0); ALBUMIN/GLOBULIN RATIO 0.6 (1.0-1.7); CALCIUM 8.4 mg/dL (8.5-10.1); CREATININE 5.6 mg/dL (0.6-1.0); GFR 8.9; POTASSIUM 3.6 mmol/L (3.5-5.1); TOTAL BILIRUBIN 0.2 mg/dL (0.2-1.0); TOTAL PROTEIN 5.9 g/dL (6.4-8.2)
[2021-05-22] MEDS: oxyCODONE/APAP 5/325 1 TAB TABLET PO PRN (10:01)
--- NOTE | 2021-05-22 10:25 | PDOC ---
PROGRESS NOTES Date of Service: DATE: 05/22/21 TIME: 10:24 Chief Complaint Chief Complaint impression Pneumonia secondary to COVID-19 infection Acute Hypoxic Respiratory Failure Hypomagnesemia CAD CHF Type II Diabetes Melena/fall in hemoglobin--hemoglobin stable x 2. History of Present Illness History of Present Illness Ms Braswell is a 75yo F w/ PMHx HTN, DM2, CHF, CAD s/p CABG who came to ED on 05/13/2020 progressive shortness of breath over the prior week. In ED with O2 saturations 86% on room air febrile to 101.3 F. Tested positive for COVID-19. She had not been fully vaccinated. 05/14: Weak and was resting. She is currently on the COVID-19 protocol (Remdesivir, Aspirin, Multivitamins, Dexamethsone, Heparin SOdium, Piperacillin/ Tazobactam, Acetaminophen). Mrs. Braswell states that she only received 1 dose of the COVID-19 vaccination. 05/15: She is feeling better. This morning, she was able to eat her breakfast. She remains on the COVID-19 Protocol (Remdesivir, Aspirin, Multivitamins, Dexamethsone, Heparin Sodium, Piperacillin/Tazobactam, Acetaminophen). We reviewed the patient's chart and discussed with RN 05/16: Afebrile overnight. Glucose in the 200s. O2 saturations 89 to 91% on 2 L nasal cannula oxygen. She is feeling short of breath and weak. No chest pain.. Had some V. tach overnight. Afebrile. BUN over 88 and creatinine elevated. Holding furosemide and losartan. Baseline CR at [facility] was 1.1. Cardiology nephrology consulted today. 05-18 V. tach overnight. 05-16 Afebrile. BUN over 88 and creatinine elevated. 6.9 d/c furosemide and losartan. Baseline CR // [facility] was 1.1. 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 NO AV mariama block agents with bradycardia Hold Lasix, losartan with SUZIE Am labs if no improvement will need dialysis and temp HDC in the morning 05-19. Enrique RN 37 MIN PT exam, chart review, > 50% of time spent with exam, chart review, pt care coordination 05-19 V. tach overnight. 8-30 Afebrile. BUN over 88 and creatinine elevated. 6.9 d/c furosemide and losartan. Baseline CR // [facility] was 1.1. 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 NO AV mariama block agents with bradycardia Hold Lasix, losartan with SUZIE Am labs if no improvement will need dialysis and temp HDC in the morning 05-19. Enrique RN 36 MIN PT exam, chart review, > 50% of time spent with exam, chart review, pt care coordination 05-20 Continue empiric PPI. Follow hemoglobin. Confused, not eating well V. tach overnight. 8-30 Afebrile. BUN over 88 and creatinine elevated. 6.9 d/c furosemide and losartan. Baseline CR // [facility] was 1.1. 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 NO AV mariama block agents with bradycardia Hold Lasix, losartan with SUZIE Am labs if no improvement will need dialysis and temp HDC in the morning 05-19. Enrique RN 37 MIN PT exam, chart review, > 50% of time spent with exam, chart review, pt care coordination 05-21 Continue empiric PPI. Follow hemoglobin. Confused, not eating well pulled out temp dialysis cath 9-4 am V. tach overnight. 8-30 Afebrile. BUN over 88 and creatinine elevated. 6.9 d/c furosemide and losartan. Baseline CR // [facility] was 1.1. 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 NO AV mariama block agents with bradycardia Hold Lasix, losartan with SUZIE Am labs dialysis and temp HDC in the morning Enrique RN 27 MIN PT exam, chart review, > 50% of time spent with exam, chart review, pt care coordination 05-22 Continue empiric PPI. Follow hemoglobin. Confused, not eating well pulled out temp dialysis cath 9-4 am V. tach overnight. 8-30 Afebrile. BUN over 88 and creatinine elevated. 6.9 d/c furosemide and losartan. Baseline CR // [facility] was 1.1. 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 NO AV mariama block agents with bradycardia Hold Lasix, losartan with SUZIE Am labs dialysis and temp HDC in the morning Enrique RN NON- TUNNELED Hemodialysis catheter via the right internal jugular vein approach, ready to utilize. 29 MIN PT exam, chart review, > 50% of time spent with exam, chart review, pt care coordination Melena/fall in hemoglobin--hemoglobin stable x 2. Vitals Vitals Vital Signs Date Time Temp Pulse Resp B/P (MAP) Pulse Ox O2 Delivery O2 Flow Rate FiO2 05/22/21 10:01 97 Room Air 05/22/21 09:34 73 178/62 05/22/21 07:00 97.9 20 97.9 05/21/21 08:09 2.0 Physical Exam Physical Exam pleasant, confused General: Alert, Oriented X3, Cooperative, No acute distress Heart: Regular rate (SR/SB rate presently 56), Normal S1, Normal S2 Lungs: Wheezing Abdomen: No tenderness, Other (obese) Extremities: No cyanosis, Other (trace bilateral LE edema ) Skin: No significant lesion Labs LABS PLACEMENT OF NON- TUNNELED HEMODIALYSIS CATHETER , ULTRASOUND GUIDED VASCULAR ACCESS. History: Renal failure Procedure: Procedure was explained to the patient including risks, benefits and alternatives. Written informed consent was obtained. The patient was in a supine position on the bed. The neck was evaluated sonographically. Ultrasound-guided access: Ultrasound evaluation showed the targeted vein to be patent and compressible and under ultrasound guidance. An ultrasound image was saved and sent to PACS. Sterile ultrasound technique was used. The patient was prepped and draped using maximum sterile technique, including the use of: Current guideline approved cutaneous antisepsis, a large sterile sheet to establish a sterile field. Additionally the whittling room operator wore a hat, mask, sterile gloves, a sterile gown during the procedure as well as practiced acceptable hand hygiene prior to placing the line. Sterile ultrasound technique was used. Under real-time ultrasound a 21-gauge needle was advanced into the internal jugular vein after local anesthesia with 1% lidocaine. Needle placement was confirmed by return of venous blood flow. A 0.018 wire was placed through the needle. The needle was exchanged over the wire for a transitional sheath after a dermatotomy. This was used to introduce an Amplatz guidewire. This was then secured in place with a flow switch. Transitional sheath was exchanged over the wire to introduce the catheter into the jugular vein. The catheter was accessed and showed good clinical function with aspiration and infusion. The catheter were flushed and packed per protocol. The catheter was secured to the skin with nondissolvable monofilament suture. Overhead chest x-ray was performed to evaluate catheter position. Impression: 1. NON- TUNNELED Hemodialysis catheter via the right internal jugular vein approach, ready to utilize. Electronically signed by: Mic Dorsey MD (05/21/2021 6:08 PM) [id number] DICTATED and SIGNED BY: MIC DORSEY MD DATE: 05/21/21 [id number] Laboratory Tests Test 05/21/21 11:41 05/21/21 16:44 05/21/21 20:49 05/22/21 06:00 Glucose (Fingerstick) 176 mg/dL (70-99) 269 mg/dL (70-99) 198 mg/dL (70-99) White Blood Count 7.3 x10^3/uL (4.0-11.0) Red Blood Count 3.13 x10^6/uL (3.50-5.40) Hemoglobin 9.2 g/dL (12.0-15.5) Hematocrit 28.0 % (36.0-47.0) Mean Corpuscular Volume 89 fL (79-100) Mean Corpuscular Hemoglobin 29 pg (25-35) Mean Corpuscular Hemoglobin Concent 33 g/dL (31-37) Red Cell Distribution Width 14.9 % (11.5-14.5) Platelet Count 209 x10^3/uL (140-400) Neutrophils (%) (Auto) 75 % (31-73) Lymphocytes (%) (Auto) 13 % (24-48) Monocytes (%) (Auto) 12 % (0-9) Eosinophils (%) (Auto) 0 % (0-3) Basophils (%) (Auto) 1 % (0-3) Neutrophils # (Auto) 5.5 x10^3/uL (1.8-7.7) Lymphocytes # (Auto) 0.9 x10^3/uL (1.0-4.8) Monocytes # (Auto) 0.8 x10^3/uL (0.0-1.1) Eosinophils # (Auto) 0.0 x10^3/uL (0.0-0.7) Basophils # (Auto) 0.0 x10^3/uL (0.0-0.2) Sodium Level 136 mmol/L (136-145) Potassium Level 3.6 mmol/L (3.5-5.1) Chloride Level 99 mmol/L (98-107) Carbon Dioxide Level 26 mmol/L (21-32) Anion Gap 11 (6-14) Blood Urea Nitrogen 65 mg/dL (7-20) Creatinine 5.6 mg/dL (0.6-1.0) Estimated GFR (Cockcroft-Gault) 8.9 BUN/Creatinine Ratio 12 (6-20) Glucose Level 214 mg/dL (70-99) Calcium Level 8.4 mg/dL (8.5-10.1) Phosphorus Level 5.5 mg/dL (2.6-4.7) Total Bilirubin 0.2 mg/dL (0.2-1.0) Aspartate Amino Transf (AST/SGOT) 35 U/L (15-37) Alanine Aminotransferase (ALT/SGPT) 53 U/L (14-59) Alkaline Phosphatase 71 U/L (46-116) Total Protein 5.9 g/dL (6.4-8.2) Albumin 2.1 g/dL (3.4-5.0) Albumin/Globulin Ratio 0.6 (1.0-1.7) Test 05/22/21 08:05 Glucose (Fingerstick) 206 mg/dL (70-99) Assessment and Plan Assessmemt and Plan Problems Medical Problems: (1) Hypomagnesemia syndrome Status: Acute (2) Hypoxia Status: Acute (3) Pneumonia due to COVID-19 virus Status: Acute Comment Review of Relevant I have reviewed the following items magde (where applicable) has been applied. Labs Laboratory Tests Test 05/20/21 11:35 05/20/21 17:23 05/20/21 20:37 05/21/21 06:58 Glucose (Fingerstick) 83 mg/dL (70-99) 115 mg/dL (70-99) 111 mg/dL (70-99) White Blood Count 7.0 x10^3/uL (4.0-11.0) Red Blood Count 3.09 x10^6/uL (3.50-5.40) Hemoglobin 9.0 g/dL (12.0-15.5) Hematocrit 27.6 % (36.0-47.0) Mean Corpuscular Volume 89 fL (79-100) Mean Corpuscular Hemoglobin 29 pg (25-35) Mean Corpuscular Hemoglobin Concent 33 g/dL (31-37) Red Cell Distribution Width 15.0 % (11.5-14.5) Platelet Count 193 x10^3/uL (140-400) Neutrophils (%) (Auto) 73 % (31-73) Lymphocytes (%) (Auto) 11 % (24-48) Monocytes (%) (Auto) 16 % (0-9) Eosinophils (%) (Auto) 0 % (0-3) Basophils (%) (Auto) 0 % (0-3) Neutrophils # (Auto) 5.1 x10^3/uL (1.8-7.7) Lymphocytes # (Auto) 0.8 x10^3/uL (1.0-4.8) Monocytes # (Auto) 1.1 x10^3/uL (0.0-1.1) Eosinophils # (Auto) 0.0 x10^3/uL (0.0-0.7) Basophils # (Auto) 0.0 x10^3/uL (0.0-0.2) Sodium Level 139 mmol/L (136-145) Potassium Level 3.5 mmol/L (3.5-5.1) Chloride Level 102 mmol/L (98-107) Carbon Dioxide Level 26 mmol/L (21-32) Anion Gap 11 (6-14) Blood Urea Nitrogen 47 mg/dL (7-20) Creatinine 4.3 mg/dL (0.6-1.0) Estimated GFR (Cockcroft-Gault) 12.1 Glucose Level 152 mg/dL (70-99) Calcium Level 8.3 mg/dL (8.5-10.1) Phosphorus Level 4.4 mg/dL (2.6-4.7) Albumin 1.9 g/dL (3.4-5.0) Test 05/21/21 07:23 05/21/21 11:41 05/21/21 16:44 05/21/21 20:49 Glucose (Fingerstick) 152 mg/dL (70-99) 176 mg/dL (70-99) 269 mg/dL (70-99) 198 mg/dL (70-99) Test 05/22/21 06:00 05/22/21 08:05 White Blood Count 7.3 x10^3/uL (4.0-11.0) Red Blood Count 3.13 x10^6/uL (3.50-5.40) Hemoglobin 9.2 g/dL (12.0-15.5) Hematocrit 28.0 % (36.0-47.0) Mean Corpuscular Volume 89 fL (79-100) Mean Corpuscular Hemoglobin 29 pg (25-35) Mean Corpuscular Hemoglobin Concent 33 g/dL (31-37) Red Cell Distribution Width 14.9 % (11.5-14.5) Platelet Count 209 x10^3/uL (140-400) Neutrophils (%) (Auto) 75 % (31-73) Lymphocytes (%) (Auto) 13 % (24-48) Monocytes (%) (Auto) 12 % (0-9) Eosinophils (%) (Auto) 0 % (0-3) Basophils (%) (Auto) 1 % (0-3) Neutrophils # (Auto) 5.5 x10^3/uL (1.8-7.7) Lymphocytes # (Auto) 0.9 x10^3/uL (1.0-4.8) Monocytes # (Auto) 0.8 x10^3/uL (0.0-1.1) Eosinophils # (Auto) 0.0 x10^3/uL (0.0-0.7) Basophils # (Auto) 0.0 x10^3/uL (0.0-0.2) Sodium Level 136 mmol/L (136-145) Potassium Level 3.6 mmol/L (3.5-5.1) Chloride Level 99 mmol/L (98-107) Carbon Dioxide Level 26 mmol/L (21-32) Anion Gap 11 (6-14) Blood Urea Nitrogen 65 mg/dL (7-20) Creatinine 5.6 mg/dL (0.6-1.0) Estimated GFR (Cockcroft-Gault) 8.9 BUN/Creatinine Ratio 12 (6-20) Glucose Level 214 mg/dL (70-99) Calcium Level 8.4 mg/dL (8.5-10.1) Phosphorus Level 5.5 mg/dL (2.6-4.7) Total Bilirubin 0.2 mg/dL (0.2-1.0) Aspartate Amino Transf (AST/SGOT) 35 U/L (15-37) Alanine Aminotransferase (ALT/SGPT) 53 U/L (14-59) Alkaline Phosphatase 71 U/L (46-116) Total Protein 5.9 g/dL (6.4-8.2) Albumin 2.1 g/dL (3.4-5.0) Albumin/Globulin Ratio 0.6 (1.0-1.7) Glucose (Fingerstick) 206 mg/dL (70-99) Laboratory Tests Test 05/21/21 11:41 05/21/21 16:44 05/21/21 20:49 05/22/21 06:00 Glucose (Fingerstick) 176 mg/dL (70-99) 269 mg/dL (70-99) 198 mg/dL (70-99) White Blood Count 7.3 x10^3/uL (4.0-11.0) Red Blood Count 3.13 x10^6/uL (3.50-5.40) Hemoglobin 9.2 g/dL (12.0-15.5) Hematocrit 28.0 % (36.0-47.0) Mean Corpuscular Volume 89 fL (79-100) Mean Corpuscular Hemoglobin 29 pg (25-35) Mean Corpuscular Hemoglobin Concent 33 g/dL (31-37) Red Cell Distribution Width 14.9 % (11.5-14.5) Platelet Count 209 x10^3/uL (140-400) Neutrophils (%) (Auto) 75 % (31-73) Lymphocytes (%) (Auto) 13 % (24-48) Monocytes (%) (Auto) 12 % (0-9) Eosinophils (%) (Auto) 0 % (0-3) Basophils (%) (Auto) 1 % (0-3) Neutrophils # (Auto) 5.5 x10^3/uL (1.8-7.7) Lymphocytes # (Auto) 0.9 x10^3/uL (1.0-4.8) Monocytes # (Auto) 0.8 x10^3/uL (0.0-1.1) Eosinophils # (Auto) 0.0 x10^3/uL (0.0-0.7) Basophils # (Auto) 0.0 x10^3/uL (0.0-0.2) Sodium Level 136 mmol/L (136-145) Potassium Level 3.6 mmol/L (3.5-5.1) Chloride Level 99 mmol/L (98-107) Carbon Dioxide Level 26 mmol/L (21-32) Anion Gap 11 (6-14) Blood Urea Nitrogen 65 mg/dL (7-20) Creatinine 5.6 mg/dL (0.6-1.0) Estimated GFR (Cockcroft-Gault) 8.9 BUN/Creatinine Ratio 12 (6-20) Glucose Level 214 mg/dL (70-99) Calcium Level 8.4 mg/dL (8.5-10.1) Phosphorus Level 5.5 mg/dL (2.6-4.7) Total Bilirubin 0.2 mg/dL (0.2-1.0) Aspartate Amino Transf (AST/SGOT) 35 U/L (15-37) Alanine Aminotransferase (ALT/SGPT) 53 U/L (14-59) Alkaline Phosphatase 71 U/L (46-116) Total Protein 5.9 g/dL (6.4-8.2) Albumin 2.1 g/dL (3.4-5.0) Albumin/Globulin Ratio 0.6 (1.0-1.7) Test 05/22/21 08:05 Glucose (Fingerstick) 206 mg/dL (70-99) Microbiology 05/13/21 Blood Culture - Final, Complete NO GROWTH AFTER 5 DAYS Medications Current Medications Magnesium Sulfate 50 ml @ 25 mls/hr 1X ONCE IV Last administered on 05/13/21at 15:58; Start 05/13/21 at 15:45; Stop 05/13/21 at 17:44; Status DC Methylprednisolone Sodium Succinate (SOLU-Medrol 125MG VIAL) 125 mg 1X ONCE IV Last administered on 05/13/21at 15:58; Start 05/13/21 at 15:45; Stop 05/13/21 at 15:46; Status DC Ceftriaxone Sodium (Rocephin) 1 gm 1X ONCE IVP Last administered on 05/13/21at 16:37; Start 05/13/21 at 16:00; Stop 05/13/21 at 16:02; Status DC Piperacillin Sod/ Tazobactam Sod (Zosyn Per Pharmacy) 1 each PRN DAILY PRN MC SEE COMMENTS; Start 05/13/21 at 16:15 Dexamethasone Sodium Phosphate (Decadron) 6 mg DAILY IVP Last administered on 05/22/21at 09:34; Start 05/14/21 at 09:00 Remdesivir 200 mg/ Sodium Chloride 210 ml @ 210 mls/hr 1X ONCE IV Last administered on 05/13/21at 20:59; Start 05/13/21 at 17:00; Stop 05/13/21 at 17:59; Status DC Remdesivir 100 mg/ Sodium Chloride 230 ml @ 460 mls/hr Q24H IV Last administered on 05/17/21at 17:45; Start 05/14/21 at 17:00; Stop 05/17/21 at 17 :29; Status DC Multivitamins (Thera M Plus) 1 tab DAILY PO Last administered on 05/20/21at 09:30; Start 05/14/21 at 09:00 Aspirin (Ecotrin) 81 mg [id number] PO ; Start 05/14/21 at 08:00; Stop 05/13/21 at 18:10; Status DC Guaifenesin/ Codeine Phosphate (Robitussin Ac) 5 ml PRN Q6HRS PRN PO COUGH; Start 05/13/21 at 16:15; Stop 05/16/21 at 07:29; Status DC Azithromycin 250 ml @ 250 mls/hr 1X ONCE IV Last administered on 05/13/21at 16:37; Start 05/13/21 at 16:15; Stop 05/13/21 at 17:14; Status DC Magnesium Sulfate 50 ml @ 25 mls/hr 1X ONCE IV ; Start 05/13/21 at 16:15; Stop 05/13/21 at 18:14; Status Cancel Piperacillin Sod/ Tazobactam Sod 2.25 gm/Sodium Chloride 50 ml @ 100 mls/hr Q6HRS IV Last administered on 05/20/21at 05:07; Start 05/13/21 at 18:00; Stop 05/20/21 at 13:09; Status DC Ondansetron HCl (Zofran) 4 mg PRN Q6HRS PRN IVP NAUSEA/VOMITING; Start 05/13/21 at 17:00 Calcium Carbonate/ Glycine (Tums) 500 mg PRN Q3HRS PRN PO UPSET STOMACH; Start 05/13/21 at 17:00 Zolpidem Tartrate (Ambien) 5 mg PRN QHS PRN PO INSOMNIA, MAY REPEAT IN 1HR; Start 05/13/21 at 17:00; Stop 05/16/21 at 07:29; Status DC Info (Non-Icu Electrolyte Protocol) 1 ea PRN DAILY PRN MC SEE COMMENTS; Start 05/13/21 at 17:00 Oxycodone HCl (Roxicodone) 5 mg PRN Q3HRS PRN PO BREAKTHROUGH PAIN; Start 05/13/21 at 17:00 Oxycodone/ Acetaminophen (Percocet 5/325) 1 tab PRN Q4HRS PRN PO MILD PAIN, 1ST CHOICE; Start 05/13/21 at 17:00 Oxycodone/ Acetaminophen (Percocet 5/325) 2 tab PRN Q4HRS PRN PO MODERATE PAIN, SEVERE PAIN Last administered on 05/22/21at 10:01; Start 05/13/21 at 17:00 Acetaminophen (Tylenol) 650 mg PRN Q6HRS PRN PO Headaches, Temp > 101.5F Last administered on 05/13/21at 21:00; Start 05/13/21 at 17:00 Senna/Docusate Sodium (Senna Plus) 1 tab BID PO Last administered on 05/17/21 20:28; Start 05/13/21 at 21:00 Heparin Sodium (Porcine) (Heparin Sodium) 5,000 unit Q8HRS SQ Last administered on 05/22/21 09:35; Start 05/13/21 at 22:00 Allopurinol (Zyloprim) 100 mg DAILY PO Last administered on 05/21/21 12:57; Start 05/14/21 at 09:00 Amlodipine Besylate (Norvasc) 5 mg DAILY PO Last administered on 05/22/21 09:34; Start 05/14/21 at 09:00 Aspirin (Aspirin Chewable) 81 mg DAILY PO Last administered on 05/22/21 09:32; Start 05/14/21 at 09:00 EZETIMIBE (Zetia) 10 mg DAILY PO Last administered on 05/21/21 12:57; Start 05/14/21 at 09:00 Furosemide (Lasix) 40 mg DAILY PO Last administered on 05/16/21at 10:09; Start 05/14/21 at 09:00; Stop 05/16/21 at 14:56; Status DC Gabapentin (Neurontin) 100 mg HS PO Last administered on 05/21/21 21:19; Start 05/13/21 at 21:00 Levothyroxine Sodium (Synthroid) 175 mcg DAILYAC PO Last administered on 05/22/21 09:37; Start 05/14/21 at 07:30 Losartan Potassium (Cozaar) 50 mg DAILY PO Last administered on 05/16/21 10:09; Start 05/14/21 at 09:00; Stop 05/16/21 at 14:56; Status DC Atorvastatin Calcium (Lipitor) 80 mg QHS PO Last administered on 05/21/21 21:19; Start 05/13/21 at 21:00 Insulin Human Lispro (HumaLOG) 10 units 1X ONCE SQ Last administered on 05/14/21 17:24; Start 05/14/21 at 17:30; Stop 05/14/21 at 17:31; Status DC Insulin Human Lispro (HumaLOG) 0-9 UNITS TIDWMEALS SQ Last administered on 05/16/21 17:12; Start 05/15/21 at 08:00; Stop 05/16/21 at 21:03; Status DC Dextrose (Dextrose 50%-Water Syringe) 12.5 gm PRN Q15MIN PRN IV SEE COMMENTS Last administered on 05/20/21 07:27; Start 05/14/21 at 17:30 Insulin Human Lispro (HumaLOG) 9 units 1X ONCE SQ Last administered on 05/14/21at 23:22; Start 05/14/21 at 23:30; Stop 05/14/21 at 23:31; Status DC Insulin Glargine (Lantus Syringe) 10 unit BID SQ Last administered on 05/22/21 09:36; Start 05/14/21 at 23:30 Guaifenesin (Robitussin Dm) 10 ml PRN Q6HRS PRN PO COUGH Last administered on 05/16/21 21:16; Start 05/16/21 at 07:30 Lactobacillus Rhamnosus (Culturelle) 1 cap BID PO Last administered on 05/22/21 09:32; Start 05/16/21 at 21:00 Hydralazine HCl (Apresoline Inj) 10 mg PRN Q4HRS PRN IVP ELEVATED BP, SEE COMM ENTS Last administered on 05/22/21at 02:55; Start 05/16/21 at 15:00 Isosorbide Mononitrate (Imdur) 30 mg DAILY PO Last administered on 05/22/21at 09:33; Start 05/17/21 at 09:00 Albuterol Sulfate (Ventolin Hfa) 2 puff PRN Q4HRS PRN INH WHEEZING Last administered on 05/19/21at 13:29; Start 05/16/21 at 20:00 Insulin Human Lispro (HumaLOG) 0-9 UNITS QIDACHS SQ Last administered on 05/22/21at 09:36; Start 05/16/21 at 21:30 Sodium Chloride 1,000 ml @ 75 mls/hr [id number] IV Last administered on 05/21/21at 15:10; Start 05/17/21 at 11:45 Pantoprazole Sodium (Protonix) 40 mg DAILYAC PO Last administered on 05/22/21at 09:33; Start 05/19/21 at 16:30 Lidocaine HCl (Buffered Lidocaine 1%) 3 ml STK-MED ONCE .ROUTE ; Start 05/19/21 at 13:31; Stop 05/19/21 at 13:31; Status DC Lidocaine HCl (Buffered Lidocaine 1%) 3 ml 1X ONCE INJ Last administered on 05/19/21at 14:15; Start 05/19/21 at 13:45; Stop 05/19/21 at 13:46; Status DC Sodium Chloride 1,000 ml @ 1,000 mls/hr Q1H PRN IV hypotension; Start 05/19/21 at 14:15; Stop 05/19/21 at 20:14; Status DC Sodium Chloride 1,000 ml @ 400 mls/hr Q2H30M PRN IV PATENCY; Start 05/19/21 at 14:15; Stop 05/20/21 at 02:14; Status DC Info (PHARMACY MONITORING -- do not chart) 1 each PRN DAILY PRN MC SEE COMMENTS; Start 05/19/21 at 14:15 Info (PHARMACY MONITORING -- do not chart) 1 each PRN DAILY PRN MC SEE COMMENTS; Start 05/19/21 at 14:15; Status Cancel Piperacillin Sod/ Tazobactam Sod 2.25 gm/Sodium Chloride 50 ml @ 100 mls/hr Q8HRS IV Last administered on 05/22/21at 05:56; Start 05/20/21 at 14:00 Amino Acids/ Electrolytes/ Dextrose 1,000 ml @ 80 mls/hr [id number] IV Last administered on 05/22/21at 02:55; Start 05/20/21 at 13:15 Info (PHARMACY MONITORING -- do not chart) 1 each PRN DAILY PRN MC SEE COMMENTS; Start 05/20/21 at 15:15 Hydralazine HCl (Apresoline) 25 mg TID PO Last administered on 05/22/21at 09:33; Start 05/21/21 at 10:30 Lidocaine HCl (Buffered Lidocaine 1%) 3 ml STK-MED ONCE .ROUTE ; Start 05/21/21 at 10:43; Stop 05/21/21 at 10:43; Status DC Heparin Sodium (Porcine) (Heparin Sodium) 10,000 unit STK-MED ONCE .ROUTE ; Start 05/21/21 at 10:44; Stop 05/21/21 at 10:44; Status DC Lidocaine HCl (Buffered Lidocaine 1%) 6 ml 1X ONCE INJ Last administered on 05/21/21at 12:10; Start 05/21/21 at 11:30; Stop 05/21/21 at 11:33; Status DC Heparin Sodium (Porcine) (Heparin Sodium) 2,500 unit 1X ONCE INT CAT Last administered on 05/21/21at 12:41; Start 05/21/21 at 12:45; Stop 05/21/21 at 12:46; Status DC Active Scripts Active Reported Zetia (Ezetimibe) 10 Mg Tablet 10 Mg PO DAILY Furosemide 40 Mg Tablet 1 Tab PO DAILY Hydrocodone-Apap 5-325 (Hydrocodone Bit/Acetaminophen) 1 Tab Tablet 1 Tab PO PRN BID PRN Allopurinol 100 Mg Tablet 1 Tab PO DAILY Aspirin 81 Mg Tab.chew 1 Tab PO DAILY Levothyroxine Sodium 175 Mcg Tablet 175 Mcg PO DAILYAC Amlodipine Besylate 5 Mg Tablet 5 Mg PO DAILY Hydralazine Hcl 25 Mg Tablet 1 Tab PO TID Gabapentin (Gabapentin) 100 Mg Capsule 100 Mg PO HS Atorvastatin Calcium 80 Mg Tablet 80 Mg PO DAILY Losartan Potassium 50 Mg Tablet 50 Mg PO DAILY Metformin Hcl 500 Mg Tablet 500 Mg PO BIDWMEALS Magnesium (Magnesium Oxide) 500 Mg Capsule 1 Cap PO BID 30 Days Vitals/I & O Vital Sign - Last 24 Hours 05/21/21 05/21/21 05/21/21 05/21/21 11:00 12:56 12:58 13:06 Temp 98.0 98.0 Pulse 67 67 67 67 Resp 20 B/P (MAP) 171/61 (97) 171/61 171/61 171/61 Pulse Ox 97 O2 Delivery Nasal Cannula 05/21/21 05/21/21 05/21/21 05/21/21 14:00 15:00 19:00 20:00 Temp 97.9 98.1 97.9 98.1 Pulse 67 85 83 Resp 20 20 B/P (MAP) 171/61 192/82 (118) 196/80 (118) Pulse Ox 92 94 O2 Delivery Nasal Cannula Nasal Cannula Room Air 05/21/21 05/21/21 05/22/21 05/22/21 21:19 23:01 02:55 03:01 Temp 98.1 98.2 98.1 98.2 Pulse 83 89 89 70 Resp 20 20 B/P (MAP) 196/80 166/58 (94) 166/58 196/84 (121) Pulse Ox 95 98 O2 Delivery Nasal Cannula Nasal Cannula 05/22/21 05/22/21 05/22/21 05/22/21 07:00 09:33 09:33 09:34 Temp 97.9 97.9 Pulse 73 73 73 73 Resp 20 B/P (MAP) 178/62 (100) 178/62 178/62 178/62 Pulse Ox 95 O2 Delivery Room Air 05/22/21 10:01 Pulse Ox 97 O2 Delivery Room Air Intake and Output 05/21/21 05/21/21 05/22/21 15:00 23:00 07:00 Intake Total 0 ml Output Total 0 ml Balance 0 ml 0 ml Justicifation of Admission Dx: Justifications for Admission: Justification of Admission Dx: Yes HEENA LOVE MD May 22, 2021 10:25
[2021-05-22 11:00] VITALS: BP 138/59
[2021-05-22] MEDS: IV NORMAL SALINE 1000ML BAG 1,000 ML IV SCH (11:45)
[2021-05-22 15:00] VITALS: BP 142/61
[2021-05-22 17:24] LABS: BILIRUBIN,URINE NEGATIVE (NEG); CLARITY,URINE CLEAR; COLOR,URINE YELLOW; NITRITE,URINE NEGATIVE (NEG); PROTEIN,URINE 100 mg/dL (NEG-TRACE); UROBILINOGEN,URINE 0.2 mg/dL (0.2 mg/dL)
[2021-05-22 17:34] LABS: BACTERIA,URINE FEW /HPF (0-FEW)
[2021-05-22 19:00] VITALS: BP 150/69
[2021-05-22 21:02] LABS: BASE EXCESS ABG -3 mmol/L (-3-3); HCO3 ABG 23 mmol/L (21-28); PCO2 ABG 40 mmHg (35-46); SAT O2 ABG 83 % (92-99)
[2021-05-22 21:24] LABS: FIO2 ABG 21; PO2 ABG 50 mmHg (65-108)
[2021-05-22] MEDS: ATORVASTATIN CALCIUM 40 MG TABLET. PO SCH (21:38)
[2021-05-22] MEDS: GABAPENTIN 100 MG CAPSULE. PO SCH (21:38)
[2021-05-22 23:00] VITALS: BP 152/51
[2021-05-23] MEDS: IV NORMAL SALINE 1000ML BAG 1,000 ML IV SCH (00:03)
[2021-05-23] MEDS: AA 4.25 %/CALCIUM/LYTES/D5W 1,000 ML IV SCH ×2 (03:27→16:51)
[2021-05-23 03:30] VITALS: BP 143/73
[2021-05-23 05:02] LABS: BASO # 0.1 x10^3/uL (0.0-0.2); BASO % 1 % (0-3); EOS % 1 % (0-3); HEMATOCRIT 23.9 % (36.0-47.0); HEMOGLOBIN 7.9 g/dL (12.0-15.5); LYMPH # 0.8 x10^3/uL (1.0-4.8); LYMPH % 12 % (24-48); MEAN CORPUSCULAR HEMOGLOBIN 30 pg (25-35); MEAN CORPUSCULAR HGB CONC 33 g/dL (31-37); MEAN CORPUSCULAR VOLUME 89 fL (79-100); MONO # 0.7 x10^3/uL (0.0-1.1); MONO % 12 % (0-9); NEUT # 4.7 x10^3/uL (1.8-7.7); NEUT % 74 % (31-73); PLATELET COUNT 187 x10^3/uL (140-400); RED BLOOD COUNT 2.68 x10^6/uL (3.50-5.40); RED CELL DISTRIBUTION WIDTH 14.7 % (11.5-14.5); WHITE BLOOD COUNT 6.4 x10^3/uL (4.0-11.0)
[2021-05-23] MEDS: HEPARIN for SUB-Q USE 5,000 UNIT/ML VIAL. SQ SCH ×3 (05:08→21:00)
[2021-05-23] MEDS: PIPERACILLIN/TAZOBACTAM 2.25 GM in IV NORMAL SALINE 50ML 50 ML IV SCH ×3 (05:13→21:01)
[2021-05-23 05:41] LABS: ALBUMIN 1.9 g/dL (3.4-5.0); CALCIUM 8.1 mg/dL (8.5-10.1); CREATININE 5.9 mg/dL (0.6-1.0); GFR 8.4; PHOSPHORUS 6.6 mg/dL (2.6-4.7); POTASSIUM 4.1 mmol/L (3.5-5.1)
[2021-05-23 07:00] VITALS: BP 167/65
[2021-05-23] MEDS: ALLOPURINOL 100 MG TABLET. PO SCH (07:48)
[2021-05-23] MEDS: LEVOTHYROXINE 175 MCG TABLET PO SCH (07:48)
[2021-05-23] MEDS: LACTOBACILLUS RHAMNOSUS GG 1 CAPSULE. PO SCH ×2 (07:48→20:58)
[2021-05-23] MEDS: EZETIMIBE 10 MG TABLET. PO SCH (07:48)
[2021-05-23] MEDS: MULTIVITAMIN with MINERAL TABLET. PO SCH (07:49)
[2021-05-23] MEDS: hydrALAZINE 25 MG TABLET PO SCH ×3 (07:49→20:58)
[2021-05-23] MEDS: ASPIRIN CHEWABLE 81 MG TABLET. PO SCH (07:49)
[2021-05-23] MEDS: PANTOPRAZOLE 40 MG TABLET.DR. PO SCH (07:50)
[2021-05-23] MEDS: ISOSORBIDE MONONITRATE ER 30 MG TAB.ER.24H PO SCH (07:51)
[2021-05-23] MEDS: SENNOSIDES/DOCUSATE 8.6/50MG TABLET. PO SCH ×2 (07:51→19:15)
[2021-05-23] MEDS: DEXAMETHASONE SOD PHOS 4 MG/ML VIAL IVP SCH (07:51)
[2021-05-23] MEDS: INSULIN LISPRO 300 UNITS/3 ML VIAL. SQ SCH ×4 (08:11→20:59)
[2021-05-23] MEDS: INSULIN GLARGINE SYRINGE. SQ SCH ×2 (08:11→21:00)
[2021-05-23 08:32] LABS: % LYMPHS 16 % (24-48); % MONOS 3 % (0-10); % SEGS 81 % (35-66); PLT ESTIMATE ADEQUATE (ADEQUATE)
[2021-05-23] MEDS ORDERED: ALBUMIN HUMAN 25% 200 ML IV PRN (09:00)
[2021-05-23] MEDS ORDERED: DIALYSIS PATIENT. MC PRN ×2 (09:00)
[2021-05-23] MEDS ORDERED: 0.9 % SODIUM CHLORIDE 10 ML DISP.SYRIN. IV PRN ×2 (09:00)
[2021-05-23] MEDS ORDERED: IV NORMAL SALINE 1000ML BAG 1,000 ML IV PRN ×2 (09:00)
--- NOTE | 2021-05-23 09:38 | PDOC ---
[employer] PROGRESS NOTE Date of Service DOS: DATE: 05/23/21 TIME: 09:36 Chief Complaint Chief Complaint impression Pneumonia secondary to COVID-19 infection Acute Hypoxic Respiratory Failure Hypomagnesemia CAD CHF Type II Diabetes Melena/fall in hemoglobin--hemoglobin stable x 2. History of Present Illness History of Present Illness Ms Braswell is a 75yo F w/ PMHx HTN, DM2, CHF, CAD s/p CABG who came to ED on 05/13/2020 progressive shortness of breath over the prior week. In ED with O2 saturations 86% on room air febrile to 101.3 F. Tested positive for COVID-19. She had not been fully vaccinated. 05/14: Weak and was resting. She is currently on the COVID-19 protocol (Remdesivir, Aspirin, Multivitamins, Dexamethsone, Heparin SOdium, Piperacillin/Tazobactam, Acetaminophen). Mrs. Barswell states that she only received 1 dose of the COVID-19 vaccination. 05/15: She is feeling better. This morning, she was able to eat her breakfast. She remains on the COVID-19 Protocol (Remdesivir, Aspirin, Multivitamins, Dexamethsone, Heparin Sodium, Piperacillin/Tazobactam, Acetaminophen). We reviewed the patient's chart and discussed with RN 05/16: Afebrile overnight. Glucose in the 200s. O2 saturations 89 to 91% on 2 L nasal cannula oxygen. She is feeling short of breath and weak. No chest pain.. Had some V. tach overnight. Afebrile. BUN over 88 and creatinine elevated. Holding furosemide and losartan. Baseline CR at [facility] was 1.1. Cardiology nephrology consulted today. 05-18 V. tach overnight. - Afebrile. BUN over 88 and creatinine elevated. 6.9 d/c furosemide and losartan. Baseline CR // [facility] was 1.1. D/W risk control field representative nephrology consulted ASA, statin therapy. NO AV mariama block agents with bradycardia Hold Lasix, losartan with SUZIE Am labs if no improvement will need dialysis and temp HDC in the morning 05-19. Enrique RN 37 MIN PT exam, chart review, > 50% of time spent with exam, chart review, pt care coordination 05-19 V. tach overnight. 8-30 Afebrile. BUN over 88 and creatinine elevated. 6.9 d/c furosemide and losartan. Baseline CR // [facility] was 1.1. D/W risk control field representative nephrology consulted ASA, statin therapy. NO AV amriama block agents with bradycardia Hold Lasix, losartan with SUZIE Am labs if no improvement will need dialysis and temp HDC in the morning 05-19. Enrique RN 36 MIN PT exam, chart review, > 50% of time spent with exam, chart review, pt care coordination 05-20 Continue empiric PPI. Follow hemoglobin. Confused, not eating well V. tach overnight. 8-30 Afebrile. BUN over 88 and creatinine elevated. 6.9 d/c furosemide and losartan. Baseline CR // [facility] was 1.1. D/W risk control field representative nephrology consulted ASA, statin therapy. NO AV mariama block agents with bradycardia Hold Lasix, losartan with SUZIE Am labs if no improvement will need dialysis and temp HDC in the morning 05-19. Enrique RN 37 MIN PT exam, chart review, > 50% of time spent with exam, chart review, pt c are coordination 05-21 Continue empiric PPI. Follow hemoglobin. Confused, not eating well pulled out temp dialysis cath 9-4 am V. tach overnight. 8-30 Afebrile. BUN over 88 and creatinine elevated. 6.9 d/c furosemide and losartan. Baseline CR // [facility] was 1.1. D/W risk control field representative/ nephrology consulted ASA, statin therapy. NO AV mariama block agents with bradycardia Hold Lasix, losartan with SUZIE Am labs dialysis and temp HDC in the morning Enrique RN 27 MIN PT exam, chart review, > 50% of time spent with exam, chart review, pt care coordination 05-22 Continue empiric PPI. Follow hemoglobin. Confused, not eating well pulled out temp dialysis cath 9-4 am V. tach overnight. 8-30 Afebrile. BUN over 88 and creatinine elevated. 6.9 d/c furosemide and losartan. Baseline CR // [facility] was 1.1. D/W risk control field representative/ nephrology consulted ASA, statin therapy. NO AV mariama block agents with bradycardia Hold Lasix, losartan with SUZIE Am labs dialysis and temp HDC in the morning Enrique HOWARD NON- TUNNELED Hemodialysis catheter via the right internal jugular vein approach, ready to utilize. 29 MIN PT exam, chart review, > 50% of time spent with exam, chart review, pt care coordination Melena/fall in hemoglobin--hemoglobin stable x 2. 05/23/21 Patient seen and examined at bedside. Reports no complaints this morning that her breathing was feeling better. Denying bloody bowel movement. Mild drop in hemoglobin today, plan for dialysis today. Plan of care discussed with bedside nurse. Vitals/I&O Vitals/I&O: Vital Signs Date Time Temp Pulse Resp B/P (MAP) Pulse Ox O2 Delivery O2 Flow Rate FiO2 05/23/21 08:00 Nasal Cannula 2.0 05/23/21 07:51 83 143/73 05/23/21 07:00 97.5 19 100 97.5 I & O 05/22/21 05/22/21 05/23/21 15:00 23:00 07:00 Intake Total 150 ml Output Total 0 ml Balance 150 ml 0 ml Physical Exam Physical Exam: pleasant, confused General: Alert, Oriented X3, No acute distress Heart: Regular rate (SR/SB rate presently 56), Normal S1, Normal S2 Lungs: Clear Abdomen: Normal bowel sounds, Soft, No tenderness, Other (obese) Extremities: No cyanosis, Other (trace bilateral LE edema ) Skin: No significant lesion Labs Labs: Laboratory Tests Test 05/22/21 11:44 05/22/21 16:53 05/22/21 16:55 05/22/21 17:40 Glucose (Fingerstick) 310 mg/dL (70-99) 351 mg/dL (70-99) Urine Collection Type Unknown Urine Color Yellow Urine Clarity Clear Urine pH 5.0 (<5.0-8.0) Urine Specific [place] 1.010 (1.000-1.030) Urine Protein 100 mg/dL (NEG-TRACE) Urine Glucose (UA) Negative mg/dL (NEG) Urine Ketones (Stick) Negative mg/dL (NEG) Urine Blood Small (NEG) Urine Nitrite Negative (NEG) Urine Bilirubin Negative (NEG) Urine Urobilinogen Dipstick 0.2 mg/dL (0.2 mg/dL) Urine Leukocyte Esterase Negative (NEG) Urine RBC 1-2 /HPF (0-2) Urine WBC 1-4 /HPF (0-4) Urine Squamous Epithelial Cells Few /LPF Urine Bacteria Few /HPF (0-FEW) O2 Saturation 83 % (92-99) Arterial Blood pH 7.37 (7.35-7.45) Arterial Blood pCO2 at Patient Temp 40 mmHg (35-46) Arterial Blood pO2 at Patient Temp 50 mmHg (65-108) Arterial Blood HCO3 23 mmol/L (21-28) Arterial Blood Base Excess -3 mmol/L (-3-3) FiO2 21 Test 05/22/21 20:31 05/23/21 04:47 05/23/21 08:04 Glucose (Fingerstick) 350 mg/dL (70-99) 218 mg/dL (70-99) White Blood Count 6.4 x10^3/uL (4.0-11.0) Red Blood Count 2.68 x10^6/uL (3.50-5.40) Hemoglobin 7.9 g/dL (12.0-15.5) Hematocrit 23.9 % (36.0-47.0) Mean Corpuscular Volume 89 fL (79-100) Mean Corpuscular Hemoglobin 30 pg (25-35) Mean Corpuscular Hemoglobin Concent 33 g/dL (31-37) Red Cell Distribution Width 14.7 % (11.5-14.5) Platelet Count 187 x10^3/uL (140-400) Neutrophils (%) (Auto) 74 % (31-73) Lymphocytes (%) (Auto) 12 % (24-48) Monocytes (%) (Auto) 12 % (0-9) Eosinophils (%) (Auto) 1 % (0-3) Basophils (%) (Auto) 1 % (0-3) Neutrophils # (Auto) 4.7 x10^3/uL (1.8-7.7) Lymphocytes # (Auto) 0.8 x10^3/uL (1.0-4.8) Monocytes # (Auto) 0.7 x10^3/uL (0.0-1.1) Eosinophils # (Auto) 0.0 x10^3/uL (0.0-0.7) Basophils # (Auto) 0.1 x10^3/uL (0.0-0.2) Segmented Neutrophils % 81 % (35-66) Lymphocytes % 16 % (24-48) Monocytes % 3 % (0-10) Platelet Estimate Adequate (ADEQUATE) Sodium Level 137 mmol/L (136-145) Potassium Level 4.1 mmol/L (3.5-5.1) Chloride Level 102 mmol/L (98-107) Carbon Dioxide Level 24 mmol/L (21-32) Anion Gap 11 (6-14) Blood Urea Nitrogen 78 mg/dL (7-20) Creatinine 5.9 mg/dL (0.6-1.0) Estimated GFR (Cockcroft-Gault) 8.4 Glucose Level 225 mg/dL (70-99) Calcium Level 8.1 mg/dL (8.5-10.1) Phosphorus Level 6.6 mg/dL (2.6-4.7) Albumin 1.9 g/dL (3.4-5.0) Assessment and Plan Assessmemt and Plan Problems Medical Problems: (1) Hypomagnesemia syndrome Status: Acute (2) Hypoxia Status: Acute (3) Pneumonia due to COVID-19 virus Status: Acute Comment Review of Relevant I have reviewed the following items maged (where applicable) has been applied. Justifications for Admission Other Justification GENO QUICK MD May 23, 2021 09:38
--- NOTE | 2021-05-23 13:24 | PDOC ---
PROGRESS NOTES Date of Service DATE: 05/23/21 TIME: 13:21 Subjective Subjective IN FOLLOW UP OF ARF WITH COVID 19 Objective Objective Vital Signs Date Time Temp Pulse Resp B/P (MAP) Pulse Ox O2 Delivery O2 Flow Rate FiO2 05/23/21 08:00 Nasal Cannula 2.0 05/23/21 07:51 83 143/73 05/23/21 07:00 97.5 19 100 97.5 Intake and Output 05/23/21 07:00 Intake Total 150 ml Output Total 0 ml Balance 150 ml Intake Oral 150 ml Output Urine Total 0 ml Physical Exam COMMENT COVID 19 + SO NO BEDSIDE EXAM Diagnosis RENAL FAILURE: Acute (Acute tubular necrosis) Assessment Assessment Problems Medical Problems: (1) Hypomagnesemia syndrome Status: Acute (2) Hypoxia Status: Acute (3) Pneumonia due to COVID-19 virus Status: Acute Plan Plan of Care DISCUSSED WITH DIALYSIS NURSE. TOLERATING DIALYSIS WELL. CONT Q MWF Comment Review of Relevant I have reviewed the following items maged (where applicable) has been applied. Labs Laboratory Tests Test 05/21/21 16:44 05/21/21 20:49 05/22/21 06:00 05/22/21 08:05 Glucose (Fingerstick) 269 mg/dL (70-99) 198 mg/dL (70-99) 206 mg/dL (70-99) White Blood Count 7.3 x10^3/uL (4.0-11.0) Red Blood Count 3.13 x10^6/uL (3.50-5.40) Hemoglobin 9.2 g/dL (12.0-15.5) Hematocrit 28.0 % (36.0-47.0) Mean Corpuscular Volume 89 fL (79-100) Mean Corpuscular Hemoglobin 29 pg (25-35) Mean Corpuscular Hemoglobin Concent 33 g/dL (31-37) Red Cell Distribution Width 14.9 % (11.5-14.5) Platelet Count 209 x10^3/uL (140-400) Neutrophils (%) (Auto) 75 % (31-73) Lymphocytes (%) (Auto) 13 % (24-48) Monocytes (%) (Auto) 12 % (0-9) Eosinophils (%) (Auto) 0 % (0-3) Basophils (%) (Auto) 1 % (0-3) Neutrophils # (Auto) 5.5 x10^3/uL (1.8-7.7) Lymphocytes # (Auto) 0.9 x10^3/uL (1.0-4.8) Monocytes # (Auto) 0.8 x10^3/uL (0.0-1.1) Eosinophils # (Auto) 0.0 x10^3/uL (0.0-0.7) Basophils # (Auto) 0.0 x10^3/uL (0.0-0.2) Sodium Level 136 mmol/L (136-145) Potassium Level 3.6 mmol/L (3.5-5.1) Chloride Level 99 mmol/L (98-107) Carbon Dioxide Level 26 mmol/L (21-32) Anion Gap 11 (6-14) Blood Urea Nitrogen 65 mg/dL (7-20) Creatinine 5.6 mg/dL (0.6-1.0) Estimated GFR (Cockcroft-Gault) 8.9 BUN/Creatinine Ratio 12 (6-20) Glucose Level 214 mg/dL (70-99) Calcium Level 8.4 mg/dL (8.5-10.1) Phosphorus Level 5.5 mg/dL (2.6-4.7) Total Bilirubin 0.2 mg/dL (0.2-1.0) Aspartate Amino Transf (AST/SGOT) 35 U/L (15-37) Alanine Aminotransferase (ALT/SGPT) 53 U/L (14-59) Alkaline Phosphatase 71 U/L (46-116) Total Protein 5.9 g/dL (6.4-8.2) Albumin 2.1 g/dL (3.4-5.0) Albumin/Globulin Ratio 0.6 (1.0-1.7) Test 05/22/21 11:44 05/22/21 16:53 05/22/21 16:55 05/22/21 17:40 Glucose (Fingerstick) 310 mg/dL (70-99) 351 mg/dL (70-99) Urine Collection Type Unknown Urine Color Yellow Urine Clarity Clear Urine pH 5.0 (<5.0-8.0) Urine Specific [place] 1.010 (1.000-1.030) Urine Protein 100 mg/dL (NEG-TRACE) Urine Glucose (UA) Negative mg/dL (NEG) Urine Ketones (Stick) Negative mg/dL (NEG) Urine Blood Small (NEG) Urine Nitrite Negative (NEG) Urine Bilirubin Negative (NEG) Urine Urobilinogen Dipstick 0.2 mg/dL (0.2 mg/dL) Urine Leukocyte Esterase Negative (NEG) Urine RBC 1-2 /HPF (0-2) Urine WBC 1-4 /HPF (0-4) Urine Squamous Epithelial Cells Few /LPF Urine Bacteria Few /HPF (0-FEW) O2 Saturation 83 % (92-99) Arterial Blood pH 7.37 (7.35-7.45) Arterial Blood pCO2 at Patient Temp 40 mmHg (35-46) Arterial Blood pO2 at Patient Temp 50 mmHg (65-108) Arterial Blood HCO3 23 mmol/L (21-28) Arterial Blood Base Excess -3 mmol/L (-3-3) FiO2 21 Test 05/22/21 20:31 05/23/21 04:47 05/23/21 08:04 Glucose (Fingerstick) 350 mg/dL (70-99) 218 mg/dL (70-99) White Blood Count 6.4 x10^3/uL (4.0-11.0) Red Blood Count 2.68 x10^6/uL (3.50-5.40) Hemoglobin 7.9 g/dL (12.0-15.5) Hematocrit 23.9 % (36.0-47.0) Mean Corpuscular Volume 89 fL (79-100) Mean Corpuscular Hemoglobin 30 pg (25-35) Mean Corpuscular Hemoglobin Concent 33 g/dL (31-37) Red Cell Distribution Width 14.7 % (11.5-14.5) Platelet Count 187 x10^3/uL (140-400) Neutrophils (%) (Auto) 74 % (31-73) Lymphocytes (%) (Auto) 12 % (24-48) Monocytes (%) (Auto) 12 % (0-9) Eosinophils (%) (Auto) 1 % (0-3) Basophils (%) (Auto) 1 % (0-3) Neutrophils # (Auto) 4.7 x10^3/uL (1.8-7.7) Lymphocytes # (Auto) 0.8 x10^3/uL (1.0-4.8) Monocytes # (Auto) 0.7 x10^3/uL (0.0-1.1) Eosinophils # (Auto) 0.0 x10^3/uL (0.0-0.7) Basophils # (Auto) 0.1 x10^3/uL (0.0-0.2) Segmented Neutrophils % 81 % (35-66) Lymphocytes % 16 % (24-48) Monocytes % 3 % (0-10) Platelet Estimate Adequate (ADEQUATE) Sodium Level 137 mmol/L (136-145) Potassium Level 4.1 mmol/L (3.5-5.1) Chloride Level 102 mmol/L (98-107) Carbon Dioxide Level 24 mmol/L (21-32) Anion Gap 11 (6-14) Blood Urea Nitrogen 78 mg/dL (7-20) Creatinine 5.9 mg/dL (0.6-1.0) Estimated GFR (Cockcroft-Gault) 8.4 Glucose Level 225 mg/dL (70-99) Calcium Level 8.1 mg/dL (8.5-10.1) Phosphorus Level 6.6 mg/dL (2.6-4.7) Albumin 1.9 g/dL (3.4-5.0) Laboratory Tests Test 05/22/21 16:53 05/22/21 16:55 05/22/21 17:40 05/22/21 20:31 Urine Collection Type Unknown Urine Color Yellow Urine Clarity Clear Urine pH 5.0 (<5.0-8.0) Urine Specific [place] 1.010 (1.000-1.030) Urine Protein 100 mg/dL (NEG-TRACE) Urine Glucose (UA) Negative mg/dL (NEG) Urine Ketones (Stick) Negative mg/dL (NEG) Urine Blood Small (NEG) Urine Nitrite Negative (NEG) Urine Bilirubin Negative (NEG) Urine Urobilinogen Dipstick 0.2 mg/dL (0.2 mg/dL) Urine Leukocyte Esterase Negative (NEG) Urine RBC 1-2 /HPF (0-2) Urine WBC 1-4 /HPF (0-4) Urine Squamous Epithelial Cells Few /LPF Urine Bacteria Few /HPF (0-FEW) Glucose (Fingerstick) 351 mg/dL (70-99) 350 mg/dL (70-99) O2 Saturation 83 % (92-99) Arterial Blood pH 7.37 (7.35-7.45) Arterial Blood pCO2 at Patient Temp 40 mmHg (35-46) Arterial Blood pO2 at Patient Temp 50 mmHg (65-108) Arterial Blood HCO3 23 mmol/L (21-28) Arterial Blood Base Excess -3 mmol/L (-3-3) FiO2 21 Test 05/23/21 04:47 05/23/21 08:04 White Blood Count 6.4 x10^3/uL (4.0-11.0) Red Blood Count 2.68 x10^6/uL (3.50-5.40) Hemoglobin 7.9 g/dL (12.0-15.5) Hematocrit 23.9 % (36.0-47.0) Mean Corpuscular Volume 89 fL (79-100) Mean Corpuscular Hemoglobin 30 pg (25-35) Mean Corpuscular Hemoglobin Concent 33 g/dL (31-37) Red Cell Distribution Width 14.7 % (11.5-14.5) Platelet Count 187 x10^3/uL (140-400) Neutrophils (%) (Auto) 74 % (31-73) Lymphocytes (%) (Auto) 12 % (24-48) Monocytes (%) (Auto) 12 % (0-9) Eosinophils (%) (Auto) 1 % (0-3) Basophils (%) (Auto) 1 % (0-3) Neutrophils # (Auto) 4.7 x10^3/uL (1.8-7.7) Lymphocytes # (Auto) 0.8 x10^3/uL (1.0-4.8) Monocytes # (Auto) 0.7 x10^3/uL (0.0-1.1) Eosinophils # (Auto) 0.0 x10^3/uL (0.0-0.7) Basophils # (Auto) 0.1 x10^3/uL (0.0-0.2) Segmented Neutrophils % 81 % (35-66) Lymphocytes % 16 % (24-48) Monocytes % 3 % (0-10) Platelet Estimate Adequate (ADEQUATE) Sodium Level 137 mmol/L (136-145) Potassium Level 4.1 mmol/L (3.5-5.1) Chloride Level 102 mmol/L (98-107) Carbon Dioxide Level 24 mmol/L (21-32) Anion Gap 11 (6-14) Blood Urea Nitrogen 78 mg/dL (7-20) Creatinine 5.9 mg/dL (0.6-1.0) Estimated GFR (Cockcroft-Gault) 8.4 Glucose Level 225 mg/dL (70-99) Calcium Level 8.1 mg/dL (8.5-10.1) Phosphorus Level 6.6 mg/dL (2.6-4.7) Albumin 1.9 g/dL (3.4-5.0) Glucose (Fingerstick) 218 mg/dL (70-99) Microbiology 05/13/21 Blood Culture - Final, Complete NO GROWTH AFTER 5 DAYS Medications Current Medications Magnesium Sulfate 50 ml @ 25 mls/hr 1X ONCE IV Last administered on 05/13/21at 15:58; Start 05/13/21 at 15:45; Stop 05/13/21 at 17:44; Status DC Methylprednisolone Sodium Succinate (SOLU-Medrol 125MG VIAL) 125 mg 1X ONCE IV Last administered on 05/13/21at 15:58; Start 05/13/21 at 15:45; Stop 05/13/21 at 15:46; Status DC Ceftriaxone Sodium (Rocephin) 1 gm 1X ONCE IVP Last administered on 05/13/21at 16:37; Start 05/13/21 at 16:00; Stop 05/13/21 at 16:02; Status DC Piperacillin Sod/ Tazobactam Sod (Zosyn Per Pharmacy) 1 each PRN DAILY PRN MC SEE COMMENTS; Start 05/13/21 at 16:15 Dexamethasone Sodium Phosphate (Decadron) 6 mg DAILY IVP Last administered on 05/23/21at 07:51; Start 05/14/21 at 09:00 Remdesivir 200 mg/ Sodium Chloride 210 ml @ 210 mls/hr 1X ONCE IV Last admini stered on 05/13/21at 20:59; Start 05/13/21 at 17:00; Stop 05/13/21 at 17:59; Status DC Remdesivir 100 mg/ Sodium Chloride 230 ml @ 460 mls/hr Q24H IV Last administered on 05/17/21at 17:45; Start 05/14/21 at 17:00; Stop 05/17/21 at 17:29; Status DC Multivitamins (Thera M Plus) 1 tab DAILY PO Last administered on 05/23/21at 07:49; Start 05/14/21 at 09:00 Aspirin (Ecotrin) 81 mg [id number] PO ; Start 05/14/21 at 08:00; Stop 05/13/21 at 18:10; Status DC Guaifenesin/ Codeine Phosphate (Robitussin Ac) 5 ml PRN Q6HRS PRN PO COUGH; Start 05/13/21 at 16:15; Stop 05/16/21 at 07:29; Status DC Azithromycin 250 ml @ 250 mls/hr 1X ONCE IV Last administered on 05/13/21at 16:37; Start 05/13/21 at 16:15; Stop 05/13/21 at 17:14; Status DC Magnesium Sulfate 50 ml @ 25 mls/hr 1X ONCE IV ; Start 05/13/21 at 16:15; Stop 05/13/21 at 18:14; Status Cancel Piperacillin Sod/ Tazobactam Sod 2.25 gm/Sodium Chloride 50 ml @ 100 mls/hr Q6HRS IV Last administered on 05/20/21at 05:07; Start 05/13/21 at 18:00; Stop 05/20/21 at 13:09; Status DC Ondansetron HCl (Zofran) 4 mg PRN Q6HRS PRN IVP NAUSEA/VOMITING; Start 05/13/21 at 17:00 Calcium Carbonate/ Glycine (Tums) 500 mg PRN Q3HRS PRN PO UPSET STOMACH; Start 05/13/21 at 17:00 Zolpidem Tartrate (Ambien) 5 mg PRN QHS PRN PO INSOMNIA, MAY REPEAT IN 1HR; Start 05/13/21 at 17:00; Stop 05/16/21 at 07:29; Status DC Info (Non-Icu Electrolyte Protocol) 1 ea PRN DAILY PRN MC SEE COMMENTS; Start 05/13/21 at 17:00 Oxycodone HCl (Roxicodone) 5 mg PRN Q3HRS PRN PO BREAKTHROUGH PAIN; Start 04/18 04/06 at 17:00 Oxycodone/ Acetaminophen (Percocet 5/325) 1 tab PRN Q4HRS PRN PO MILD PAIN, 1ST CHOICE; Start 05/13/21 at 17:00 Oxycodone/ Acetaminophen (Percocet 5/325) 2 tab PRN Q4HRS PRN PO MODERATE PAIN, SEVERE PAIN Last administered on 05/22/21 10:01; Start 05/13/21 at 17:00 Acetaminophen (Tylenol) 650 mg PRN Q6HRS PRN PO Headaches, Temp > 101.5F Last administered on 05/13/21 21:00; Start 05/13/21 at 17:00 Senna/Docusate Sodium (Senna Plus) 1 tab BID PO Last administered on 05/17/21 20:28; Start 05/13/21 at 21:00 Heparin Sodium (Porcine) (Heparin Sodium) 5,000 unit Q8HRS SQ Last administered on 05/22/21 21:40; Start 05/13/21 at 22:00 Allopurinol (Zyloprim) 100 mg DAILY PO Last administered on 05/23/21 07:48; Start 05/14/21 at 09:00 Amlodipine Besylate (Norvasc) 5 mg DAILY PO Last administered on 05/23/21 07:50; Start 05/14/21 at 09:00 Aspirin (Aspirin Chewable) 81 mg DAILY PO Last administered on 05/23/21 07:49; Start 05/14/21 at 09:00 EZETIMIBE (Zetia) 10 mg DAILY PO Last administered on 05/23/21 07:48; Start 05/14/21 at 09:00 Furosemide (Lasix) 40 mg DAILY PO Last administered on 05/16/21 10:09; Start 05/14/21 at 09:00; Stop 05/16/21 at 14:56; Status DC Gabapentin (Neurontin) 100 mg HS PO Last administered on 05/22/21 21:38; Start 05/13/21 at 21:00 Levothyroxine Sodium (Synthroid) 175 mcg DAILYAC PO Last administered on 05/23/21 07:48; Start 05/14/21 at 07:30 Losartan Potassium (Cozaar) 50 mg DAILY PO Last administered on 05/16/21 10:09; Start 05/14/21 at 09:00; Stop 05/16/21 at 14:56; Status DC Atorvastatin Calcium (Lipitor) 80 mg QHS PO Last administered on 9/5/21at 21:38; Start 05/13/21 at 21:00 Insulin Human Lispro (HumaLOG) 10 units 1X ONCE SQ Last administered on 05/14/21at 17:24; Start 05/14/21 at 17:30; Stop 05/14/21 at 17:31; Status DC Insulin Human Lispro (HumaLOG) 0-9 UNITS TIDWMEALS SQ Last administered on 05/16/21at 17:12; Start 05/15/21 at 08:00; Stop 05/16/21 at 21:03; Status DC Dextrose (Dextrose 50%-Water Syringe) 12.5 gm PRN Q15MIN PRN IV SEE COMMENTS Last administered on 05/20/21 07:27; Start 05/14/21 at 17:30 Insulin Human Lispro (HumaLOG) 9 units 1X ONCE SQ Last administered on 05/14/21at 23:22; Start 05/14/21 at 23:30; Stop 05/14/21 at 23:31; Status DC Insulin Glargine (Lantus Syringe) 10 unit BID SQ Last administered on 05/23/21at 08:11; Start 05/14/21 at 23:30 Guaifenesin (Robitussin Dm) 10 ml PRN Q6HRS PRN PO COUGH Last administered on 05/16/21 21:16; Start 05/16/21 at 07:30 Lactobacillus Rhamnosus (Culturelle) 1 cap BID PO Last administered on 05/23/21 07:48; Start 05/16/21 at 21:00 Hydralazine HCl (Apresoline Inj) 10 mg PRN Q4HRS PRN IVP ELEVATED BP, SEE COMMENTS Last administered on 05/22/21at 02:55; Start 05/16/21 at 15:00 Isosorbide Mononitrate (Imdur) 30 mg DAILY PO Last administered on 05/23/21 07:51; Start 05/17/21 at 09:00 Albuterol Sulfate (Ventolin Hfa) 2 puff PRN Q4HRS PRN INH WHEEZING Last administered on 05/19/21 13:29; Start 05/16/21 at 20:00 Insulin Human Lispro (HumaLOG) 0-9 UNITS QIDACHS SQ Last administered on 05/23/21at 08:11; Start 05/16/21 at 21:30 Sodium Chloride 1,000 ml @ 75 mls/hr [id number] IV Last administered on 05/21/21at 15:10; Start 05/17/21 at 11:45; Stop 05/23/21 at 09:47; Status DC Pantoprazole Sodium (Protonix) 40 mg DAILYAC PO Last administered on 05/23/21at 07:50; Start 05/19/21 at 16:30 Lidocaine HCl (Buffered Lidocaine 1%) 3 ml STK-MED ONCE .ROUTE ; Start 05/19/21 at 13:31; Stop 05/19/21 at 13:31; Status DC Lidocaine HCl (Buffered Lidocaine 1%) 3 ml 1X ONCE INJ Last administered on 05/19/21at 14:15; Start 05/19/21 at 13:45; Stop 05/19/21 at 13:46; Status DC Sodium Chloride 1,000 ml @ 1,000 mls/hr Q1H PRN IV hypotension; Start 05/19/21 at 14:15; Stop 05/19/21 at 20:14; Status DC Sodium Chloride 1,000 ml @ 400 mls/hr Q2H30M PRN IV PATENCY; Start 05/19/21 at 14:15; Stop 05/20/21 at 02:14; Status DC Info (PHARMACY MONITORING -- do not chart) 1 each PRN DAILY PRN MC SEE COMMENTS; Start 05/19/21 at 14:15; Status Cancel Info (PHARMACY MONITORING -- do not chart) 1 each PRN DAILY PRN MC SEE COMMENTS; Start 05/19/21 at 14:15; Status Cancel Piperacillin Sod/ Tazobactam Sod 2.25 gm/Sodium Chloride 50 ml @ 100 mls/hr Q8HRS IV Last administered on 05/23/21at 05:13; Start 05/20/21 at 14:00 Amino Acids/ Electrolytes/ Dextrose 1,000 ml @ 80 mls/hr [id number] IV Last administered on 05/23/21at 03:27; Start 05/20/21 at 13:15 Info (PHARMACY MONITORING -- do not chart) 1 each PRN DAILY PRN MC SEE COMMENTS; Start 05/20/21 at 15:15 Hydralazine HCl (Apresoline) 25 mg TID PO Last administered on 05/23/21at 07:49; Start 05/21/21 at 10:30 Lidocaine HCl (Buffered Lidocaine 1%) 3 ml STK-MED ONCE .ROUTE ; Start 05/21/21 at 10:43; Stop 05/21/21 at 10:43; Status DC Heparin Sodium (Porcine) (Heparin Sodium) 10,000 unit STK-MED ONCE .ROUTE ; Start 05/21/21 at 10:44; Stop 05/21/21 at 10:44; Status DC Lidocaine HCl (Buffered Lidocaine 1%) 6 ml 1X ONCE INJ Last administered on 05/21/21at 12:10; Start 05/21/21 at 11:30; Stop 05/21/21 at 11:33; Status DC Heparin Sodium (Porcine) (Heparin Sodium) 2,500 unit 1X ONCE INT CAT Last administered on 05/21/21at 12:41; Start 05/21/21 at 12:45; Stop 05/21/21 at 12:46; Status DC Sodium Chloride 1,000 ml @ 1,000 mls/hr Q1H PRN IV hypotension; Start 05/23/21 at 09:00; Stop 05/23/21 at 14:59 Albumin Human 200 ml @ 200 mls/hr 1X PRN PRN IV Hypotension; Start 05/23/21 at 09:00; Stop 05/23/21 at 14:59 Sodium Chloride (Normal Saline Flush) 10 ml 1X PRN PRN IV AP catheter pack; Start 05/23/21 at 09:00; Stop 05/24/21 at 08:59 Sodium Chloride (Normal Saline Flush) 10 ml 1X PRN PRN IV TIME RECORDER catheter pack; Start 05/23/21 at 09:00; Stop 05/24/21 at 08:59 Sodium Chloride 1,000 ml @ 400 mls/hr Q2H30M PRN IV PATENCY; Start 05/23/21 at 09:00; Stop 05/23/21 at 20:59 Info (PHARMACY MONITORING -- do not chart) 1 each PRN DAILY PRN MC SEE COMMENTS; Start 05/23/21 at 09:00; Status UNV Info (PHARMACY MONITORING -- do not chart) 1 each PRN DAILY PRN MC SEE COMMENTS; Start 05/23/21 at 09:00 Active Scripts Active Reported Zetia (Ezetimibe) 10 Mg Tablet 10 Mg PO DAILY Furosemide 40 Mg Tablet 1 Tab PO DAILY Hydrocodone-Apap 5-325 (Hydrocodone Bit/Acetaminophen) 1 Tab Tablet 1 Tab PO PRN BID PRN Allopurinol 100 Mg Tablet 1 Tab PO DAILY Aspirin 81 Mg Tab.chew 1 Tab PO DAILY Levothyroxine Sodium 175 Mcg Tablet 175 Mcg PO DAILYAC Amlodipine Besylate 5 Mg Tablet 5 Mg PO DAILY Hydralazine Hcl 25 Mg Tablet 1 Tab PO TID Gabapentin (Gabapentin) 100 Mg Capsule 100 Mg PO HS Atorvastatin Calcium 80 Mg Tablet 80 Mg PO DAILY Losartan Potassium 50 Mg Tablet 50 Mg PO DAILY Metformin Hcl 500 Mg Tablet 500 Mg PO BIDWMEALS Magnesium (Magnesium Oxide) 500 Mg Capsule 1 Cap PO BID 30 Days Vitals/I & O Vital Sign - Last 24 Hours 05/22/21 05/22/21 05/22/21 05/22/21 14:00 15:00 19:00 20:00 Temp 98.1 97.4 98.1 97.4 Pulse 76 76 75 Resp 20 20 B/P (MAP) 142/61 142/61 (88) 150/69 (96) Pulse Ox 96 97 O2 Delivery Room Air Nasal Cannula Nasal Cannula O2 Flow Rate 2.0 05/22/21 05/22/21 05/23/21 05/23/21 21:39 23:00 03:30 07:00 Temp 97.5 97.6 97.5 97.5 97.6 97.5 Pulse 75 75 83 61 Resp 20 20 19 B/P (MAP) 150/69 152/51 (84) 143/73 (96) 167/65 (99) Pulse Ox 100 99 100 O2 Delivery Nasal Cannula Nasal Cannula Nasal Cannula O2 Flow Rate 2.0 05/23/21 05/23/21 05/23/21 05/23/21 07:49 07:50 07:51 08:00 Pulse 83 83 83 B/P (MAP) 143/73 143/73 143/73 O2 Delivery Nasal Cannula O2 Flow Rate 2.0 Intake and Output 05/22/21 05/22/21 05/23/21 15:00 23:00 07:00 Intake Total 150 ml Output Total 0 ml Balance 150 ml 0 ml Justifications for Admission Other Justification RADHA DUFF MD May 23, 2021 13:24
[2021-05-23 15:00] VITALS: BP 179/81
[2021-05-23 19:00] VITALS: BP 159/66
[2021-05-23] MEDS: GABAPENTIN 100 MG CAPSULE. PO SCH (20:59)
[2021-05-23] MEDS: ATORVASTATIN CALCIUM 40 MG TABLET. PO SCH (20:59)
[2021-05-23 23:26] VITALS: BP 160/65
[2021-05-24 03:06] VITALS: BP 131/61
[2021-05-24] MEDS: PIPERACILLIN/TAZOBACTAM 2.25 GM in IV NORMAL SALINE 50ML 50 ML IV SCH ×3 (05:37→23:06)
[2021-05-24] MEDS: AA 4.25 %/CALCIUM/LYTES/D5W 1,000 ML IV SCH ×2 (05:37→18:33)
[2021-05-24] MEDS: HEPARIN for SUB-Q USE 5,000 UNIT/ML VIAL. SQ SCH ×3 (05:38→23:05)
[2021-05-24 07:00] VITALS: BP 158/62
[2021-05-24 07:13] LABS: BASO % 1 % (0-3); EOS # 0.2 x10^3/uL (0.0-0.7); EOS % 3 % (0-3); HEMATOCRIT 23.8 % (36.0-47.0); HEMOGLOBIN 7.7 g/dL (12.0-15.5); LYMPH # 1.1 x10^3/uL (1.0-4.8); LYMPH % 17 % (24-48); MEAN CORPUSCULAR HEMOGLOBIN 29 pg (25-35); MEAN CORPUSCULAR HGB CONC 33 g/dL (31-37); MEAN CORPUSCULAR VOLUME 90 fL (79-100); MONO # 0.6 x10^3/uL (0.0-1.1); MONO % 9 % (0-9); NEUT # 4.6 x10^3/uL (1.8-7.7); NEUT % 71 % (31-73); PLATELET COUNT 186 x10^3/uL (140-400); RED BLOOD COUNT 2.63 x10^6/uL (3.50-5.40); RED CELL DISTRIBUTION WIDTH 14.8 % (11.5-14.5); WHITE BLOOD COUNT 6.5 x10^3/uL (4.0-11.0)
[2021-05-24 07:15] LABS: ALBUMIN 1.9 g/dL (3.4-5.0); CALCIUM 7.6 mg/dL (8.5-10.1); CREATININE 3.8 mg/dL (0.6-1.0)
[2021-05-24] MEDS: ASPIRIN CHEWABLE 81 MG TABLET. PO SCH (09:37)
[2021-05-24] MEDS: hydrALAZINE 25 MG TABLET PO SCH ×3 (09:38→23:02)
[2021-05-24] MEDS: ISOSORBIDE MONONITRATE ER 30 MG TAB.ER.24H PO SCH (09:38)
[2021-05-24] MEDS: ALLOPURINOL 100 MG TABLET. PO SCH (09:38)
[2021-05-24] MEDS: PANTOPRAZOLE 40 MG TABLET.DR. PO SCH (09:38)
[2021-05-24] MEDS: EZETIMIBE 10 MG TABLET. PO SCH (09:38)
[2021-05-24] MEDS: LACTOBACILLUS RHAMNOSUS GG 1 CAPSULE. PO SCH ×2 (09:38→23:01)
[2021-05-24] MEDS: MULTIVITAMIN with MINERAL TABLET. PO SCH (09:38)
[2021-05-24] MEDS: SENNOSIDES/DOCUSATE 8.6/50MG TABLET. PO SCH ×2 (09:38→23:01)
[2021-05-24] MEDS: DEXAMETHASONE SOD PHOS 4 MG/ML VIAL IVP SCH (09:39)
[2021-05-24] MEDS: LEVOTHYROXINE 175 MCG TABLET PO SCH (09:44)
[2021-05-24] MEDS: INSULIN LISPRO 300 UNITS/3 ML VIAL. SQ SCH ×4 (09:46→23:02)
[2021-05-24] MEDS: INSULIN GLARGINE SYRINGE. SQ SCH ×2 (09:46→23:04)
--- NOTE | 2021-05-24 10:25 | PDOC ---
Date of Service: DATE: 05/24/21 TIME: 10:21 Objective: Objective: D/w nurse - ate 100% of breakfast, reports of "dark" stool yesterday. C Diff negative. Vital Signs: Vital Signs Date Time Temp Pulse Resp B/P (MAP) Pulse Ox O2 Delivery O2 Flow Rate FiO2 05/24/21 09:39 66 158/62 05/24/21 07:00 97.7 18 98 Nasal Cannula 2.0 97.7 Labs: Laboratory Tests Test 05/23/21 13:20 05/23/21 16:22 05/23/21 19:12 05/24/21 06:05 Glucose (Fingerstick) 207 mg/dL 265 mg/dL 308 mg/dL White Blood Count 6.5 x10^3/uL Red Blood Count 2.63 x10^6/uL Hemoglobin 7.7 g/dL Hematocrit 23.8 % Mean Corpuscular Volume 90 fL Mean Corpuscular Hemoglobin 29 pg Mean Corpuscular Hemoglobin Concent 33 g/dL Red Cell Distribution Width 14.8 % Platelet Count 186 x10^3/uL Neutrophils (%) (Auto) 71 % Lymphocytes (%) (Auto) 17 % Monocytes (%) (Auto) 9 % Eosinophils (%) (Auto) 3 % Basophils (%) (Auto) 1 % Neutrophils # (Auto) 4.6 x10^3/uL Lymphocytes # (Auto) 1.1 x10^3/uL Monocytes # (Auto) 0.6 x10^3/uL Eosinophils # (Auto) 0.2 x10^3/uL Basophils # (Auto) 0.0 x10^3/uL Sodium Level 139 mmol/L Potassium Level 4.0 mmol/L Chloride Level 102 mmol/L Carbon Dioxide Level 29 mmol/L Anion Gap 8 Blood Urea Nitrogen 46 mg/dL Creatinine 3.8 mg/dL Estimated GFR (Cockcroft-Gault) 14.0 Glucose Level 177 mg/dL Calcium Level 7.6 mg/dL Phosphorus Level 6.0 mg/dL Albumin 1.9 g/dL Test 05/24/21 08:34 Glucose (Fingerstick) 197 mg/dL Imaging: CXR 05/21 The aorta is calcified. Right central venous catheter terminates near the cavoatrial junction.. Postoperative changes are again seen. The cardiac silhouette remains enlarged with improving mild congestion. Bibasilar and bilateral perihilar opacities are slightly improved since the prior exam and may represent atelectasis, infiltrates, and/or edema. There is no appreciable pleural effusion or pneumothorax. PE: GEN: in COVID isolation, exam deferred NC 2L per chart A/P: COVID pneumonia, CKD Dark stools, +Hemoccult Anemia - not iron deficient - drift in Hgb since admission CAD on ASA -- Continue PPI, observation. Not ideal scope candidate. Justicifation of Admission Dx: Justifications for Admission: Justification of Admission Dx: Yes HARJINDER LAFLEUR May 24, 2021 10:25
--- NOTE | 2021-05-24 10:48 | NUR ---
SW following. Discussed with RN. Pt from home with daughter, 2L (does not use oxygen at home), cardiac diet. COVID-19 positive. Pt doing dialysis - RN unsure if this is a terminal manager need. SW will continue to follow.
[2021-05-24 11:00] VITALS: BP 166/64
--- NOTE | 2021-05-24 11:19 | PDOC ---
Renal-Progress Notes Subjective Notes Notes NO NEW COMPLAINTS History of Present Illness Hx of present illness CONFUSED Vitals Vitals Vital Signs Date Time Temp Pulse Resp B/P (MAP) Pulse Ox O2 Delivery O2 Flow Rate FiO2 05/24/21 09:39 66 158/62 05/24/21 07:00 97.7 18 98 Nasal Cannula 2.0 97.7 Weight Weight [ ] I.O. Intake and Output Intake and Output 05/24/21 07:00 Intake Total 620 ml Balance 620 ml Intake Oral 620 ml # Voids 1 # Bowel Movements 1 Labs Labs Laboratory Tests Test 05/23/21 13:20 05/23/21 16:22 05/23/21 19:12 05/24/21 06:05 Glucose (Fingerstick) 207 mg/dL (70-99) 265 mg/dL (70-99) 308 mg/dL (70-99) White Blood Count 6.5 x10^3/uL (4.0-11.0) Red Blood Count 2.63 x10^6/uL (3.50-5.40) Hemoglobin 7.7 g/dL (12.0-15.5) Hematocrit 23.8 % (36.0-47.0) Mean Corpuscular Volume 90 fL (79-100) Mean Corpuscular Hemoglobin 29 pg (25-35) Mean Corpuscular Hemoglobin Concent 33 g/dL (31-37) Red Cell Distribution Width 14.8 % (11.5-14.5) Platelet Count 186 x10^3/uL (140-400) Neutrophils (%) (Auto) 71 % (31-73) Lymphocytes (%) (Auto) 17 % (24-48) Monocytes (%) (Auto) 9 % (0-9) Eosinophils (%) (Auto) 3 % (0-3) Basophils (%) (Auto) 1 % (0-3) Neutrophils # (Auto) 4.6 x10^3/uL (1.8-7.7) Lymphocytes # (Auto) 1.1 x10^3/uL (1.0-4.8) Monocytes # (Auto) 0.6 x10^3/uL (0.0-1.1) Eosinophils # (Auto) 0.2 x10^3/uL (0.0-0.7) Basophils # (Auto) 0.0 x10^3/uL (0.0-0.2) Sodium Level 139 mmol/L (136-145) Potassium Level 4.0 mmol/L (3.5-5.1) Chloride Level 102 mmol/L (98-107) Carbon Dioxide Level 29 mmol/L (21-32) Anion Gap 8 (6-14) Blood Urea Nitrogen 46 mg/dL (7-20) Creatinine 3.8 mg/dL (0.6-1.0) Estimated GFR (Cockcroft-Gault) 14.0 Glucose Level 177 mg/dL (70-99) Calcium Level 7.6 mg/dL (8.5-10.1) Phosphorus Level 6.0 mg/dL (2.6-4.7) Albumin 1.9 g/dL (3.4-5.0) Test 05/24/21 08:34 Glucose (Fingerstick) 197 mg/dL (70-99) Micro Micro Microbiology 05/13/21 Blood Culture - Final, Complete NO GROWTH AFTER 5 DAYS Review of Systems Constitutional: yes: other (CONFUSED) Physical Exam General Appearance: no apparent distress Skin: warm Respiratory: decreased breath sounds Heart: S1S2 Abdomen: soft, bowel sounds present Genitourinary: bladder flat Neurology: alert, confused Assessment Assessment IMP SUZIE-ATN ANEMIA COVID 19 PNEUMONIA ACUTE HYPOXIC RESP FAILURE DM II CAD CHF HX PLAN MONITOR FOR RENAL RECOVERY HD [facility] HOLD [facility] WILL FOLLOW MINGO KLINE MD May 24, 2021 11:19
[2021-05-24 15:00] VITALS: BP 139/61
--- NOTE | 2021-05-24 15:43 | PDOC ---
[employer] PROGRESS NOTE Date of Service DOS: DATE: 05/24/21 TIME: 15:42 Chief Complaint Chief Complaint impression Pneumonia secondary to COVID-19 infection Acute Hypoxic Respiratory Failure Hypomagnesemia CAD CHF Type II Diabetes History of Present Illness History of Present Illness Ms Braswell is a 75yo F w/ PMHx HTN, DM2, CHF, CAD s/p CABG who came to ED on 05/13/2020 progressive shortness of breath over the prior week. In ED with O2 saturations 86% on room air febrile to 101.3 F. Tested positive for COVID-19. She had not been fully vaccinated. 05/14: Weak and was resting. She is currently on the COVID-19 protocol (Remdesivir, Aspirin, Multivitamins, Dexamethsone, Heparin SOdium, Piperacillin/Tazobactam, Acetaminophen). Mrs. Braswell states that she only received 1 dose of the COVID-19 vaccination. 05/15: She is feeling better. This morning, she was able to eat her breakfast. She remains on the COVID-19 Protocol (Remdesivir, Aspirin, Multivitamins, Dexamethsone, Heparin Sodium, Piperacillin/Tazobactam, Acetaminophen). We reviewed the patient's chart and discussed with RN 05/16: Afebrile overnight. Glucose in the 200s. O2 saturations 89 to 91% on 2 L nasal cannula oxygen. She is feeling short of breath and weak. No chest pain.. Had some V. tach overnight. Afebrile. BUN over 88 and creatinine elevated. Holding furosemide and losartan. Baseline CR at [facility] was 1.1. Cardiology n ephrology consulted today. 05-18 V. tach overnight. 8-30 Afebrile. BUN over 88 and creatinine elevated. 6.9 d/c furosemide and losartan. Baseline CR // [facility] was 1.1. 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 NO AV mariama block agents with bradycardia Hold Lasix, losartan with SUZIE Am labs if no improvement will need dialysis and temp HDC in the morning 05-19. Enrique RN 37 MIN PT exam, chart review, > 50% of time spent with exam, chart review, pt care coordination 05-19 V. tach overnight. 8-30 Afebrile. BUN over 88 and creatinine elevated. 6.9 d/c furosemide and losartan. Baseline CR // [facility] was 1.1. 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 NO AV mariama block agents with bradycardia Hold Lasix, losartan with SUZIE Am labs if no improvement will need dialysis and temp HDC in the morning 05-19. Enrique RN 36 MIN PT exam, chart review, > 50% of time spent with exam, chart review, pt care coordination 05-20 Continue empiric PPI. Follow hemoglobin. Confused, not eating well V. tach overnight. 8-30 Afebrile. BUN over 88 and creatinine elevated. 6.9 d/c furosemide and losartan. Baseline CR // [facility] was 1.1. 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 NO AV mariama block agents with bradycardia Hold Lasix, losartan with SUZIE Am labs if no improvement will need dialysis and temp HDC in the morning 05-19. Enrique RN 37 MIN PT exam, chart review, > 50% of time spent with exam, chart review, pt care coordination 05-21 Continue empiric PPI. Follow hemoglobin. Confused, not eating well pulled out temp dialysis cath 9-4 am V. tach overnight. 8-30 Afebrile. BUN over 88 and creatinine elevated. 6.9 d/c furosemide and losartan. Baseline CR // [facility] was 1.1. D/W tree shear operator/ nephrology consulted ASA, statin therapy. NO AV mariama block agents with bradycardia Hold Lasix, losartan with SUZIE Am labs dialysis and temp HDC in the morning Enrique RN 27 MIN PT exam, chart review, > 50% of time spent with exam, chart review, pt care coordination 05-22 Continue empiric PPI. Follow hemoglobin. Confused, not eating well pulled out temp dialysis cath 9-4 am V. tach overnight. 8-30 Afebrile. BUN over 88 and creatinine elevated. 6.9 d/c furosemide and losartan. Baseline CR // [facility] was 1.1. D/W tree shear operator/ nephrology consulted ASA, statin therapy. NO AV mariama block agents with bradycardia Hold Lasix, losartan with SUZIE Am labs dialysis and temp HDC in the morning Enrique RN NON- TUNNELED Hemodialysis catheter via the right internal jugular vein approach, ready to utilize. 29 MIN PT exam, chart review, > 50% of time spent with exam, chart review, pt care coordination Melena/fall in hemoglobin--hemoglobin stable x 2. 9/6/21 Patient seen and examined at bedside. Reports no complaints this morning that her breathing was feeling better. Denying bloody bowel movement. Mild drop in hemoglobin today, plan for dialysis today. Plan of care discussed with bedside nurse. 05/24 Patient seen and evaluated at bedside. She was on the phone talking. No complaints. Dialysis tomorrow. Will likely need rehab for discharge. Vitals/I&O Vitals/I&O: Vital Signs Date Time Temp Pulse Resp B/P (MAP) Pulse Ox O2 Delivery O2 Flow Rate FiO2 05/24/21 15:19 80 139/61 05/24/21 11:00 97.5 18 98 Nasal Cannula 2.0 97.5 I & O 05/23/21 05/23/21 05/24/21 15:00 23:00 07:00 Intake Total 300 ml 200 ml 120 ml Balance 300 ml 200 ml 120 ml Physical Exam Physical Exam: pleasant, confused General: Alert, Oriented X3, No acute distress Heart: Regular rate (SR/SB rate presently 56), Normal S1, Normal S2 Lungs: Clear Abdomen: Normal bowel sounds, Soft, No tenderness, Other (obese) Extremities: No cyanosis, Other (trace bilateral LE edema ) Skin: No significant lesion Labs Labs: Laboratory Tests Test 05/23/21 16:22 05/23/21 19:12 05/24/21 06:05 05/24/21 08:34 Glucose (Fingerstick) 265 mg/dL (70-99) 308 mg/dL (70-99) 197 mg/dL (70-99) White Blood Count 6.5 x10^3/uL (4.0-11.0) Red Blood Count 2.63 x10^6/uL (3.50-5.40) Hemoglobin 7.7 g/dL (12.0-15.5) Hematocrit 23.8 % (36.0-47.0) Mean Corpuscular Volume 90 fL (79-100) Mean Corpuscular Hemoglobin 29 pg (25-35) Mean Corpuscular Hemoglobin Concent 33 g/dL (31-37) Red Cell Distribution Width 14.8 % (11.5-14.5) Platelet Count 186 x10^3/uL (140-400) Neutrophils (%) (Auto) 71 % (31-73) Lymphocytes (%) (Auto) 17 % (24-48) Monocytes (%) (Auto) 9 % (0-9) Eosinophils (%) (Auto) 3 % (0-3) Basophils (%) (Auto) 1 % (0-3) Neutrophils # (Auto) 4.6 x10^3/uL (1.8-7.7) Lymphocytes # (Auto) 1.1 x10^3/uL (1.0-4.8) Monocytes # (Auto) 0.6 x10^3/uL (0.0-1.1) Eosinophils # (Auto) 0.2 x10^3/uL (0.0-0.7) Basophils # (Auto) 0.0 x10^3/uL (0.0-0.2) Sodium Level 139 mmol/L (136-145) Potassium Level 4.0 mmol/L (3.5-5.1) Chloride Level 102 mmol/L (98-107) Carbon Dioxide Level 29 mmol/L (21-32) Anion Gap 8 (6-14) Blood Urea Nitrogen 46 mg/dL (7-20) Creatinine 3.8 mg/dL (0.6-1.0) Estimated GFR (Cockcroft-Gault) 14.0 Glucose Level 177 mg/dL (70-99) Calcium Level 7.6 mg/dL (8.5-10.1) Phosphorus Level 6.0 mg/dL (2.6-4.7) Albumin 1.9 g/dL (3.4-5.0) Test 05/24/21 12:09 Glucose (Fingerstick) 285 mg/dL (70-99) Assessment and Plan Assessmemt and Plan Problems Medical Problems: (1) Hypomagnesemia syndrome Status: Acute (2) Hypoxia Status: Acute (3) Pneumonia due to COVID-19 virus Status: Acute Comment Review of Relevant I have reviewed the following items maged (where applicable) has been applied. Justifications for Admission Other Justification GENO QUICK MD May 24, 2021 15:43
[2021-05-24] MEDS ORDERED: INSULIN LISPRO 300 UNITS/3 ML VIAL. SQ ONE ×2 (18:30→21:00)
--- NOTE | 2021-05-24 18:41 | NUR ---
non-administered 100 dose of sliding scale due to patients blood Sugar being [address] Dueñas for orders. Dr. Dueñas called with orders to give 15X1 of Humalog and to increase her Lantus to 15 BID.
[2021-05-24 19:00] VITALS: BP 147/59
[2021-05-24] MEDS: GABAPENTIN 100 MG CAPSULE. PO SCH (23:01)
[2021-05-24] MEDS: ATORVASTATIN CALCIUM 40 MG TABLET. PO SCH (23:01)
[2021-05-24 23:30] VITALS: BP 156/67
[2021-05-25 03:37] VITALS: BP 119/53
[2021-05-25] MEDS: PIPERACILLIN/TAZOBACTAM 2.25 GM in IV NORMAL SALINE 50ML 50 ML IV SCH (05:34)
[2021-05-25] MEDS: HEPARIN for SUB-Q USE 5,000 UNIT/ML VIAL. SQ SCH ×3 (05:34→20:43)
[2021-05-25] MEDS: AA 4.25 %/CALCIUM/LYTES/D5W 1,000 ML IV SCH (06:38)
[2021-05-25 07:00] VITALS: BP 118/49
[2021-05-25 07:03] LABS: BASO % 1 % (0-3); EOS # 0.1 x10^3/uL (0.0-0.7); EOS % 2 % (0-3); HEMATOCRIT 23.9 % (36.0-47.0); HEMOGLOBIN 7.8 g/dL (12.0-15.5); LYMPH # 1.1 x10^3/uL (1.0-4.8); LYMPH % 16 % (24-48); MEAN CORPUSCULAR HEMOGLOBIN 30 pg (25-35); MEAN CORPUSCULAR HGB CONC 33 g/dL (31-37); MEAN CORPUSCULAR VOLUME 91 fL (79-100); MONO # 0.8 x10^3/uL (0.0-1.1); MONO % 12 % (0-9); NEUT % 70 % (31-73); PLATELET COUNT 204 x10^3/uL (140-400); RED BLOOD COUNT 2.62 x10^6/uL (3.50-5.40); RED CELL DISTRIBUTION WIDTH 14.8 % (11.5-14.5); WHITE BLOOD COUNT 7.1 x10^3/uL (4.0-11.0)
[2021-05-25 07:19] LABS: ALBUMIN 2.3 g/dL (3.4-5.0); CALCIUM 7.7 mg/dL (8.5-10.1); CREATININE 5.3 mg/dL (0.6-1.0); GFR 9.5; POTASSIUM 4.3 mmol/L (3.5-5.1)
[2021-05-25] MEDS ORDERED: ALBUMIN HUMAN 25% 200 ML IV PRN (08:30)
[2021-05-25] MEDS ORDERED: DIALYSIS PATIENT. MC PRN ×2 (08:30)
[2021-05-25] MEDS ORDERED: IV NORMAL SALINE 1000ML BAG 1,000 ML IV PRN ×2 (08:30)
[2021-05-25] MEDS ORDERED: 0.9 % SODIUM CHLORIDE 10 ML DISP.SYRIN. IV PRN ×2 (08:30)
[2021-05-25] MEDS: LEVOTHYROXINE 175 MCG TABLET PO SCH (08:55)
[2021-05-25] MEDS: PANTOPRAZOLE 40 MG TABLET.DR. PO SCH (08:55)
[2021-05-25] MEDS: hydrALAZINE 25 MG TABLET PO SCH ×3 (09:00→20:41)
[2021-05-25] MEDS: INSULIN LISPRO 300 UNITS/3 ML VIAL. SQ SCH ×7 (09:08→20:44)
[2021-05-25] MEDS: DEXAMETHASONE SOD PHOS 4 MG/ML VIAL IVP SCH (09:09)
--- NOTE | 2021-05-25 09:12 | PDOC ---
[employer] PROGRESS NOTE Date of Service DOS: DATE: 05/25/21 TIME: 09:08 Chief Complaint Chief Complaint Pneumonia (Secondary to COVID-19 Infection) Acute Hypoxic Respiratory Failure Hypomagnesemia CAD CHF Type II Diabetes History of Present Illness History of Present Illness Ms Braswell is a 75yo F w/ PMHx HTN, DM2, CHF, CAD s/p CABG who came to ED on 05/13/2020 progressive shortness of breath over the prior week. In ED with O2 saturations 86% on room air febrile to 101.3 F. Tested positive for COVID-19. She had not been fully vaccinated. 05/14: Weak and was resting. She is currently on the COVID-19 protocol (Remdesivir, Aspirin, Multivitamins, Dexamethsone, Heparin SOdium, Piperacillin/Tazobactam, Acetaminophen). Mrs. Braswell states that she only received 1 dose of the COVID-19 vaccination. 05/15: She is feeling better. This morning, she was able to eat her breakfast. She remains on the COVID-19 Protocol (Remdesivir, Aspirin, Multivitamins, Dexamethsone, Heparin Sodium, Piperacillin/Tazobactam, Acetaminophen). We reviewed the patient's chart and discussed with RN 05/16: Afebrile overnight. Glucose in the 200s. O2 saturations 89 to 91% on 2 L nasal cannula oxygen. She is feeling short of breath and weak. No chest pain.. Had some V. tach overnight. Afebrile. BUN over 88 and creatinine elevated. Holding furosemide and losartan. Baseline CR at [facility] was 1.1. Cardiology nephrology consulted today. 05-18 V. tach overnight. 8-30 Afebrile. BUN over 88 and creatinine elevated. 6.9 d/c furosemide and losartan. Baseline CR // [facility] was 1.1. D/W occupational therapy asst nephrology consulted ASA, statin therapy. NO AV mariama block agents with bradycardia Hold Lasix, losartan with SUZIE Am labs if no improvement will need dialysis and temp HDC in the morning 05-19. Enrique RN 37 MIN PT exam, chart review, > 50% of time spent with exam, chart review, pt care coordination 05-19 V. tach overnight. 8-30 Afebrile. BUN over 88 and creatinine elevated. 6.9 d/c furosemide and losartan. Baseline CR // [facility] was 1.1. D/W occupational therapy asst nephrology consulted ASA, statin therapy. NO AV mariama block agents with bradycardia Hold Lasix, losartan with SUZIE Am labs if no improvement will need dialysis and temp HDC in the morning 05-19. Enrique RN 36 MIN PT exam, chart review, > 50% of time spent with exam, chart review, pt care coordination 05-20 Continue empiric PPI. Follow hemoglobin. Confused, not eating well V. tach overnight. 8-30 Afebrile. BUN over 88 and creatinine elevated. 6.9 d/c furosemide and losartan. Baseline CR // [facility] was 1.1. D/W occupational therapy asst nephrology consulted ASA, statin therapy. NO AV mariama block agents with bradycardia Hold Lasix, losartan with SUZIE Am labs if no improvement will need dialysis and temp HDC in the morning 05-19. Enrique RN 37 MIN PT exam, chart review, > 50% of time spent with exam, chart review, pt care coordination 05-21 Continue empiric PPI. Follow hemoglobin. Confused, not eating well pulled out temp dialysis cath 9-4 am V. tach overnight. 8-30 Afebrile. BUN over 88 and creatinine elevated. 6.9 d/c furosemide and losartan. Baseline CR // [facility] was 1.1. D/W occupational therapy asst/ nephrology consulted ASA, statin therapy. NO AV mariama block agents with bradycardia Hold Lasix, losartan with SUZIE Am labs dialysis and temp HDC in the morning Enrique RN 27 MIN PT exam, chart review, > 50% of time spent with exam, chart review, pt care coordination 05-22 Continue empiric PPI. Follow hemoglobin. Confused, not eating well pulled out temp dialysis cath 9-4 am V. tach overnight. 8-30 Afebrile. BUN over 88 and creatinine elevated. 6.9 d/c furosemide and losartan. Baseline CR // [facility] was 1.1. D/W occupational therapy asst/ nephrology consulted ASA, statin therapy. NO AV mariama block agents with bradycardia Hold Lasix, losartan with SUZIE Am labs dialysis and temp HDC in the morning Enrique RN NON- TUNNELED Hemodialysis catheter via the right internal jugular vein approach, ready to utilize. 29 MIN PT exam, chart review, > 50% of time spent with exam, chart review, pt care coordination Melena/fall in hemoglobin--hemoglobin stable x 2. 9/6/21 Patient seen and examined at bedside. Reports no complaints this morning that her breathing was feeling better. Denying bloody bowel movement. Mild drop in hemoglobin today, plan for dialysis today. Plan of care discussed with bedside nurse. 05/24 Patient seen and evaluated at bedside. She was on the phone talking. No complaints. Dialysis tomorrow. Will likely need rehab for discharge. 05/25: Mrs. Braswell was seen and evaluated in her room this morning. She was resting upon entering her room, but awoke and conversed with me. We discussed h er current disposition with her nurse and reviewed her chart. Vitals/I&O Vitals/I&O: Vital Signs Date Time Temp Pulse Resp B/P (MAP) Pulse Ox O2 Delivery O2 Flow Rate FiO2 05/25/21 07:00 97.3 76 22 118/49 (72) 100 Nasal Cannula 2.0 97.3 I & O 05/24/21 05/24/21 05/25/21 15:00 23:00 07:00 Intake Total 50 ml Output Total 0 ml Balance 50 ml Physical Exam Physical Exam: pleasant, confused General: Alert, Oriented X3, Cooperative, No acute distress Heart: Regular rate (SR/SB rate presently 56), Normal S1, Normal S2 Lungs: Clear Abdomen: Normal bowel sounds, Other (obese) Extremities: No clubbing, Other (trace bilateral LE edema ) Skin: No rashes, No significant lesion Labs Labs: Laboratory Tests Test 05/24/21 12:09 05/24/21 16:36 05/24/21 19:28 05/25/21 05:45 Glucose (Fingerstick) 285 mg/dL (70-99) 439 mg/dL (70-99) 457 mg/dL (70-99) White Blood Count 7.1 x10^3/uL (4.0-11.0) Red Blood Count 2.62 x10^6/uL (3.50-5.40) Hemoglobin 7.8 g/dL (12.0-15.5) Hematocrit 23.9 % (36.0-47.0) Mean Corpuscular Volume 91 fL (79-100) Mean Corpuscular Hemoglobin 30 pg (25-35) Mean Corpuscular Hemoglobin Concent 33 g/dL (31-37) Red Cell Distribution Width 14.8 % (11.5-14.5) Platelet Count 204 x10^3/uL (140-400) Neutrophils (%) (Auto) 70 % (31-73) Lymphocytes (%) (Auto) 16 % (24-48) Monocytes (%) (Auto) 12 % (0-9) Eosinophils (%) (Auto) 2 % (0-3) Basophils (%) (Auto) 1 % (0-3) Neutrophils # (Auto) 5.0 x10^3/uL (1.8-7.7) Lymphocytes # (Auto) 1.1 x10^3/uL (1.0-4.8) Monocytes # (Auto) 0.8 x10^3/uL (0.0-1.1) Eosinophils # (Auto) 0.1 x10^3/uL (0.0-0.7) Basophils # (Auto) 0.0 x10^3/uL (0.0-0.2) Sodium Level 136 mmol/L (136-145) Potassium Level 4.3 mmol/L (3.5-5.1) Chloride Level 99 mmol/L (98-107) Carbon Dioxide Level 27 mmol/L (21-32) Anion Gap 10 (6-14) Blood Urea Nitrogen 65 mg/dL (7-20) Creatinine 5.3 mg/dL (0.6-1.0) Estimated GFR (Cockcroft-Gault) 9.5 Glucose Level 219 mg/dL (70-99) Calcium Level 7.7 mg/dL (8.5-10.1) Phosphorus Level 7.0 mg/dL (2.6-4.7) Albumin 2.3 g/dL (3.4-5.0) Test 05/25/21 07:23 Glucose (Fingerstick) 190 mg/dL (70-99) Review of Systems Review of Systems: No bleeding No vomiting Assessment and Plan Assessmemt and Plan Problems Medical Problems: (1) Hypomagnesemia syndrome Status: Acute (2) Hypoxia Status: Acute (3) Pneumonia due to COVID-19 virus Status: Acute Assessment: 1. Pneumonia secondary to COVID-19 infection 2. Acute Hypoxic Respiratory Failure 3. Hypomagnesemia 4. CAD 5. CHF 6. Type II Diabetes Plan: 1. PT/OT 2. Full Code 3. Home medications 4. Discharge/Disposition Pending 5. Continue antibiotics Comment Review of Relevant I have reviewed the following items maged (where applicable) has been applied. Medications: Current Medications Medications (Trade) Dose Ordered Sig/Lemuel Route PRN Reason Start Time Stop Time Status Last Admin Dose Admin Insulin Glargine (Lantus Syringe) 15 unit BID SQ 05/24/21 21:00 05/24/21 23:04 Insulin Human Lispro (HumaLOG) 15 units 1X ONCE SQ 05/24/21 18:30 05/24/21 18:31 DC 05/24/21 18:33 Insulin Human Lispro (HumaLOG) 9 units 1X ONCE SQ 05/24/21 21:00 05/24/21 21:01 DC 05/24/21 23:04 Justifications for Admission Other Justification KIRAN MONDRAGON III DO May 25, 2021 09:12
--- NOTE | 2021-05-25 09:52 | PDOC ---
Date of Service: DATE: 05/25/21 TIME: 09:48 Subjective: Subjective: "I'm fine." Objective: Objective: Staff reports eating and breathing better. Vital Signs: Vital Signs Date Time Temp Pulse Resp B/P (MAP) Pulse Ox O2 Delivery O2 Flow Rate FiO2 05/25/21 07:00 97.3 76 22 118/49 (72) 100 Nasal Cannula 2.0 97.3 Labs: Laboratory Tests Test 05/24/21 12:09 05/24/21 16:36 05/24/21 19:28 05/25/21 05:45 Glucose (Fingerstick) 285 mg/dL 439 mg/dL 457 mg/dL White Blood Count 7.1 x10^3/uL Red Blood Count 2.62 x10^6/uL Hemoglobin 7.8 g/dL Hematocrit 23.9 % Mean Corpuscular Volume 91 fL Mean Corpuscular Hemoglobin 30 pg Mean Corpuscular Hemoglobin Concent 33 g/dL Red Cell Distribution Width 14.8 % Platelet Count 204 x10^3/uL Neutrophils (%) (Auto) 70 % Lymphocytes (%) (Auto) 16 % Monocytes (%) (Auto) 12 % Eosinophils (%) (Auto) 2 % Basophils (%) (Auto) 1 % Neutrophils # (Auto) 5.0 x10^3/uL Lymphocytes # (Auto) 1.1 x10^3/uL Monocytes # (Auto) 0.8 x10^3/uL Eosinophils # (Auto) 0.1 x10^3/uL Basophils # (Auto) 0.0 x10^3/uL Sodium Level 136 mmol/L Potassium Level 4.3 mmol/L Chloride Level 99 mmol/L Carbon Dioxide Level 27 mmol/L Anion Gap 10 Blood Urea Nitrogen 65 mg/dL Creatinine 5.3 mg/dL Estimated GFR (Cockcroft-Gault) 9.5 Glucose Level 219 mg/dL Calcium Level 7.7 mg/dL Phosphorus Level 7.0 mg/dL Albumin 2.3 g/dL Test 05/25/21 07:23 Glucose (Fingerstick) 190 mg/dL PE: GEN: NAD LUNGS: NC 2L HEART: RRR ABD: S/ND/NT NEURO/PSYCH: awake, lethargic A/P: COVID pneumonia, CKD (getting HD) "Dark" stools, +Hemoccult - on PPI Anemia - not iron deficient, Hgb drift from admission but stable now CAD - remains on ASA -- Observe from GI standpoint. Justicifation of Admission Dx: Justifications for Admission: Justification of Admission Dx: Yes HARJINDER LAFLEUR May 25, 2021 09:52
--- NOTE | 2021-05-25 10:37 | PDOC ---
Renal-Progress Notes Subjective Notes Notes NO COMPLAINTS History of Present Illness Hx of present illness REMAINS CONFUSED Vitals Vitals Vital Signs Date Time Temp Pulse Resp B/P (MAP) Pulse Ox O2 Delivery O2 Flow Rate FiO2 05/25/21 07:00 97.3 76 22 118/49 (72) 100 Nasal Cannula 2.0 97.3 Weight Weight [ ] I.O. Intake and Output Intake and Output 05/25/21 07:00 Intake Total 50 ml Output Total 0 ml Balance 50 ml IV Total 50 ml Output Urine Total 0 ml # Bowel Movements 1 Labs Labs Laboratory Tests Test 05/24/21 12:09 05/24/21 16:36 05/24/21 19:28 05/25/21 05:45 Glucose (Fingerstick) 285 mg/dL (70-99) 439 mg/dL (70-99) 457 mg/dL (70-99) White Blood Count 7.1 x10^3/uL (4.0-11.0) Red Blood Count 2.62 x10^6/uL (3.50-5.40) Hemoglobin 7.8 g/dL (12.0-15.5) Hematocrit 23.9 % (36.0-47.0) Mean Corpuscular Volume 91 fL (79-100) Mean Corpuscular Hemoglobin 30 pg (25-35) Mean Corpuscular Hemoglobin Concent 33 g/dL (31-37) Red Cell Distribution Width 14.8 % (11.5-14.5) Platelet Count 204 x10^3/uL (140-400) Neutrophils (%) (Auto) 70 % (31-73) Lymphocytes (%) (Auto) 16 % (24-48) Monocytes (%) (Auto) 12 % (0-9) Eosinophils (%) (Auto) 2 % (0-3) Basophils (%) (Auto) 1 % (0-3) Neutrophils # (Auto) 5.0 x10^3/uL (1.8-7.7) Lymphocytes # (Auto) 1.1 x10^3/uL (1.0-4.8) Monocytes # (Auto) 0.8 x10^3/uL (0.0-1.1) Eosinophils # (Auto) 0.1 x10^3/uL (0.0-0.7) Basophils # (Auto) 0.0 x10^3/uL (0.0-0.2) Sodium Level 136 mmol/L (136-145) Potassium Level 4.3 mmol/L (3.5-5.1) Chloride Level 99 mmol/L (98-107) Carbon Dioxide Level 27 mmol/L (21-32) Anion Gap 10 (6-14) Blood Urea Nitrogen 65 mg/dL (7-20) Creatinine 5.3 mg/dL (0.6-1.0) Estimated GFR (Cockcroft-Gault) 9.5 Glucose Level 219 mg/dL (70-99) Calcium Level 7.7 mg/dL (8.5-10.1) Phosphorus Level 7.0 mg/dL (2.6-4.7) Albumin 2.3 g/dL (3.4-5.0) Test 05/25/21 07:23 Glucose (Fingerstick) 190 mg/dL (70-99) Micro Micro Microbiology 05/13/21 Blood Culture - Final, Complete NO GROWTH AFTER 5 DAYS Review of Systems Constitutional: yes: other (CONFUSED) Physical Exam General Appearance: no apparent distress Skin: warm Respiratory: decreased breath sounds Heart: S1S2 Abdomen: soft, bowel sounds present Genitourinary: bladder flat Neurology: alert, confused Assessment Assessment IMP [id number] ANEMIA COVID 19 PNEUMONIA ACUTE HYPOXIC RESP FAILURE DM II CAD CHF HX PLAN MONITOR FOR RENAL RECOVERY HD TODAY UF 2.0-3.0 TOLERATED HOLD [facility] WILL FOLLOW MINGO KLINE MD May 25, 2021 10:37
[2021-05-25] MEDS: ASPIRIN CHEWABLE 81 MG TABLET. PO SCH (13:19)
[2021-05-25] MEDS: EZETIMIBE 10 MG TABLET. PO SCH (13:19)
[2021-05-25] MEDS: ALLOPURINOL 100 MG TABLET. PO SCH (13:19)
[2021-05-25] MEDS: SENNOSIDES/DOCUSATE 8.6/50MG TABLET. PO SCH ×2 (13:19→20:41)
[2021-05-25] MEDS: LACTOBACILLUS RHAMNOSUS GG 1 CAPSULE. PO SCH ×2 (13:20→20:40)
[2021-05-25] MEDS: MULTIVITAMIN with MINERAL TABLET. PO SCH (13:24)
[2021-05-25] MEDS: ISOSORBIDE MONONITRATE ER 30 MG TAB.ER.24H PO SCH (13:26)
[2021-05-25] MEDS: INSULIN GLARGINE SYRINGE. SQ SCH ×2 (13:40→20:43)
[2021-05-25 15:00] VITALS: BP 150/58
[2021-05-25 19:00] VITALS: BP 140/52
[2021-05-25] MEDS: ATORVASTATIN CALCIUM 40 MG TABLET. PO SCH (20:41)
[2021-05-25] MEDS: GABAPENTIN 100 MG CAPSULE. PO SCH (20:41)
[2021-05-25 22:39] VITALS: BP 138/58
[2021-05-26 03:00] VITALS: BP 124/55
[2021-05-26 05:54] LABS: HEMATOCRIT 23.9 % (36.0-47.0); HEMOGLOBIN 7.8 g/dL (12.0-15.5); RED BLOOD COUNT 2.6 x10^6/uL (3.50-5.40); RED CELL DISTRIBUTION WIDTH 15.3 % (11.5-14.5); WHITE BLOOD COUNT 5.9 x10^3/uL (4.0-11.0)
[2021-05-26] MEDS: HEPARIN for SUB-Q USE 5,000 UNIT/ML VIAL. SQ SCH ×3 (05:56→22:00)
[2021-05-26 06:08] LABS: CALCIUM 8.3 mg/dL (8.5-10.1); CREATININE 3.6 mg/dL (0.6-1.0); GFR 14.9; POTASSIUM 4.1 mmol/L (3.5-5.1)
[2021-05-26 07:00] VITALS: BP 134/61
[2021-05-26] MEDS: INSULIN LISPRO 300 UNITS/3 ML VIAL. SQ SCH ×7 (07:30→21:00)
[2021-05-26] MEDS: LACTOBACILLUS RHAMNOSUS GG 1 CAPSULE. PO SCH ×2 (08:50→21:12)
[2021-05-26] MEDS: MULTIVITAMIN with MINERAL TABLET. PO SCH (08:50)
[2021-05-26] MEDS: EZETIMIBE 10 MG TABLET. PO SCH (08:50)
[2021-05-26] MEDS: ASPIRIN CHEWABLE 81 MG TABLET. PO SCH (08:50)
[2021-05-26] MEDS: hydrALAZINE 25 MG TABLET PO SCH ×3 (08:50→21:00)
[2021-05-26] MEDS: ISOSORBIDE MONONITRATE ER 30 MG TAB.ER.24H PO SCH (08:51)
[2021-05-26] MEDS: SENNOSIDES/DOCUSATE 8.6/50MG TABLET. PO SCH ×2 (08:51→21:12)
[2021-05-26] MEDS: PANTOPRAZOLE 40 MG TABLET.DR. PO SCH (08:51)
[2021-05-26] MEDS: LEVOTHYROXINE 175 MCG TABLET PO SCH (08:51)
[2021-05-26] MEDS: ALLOPURINOL 100 MG TABLET. PO SCH (08:52)
[2021-05-26] MEDS: INSULIN GLARGINE SYRINGE. SQ SCH ×2 (10:09→21:00)
--- NOTE | 2021-05-26 10:35 | PDOC ---
Renal-Progress Notes Subjective Notes Notes CONFUSED History of Present Illness Hx of present illness NO ACUTE CHANGES Vitals Vitals Vital Signs Date Time Temp Pulse Resp B/P (MAP) Pulse Ox O2 Delivery O2 Flow Rate FiO2 05/26/21 08:51 75 134/61 05/26/21 07:00 97.6 20 98 Nasal Cannula 2.0 97.6 Weight Weight [ ] I.O. Intake and Output Intake and Output 05/26/21 07:00 Intake Total 300 ml Balance 300 ml Intake Oral 300 ml # Voids 1 # Bowel Movements 1 Labs Labs Laboratory Tests Test 05/25/21 13:21 05/25/21 17:11 05/25/21 18:34 05/26/21 04:10 Glucose (Fingerstick) 148 mg/dL (70-99) 240 mg/dL (70-99) 237 mg/dL (70-99) White Blood Count 5.9 x10^3/uL (4.0-11.0) Red Blood Count 2.60 x10^6/uL (3.50-5.40) Hemoglobin 7.8 g/dL (12.0-15.5) Hematocrit 23.9 % (36.0-47.0) Mean Corpuscular Volume 92 fL (79-100) Mean Corpuscular Hemoglobin 30 pg (25-35) Mean Corpuscular Hemoglobin Concent 33 g/dL (31-37) Red Cell Distribution Width 15.3 % (11.5-14.5) Platelet Count 186 x10^3/uL (140-400) Sodium Level 137 mmol/L (136-145) Potassium Level 4.1 mmol/L (3.5-5.1) Chloride Level 101 mmol/L (98-107) Carbon Dioxide Level 31 mmol/L (21-32) Anion Gap 5 (6-14) Blood Urea Nitrogen 37 mg/dL (7-20) Creatinine 3.6 mg/dL (0.6-1.0) Estimated GFR (Cockcroft-Gault) 14.9 Glucose Level 103 mg/dL (70-99) Calcium Level 8.3 mg/dL (8.5-10.1) Test 05/26/21 06:49 Glucose (Fingerstick) 93 mg/dL (70-99) Micro Micro Microbiology 05/13/21 Blood Culture - Final, Complete NO GROWTH AFTER 5 DAYS Review of Systems Constitutional: yes: other (CONFUSED) Physical Exam General Appearance: no apparent distress Skin: warm Respiratory: decreased breath sounds Heart: S1S2 Abdomen: soft, bowel sounds present Genitourinary: bladder flat Neurology: alert, confused Assessment Assessment IMP [id number] ANEMIA COVID 19 PNEUMONIA ACUTE HYPOXIC RESP FAILURE DM II CAD CHF HX PLAN MONITOR FOR RENAL RECOVERY HD TOMORROW WILL HAVE TEMP LINE CONVERTED TO TUNNELED HD LINE HOLD [facility] WILL FOLLOW MINGO KLINE MD May 26, 2021 10:35
[2021-05-26 10:42] VITALS: BP 127/56
--- NOTE | 2021-05-26 10:57 | NUR ---
SW following. Discussed with RN, still trying to determine dialysis need. Family wanting home health upon discharge. SW will try [facility] who seem to be the only home health company accepting any form of Medicaid at this time. SW will continue to follow.
--- NOTE | 2021-05-26 11:56 | PDOC ---
Date of Service: DATE: 05/26/21 TIME: 11:53 Objective: Objective: D/w nurse/staff - loose stool, abelino dark brown, tolerating diet. Vital Signs: Vital Signs Date Time Temp Pulse Resp B/P (MAP) Pulse Ox O2 Delivery O2 Flow Rate FiO2 05/26/21 10:42 97.6 79 20 127/56 (79) 97 Nasal Cannula 2.0 97.6 Labs: Laboratory Tests Test 05/25/21 13:21 05/25/21 17:11 05/25/21 18:34 05/26/21 06:49 Glucose (Fingerstick) 148 mg/dL (70-99) 240 mg/dL (70-99) 237 mg/dL (70-99) 93 mg/dL (70-99) Test 05/26/21 11:06 Glucose (Fingerstick) 160 mg/dL (70-99) PE: GEN: laying in bed - getting ready to work with therapy - did not interrupt LUNGS: NC 2L HEART: RR per chart ABD: non-distended NEURO/PSYCH: awake, seems lethargic A/P: COVID pneumonia, CKD (on HD currently) Anemia, +Hemoccult - not iron deficient, on PPI CAD - ASA to be held for tunneled HD cath -- Observe from GI standpoint. Justicifation of Admission Dx: Justifications for Admission: Justification of Admission Dx: Yes HARJINDER LAFLEUR May 26, 2021 11:56
[2021-05-26 14:37] VITALS: BP 114/51
--- NOTE | 2021-05-26 16:12 | PDOC ---
[employer] PROGRESS NOTE Date of Service DOS: DATE: 05/26/21 TIME: 16:11 Chief Complaint Chief Complaint Pneumonia (Secondary to COVID-19 Infection) Acute Hypoxic Respiratory Failure Hypomagnesemia CAD CHF Type II Diabetes History of Present Illness History of Present Illness Ms Braswell is a 75yo F w/ PMHx HTN, DM2, CHF, CAD s/p CABG who came to ED on 05/13/2020 progressive shortness of breath over the prior week. In ED with O2 saturations 86% on room air febrile to 101.3 F. Tested positive for COVID-19. She had not been fully vaccinated. 05/14: Weak and was resting. She is currently on the COVID-19 protocol (Remdesivir, Aspirin, Multivitamins, Dexamethsone, Heparin SOdium, Piperacillin/Tazobactam, Acetaminophen). Mrs. Braswell states that she only received 1 dose of the COVID-19 vaccination. 05/15: She is feeling better. This morning, she was able to eat her breakfast. She remains on the COVID-19 Protocol (Remdesivir, Aspirin, Multivitamins, Dexamethsone, Heparin Sodium, Piperacillin/Tazobactam, Acetaminophen). We reviewed the patient's chart and discussed with RN 05/16: Afebrile overnight. Glucose in the 200s. O2 saturations 89 to 91% on 2 L nasal cannula oxygen. She is feeling short of breath and weak. No chest pain.. Had some V. tach overnight. Afebrile. BUN over 88 and creatinine elevated. Holding furosemide and losartan. Baseline CR at [facility] was 1.1. Cardiology nephrology consulted today. 05-18 V. tach overnight. 8-30 Afebrile. BUN over 88 and creatinine elevated. 6.9 d/c furosemide and losartan. Baseline CR // [facility] was 1.1. D/W health unit supervisor nephrology consulted ASA, statin therapy. NO AV mariama block agents with bradycardia Hold Lasix, losartan with SUZIE Am labs if no improvement will need dialysis and temp HDC in the morning 05-19. Enrique RN 37 MIN PT exam, chart review, > 50% of time spent with exam, chart review, pt care coordination 05-19 V. tach overnight. 8-30 Afebrile. BUN over 88 and creatinine elevated. 6.9 d/c furosemide and losartan. Baseline CR // [facility] was 1.1. D/W health unit supervisor nephrology consulted ASA, statin therapy. NO AV mariama block agents with bradycardia Hold Lasix, losartan with SUZIE Am labs if no improvement will need dialysis and temp HDC in the morning 05-19. Enrique RN 36 MIN PT exam, chart review, > 50% of time spent with exam, chart review, pt care coordination 05-20 Continue empiric PPI. Follow hemoglobin. Confused, not eating well V. tach overnight. 8-30 Afebrile. BUN over 88 and creatinine elevated. 6.9 d/c furosemide and losartan. Baseline CR // [facility] was 1.1. D/W health unit supervisor nephrology consulted ASA, statin therapy. NO AV mariama block agents with bradycardia Hold Lasix, losartan with SUZIE Am labs if no improvement will need dialysis and temp HDC in the morning 05-19. Enrique RN 37 MIN PT exam, chart review, > 50% of time spent with exam, chart review, pt care coordination 05-21 Continue empiric PPI. Follow hemoglobin. Confused, not eating well pulled out temp dialysis cath 9-4 am V. tach overnight. 8-30 Afebrile. BUN over 88 and creatinine elevated. 6.9 d/c furosemide and losartan. Baseline CR // [facility] was 1.1. D/W health unit supervisor/ nephrology consulted ASA, statin therapy. NO AV mariama block agents with bradycardia Hold Lasix, losartan with SUZIE Am labs dialysis and temp HDC in the morning Enrique RN 27 MIN PT exam, chart review, > 50% of time spent with exam, chart review, pt care coordination 05-22 Continue empiric PPI. Follow hemoglobin. Confused, not eating well pulled out temp dialysis cath 9-4 am V. tach overnight. 8-30 Afebrile. BUN over 88 and creatinine elevated. 6.9 d/c furosemide and losartan. Baseline CR // [facility] was 1.1. D/W health unit supervisor/ nephrology consulted ASA, statin therapy. NO AV mariama block agents with bradycardia Hold Lasix, losartan with SUZIE Am labs dialysis and temp HDC in the morning Enrique RN NON- TUNNELED Hemodialysis catheter via the right internal jugular vein approach, ready to utilize. 29 MIN PT exam, chart review, > 50% of time spent with exam, chart review, pt care coordination Melena/fall in hemoglobin--hemoglobin stable x 2. 9/6/21 Patient seen and examined at bedside. Reports no complaints this morning that her breathing was feeling better. Denying bloody bowel movement. Mild drop in hemoglobin today, plan for dialysis today. Plan of care discussed with bedside nurse. 05/24 Patient seen and evaluated at bedside. She was on the phone talking. No complaints. Dialysis tomorrow. Will likely need rehab for discharge. 05/25: Mrs. Braswell was seen and evaluated in her room this morning. She was resting upon entering her room, but awoke and conversed with me. We discussed h er current disposition with her nurse and reviewed her chart. 05/26 Patient evaluated at bedside. No major clinical changes. Will need acute rehab placement. Vitals/I&O Vitals/I&O: Vital Signs Date Time Temp Pulse Resp B/P (MAP) Pulse Ox O2 Delivery O2 Flow Rate FiO2 05/26/21 14:37 97.5 89 22 114/51 (72) 95 Room Air 97.5 05/26/21 10:42 2.0 I & O 05/25/21 05/25/21 05/26/21 15:00 23:00 07:00 Intake Total 300 ml Balance 300 ml Physical Exam Physical Exam: pleasant, confused General: Alert, Oriented X3, Cooperative, No acute distress Heart: Regular rate (SR/SB rate presently 56), Normal S1, Normal S2 Lungs: Clear Abdomen: Normal bowel sounds, Other (obese) Extremities: No clubbing, Other (trace bilateral LE edema ) Skin: No rashes, No significant lesion Labs Labs: Laboratory Tests Test 05/25/21 17:11 05/25/21 18:34 05/26/21 04:10 05/26/21 06:49 Glucose (Fingerstick) 240 mg/dL (70-99) 237 mg/dL (70-99) 93 mg/dL (70-99) White Blood Count 5.9 x10^3/uL (4.0-11.0) Red Blood Count 2.60 x10^6/uL (3.50-5.40) Hemoglobin 7.8 g/dL (12.0-15.5) Hematocrit 23.9 % (36.0-47.0) Mean Corpuscular Volume 92 fL (79-100) Mean Corpuscular Hemoglobin 30 pg (25-35) Mean Corpuscular Hemoglobin Concent 33 g/dL (31-37) Red Cell Distribution Width 15.3 % (11.5-14.5) Platelet Count 186 x10^3/uL (140-400) Sodium Level 137 mmol/L (136-145) Potassium Level 4.1 mmol/L (3.5-5.1) Chloride Level 101 mmol/L (98-107) Carbon Dioxide Level 31 mmol/L (21-32) Anion Gap 5 (6-14) Blood Urea Nitrogen 37 mg/dL (7-20) Creatinine 3.6 mg/dL (0.6-1.0) Estimated GFR (Cockcroft-Gault) 14.9 Glucose Level 103 mg/dL (70-99) Calcium Level 8.3 mg/dL (8.5-10.1) Test 05/26/21 11:06 Glucose (Fingerstick) 160 mg/dL (70-99) Assessment and Plan Assessmemt and Plan Problems Medical Problems: (1) Hypomagnesemia syndrome Status: Acute (2) Hypoxia Status: Acute (3) Pneumonia due to COVID-19 virus Status: Acute Comment Review of Relevant I have reviewed the following items maged (where applicable) has been applied. Justifications for Admission Other Justification GENO QUICK MD May 26, 2021 16:12
[2021-05-26 18:17] VITALS: BP 108/42
[2021-05-26] MEDS: ATORVASTATIN CALCIUM 40 MG TABLET. PO SCH (21:12)
[2021-05-26] MEDS: GABAPENTIN 100 MG CAPSULE. PO SCH (21:12)
[2021-05-26 23:00] VITALS: BP 105/50
--- NOTE | 2021-05-27 04:57 | NUR ---
Assisted to toilet by MATILDE Greene. States she did well. Upon return, pt c/o being PUENTES. O2 2l/nc placed. Informed pt of plan to place tunneled HD cath today and that this RN spoke to her daughters, Radha and Moni, on the phone.
[2021-05-27] MEDS: HEPARIN for SUB-Q USE 5,000 UNIT/ML VIAL. SQ SCH ×3 (06:00→21:53)
[2021-05-27 07:00] VITALS: BP 122/53
[2021-05-27 07:17] LABS: CALCIUM 8.2 mg/dL (8.5-10.1); CREATININE 5.2 mg/dL (0.6-1.0); GFR 9.7; POTASSIUM 4.3 mmol/L (3.5-5.1)
[2021-05-27 07:23] LABS: PROTHROMBIN TIME PATIENT 11.5 SEC (11.7-14.0)
[2021-05-27] MEDS: ASPIRIN CHEWABLE 81 MG TABLET. PO SCH (07:25)
--- NOTE | 2021-05-27 07:27 | NUR ---
Heparin and Aspirin are being held due to pt's tunnelled hemodialysis placement today. Morning medications will be given after procedure and dialysis as pt is NPO.
[2021-05-27] MEDS: INSULIN LISPRO 300 UNITS/3 ML VIAL. SQ SCH ×7 (07:30→20:38)
[2021-05-27] MEDS: hydrALAZINE 25 MG TABLET PO SCH ×3 (09:00→21:41)
[2021-05-27] MEDS: SENNOSIDES/DOCUSATE 8.6/50MG TABLET. PO SCH ×2 (09:00→21:32)
[2021-05-27] MEDS: LACTOBACILLUS RHAMNOSUS GG 1 CAPSULE. PO SCH ×2 (09:00→21:32)
[2021-05-27] MEDS: INSULIN GLARGINE SYRINGE. SQ SCH ×2 (09:00→21:52)
[2021-05-27] MEDS ORDERED: DIALYSIS PATIENT. MC PRN (10:30)
[2021-05-27] MEDS ORDERED: IV NORMAL SALINE 1000ML BAG 1,000 ML IV PRN ×2 (10:30)
--- NOTE | 2021-05-27 10:33 | PDOC ---
Renal-Progress Notes Subjective Notes Notes LESS CONFUSED History of Present Illness Hx of present illness IMPROVED Vitals Vitals Vital Signs Date Time Temp Pulse Resp B/P (MAP) Pulse Ox O2 Delivery O2 Flow Rate FiO2 05/27/21 07:00 97.9 84 18 122/53 (76) 94 Room Air 97.9 05/26/21 10:42 2.0 Weight Weight [ ] I.O. Intake and Output Intake and Output 05/27/21 07:00 Intake Total 880 ml Output Total 0 ml Balance 880 ml Intake Oral 880 ml Stool Total 0 ml # Voids 3 # Bowel Movements 2 Labs Labs Laboratory Tests Test 05/26/21 11:06 05/26/21 16:05 05/26/21 20:25 05/27/21 06:22 Glucose (Fingerstick) 160 mg/dL (70-99) 157 mg/dL (70-99) 182 mg/dL (70-99) Prothrombin Time 11.5 SEC (11.7-14.0) Prothromb Time International Ratio 0.8 (0.8-1.1) Sodium Level 135 mmol/L (136-145) Potassium Level 4.3 mmol/L (3.5-5.1) Chloride Level 100 mmol/L (98-107) Carbon Dioxide Level 31 mmol/L (21-32) Anion Gap 4 (6-14) Blood Urea Nitrogen 45 mg/dL (7-20) Creatinine 5.2 mg/dL (0.6-1.0) Estimated GFR (Cockcroft-Gault) 9.7 Glucose Level 120 mg/dL (70-99) Calcium Level 8.2 mg/dL (8.5-10.1) Test 05/27/21 07:12 Glucose (Fingerstick) 116 mg/dL (70-99) Micro Micro Microbiology 05/13/21 Blood Culture - Final, Complete NO GROWTH AFTER 5 DAYS Review of Systems Constitutional: yes: other (CONFUSED) Physical Exam General Appearance: no apparent distress Skin: warm Respiratory: decreased breath sounds Heart: S1S2 Abdomen: soft, bowel sounds present Genitourinary: bladder flat Neurology: alert, confused Assessment Assessment IMP [id number] CKD ANEMIA COVID 19 PNEUMONIA ACUTE HYPOXIC RESP FAILURE DM II CAD CHF HX DECONDITIONING PLAN CONVERT TEMP TO TUNNELED LINE HD TODAY UF TO TW SHE WILL NEED OP HD SET UP SHE REMAINS IN FULL SUZIE WITH ANURIA AND NO CLEARANCE D/W IR D/W BOTH DAUGHTERS ALSO WILL BENEFIT FROM THERAPY MINGO KLINE MD May 27, 2021 10:33
[2021-05-27 11:00] VITALS: BP 148/57
--- NOTE | 2021-05-27 11:03 | NUR ---
[facility] following. Discussed with RN, pt getting a tunneled cath placed today. [facility] to gather referral for dialysis chair time. [facility] will continue to follow. Addendum: 05/27/21 at 1434 by SCOTT APONTE Awaiting a dialysis lab. [facility] has packet ready to send to [facility] fax on Sunday.
--- NOTE | 2021-05-27 11:25 | PDOC ---
[employer] [facility] PROGRESS NOTE Date of Service DOS: DATE: 05/27/21 TIME: 11:23 Chief Complaint Chief Complaint Pneumonia (Secondary to COVID-19 Infection) Acute Hypoxic Respiratory Failure Hypomagnesemia CAD CHF Type II Diabetes History of Present Illness History of Present Illness Ms Braswell is a 75yo F w/ PMHx HTN, DM2, CHF, CAD s/p CABG who came to ED on 05/13/2020 progressive shortness of breath over the prior week. In ED with O2 saturations 86% on room air febrile to 101.3 F. Tested positive for COVID-19. She had not been fully vaccinated. 05/14: Weak and was resting. She is currently on the COVID-19 protocol (Remdesivir, Aspirin, Multivitamins, Dexamethsone, Heparin SOdium, Piperacillin/Tazobactam, Acetaminophen). Mrs. Braswell states that she only received 1 dose of the COVID-19 vaccination. 05/15: She is feeling better. This morning, she was able to eat her breakfast. She remains on the COVID-19 Protocol (Remdesivir, Aspirin, Multivitamins, Dexamethsone, Heparin Sodium, Piperacillin/Tazobactam, Acetaminophen). We review ed the patient's chart and discussed with RN 05/16: Afebrile overnight. Glucose in the 200s. O2 saturations 89 to 91% on 2 L nasal cannula oxygen. She is feeling short of breath and weak. No chest pain.. Had some V. tach overnight. Afebrile. BUN over 88 and creatinine elevated. Holding furosemide and losartan. Baseline CR at [facility] was 1.1. Cardiology nephrology consulted today. 05-18 V. tach overnight. 8-30 Afebrile. BUN over 88 and creatinine elevated. 6.9 d/c furosemide and losartan. Baseline CR // [facility] was 1.1. D/W esters and emulsifiers supervisor nephrology consulted ASA, statin therapy. NO AV mariama block agents with bradycardia Hold Lasix, losartan with SUZIE Am labs if no improvement will need dialysis and temp HDC in the morning 05-19. Enrique RN 37 MIN PT exam, chart review, > 50% of time spent with exam, chart review, pt care coordination 05-19 V. tach overnight. 8-30 Afebrile. BUN over 88 and creatinine elevated. 6.9 d/c furosemide and losartan. Baseline CR // [facility] was 1.1. D/W esters and emulsifiers supervisor nephrology consulted ASA, statin therapy. NO AV mariama block agents with bradycardia Hold Lasix, losartan with SUZIE Am labs if no improvement will need dialysis and temp HDC in the morning 05-19. Enrique RN 36 MIN PT exam, chart review, > 50% of time spent with exam, chart review, pt care coordination 05-20 Continue empiric PPI. Follow hemoglobin. Confused, not eating well V. tach overnight. 8-30 Afebrile. BUN over 88 and creatinine elevated. 6.9 d/c furosemide and losartan. Baseline CR // [facility] was 1.1. D/W esters and emulsifiers supervisor nephrology consulted ASA, statin therapy. NO AV mariama block agents with bradycardia Hold Lasix, losartan with SUZIE Am labs if no improvement will need dialysis and temp HDC in the morning 05-19. Enrique RN 37 MIN PT exam, chart review, > 50% of time spent with exam, chart review, pt care coordination 05-21 Continue empiric PPI. Follow hemoglobin. Confused, not eating well pulled out temp dialysis cath 9-4 am V. tach overnight. 8-30 Afebrile. BUN over 88 and creatinine elevated. 6.9 d/c furosemide and losartan. Baseline CR // [facility] was 1.1. D/W esters and emulsifiers supervisor/ nephrology consulted ASA, statin therapy. NO AV mariama block agents with bradycardia Hold Lasix, losartan with SUZIE Am labs dialysis and temp HDC in the morning Enrique RN 27 MIN PT exam, chart review, > 50% of time spent with exam, chart review, pt care coordination 05-22 Continue empiric PPI. Follow hemoglobin. Confused, not eating well pulled out temp dialysis cath 9-4 am V. tach overnight. 8-30 Afebrile. BUN over 88 and creatinine elevated. 6.9 d/c furosemide and losartan. Baseline CR // [facility] was 1.1. D/W esters and emulsifiers supervisor/ nephrology consulted ASA, statin therapy. NO AV mariama block agents with bradycardia Hold Lasix, losartan with SUZIE Am labs dialysis and temp HDC in the morning Enrique HOWARD NON- TUNNELED Hemodialysis catheter via the right internal jugular vein approach, ready to utilize. 29 MIN PT exam, chart review, > 50% of time spent with exam, chart review, pt care coordination Melena/fall in hemoglobin--hemoglobin stable x 2. 9/6/21 Patient seen and examined at bedside. Reports no complaints this morning that her breathing was feeling better. Denying bloody bowel movement. Mild drop in hemoglobin today, plan for dialysis today. Plan of care discussed with bedside nurse. 05/24 Patient seen and evaluated at bedside. She was on the phone talking. No complaints. Dialysis tomorrow. Will likely need rehab for discharge. 05/25: Mrs. Braswell was seen and evaluated in her room this morning. She was resting upon entering her room, but awoke and conversed with me. We discussed her current disposition with her nurse and reviewed her chart. 05/26 Patient evaluated at bedside. No major clinical changes. Will need acute rehab placement. 05/27 Patient evaluated at bedside she was resting getting ready to go for tunnel cath placement. Will need outpatient dialysis likely rehab. Vitals/I&O Vitals/I&O: Vital Signs Date Time Temp Pulse Resp B/P (MAP) Pulse Ox O2 Delivery O2 Flow Rate FiO2 05/27/21 11:00 98.0 71 18 148/57 (87) 95 Room Air 98.0 05/26/21 10:42 2.0 I & O 05/26/21 05/26/21 05/27/21 15:00 23:00 07:00 Intake Total 480 ml 400 ml 0 ml Output Total 0 ml Balance 480 ml 400 ml 0 ml Physical Exam Physical Exam: pleasant, confused General: Alert, Oriented X3, Cooperative, No acute distress Heart: Regular rate (SR/SB rate presently 56), Normal S1, Normal S2 Lungs: Clear Abdomen: Normal bowel sounds, Other (obese) Extremities: No clubbing, Other (trace bilateral LE edema ) Skin: No rashes, No significant lesion Labs Labs: Laboratory Tests Test 05/26/21 16:05 05/26/21 20:25 05/27/21 06:22 05/27/21 07:12 Glucose (Fingerstick) 157 mg/dL (70-99) 182 mg/dL (70-99) 116 mg/dL (70-99) Prothrombin Time 11.5 SEC (11.7-14.0) Prothromb Time International Ratio 0.8 (0.8-1.1) Sodium Level 135 mmol/L (136-145) Potassium Level 4.3 mmol/L (3.5-5.1) Chloride Level 100 mmol/L (98-107) Carbon Dioxide Level 31 mmol/L (21-32) Anion Gap 4 (6-14) Blood Urea Nitrogen 45 mg/dL (7-20) Creatinine 5.2 mg/dL (0.6-1.0) Estimated GFR (Cockcroft-Gault) 9.7 Glucose Level 120 mg/dL (70-99) Calcium Level 8.2 mg/dL (8.5-10.1) Assessment and Plan Assessmemt and Plan Problems Medical Problems: (1) Hypomagnesemia syndrome Status: Acute (2) Hypoxia Status: Acute (3) Pneumonia due to COVID-19 virus Status: Acute Comment Review of Relevant I have reviewed the following items maged (where applicable) has been applied. Justifications for Admission Other Justification GENO QUICK MD May 27, 2021 11:24
--- NOTE | 2021-05-27 11:44 | PDOC ---
Date of Service: DATE: 05/27/21 TIME: 11:42 Objective: Objective: Having tunneled dialysis cath placed today. 2 stools charted. Vital Signs: Vital Signs Date Time Temp Pulse Resp B/P (MAP) Pulse Ox O2 Delivery O2 Flow Rate FiO2 05/27/21 11:00 98.0 71 18 148/57 (87) 95 Room Air 98.0 05/26/21 10:42 2.0 Labs: Laboratory Tests Test 05/26/21 16:05 05/26/21 20:25 05/27/21 06:22 05/27/21 07:12 Glucose (Fingerstick) 157 mg/dL 182 mg/dL 116 mg/dL Prothrombin Time 11.5 SEC Prothromb Time International Ratio 0.8 Sodium Level 135 mmol/L Potassium Level 4.3 mmol/L Chloride Level 100 mmol/L Carbon Dioxide Level 31 mmol/L Anion Gap 4 Blood Urea Nitrogen 45 mg/dL Creatinine 5.2 mg/dL Estimated GFR (Cockcroft-Gault) 9.7 Glucose Level 120 mg/dL Calcium Level 8.2 mg/dL Test 05/27/21 11:37 Glucose (Fingerstick) 108 mg/dL PE: GEN: in recliner LUNGS: room air ABD: non-distended NEURO/PSYCH: sleeping, not awakened A/P: COVID pneumonia, CKD on HD, CAD on ASA (held) Anemia, +Hemoccult - not iron deficient, on PPI - Hgb stable -- Continue support/observation. Justicifation of Admission Dx: Justifications for Admission: Justification of Admission Dx: Yes MEREDITH-HARJINDER APPIAH May 27, 2021 11:44
[2021-05-27] MEDS ORDERED: LIDOCAINE 1%/EPI 1:100,000 20 ML VIAL. ONE (12:49)
[2021-05-27] MEDS ORDERED: fentaNYL PF VIAL 100 MCG/2 ML VIAL ONE (13:02)
[2021-05-27] MEDS ORDERED: MIDAZOLAM HCL/PF 2 MG/2 ML VIAL. ONE (13:02)
[2021-05-27] MEDS ORDERED: LIDOCAINE 1%/EPI 1:100,000 20 ML VIAL. INJ ONE (13:30)
[2021-05-27] MEDS ORDERED: fentaNYL PF VIAL 100 MCG/2 ML VIAL IV ONE (13:30)
[2021-05-27] MEDS ORDERED: MIDAZOLAM HCL/PF 2 MG/2 ML VIAL. IV ONE (13:30)
[2021-05-27 13:40] VITALS: BP 126/61
--- NOTE | 2021-05-27 13:56 | RAD ---
Procedure: Tunneled hemodialysis catheter placement, with ultrasound and fluoroscopic guidance Clinical Indication: Renal failure Sedation: Conscious sedation was administered for 30 minutes. The patient was monitored by a [facility] ed independent observer throughout the time of sedation. Please refer to the medical record for exac t doses of medications utilized to achieve moderate sedation. Total fluoroscopy time: 3.1 minutes Dose area product 21 Camara centimeter squared. Sterility: All elements of maximal sterile barrier technique including the use of a cap, mask, steril e gown, sterile gloves, large sterile sheet, appropriate hand hygiene, and 2% chlorhexidine for cutan eous antisepsis (or acceptable alternative antiseptic per current guidelines) were followed for this procedure. Consent: The procedure was explained in its entirety to the patient or the patients designated repres entative by a member of the treatment team, including a discussion of the risks, benefits and commonl y accepted alternatives to the procedure, as well as the expected consequences of no therapy whatsoev er. Discussion of the risks included, but was not limited to, those that are most frequent and thos e that are rare but possibly severe or life-threatening, as well as the possibility of unforeseen com plications. Technique and Findings: Following informed consent, the patient was prepped and draped in the usual s terile fashion. Ultrasound interrogation of the right neck revealed patency and compressibility of t he right internal jugular vein. A 21-gauge micropuncture was then used to gain access to this vein u nder ultrasound guidance. A hard copy ultrasound image was recorded. The needle was exchanged over a wire for a 4 [place] sheath which was used place a guidewire into the IVC. The skin over the right a nterior chest wall was copiously anesthetized with 1% Lidocaine plus Epinephrine and a small dermatot trav was made. A 23 cm tip to cuff palindrome dialysis catheter was then tunneled subcutaneously towa rds the neck dermatotomy and deployed through a large caliber peel-away sheath under fluoroscopic luz dance such that the distal tip resided in the mid right atrium. Manual flow rates were assessed and found to be excellent. The catheter was then flushed, packed with Heparin, capped, and sutured to th e skin. The neck dermatotomy was closed with Dermabond. No immediate complications were identified. Impression: Ultrasound of fluoroscopically guided placement of right internal jugular tunneled hemodi alysis catheter Electronically signed by: Shravan Winkler MD (05/27/2021 1:54 PM) [id number]
[2021-05-27 17:52] VITALS: BP 139/55
[2021-05-27] MEDS: ISOSORBIDE MONONITRATE ER 30 MG TAB.ER.24H PO SCH (17:52)
[2021-05-27] MEDS: MULTIVITAMIN with MINERAL TABLET. PO SCH (17:52)
[2021-05-27] MEDS: LEVOTHYROXINE 175 MCG TABLET PO SCH (17:52)
[2021-05-27] MEDS: ALLOPURINOL 100 MG TABLET. PO SCH (17:52)
[2021-05-27] MEDS: PANTOPRAZOLE 40 MG TABLET.DR. PO SCH (17:52)
[2021-05-27] MEDS: EZETIMIBE 10 MG TABLET. PO SCH (17:53)
[2021-05-27 19:00] VITALS: BP 119/47
[2021-05-27] MEDS: ATORVASTATIN CALCIUM 40 MG TABLET. PO SCH (21:31)
[2021-05-27] MEDS: GABAPENTIN 100 MG CAPSULE. PO SCH (21:32)
[2021-05-27 23:12] VITALS: BP 119/43
--- NOTE | 2021-05-27 23:30 | NUR ---
NURSING NOTE Pts bed alarm going off, pt attempted to get OOB to use bathroom. Pt very weak at this time, took a while to get pt to the bathroom. Pt reported that her right foot was hurting her some. Pt had large dark/black color BM in toilet, was inc of some in brief. Pt had to have assist x2 back to bed from bathroom. Bed alarm on, pt positioned to left side. Call light in reach, will monitor.
[2021-05-28 03:52] VITALS: BP 139/48
[2021-05-28] MEDS: HEPARIN for SUB-Q USE 5,000 UNIT/ML VIAL. SQ SCH ×3 (06:21→21:29)
[2021-05-28] MEDS: LEVOTHYROXINE 175 MCG TABLET PO SCH (06:21)
[2021-05-28 07:00] VITALS: BP 147/61
[2021-05-28] MEDS: INSULIN LISPRO 300 UNITS/3 ML VIAL. SQ SCH ×7 (07:30→21:00)
[2021-05-28] MEDS: SENNOSIDES/DOCUSATE 8.6/50MG TABLET. PO SCH ×2 (09:00→21:30)
[2021-05-28] MEDS: EZETIMIBE 10 MG TABLET. PO SCH (09:35)
[2021-05-28] MEDS: MULTIVITAMIN with MINERAL TABLET. PO SCH (09:35)
[2021-05-28] MEDS: ASPIRIN CHEWABLE 81 MG TABLET. PO SCH (09:36)
[2021-05-28] MEDS: ALLOPURINOL 100 MG TABLET. PO SCH (09:36)
[2021-05-28] MEDS: LACTOBACILLUS RHAMNOSUS GG 1 CAPSULE. PO SCH ×2 (09:36→21:30)
[2021-05-28] MEDS: ISOSORBIDE MONONITRATE ER 30 MG TAB.ER.24H PO SCH (09:36)
[2021-05-28] MEDS: PANTOPRAZOLE 40 MG TABLET.DR. PO SCH (09:37)
[2021-05-28] MEDS: hydrALAZINE 25 MG TABLET PO SCH ×3 (09:37→21:33)
[2021-05-28] MEDS: INSULIN GLARGINE SYRINGE. SQ SCH ×2 (09:40→21:50)
[2021-05-28 11:00] VITALS: BP 116/57
--- NOTE | 2021-05-28 11:06 | PDOC ---
[employer] PROGRESS NOTE Date of Service DOS: DATE: 05/28/21 TIME: 10:58 Chief Complaint Chief Complaint Pneumonia (Secondary to COVID-19 Infection) Acute Hypoxic Respiratory Failure Hypomagnesemia CHF CAD Type II Diabetes History of Present Illness History of Present Illness Ms Braswell is a 75yo F w/ PMHx HTN, DM2, CHF, CAD s/p CABG who came to ED on 05/13/2020 progressive shortness of breath over the prior week. In ED with O2 saturations 86% on room air febrile to 101.3 F. Tested positive for COVID-19. She had not been fully vaccinated. 05/14: Weak and was resting. She is currently on the COVID-19 protocol (Remdesivir, Aspirin, Multivitamins, Dexamethsone, Heparin SOdium, Piperacillin/Tazobactam, Acetaminophen). Mrs. Braswell states that she only received 1 dose of the COVID-19 vaccination. 05/15: She is feeling better. This morning, she was able to eat her breakfast. She remains on the COVID-19 Protocol (Remdesivir, Aspirin, Multivitamins, Dexamethsone, Heparin Sodium, Piperacillin/Tazobactam, Acetaminophen). We review ed the patient's chart and discussed with RN 05/16: Afebrile overnight. Glucose in the 200s. O2 saturations 89 to 91% on 2 L nasal cannula oxygen. She is feeling short of breath and weak. No chest pain.. Had some V. tach overnight. Afebrile. BUN over 88 and creatinine elevated. Holding furosemide and losartan. Baseline CR at [facility] was 1.1. Cardiology nephrology consulted today. 05-18 V. tach overnight. 8-30 Afebrile. BUN over 88 and creatinine elevated. 6.9 d/c furosemide and losartan. Baseline CR // [facility] was 1.1. D/W leather splitter nephrology consulted ASA, statin therapy. NO AV mariama block agents with bradycardia Hold Lasix, losartan with SUZIE Am labs if no improvement will need dialysis and temp HDC in the morning 05-19. Enrique RN 37 MIN PT exam, chart review, > 50% of time spent with exam, chart review, pt care coordination 05-19 V. tach overnight. 8-30 Afebrile. BUN over 88 and creatinine elevated. 6.9 d/c furosemide and losartan. Baseline CR // [facility] was 1.1. D/W leather splitter nephrology consulted ASA, statin therapy. NO AV mariama block agents with bradycardia Hold Lasix, losartan with SUZIE Am labs if no improvement will need dialysis and temp HDC in the morning 05-19. Enrique RN 36 MIN PT exam, chart review, > 50% of time spent with exam, chart review, pt care coordination 05-20 Continue empiric PPI. Follow hemoglobin. Confused, not eating well V. tach overnight. 8-30 Afebrile. BUN over 88 and creatinine elevated. 6.9 d/c furosemide and losartan. Baseline CR // [facility] was 1.1. D/W leather splitter nephrology consulted ASA, statin therapy. NO AV mariama block agents with bradycardia Hold Lasix, losartan with SUZIE Am labs if no improvement will need dialysis and temp HDC in the morning 05-19. Enrique RN 37 MIN PT exam, chart review, > 50% of time spent with exam, chart review, pt care coordination 05-21 Continue empiric PPI. Follow hemoglobin. Confused, not eating well pulled out temp dialysis cath 9-4 am V. tach overnight. 8-30 Afebrile. BUN over 88 and creatinine elevated. 6.9 d/c furosemide and losartan. Baseline CR // [facility] was 1.1. D/W leather splitter/ nephrology consulted ASA, statin therapy. NO AV mariama block agents with bradycardia Hold Lasix, losartan with SUZIE Am labs dialysis and temp HDC in the morning Enrique RN 27 MIN PT exam, chart review, > 50% of time spent with exam, chart review, pt care coordination 05-22 Continue empiric PPI. Follow hemoglobin. Confused, not eating well pulled out temp dialysis cath 9-4 am V. tach overnight. 8-30 Afebrile. BUN over 88 and creatinine elevated. 6.9 d/c furosemide and losartan. Baseline CR // [facility] was 1.1. D/W leather splitter/ nephrology consulted ASA, statin therapy. NO AV mariama block agents with bradycardia Hold Lasix, losartan with SUZIE Am labs dialysis and temp HDC in the morning Enrique HOWARD NON- TUNNELED Hemodialysis catheter via the right internal jugular vein approach, ready to utilize. 29 MIN PT exam, chart review, > 50% of time spent with exam, chart review, pt care coordination Melena/fall in hemoglobin--hemoglobin stable x 2. 9/6/21 Patient seen and examined at bedside. Reports no complaints this morning that her breathing was feeling better. Denying bloody bowel movement. Mild drop in hemoglobin today, plan for dialysis today. Plan of care discussed with bedside nurse. 05/24 Patient seen and evaluated at bedside. She was on the phone talking. No complaints. Dialysis tomorrow. Will likely need rehab for discharge. 05/25: Mrs. Braswell was seen and evaluated in her room this morning. She was resting upon entering her room, but awoke and conversed with me. We discussed her current disposition with her nurse and reviewed her chart. 05/26 Patient evaluated at bedside. No major clinical changes. Will need acute rehab placement. 05/27 Patient evaluated at bedside she was resting getting ready to go for tunnel cath placement. Will need outpatient dialysis likely rehab. 05/28: Mrs. Braswell was seen and evaluated in her room this morning. She was res ting but was able to converse with me this morning. She stated that she had been experiencing chest pain and exhibited an arrhythmia, for which I have consulted Cardiology. Mrs. Braswell is on 3 L of Oxygen. She was originally on the COVID-19 protocol, but has since completed her Remdesivir as of 05/17/2021. We discussed her current disposition with her nurse and reviewed her chart. Vitals/I&O Vitals/I&O: Vital Signs Date Time Temp Pulse Resp B/P (MAP) Pulse Ox O2 Delivery O2 Flow Rate FiO2 05/28/21 09:37 91 147/61 05/28/21 07:00 98.7 28 96 Nasal Cannula 3.0 98.7 I & O 05/27/21 05/27/21 05/28/21 15:00 23:00 07:00 Intake Total 0 ml 100 ml 50 ml Output Total 0 ml 0 ml Balance 0 ml 100 ml 50 ml Physical Exam Physical Exam: pleasant, confused General: Alert, Oriented X3, Cooperative, No acute distress Heart: Other (AFIB) Lungs: Clear Abdomen: Normal bowel sounds, Other (obese) Extremities: No clubbing, Other (trace bilateral LE edema ) Skin: No rashes, No significant lesion Labs Labs: Laboratory Tests Test 05/27/21 11:37 05/27/21 17:33 05/27/21 19:21 05/28/21 07:10 Glucose (Fingerstick) 108 mg/dL (70-99) 103 mg/dL (70-99) 148 mg/dL (70-99) 152 mg/dL (70-99) Review of Systems Review of Systems: No rashes No bleeding Assessment and Plan Assessmemt and Plan Problems Medical Problems: (1) Hypomagnesemia syndrome Status: Acute (2) Hypoxia Status: Acute (3) Pneumonia due to COVID-19 virus Status: Acute Assessment: 1. Pneumonia (Secondary to COVID-19 Infection) 2. Acute Hypoxic Respiratory Failure 3. Hypomagnesemia 4. CHF 5. CAD 6. Type II Diabetes 7. Arrhythmia 8. Chest discomfort Plan: 1. Cardiology Re-Consultation 2. Continue DVT Prophylaxis (Heparin) 3. Full Code 4. Continue supplemental oxygen 5. Dialysis per nephrology Home medications Trend labs (ordered CBC BMP ABG and cardiac enzymes) Cardiac monitoring Appreciate subspecialist input Long-term prognosis guarded Comment Review of Relevant I have reviewed the following items maged (where applicable) has been applied. Medications: Current Medications Medications (Trade) Dose Ordered Sig/Lemuel Route PRN Reason Start Time Stop Time Status Last Admin Dose Admin Midazolam HCl (Versed) 2 mg 1X ONCE IV 05/27/21 13:30 05/27/21 13:31 DC 05/27/21 13:30 Fentanyl Citrate (Fentanyl 2ml Vial) 100 mcg 1X ONCE IV 05/27/21 13:30 05/27/21 13:31 DC 05/27/21 13:30 Lidocaine/ Epinephrine (LIDOCAINE 1%-EPI 1:100,000 Multi-Dose) 20 ml 1X ONCE INJ 05/27/21 13:30 05/27/21 13:31 DC 05/27/21 13:30 Cefazolin Sodium/ Dextrose 50 ml @ 100 mls/hr 1X ONCE IV 05/27/21 13:45 05/27/21 14:14 DC 05/27/21 13:45 Justifications for Admission Other Justification KIRAN MONDRAGON III DO May 28, 2021 11:06
[2021-05-28] MEDS: oxyCODONE/APAP 5/325 1 TAB TABLET PO PRN (12:54)
--- NOTE | 2021-05-28 14:09 | PDOC ---
Renal-Progress Notes Subjective Notes Notes NO NEW COMPLAINTS History of Present Illness Hx of present illness OVERALL IMPROVED BUT STILL IN SUZIE-ATN AND ANURIC Vitals Vitals Vital Signs Date Time Temp Pulse Resp B/P (MAP) Pulse Ox O2 Delivery O2 Flow Rate FiO2 05/28/21 12:54 100 Nasal Cannula 3.0 05/28/21 11:00 98.3 98 22 116/57 (76) 98.3 Weight Weight [ ] I.O. Intake and Output Intake and Output 05/28/21 07:00 Intake Total 150 ml Output Total 0 ml Balance 150 ml Intake Oral 150 ml Stool Total 0 ml # Voids 3 # Bowel Movements 2 Labs Labs Laboratory Tests Test 05/27/21 17:33 05/27/21 19:21 05/28/21 07:10 05/28/21 12:07 Glucose (Fingerstick) 103 mg/dL (70-99) 148 mg/dL (70-99) 152 mg/dL (70-99) 106 mg/dL (70-99) Micro Micro Microbiology 05/13/21 Blood Culture - Final, Complete NO GROWTH AFTER 5 DAYS Review of Systems Constitutional: yes: other (CONFUSED) Physical Exam General Appearance: no apparent distress Skin: warm Respiratory: decreased breath sounds Heart: S1S2 Abdomen: soft, bowel sounds present Genitourinary: bladder flat Neurology: alert, confused Assessment Assessment IMP [id number] CKD ANEMIA COVID 19 PNEUMONIA ACUTE HYPOXIC RESP FAILURE DM II CAD CHF HX DECONDITIONING PLAN S/P TDC HD MWF SHE WILL NEED OP HD SET UP SHE REMAINS IN FULL SUZIE WITH ANURIA AND NO CLEARANCE D/W IR ALSO WILL BENEFIT FROM THERAPY MINGO KLINE MD May 28, 2021 14:09
[2021-05-28 15:00] VITALS: BP 113/57
[2021-05-28 16:05] LABS: BASE EXCESS ABG 0 mmol/L (-3-3); HCO3 ABG 27 mmol/L (21-28); PCO2 ABG 57 mmHg (35-46); PO2 ABG 109 mmHg (65-108); SAT O2 ABG 98 % (92-99)
[2021-05-28 16:17] LABS: ALBUMIN 2.2 g/dL (3.4-5.0); ALBUMIN/GLOBULIN RATIO 0.6 (1.0-1.7); CALCIUM 8.3 mg/dL (8.5-10.1); GFR 13.2; POTASSIUM 4.5 mmol/L (3.5-5.1); TOTAL BILIRUBIN 0.2 mg/dL (0.2-1.0)
[2021-05-28 19:00] VITALS: BP 117/46
[2021-05-28] MEDS: ATORVASTATIN CALCIUM 40 MG TABLET. PO SCH (21:30)
[2021-05-28] MEDS: GABAPENTIN 100 MG CAPSULE. PO SCH (21:30)
--- NOTE | 2021-05-28 21:31 | RAD ---
XR CHEST 1V CLINICAL INDICATIONS: Reason: elevated troponin and low pH COMPARISON: May 21, 2021. Findings: Bilateral lung infiltrates or pulmonary edema are again evident. There has been improvement in the right lung base consolidative infiltrate. No pleural effusion or pneumothorax is evident. Rig ht IJ central line is in place and the inferior tip is located within the inferior aspect of the supe rior vena cava above the level of the right atrium. Sternotomy is evident. The heart size and mediast inum are stable. IMPRESSION: Bilateral lung infiltrates or pulmonary edema are again evident. There is been improvemen t in the right lung base consolidative infiltrate. Electronically signed by: Herman Horan MD (05/28/2021 9:28 PM) [id number]
[2021-05-28 23:16] VITALS: BP 121/52
[2021-05-29] VITALS (10 sets, daily range): BP systolic 103–134; BP diastolic 49–72
[2021-05-29 05:31] LABS: BASO % 1 % (0-3); EOS % 1 % (0-3); LYMPH # 1.1 x10^3/uL (1.0-4.8); LYMPH % 16 % (24-48); MEAN CORPUSCULAR HEMOGLOBIN 30 pg (25-35); MEAN CORPUSCULAR HGB CONC 33 g/dL (31-37); MEAN CORPUSCULAR VOLUME 93 fL (79-100); MONO % 15 % (0-9); NEUT # 4.6 x10^3/uL (1.8-7.7); NEUT % 68 % (31-73); PLATELET COUNT 138 x10^3/uL (140-400); RED CELL DISTRIBUTION WIDTH 15.5 % (11.5-14.5); WHITE BLOOD COUNT 6.7 x10^3/uL (4.0-11.0)
[2021-05-29] MEDS: HEPARIN for SUB-Q USE 5,000 UNIT/ML VIAL. SQ SCH ×3 (06:07→20:44)
[2021-05-29 06:12] LABS: HEMATOCRIT 19.5 % (36.0-47.0); HEMOGLOBIN 6.4 g/dL (12.0-15.5)
[2021-05-29] MEDS: INSULIN LISPRO 300 UNITS/3 ML VIAL. SQ SCH ×7 (07:30→20:38)
[2021-05-29] MEDS: DEXTROSE 50% 25 GM / 50ML DISP.SYRIN. IV PRN (07:38)
[2021-05-29 08:44] LABS: BASE EXCESS ABG 1 mmol/L (-3-3); HCO3 ABG 27 mmol/L (21-28); PCO2 ABG 52 mmHg (35-46); PO2 ABG 135 mmHg (65-108); SAT O2 ABG 99 % (92-99)
[2021-05-29] MEDS: INSULIN GLARGINE SYRINGE. SQ SCH ×2 (09:00→20:38)
[2021-05-29] MEDS: ISOSORBIDE MONONITRATE ER 30 MG TAB.ER.24H PO SCH (09:12)
[2021-05-29] MEDS: MULTIVITAMIN with MINERAL TABLET. PO SCH (09:12)
[2021-05-29] MEDS: LACTOBACILLUS RHAMNOSUS GG 1 CAPSULE. PO SCH ×2 (09:12→20:35)
[2021-05-29] MEDS: ALLOPURINOL 100 MG TABLET. PO SCH (09:12)
[2021-05-29] MEDS: SENNOSIDES/DOCUSATE 8.6/50MG TABLET. PO SCH ×2 (09:12→20:35)
[2021-05-29] MEDS: PANTOPRAZOLE 40 MG TABLET.DR. PO SCH (09:13)
[2021-05-29] MEDS: oxyCODONE/APAP 5/325 1 TAB TABLET PO PRN (09:13)
[2021-05-29] MEDS: LEVOTHYROXINE 175 MCG TABLET PO SCH (09:13)
[2021-05-29] MEDS: ASPIRIN CHEWABLE 81 MG TABLET. PO SCH (09:13)
[2021-05-29] MEDS: EZETIMIBE 10 MG TABLET. PO SCH (09:13)
[2021-05-29] MEDS: hydrALAZINE 25 MG TABLET PO SCH ×3 (09:13→20:34)
--- NOTE | 2021-05-29 10:11 | PDOC ---
Renal-Progress Notes Subjective Notes Notes NO NEW COMPLAINTS History of Present Illness Hx of present illness STABLE Vitals Vitals Vital Signs Date Time Temp Pulse Resp B/P (MAP) Pulse Ox O2 Delivery O2 Flow Rate FiO2 05/29/21 09:13 76 132/49 05/29/21 08:00 Nasal Cannula 1.0 05/29/21 07:00 98.4 22 98 98.4 Weight Weight [ ] I.O. Intake and Output Intake and Output 05/29/21 07:00 Intake Total 0 ml Output Total 0 ml Balance 0 ml Intake Oral 0 ml Stool Total 0 ml # Voids 1 # Bowel Movements 1 Labs Labs Laboratory Tests Test 05/28/21 12:07 05/28/21 15:50 05/28/21 15:55 05/28/21 19:03 Glucose (Fingerstick) 106 mg/dL (70-99) 129 mg/dL (70-99) Sodium Level 137 mmol/L (136-145) Potassium Level 4.5 mmol/L (3.5-5.1) Chloride Level 102 mmol/L (98-107) Carbon Dioxide Level 32 mmol/L (21-32) Anion Gap 3 (6-14) Blood Urea Nitrogen 28 mg/dL (7-20) Creatinine 4.0 mg/dL (0.6-1.0) Estimated GFR (Cockcroft-Gault) 13.2 BUN/Creatinine Ratio 7 (6-20) Glucose Level 131 mg/dL (70-99) Calcium Level 8.3 mg/dL (8.5-10.1) Total Bilirubin 0.2 mg/dL (0.2-1.0) Aspartate Amino Transf (AST/SGOT) 20 U/L (15-37) Alanine Aminotransferase (ALT/SGPT) 32 U/L (14-59) Alkaline Phosphatase 82 U/L (46-116) Troponin I Quantitative 0.095 ng/mL (0.000-0.055) Total Protein 6.0 g/dL (6.4-8.2) Albumin 2.2 g/dL (3.4-5.0) Albumin/Globulin Ratio 0.6 (1.0-1.7) O2 Saturation 98 % (92-99) Arterial Blood pH 7.29 (7.35-7.45) Arterial Blood pCO2 at Patient Temp 57 mmHg (35-46) Arterial Blood pO2 at Patient Temp 109 mmHg (65-108) Arterial Blood HCO3 27 mmol/L (21-28) Arterial Blood Base Excess 0 mmol/L (-3-3) FiO2 3 lpm nc Test 05/29/21 05:00 05/29/21 07:31 05/29/21 08:21 05/29/21 08:30 White Blood Count 6.7 x10^3/uL (4.0-11.0) Red Blood Count 2.10 x10^6/uL (3.50-5.40) Hemoglobin 6.4 g/dL (12.0-15.5) Hematocrit 19.5 % (36.0-47.0) Mean Corpuscular Volume 93 fL (79-100) Mean Corpuscular Hemoglobin 30 pg (25-35) Mean Corpuscular Hemoglobin Concent 33 g/dL (31-37) Red Cell Distribution Width 15.5 % (11.5-14.5) Platelet Count 138 x10^3/uL (140-400) Neutrophils (%) (Auto) 68 % (31-73) Lymphocytes (%) (Auto) 16 % (24-48) Monocytes (%) (Auto) 15 % (0-9) Eosinophils (%) (Auto) 1 % (0-3) Basophils (%) (Auto) 1 % (0-3) Neutrophils # (Auto) 4.6 x10^3/uL (1.8-7.7) Lymphocytes # (Auto) 1.1 x10^3/uL (1.0-4.8) Monocytes # (Auto) 1.0 x10^3/uL (0.0-1.1) Eosinophils # (Auto) 0.0 x10^3/uL (0.0-0.7) Basophils # (Auto) 0.0 x10^3/uL (0.0-0.2) Glucose (Fingerstick) 51 mg/dL (70-99) 125 mg/dL (70-99) O2 Saturation 99 % (92-99) Arterial Blood pH 7.34 (7.35-7.45) Arterial Blood pCO2 at Patient Temp 52 mmHg (35-46) Arterial Blood pO2 at Patient Temp 135 mmHg (65-108) Arterial Blood HCO3 27 mmol/L (21-28) Arterial Blood Base Excess 1 mmol/L (-3-3) FiO2 3 lpm nc Micro Micro Microbiology 05/13/21 Blood Culture - Final, Complete NO GROWTH AFTER 5 DAYS Review of Systems Constitutional: yes: other (CONFUSED) Physical Exam General Appearance: no apparent distress Skin: warm Respiratory: decreased breath sounds Heart: S1S2 Abdomen: soft, bowel sounds present Genitourinary: bladder flat Neurology: alert, confused Assessment Assessment IMP [id number] CKD ANEMIA COVID 19 PNEUMONIA ACUTE HYPOXIC RESP FAILURE DM II CAD CHF HX DECONDITIONING PLAN S/P TDC HD TOMORROW SHE WILL NEED OP HD SET UP SHE REMAINS IN FULL SUZIE WITH ANURIA AND NO CLEARANCE PRBC NEEDED ALSO WILL BENEFIT FROM THERAPY MINGO KLINE MD May 29, 2021 10:11
--- NOTE | 2021-05-29 10:44 | CONS ---
DATE OF CONSULTATION: 05/29/2021 PULMONARY CONSULTATION ATTENDING PHYSICIAN: Rod Amor MD. REASON FOR CONSULTATION: Hypercapnic respiratory failure. HISTORY OF PRESENT ILLNESS: The patient is a 75-year-old morbidly obese patient with a BMI of 43. The patient has a history of end-stage renal disease, on hemodialysis. She was brought into the hospital with dyspnea and some cough along with subjective fever. The patient was tested positive for COVID. The patient did receive 1 dose of vaccine. The patient was consulted yesterday for abnormal ABGs with a pH of 7.29, pCO2 of 57 and a pO2 of 109 and bicarbonate of 27. Her chest x-ray revealed bilateral interstitial infiltrates, more favoring congestive heart failure, this was from 05/28. The patient was also noted to have a hemoglobin of 6.4 today. The patient was kept on BiPAP overnight. Followup ABGs this morning show a pH of 7.34, pCO2 of 52 and a pO2 of 135 on 3 liters. She is awake, following commands. Her mental status has improved. No chest pain, no cough, no fever, no chills. PAST MEDICAL HISTORY: Significant for history of end-stage renal disease on hemodialysis, history of type 2 diabetes. History of coronary artery disease. PAST SURGICAL HISTORY: No recent surgeries. She has a history of coronary artery bypass. SOCIAL HISTORY: Nonsmoker. REVIEW OF SYSTEMS: A 12-point system obtained. Pertinent positives discussed in my present illness, otherwise noncontributory. All systems that were negative were reviewed as well. MEDICATIONS: All reviewed as listed in the MRAD. The patient also has been on oxycodone. She did receive this morning. FAMILY HISTORY: Noncontributory to lungs. PHYSICAL EXAMINATION: VITAL SIGNS: Reviewed. Blood pressure stable, pulse ox is 98% on 3 liters. NECK: Supple. LUNGS: With diminished breath sounds. CARDIOVASCULAR: With a regular rate. ABDOMEN: Soft, obese. EXTREMITIES: With no pitting edema. LABORATORY DATA: Reviewed. ABGs discussed in my history of present illness. Her BUN is 28, creatinine 4.0, albumin 2.2. Hemoglobin is 6.4. IMPRESSION: 1. Acute hypercapnic respiratory failure secondary to likely congestive heart failure. Underlying COVID-19 pneumonia as well. 2. Abnormal chest x-ray with bilateral interstitial infiltrates, likely congestive heart failure. 3. COVID-19 positive by the rapid test. 4. End-stage renal disease, on hemodialysis. 5. Anemia, also contributing to her dyspnea. 6. Encephalopathy, improved post-BiPAP. 7. Mildly increased troponin level. 8. Severe protein-calorie malnutrition. RECOMMENDATIONS: 1. Continue BiPAP at bedtime and p.r.n. during the day. 2. Avoid hyperoxia. Her pO2 is too good. We will reduce the oxygen down to 1 liter. 3. Hemodialysis with ultrafiltration per renal. 4. PRN bronchodilators. 5. Transfuse with dialysis. 6. Okay to continue heparin for DVT prophylaxis for now. 7. Continue supportive care. 8. Discussed with RN and we will follow along with you. ZIGGY DR: Elgin TID: [id number]
--- NOTE | 2021-05-29 10:57 | PDOC ---
[employer] PROGRESS NOTE Date of Service DOS: DATE: 05/29/21 TIME: 10:48 Chief Complaint Chief Complaint Pneumonia (Secondary to COVID-19 Infection) Acute Hypoxic Respiratory Failure Hypomagnesemia CAD CHF Type II Diabetes History of Present Illness History of Present Illness Ms Braswell is a 75yo F w/ PMHx HTN, DM2, CHF, CAD s/p CABG who came to ED on 05/13/2020 progressive shortness of breath over the prior week. In ED with O2 saturations 86% on room air febrile to 101.3 F. Tested positive for COVID-19. She had not been fully vaccinated. 05/14: Weak and was resting. She is currently on the COVID-19 protocol (Remdesivir, Aspirin, Multivitamins, Dexamethsone, Heparin SOdium, Piperacillin/Tazobactam, Acetaminophen). Mrs. Braswell states that she only received 1 dose of the COVID-19 vaccination. 05/15: She is feeling better. This morning, she was able to eat her breakfast. She remains on the COVID-19 Protocol (Remdesivir, Aspirin, Multivitamins, Dexamethsone, Heparin Sodium, Piperacillin/Tazobactam, Acetaminophen). We review ed the patient's chart and discussed with RN 05/16: Afebrile overnight. Glucose in the 200s. O2 saturations 89 to 91% on 2 L nasal cannula oxygen. She is feeling short of breath and weak. No chest pain.. Had some V. tach overnight. Afebrile. BUN over 88 and creatinine elevated. Holding furosemide and losartan. Baseline CR at [facility] was 1.1. Cardiology nephrology consulted today. 05-18 V. tach overnight. 8-30 Afebrile. BUN over 88 and creatinine elevated. 6.9 d/c furosemide and losartan. Baseline CR // [facility] was 1.1. D/W fountain helper nephrology consulted ASA, statin therapy. NO AV mariama block agents with bradycardia Hold Lasix, losartan with SUZIE Am labs if no improvement will need dialysis and temp HDC in the morning 05-19. Enrique RN 37 MIN PT exam, chart review, > 50% of time spent with exam, chart review, pt care coordination 05-19 V. tach overnight. 8-30 Afebrile. BUN over 88 and creatinine elevated. 6.9 d/c furosemide and losartan. Baseline CR // [facility] was 1.1. D/W fountain helper nephrology consulted ASA, statin therapy. NO AV mariama block agents with bradycardia Hold Lasix, losartan with SUZIE Am labs if no improvement will need dialysis and temp HDC in the morning 05-19. Enrique RN 36 MIN PT exam, chart review, > 50% of time spent with exam, chart review, pt care coordination 05-20 Continue empiric PPI. Follow hemoglobin. Confused, not eating well V. tach overnight. 8-30 Afebrile. BUN over 88 and creatinine elevated. 6.9 d/c furosemide and losartan. Baseline CR // [facility] was 1.1. D/W fountain helper nephrology consulted ASA, statin therapy. NO AV mariama block agents with bradycardia Hold Lasix, losartan with SUZIE Am labs if no improvement will need dialysis and temp HDC in the morning 05-19. Enrique RN 37 MIN PT exam, chart review, > 50% of time spent with exam, chart review, pt care coordination 05-21 Continue empiric PPI. Follow hemoglobin. Confused, not eating well pulled out temp dialysis cath 9-4 am V. tach overnight. 8-30 Afebrile. BUN over 88 and creatinine elevated. 6.9 d/c furosemide and losartan. Baseline CR // [facility] was 1.1. D/W fountain helper/ nephrology consulted ASA, statin therapy. NO AV mariama block agents with bradycardia Hold Lasix, losartan with SUZIE Am labs dialysis and temp HDC in the morning Enrique RN 27 MIN PT exam, chart review, > 50% of time spent with exam, chart review, pt care coordination 05-22 Continue empiric PPI. Follow hemoglobin. Confused, not eating well pulled out temp dialysis cath 9-4 am V. tach overnight. 8-30 Afebrile. BUN over 88 and creatinine elevated. 6.9 d/c furosemide and losartan. Baseline CR // [facility] was 1.1. D/W fountain helper/ nephrology consulted ASA, statin therapy. NO AV mariama block agents with bradycardia Hold Lasix, losartan with SUZIE Am labs dialysis and temp HDC in the morning Enrique HOWARD NON- TUNNELED Hemodialysis catheter via the right internal jugular vein approach, ready to utilize. 29 MIN PT exam, chart review, > 50% of time spent with exam, chart review, pt care coordination Melena/fall in hemoglobin--hemoglobin stable x 2. 9/6/21 Patient seen and examined at bedside. Reports no complaints this morning that her breathing was feeling better. Denying bloody bowel movement. Mild drop in hemoglobin today, plan for dialysis today. Plan of care discussed with bedside nurse. 05/24 Patient seen and evaluated at bedside. She was on the phone talking. No complaints. Dialysis tomorrow. Will likely need rehab for discharge. 05/25: Mrs. Braswell was seen and evaluated in her room this morning. She was resting upon entering her room, but awoke and conversed with me. We discussed her current disposition with her nurse and reviewed her chart. 05/26 Patient evaluated at bedside. No major clinical changes. Will need acute rehab placement. 05/27 Patient evaluated at bedside she was resting getting ready to go for tunnel cath placement. Will need outpatient dialysis likely rehab. 05/28: Mrs. Braswell was seen and evaluated in her room this morning. She was res ting but was able to converse with me this morning. She stated that she had been experiencing chest pain and exhibited an arrhythmia, for which I have consulted Cardiology. Mrs. Braswell is on 3 L of Oxygen. She was originally on the COVID-19 protocol, but has since completed her Remdesivir as of 05/17/2021. We discussed her current disposition with her nurse and reviewed her chart. 05/29: Mrs. Braswell was evaluated and seen in her room this morning. She was laying down and resting but conversed with me. Mrs. Braswell is currently on 1L of Oxygen. Her Hgb was 6.4 L and orders have been placed to address this. Overnight, her blood sugar did drop and she was given breakfast this morning to address this. Her blood sugar was increased to 125. Mrs. Braswell's daughter is concerned about her mothers foot pain. We discussed the patient's current disposition with her nurse and reviewed her chart. Vitals/I&O Vitals/I&O: Vital Signs Date Time Temp Pulse Resp B/P (MAP) Pulse Ox O2 Delivery O2 Flow Rate FiO2 05/29/21 09:13 76 132/49 05/29/21 08:00 Nasal Cannula 1.0 05/29/21 07:00 98.4 22 98 98.4 I & O 05/28/21 05/28/21 05/29/21 15:00 23:00 07:00 Intake Total 0 ml Output Total 0 ml Balance 0 ml Physical Exam Physical Exam: pleasant, confused General: Alert, Oriented X3, Cooperative, No acute distress Heart: Other (AFIB) Lungs: Clear Abdomen: Normal bowel sounds, Other (obese) Extremities: No clubbing, Other (trace bilateral LE edema ) Skin: No rashes, No significant lesion Labs Labs: Laboratory Tests Test 05/28/21 12:07 05/28/21 15:50 05/28/21 15:55 05/28/21 19:03 Glucose (Fingerstick) 106 mg/dL (70-99) 129 mg/dL (70-99) Sodium Level 137 mmol/L (136-145) Potassium Level 4.5 mmol/L (3.5-5.1) Chloride Level 102 mmol/L (98-107) Carbon Dioxide Level 32 mmol/L (21-32) Anion Gap 3 (6-14) Blood Urea Nitrogen 28 mg/dL (7-20) Creatinine 4.0 mg/dL (0.6-1.0) Estimated GFR (Cockcroft-Gault) 13.2 BUN/Creatinine Ratio 7 (6-20) Glucose Level 131 mg/dL (70-99) Calcium Level 8.3 mg/dL (8.5-10.1) Total Bilirubin 0.2 mg/dL (0.2-1.0) Aspartate Amino Transf (AST/SGOT) 20 U/L (15-37) Alanine Aminotransferase (ALT/SGPT) 32 U/L (14-59) Alkaline Phosphatase 82 U/L (46-116) Troponin I Quantitative 0.095 ng/mL (0.000-0.055) Total Protein 6.0 g/dL (6.4-8.2) Albumin 2.2 g/dL (3.4-5.0) Albumin/Globulin Ratio 0.6 (1.0-1.7) O2 Saturation 98 % (92-99) Arterial Blood pH 7.29 (7.35-7.45) Arterial Blood pCO2 at Patient Temp 57 mmHg (35-46) Arterial Blood pO2 at Patient Temp 109 mmHg (65-108) Arterial Blood HCO3 27 mmol/L (21-28) Arterial Blood Base Excess 0 mmol/L (-3-3) FiO2 3 lpm nc Test 05/29/21 05:00 05/29/21 07:31 05/29/21 08:21 05/29/21 08:30 White Blood Count 6.7 x10^3/uL (4.0-11.0) Red Blood Count 2.10 x10^6/uL (3.50-5.40) Hemoglobin 6.4 g/dL (12.0-15.5) Hematocrit 19.5 % (36.0-47.0) Mean Corpuscular Volume 93 fL (79-100) Mean Corpuscular Hemoglobin 30 pg (25-35) Mean Corpuscular Hemoglobin Concent 33 g/dL (31-37) Red Cell Distribution Width 15.5 % (11.5-14.5) Platelet Count 138 x10^3/uL (140-400) Neutrophils (%) (Auto) 68 % (31-73) Lymphocytes (%) (Auto) 16 % (24-48) Monocytes (%) (Auto) 15 % (0-9) Eosinophils (%) (Auto) 1 % (0-3) Basophils (%) (Auto) 1 % (0-3) Neutrophils # (Auto) 4.6 x10^3/uL (1.8-7.7) Lymphocytes # (Auto) 1.1 x10^3/uL (1.0-4.8) Monocytes # (Auto) 1.0 x10^3/uL (0.0-1.1) Eosinophils # (Auto) 0.0 x10^3/uL (0.0-0.7) Basophils # (Auto) 0.0 x10^3/uL (0.0-0.2) Glucose (Fingerstick) 51 mg/dL (70-99) 125 mg/dL (70-99) O2 Saturation 99 % (92-99) Arterial Blood pH 7.34 (7.35-7.45) Arterial Blood pCO2 at Patient Temp 52 mmHg (35-46) Arterial Blood pO2 at Patient Temp 135 mmHg (65-108) Arterial Blood HCO3 27 mmol/L (21-28) Arterial Blood Base Excess 1 mmol/L (-3-3) FiO2 3 lpm nc Review of Systems Review of Systems: No vomiting No fever Assessment and Plan Assessmemt and Plan Problems Medical Problems: (1) Hypomagnesemia syndrome Status: Acute (2) Hypoxia Status: Acute (3) Pneumonia due to COVID-19 virus Status: Acute Assessment: 1. Pneumonia (Secondary to COVID-19 Infection) 2. Acute Hypoxic Respiratory Failure 3. Hypomagnesemia 4. CAD 5. CHF 6. Type II Diabetes 7. Arrhythmia 8. Chest discomfort Plan: 1. Continue DVT Prophylaxis (Heparin) 2. Full Code. 3. Continue supplemental oxygen. 4. Home medications. 5. Trend labs 6. Appreciate subspecialist input 7. Long-term prognosis guarded Comment Review of Relevant I have reviewed the following items maged (where applicable) has been applied. Justifications for Admission Other Justification KIRAN MONDRAGON III DO May 29, 2021 10:57
[2021-05-29 15:03] LABS: HEMATOCRIT 23.2 % (36.0-47.0); HEMOGLOBIN 7.5 g/dL (12.0-15.5)
--- NOTE | 2021-05-29 16:45 | NUR ---
Pt found removing the dressing on top of her dialysis catheter. Pt stated "I can't get this off." This RN explained that it needs to stay in place. New dressing applied and mits placed on both hands. Will continue to monitor. Addendum: 05/29/21 at 1815 by JULIAN TODD RN Pt was able to get mitt off her right hand and removed dressing again on dialysis catheter. Catheter redressed and mitt placed back on patient. Will continue to monitor.
[2021-05-29] MEDS: GABAPENTIN 100 MG CAPSULE. PO SCH (20:35)
[2021-05-29] MEDS: ATORVASTATIN CALCIUM 40 MG TABLET. PO SCH (20:38)
[2021-05-30 02:37] VITALS: BP 147/61
[2021-05-30 04:38] LABS: BASO # 0.1 x10^3/uL (0.0-0.2); BASO % 1 % (0-3); EOS % 0 % (0-3); HEMATOCRIT 24.5 % (36.0-47.0); HEMOGLOBIN 7.9 g/dL (12.0-15.5); LYMPH # 0.7 x10^3/uL (1.0-4.8); LYMPH % 7 % (24-48); MEAN CORPUSCULAR HEMOGLOBIN 30 pg (25-35); MEAN CORPUSCULAR HGB CONC 32 g/dL (31-37); MEAN CORPUSCULAR VOLUME 94 fL (79-100); MONO # 0.8 x10^3/uL (0.0-1.1); MONO % 8 % (0-9); NEUT # 8.4 x10^3/uL (1.8-7.7); NEUT % 83 % (31-73); PLATELET COUNT 143 x10^3/uL (140-400); RED BLOOD COUNT 2.62 x10^6/uL (3.50-5.40); RED CELL DISTRIBUTION WIDTH 15.6 % (11.5-14.5); WHITE BLOOD COUNT 10.1 x10^3/uL (4.0-11.0)
[2021-05-30 04:56] LABS: CREATININE 5.7 mg/dL (0.6-1.0); GFR 8.8; POTASSIUM 5.1 mmol/L (3.5-5.1)
[2021-05-30] MEDS: HEPARIN for SUB-Q USE 5,000 UNIT/ML VIAL. SQ SCH ×3 (05:59→22:27)
[2021-05-30 07:00] VITALS: BP 141/56
[2021-05-30] MEDS: INSULIN LISPRO 300 UNITS/3 ML VIAL. SQ SCH ×4 (07:30→21:00)
[2021-05-30] MEDS: PANTOPRAZOLE 40 MG TABLET.DR. PO SCH (07:30)
[2021-05-30] MEDS: LEVOTHYROXINE 175 MCG TABLET PO SCH (07:30)
--- NOTE | 2021-05-30 07:40 | PDOC ---
[employer] PROGRESS NOTE Date of Service DOS: DATE: 05/30/21 TIME: 07:31 Chief Complaint Chief Complaint A/P: Pneumonia (Secondary to COVID-19 Infection) Acute Hypoxic Respiratory Failure COVID 19 Hypomagnesemia CAD CHF Type II Diabetes SUZIE Anemia Hypothyroidism FEN - Renal ADA diet PPX - heparin, PPI FULL CODE Dispo - inpatient, will need rehab on d/c History of Present Illness History of Present Illness Ms Braswell is a 75yo F w/ PMHx HTN, DM2, CHF, CAD s/p CABG who came to ED on 05/13/2020 progressive shortness of breath over the prior week. In ED with O2 saturations 86% on room air febrile to 101.3 F. Tested positive for COVID-19. She had not been fully vaccinated. 05/14: Weak and was resting. (Remdesivir, Dexamethsone, Heparin, Piperacillin/Tazobactam). Mrs. Braswell states that she only received 1 dose of the COVID-19 vaccination. 05/15: She is feeling better. This morning, she was able to eat her breakfast. 05/16: Afebrile overnight. Glucose in the 200s. O2 saturations 89 to 91% on 2 L nasal cannula oxygen. She is feeling short of breath and weak. No chest pain. 05/17: V. tach overnight. Afebrile. BUN over 88 and creatinine elevated. Holding furosemide and losartan. Baseline CR at [facility] was 1.1. Cardiology nephrology consulted today. 05/18: BUN over 88 and creatinine elevated 6.9. Completed remdesivir on 05/17 92: NO AV mariama block agents with bradycardia. Am labs 05/20: Continue empiric PPI. Follow hemoglobin. Confused, not eating well 05/21: Confused, not eating well pulled out temp dialysis cath 9- am 05/22: NON- TUNNELED Hemodialysis catheter via the right internal jugular vein approach, ready to utilize. Melena/fall in hemoglobin--hemoglobin stable x 2. 05/23: Seen and examined at bedside. Reports no complaints this morning, breathing feeling better. Denying bloody bowel movement. Mild drop in hemoglobin today, plan for dialysis 05/24: Patient seen and evaluated at bedside. She was on the phone talking. No complaints. Dialysis tomorrow. Will likely need rehab for discharge. 05/25: Mrs. Braswell was seen and evaluated in her room this morning. She was resting upon entering her room, but awoke and conversed with me. 05/26: Patient evaluated at bedside. No major clinical changes. Will need acute rehab placement. 05/27: Patient evaluated at bedside she was resting getting ready to go for tunnel cath placement. Will need outpatient dialysis likely rehab. 05/28: She stated that she had been experiencing chest pain and exhibited an arrhythmia, for which I have consulted Cardiology. Mrs. Braswell is on 3 L of Oxygen. 05/29: On 1L of Oxygen. Her Hgb was 6.4 L and orders have been placed to address this. Overnight, her blood sugar did drop and she was given breakfast with improvement. Hb 7.9 after 1 u PRBC transfusion. BUN 37, CR 5.7. Seen on dialysis, still a bit confused. Vitals/I&O Vitals/I&O: Vital Signs Date Time Temp Pulse Resp B/P (MAP) Pulse Ox O2 Delivery O2 Flow Rate FiO2 05/30/21 02:37 97.6 93 19 147/61 (89) 97 Nasal Cannula 2.0 97.6 I & O 05/29/21 05/29/21 05/30/21 15:00 23:00 07:00 Intake Total 368 ml 300 ml Balance 368 ml 300 ml Physical Exam Physical Exam: pleasant, confused General: Alert, Cooperative, No acute distress Heart: Other (AFIB) Lungs: Clear Abdomen: Normal bowel sounds, Other (obese) Extremities: No clubbing, Other (trace bilateral LE edema ) Skin: No rashes, No significant lesion Labs Labs: Laboratory Tests Test 05/29/21 08:21 05/29/21 08:30 05/29/21 11:47 05/29/21 14:55 Glucose (Fingerstick) 125 mg/dL (70-99) 91 mg/dL (70-99) O2 Saturation 99 % (92-99) Arterial Blood pH 7.34 (7.35-7.45) Arterial Blood pCO2 at Patient Temp 52 mmHg (35-46) Arterial Blood pO2 at Patient Temp 135 mmHg (65-108) Arterial Blood HCO3 27 mmol/L (21-28) Arterial Blood Base Excess 1 mmol/L (-3-3) FiO2 3 lpm nc Hemoglobin 7.5 g/dL (12.0-15.5) Hematocrit 23.2 % (36.0-47.0) Test 05/29/21 16:36 05/29/21 18:50 05/29/21 22:25 05/30/21 04:33 Glucose (Fingerstick) 159 mg/dL (70-99) 156 mg/dL (70-99) 147 mg/dL (70-99) White Blood Count 10.1 x10^3/uL (4.0-11.0) Red Blood Count 2.62 x10^6/uL (3.50-5.40) Hemoglobin 7.9 g/dL (12.0-15.5) Hematocrit 24.5 % (36.0-47.0) Mean Corpuscular Volume 94 fL (79-100) Mean Corpuscular Hemoglobin 30 pg (25-35) Mean Corpuscular Hemoglobin Concent 32 g/dL (31-37) Red Cell Distribution Width 15.6 % (11.5-14.5) Platelet Count 143 x10^3/uL (140-400) Neutrophils (%) (Auto) 83 % (31-73) Lymphocytes (%) (Auto) 7 % (24-48) Monocytes (%) (Auto) 8 % (0-9) Eosinophils (%) (Auto) 0 % (0-3) Basophils (%) (Auto) 1 % (0-3) Neutrophils # (Auto) 8.4 x10^3/uL (1.8-7.7) Lymphocytes # (Auto) 0.7 x10^3/uL (1.0-4.8) Monocytes # (Auto) 0.8 x10^3/uL (0.0-1.1) Eosinophils # (Auto) 0.0 x10^3/uL (0.0-0.7) Basophils # (Auto) 0.1 x10^3/uL (0.0-0.2) Sodium Level 137 mmol/L (136-145) Potassium Level 5.1 mmol/L (3.5-5.1) Chloride Level 102 mmol/L (98-107) Carbon Dioxide Level 29 mmol/L (21-32) Anion Gap 6 (6-14) Blood Urea Nitrogen 37 mg/dL (7-20) Creatinine 5.7 mg/dL (0.6-1.0) Estimated GFR (Cockcroft-Gault) 8.8 Glucose Level 180 mg/dL (70-99) Calcium Level 9.0 mg/dL (8.5-10.1) Test 05/30/21 07:07 Glucose (Fingerstick) 186 mg/dL (70-99) Assessment and Plan Assessmemt and Plan Problems Medical Problems: (1) Hypomagnesemia syndrome Status: Acute (2) Hypoxia Status: Acute (3) Pneumonia due to COVID-19 virus Status: Acute Comment Review of Relevant I have reviewed the following items maged (where applicable) has been applied. Justifications for Admission Other Justification GENO YEBAOH MD May 30, 2021 07:40
[2021-05-30] MEDS ORDERED: IV NORMAL SALINE 1000ML BAG 1,000 ML IV PRN ×2 (08:30)
[2021-05-30] MEDS ORDERED: DIALYSIS PATIENT. MC PRN ×2 (08:30)
--- NOTE | 2021-05-30 08:31 | NUR ---
Pt sent to dialysis this morning. Insulin held due to not eating breakfast, blood sugar 186. Daily Medications to be administered after dialysis. Will continue to monitor.
[2021-05-30] MEDS: EZETIMIBE 10 MG TABLET. PO SCH (09:00)
[2021-05-30] MEDS: ASPIRIN CHEWABLE 81 MG TABLET. PO SCH (09:00)
[2021-05-30] MEDS: hydrALAZINE 25 MG TABLET PO SCH ×3 (09:00→21:58)
[2021-05-30] MEDS: LACTOBACILLUS RHAMNOSUS GG 1 CAPSULE. PO SCH ×2 (09:00→21:58)
[2021-05-30] MEDS: ALLOPURINOL 100 MG TABLET. PO SCH (09:00)
[2021-05-30] MEDS: ISOSORBIDE MONONITRATE ER 30 MG TAB.ER.24H PO SCH (09:00)
[2021-05-30] MEDS: SENNOSIDES/DOCUSATE 8.6/50MG TABLET. PO SCH ×2 (09:00→21:57)
[2021-05-30] MEDS: MULTIVITAMIN with MINERAL TABLET. PO SCH (09:00)
--- NOTE | 2021-05-30 10:29 | PDOC ---
Date of Service: DATE: 05/30/21 TIME: 10:25 Objective: Objective: D/w nurse - dark formed stool yesterday but not tarry. Tolerates diet but needs help eating. Confused, pulls at lines. Transfused 1 unit over the weekend, issues w/ hypoglycemia. Vital Signs: Vital Signs Date Time Temp Pulse Resp B/P (MAP) Pulse Ox O2 Delivery O2 Flow Rate FiO2 05/30/21 08:00 Nasal Cannula 1.0 05/30/21 07:00 99.4 87 20 141/56 (84) 97 99.4 Labs: Laboratory Tests Test 05/29/21 11:47 05/29/21 16:36 05/29/21 18:50 05/29/21 22:25 Glucose (Fingerstick) 91 mg/dL (70-99) 159 mg/dL (70-99) 156 mg/dL (70-99) 147 mg/dL (70-99) Test 05/30/21 07:07 Glucose (Fingerstick) 186 mg/dL (70-99) PE: GEN: dialyzing, has mittens LUNGS: NC 1L HEART: RRR ABD: soft, apparently non-tender NEURO/PSYCH: sleeping, not awakened A/P: COVID pneumonia, CHF, CKD on HD, CAD Anemia, +Hemoccult - not iron deficient (checked 05/19/21), on PPI and ASA - transfused over the weekend -- Continue support/observation from GI standpoint. Justicifation of Admission Dx: Justifications for Admission: Justification of Admission Dx: Yes HARJINDER LAFLEUR May 30, 2021 10:29
--- NOTE | 2021-05-30 10:30 | PDOC ---
DATE OF SERVICE DATE: 05/30/21 TIME: 10:26 SUBJECTIVE ROS seen on dialysis No new concerns voiced by nursing or patient OBJECTIVE Vital Signs Vital Signs Date Time Temp Pulse Resp B/P (MAP) Pulse Ox O2 Delivery O2 Flow Rate FiO2 05/30/21 08:00 Nasal Cannula 1.0 05/30/21 07:00 99.4 87 20 141/56 (84) 97 99.4 I & 0 Intake and Output 05/30/21 07:00 Intake Total 668 ml Balance 668 ml Intake Oral 300 ml Blood Product IV Normal Saline Flush 368 ml # Voids 1 # Bowel Movements 1 PHYSICAL EXAM Physical Exam General: No acute distress HEENT: OM moist Neck Supple Lungs: CTA ant, Non labored Heart: Regular rate Abdomen: obese, NT Extremities: trace bilateral LE edema Skin: No significant lesion, no rash Neuro: Normal speech, Sensation intact Psych/Mental Status: Mental status NL, Mood NL No sanchez, No CVA or SP tenderness DIAGNOSIS/ASSESSMENT Assessment & Plan SUZIE - Cr elevated at presentation to the ER to 2.5 worsening renal function . I initiated dialysis , No clearance requiring dialysis, currently MWF schedule Seen during treatment, tolerating well. Continue as ordered. Enrique Najera ACccess - Tunnelled HDC , OP chair time pending- please schedule with me CKD; 1.1 at [facility] 05/13/21 (no labs in our system) Acute respiratory failure secondary to COVID PNA Arrhythmia; 18-beat NSVT noted on tele. Otherwise SR. CAD s/p CABG 2004. Follows with [facility], Dr. Murillo. Chronic diastolic CHF; Echo 05/07 with preserved LV systolic function Accelerated hypertension; now controlled Diabetes, II Morbid obesity, BRITTANI. noncompliant with CPAP COMMENT/RELEVANT DATA Meds Current Medications Medications (Trade) Dose Ordered Sig/Lemuel Start Time Stop Time Status Last Admin Dose Admin Acetaminophen (Tylenol) 650 mg PRN Q6HRS PRN 05/13/21 17:00 05/13/21 21:00 650 MG Albumin Human 200 ml @ 200 mls/hr 1X PRN PRN 05/25/21 08:30 05/25/21 14:29 DC Albuterol Sulfate (Ventolin Hfa) 2 puff PRN Q4HRS PRN 05/16/21 20:00 05/19/21 13:29 2 PUFF Allopurinol (Zyloprim) 100 mg DAILY 05/14/21 09:00 05/29/21 09:12 100 MG Amino Acids/ Electrolytes/ Dextrose 1,000 ml @ 80 mls/hr [id number] 05/20/21 13:15 05/25/21 13:30 DC 05/24/21 05:37 80 MLS/HR Amlodipine Besylate (Norvasc) 5 mg DAILY 05/14/21 09:00 05/29/21 09:12 5 MG Aspirin (Aspirin Chewable) 81 mg DAILY 05/14/21 09:00 05/29/21 09:13 81 MG Aspirin (Ecotrin) 81 mg [id number] 05/14/21 08:00 05/13/21 18:10 DC Atorvastatin Calcium (Lipitor) 80 mg QHS 05/13/21 21:00 05/29/21 20:38 80 MG Azithromycin 250 ml @ 250 mls/hr 1X ONCE 05/13/21 16:15 05/13/21 17:14 DC 05/13/21 16:37 250 MLS/HR Calcium Carbonate/ Glycine (Tums) 500 mg PRN Q3HRS PRN 05/13/21 17:00 Cefazolin Sodium/ Dextrose 50 ml @ 100 mls/hr 1X ONCE 05/27/21 13:45 05/27/21 14:14 DC 05/27/21 13:45 100 MLS/HR Ceftriaxone Sodium (Rocephin) 1 gm 1X ONCE 05/13/21 16:00 05/13/21 16:02 DC 05/13/21 16:37 1 GM Dexamethasone Sodium Phosphate (Decadron) 6 mg DAILY 05/14/21 09:00 05/25/21 13:28 DC 05/25/21 09:09 6 MG Dextrose (Dextrose 50%-Water Syringe) 12.5 gm PRN Q15MIN PRN 05/14/21 17:30 05/29/21 07:38 12.5 GM EZETIMIBE (Zetia) 10 mg DAILY 05/14/21 09:00 05/29/21 09:13 10 MG Fentanyl Citrate (Fentanyl 2ml Vial) 100 mcg 1X ONCE 05/27/21 13:30 05/27/21 13:31 DC 05/27/21 13:30 50 MCG Furosemide (Lasix) 40 mg DAILY 05/14/21 09:00 05/16/21 14:56 DC 05/16/21 10:09 40 MG Gabapentin (Neurontin) 100 mg HS 05/13/21 21:00 05/29/21 20:35 100 MG Guaifenesin (Robitussin Dm) 10 ml PRN Q6HRS PRN 05/16/21 07:30 05/16/21 21:16 10 ML Guaifenesin/ Codeine Phosphate (Robitussin Ac) 5 ml PRN Q6HRS PRN 05/13/21 16:15 05/16/21 07:29 DC Heparin Sodium (Porcine) (Heparin Sodium) 2,500 unit 1X ONCE 05/21/21 12:45 05/21/21 12:46 DC 05/21/21 12:41 2,500 UNIT Hydralazine HCl (Apresoline Inj) 10 mg PRN Q4HRS PRN 05/16/21 15:00 05/22/21 02:55 10 MG Hydralazine HCl (Apresoline) 25 mg TID 05/21/21 10:30 05/29/21 09:13 25 MG Info (Non-Icu Electrolyte Protocol) 1 ea PRN DAILY PRN 05/13/21 17:00 Info (PHARMACY MONITORING -- do not chart) 1 each PRN DAILY PRN 05/30/21 08:30 Insulin Glargine (Lantus Syringe) 15 unit QHS 05/30/21 21:00 Insulin Human Lispro (HumaLOG) 9 units 1X ONCE 05/24/21 21:00 05/24/21 21:01 DC 05/24/21 23:04 9 UNITS Isosorbide Mononitrate (Imdur) 30 mg DAILY 05/17/21 09:00 05/29/21 09:12 30 MG Lactobacillus Rhamnosus (Culturelle) 1 cap BID 05/16/21 21:00 05/29/21 20:35 1 CAP Levothyroxine Sodium (Synthroid) 175 mcg DAILYAC 05/14/21 07:30 05/29/21 09:13 175 MCG Lidocaine HCl (Buffered Lidocaine 1%) 6 ml 1X ONCE 05/21/21 11:30 05/21/21 11:33 DC 05/21/21 12:10 4 ML Lidocaine/ Epinephrine (LIDOCAINE 1%-EPI 1:100,000 Multi-Dose) 20 ml 1X ONCE 05/27/21 13:30 05/27/21 13:31 DC 05/27/21 13:30 9 ML Losartan Potassium (Cozaar) 50 mg DAILY 05/14/21 09:00 05/16/21 14:56 DC 05/16/21 10:09 50 MG Magnesium Sulfate 50 ml @ 25 mls/hr 1X ONCE 05/13/21 16:15 05/13/21 18:14 Cancel Methylprednisolone Sodium Succinate (SOLU-Medrol 125MG VIAL) 125 mg 1X ONCE 05/13/21 15:45 05/13/21 15:46 DC 05/13/21 15:58 125 MG Midazolam HCl (Versed) 2 mg 1X ONCE 05/27/21 13:30 05/27/21 13:31 DC 05/27/21 13:30 1 MG Multivitamins (Thera M Plus) 1 tab DAILY 05/14/21 09:00 05/29/21 09:12 1 TAB Ondansetron HCl (Zofran) 4 mg PRN Q6HRS PRN 05/13/21 17:00 Oxycodone HCl (Roxicodone) 5 mg PRN Q3HRS PRN 05/13/21 17:00 Oxycodone/ Acetaminophen (Percocet 5/325) 2 tab PRN Q4HRS PRN 05/13/21 17:00 05/22/21 10:01 2 TAB Pantoprazole Sodium (Protonix) 40 mg DAILYAC 05/19/21 16:30 05/29/21 09:13 40 MG Piperacillin Sod/ Tazobactam Sod (Zosyn Per Pharmacy) 1 each PRN DAILY PRN 05/13/21 16:15 05/25/21 13:28 DC Piperacillin Sod/ Tazobactam Sod 2.25 gm/Sodium Chloride 50 ml @ 100 mls/hr Q8HRS 05/20/21 14:00 05/25/21 13:28 DC 05/25/21 05:34 100 MLS/HR Remdesivir 100 mg/ Sodium Chloride 230 ml @ 460 mls/hr Q24H 05/14/21 17:00 05/17/21 17:29 DC 05/17/21 17:45 460 MLS/HR Remdesivir 200 mg/ Sodium Chloride 210 ml @ 210 mls/hr 1X ONCE 05/13/21 17:00 05/13/21 17:59 DC 05/13/21 20:59 210 MLS/HR Senna/Docusate Sodium (Senna Plus) 1 tab BID 05/13/21 21:00 05/29/21 20:35 1 TAB Sodium Chloride 1,000 ml @ 400 mls/hr Q2H30M PRN 05/30/21 08:30 05/30/21 20:29 Sodium Chloride (Normal Saline Flush) 10 ml 1X PRN PRN 05/25/21 08:30 05/26/21 08:29 DC Zolpidem Tartrate (Ambien) 5 mg PRN QHS PRN 05/13/21 17:00 05/16/21 07:29 DC Lab Laboratory Tests Test 05/29/21 11:47 05/29/21 14:55 05/29/21 16:36 05/29/21 18:50 Glucose (Fingerstick) 91 mg/dL (70-99) 159 mg/dL (70-99) 156 mg/dL (70-99) Hemoglobin 7.5 g/dL (12.0-15.5) Hematocrit 23.2 % (36.0-47.0) Test 05/29/21 22:25 05/30/21 04:33 05/30/21 07:07 Glucose (Fingerstick) 147 mg/dL (70-99) 186 mg/dL (70-99) White Blood Count 10.1 x10^3/uL (4.0-11.0) Red Blood Count 2.62 x10^6/uL (3.50-5.40) Hemoglobin 7.9 g/dL (12.0-15.5) Hematocrit 24.5 % (36.0-47.0) Mean Corpuscular Volume 94 fL (79-100) Mean Corpuscular Hemoglobin 30 pg (25-35) Mean Corpuscular Hemoglobin Concent 32 g/dL (31-37) Red Cell Distribution Width 15.6 % (11.5-14.5) Platelet Count 143 x10^3/uL (140-400) Neutrophils (%) (Auto) 83 % (31-73) Lymphocytes (%) (Auto) 7 % (24-48) Monocytes (%) (Auto) 8 % (0-9) Eosinophils (%) (Auto) 0 % (0-3) Basophils (%) (Auto) 1 % (0-3) Neutrophils # (Auto) 8.4 x10^3/uL (1.8-7.7) Lymphocytes # (Auto) 0.7 x10^3/uL (1.0-4.8) Monocytes # (Auto) 0.8 x10^3/uL (0.0-1.1) Eosinophils # (Auto) 0.0 x10^3/uL (0.0-0.7) Basophils # (Auto) 0.1 x10^3/uL (0.0-0.2) Sodium Level 137 mmol/L (136-145) Potassium Level 5.1 mmol/L (3.5-5.1) Chloride Level 102 mmol/L (98-107) Carbon Dioxide Level 29 mmol/L (21-32) Anion Gap 6 (6-14) Blood Urea Nitrogen 37 mg/dL (7-20) Creatinine 5.7 mg/dL (0.6-1.0) Estimated GFR (Cockcroft-Gault) 8.8 Glucose Level 180 mg/dL (70-99) Calcium Level 9.0 mg/dL (8.5-10.1) Results All relevant outside records, renal labs, imaging studies, telemetry/EKG's were reviewed. Justicifation of Admission Dx: Justifications for Admission: Justification of Admission Dx: Yes AMINA MÁRQUEZ MD May 30, 2021 10:30
--- NOTE | 2021-05-30 10:55 | NUR ---
SW following. Discussed with RN, pt from home with daughter, 1L, cardiac diet. SW faxed dialysis chair time referral, awaiting confirmation. SW will continue to follow.
--- NOTE | 2021-05-30 11:55 | PDOC ---
PULMONARY PROGRESS NOTES DATE: 05/30/21 TIME: 11:54 Subjective doing well on 2 litres nc Vitals Vital Signs Date Time Temp Pulse Resp B/P (MAP) Pulse Ox O2 Delivery O2 Flow Rate FiO2 05/30/21 08:00 Nasal Cannula 1.0 05/30/21 07:00 99.4 87 20 141/56 (84) 97 99.4 General: Alert, No acute distress Lungs: Clear Cardiovascular: S1 Abdomen: Soft, Other (obese) Neuro Exam: Alert Extremities: No Edema Labs Laboratory Tests Test 05/28/21 12:07 05/28/21 15:50 05/28/21 15:55 05/28/21 19:03 Glucose (Fingerstick) 106 mg/dL (70-99) 129 mg/dL (70-99) Sodium Level 137 mmol/L (136-145) Potassium Level 4.5 mmol/L (3.5-5.1) Chloride Level 102 mmol/L (98-107) Carbon Dioxide Level 32 mmol/L (21-32) Anion Gap 3 (6-14) Blood Urea Nitrogen 28 mg/dL (7-20) Creatinine 4.0 mg/dL (0.6-1.0) Estimated GFR (Cockcroft-Gault) 13.2 BUN/Creatinine Ratio 7 (6-20) Glucose Level 131 mg/dL (70-99) Calcium Level 8.3 mg/dL (8.5-10.1) Total Bilirubin 0.2 mg/dL (0.2-1.0) Aspartate Amino Transf (AST/SGOT) 20 U/L (15-37) Alanine Aminotransferase (ALT/SGPT) 32 U/L (14-59) Alkaline Phosphatase 82 U/L (46-116) Troponin I Quantitative 0.095 ng/mL (0.000-0.055) Total Protein 6.0 g/dL (6.4-8.2) Albumin 2.2 g/dL (3.4-5.0) Albumin/Globulin Ratio 0.6 (1.0-1.7) O2 Saturation 98 % (92-99) Arterial Blood pH 7.29 (7.35-7.45) Arterial Blood pCO2 at Patient Temp 57 mmHg (35-46) Arterial Blood pO2 at Patient Temp 109 mmHg (65-108) Arterial Blood HCO3 27 mmol/L (21-28) Arterial Blood Base Excess 0 mmol/L (-3-3) FiO2 3 lpm nc Test 05/29/21 05:00 05/29/21 07:31 05/29/21 08:21 05/29/21 08:30 White Blood Count 6.7 x10^3/uL (4.0-11.0) Red Blood Count 2.10 x10^6/uL (3.50-5.40) Hemoglobin 6.4 g/dL (12.0-15.5) Hematocrit 19.5 % (36.0-47.0) Mean Corpuscular Volume 93 fL (79-100) Mean Corpuscular Hemoglobin 30 pg (25-35) Mean Corpuscular Hemoglobin Concent 33 g/dL (31-37) Red Cell Distribution Width 15.5 % (11.5-14.5) Platelet Count 138 x10^3/uL (140-400) Neutrophils (%) (Auto) 68 % (31-73) Lymphocytes (%) (Auto) 16 % (24-48) Monocytes (%) (Auto) 15 % (0-9) Eosinophils (%) (Auto) 1 % (0-3) Basophils (%) (Auto) 1 % (0-3) Neutrophils # (Auto) 4.6 x10^3/uL (1.8-7.7) Lymphocytes # (Auto) 1.1 x10^3/uL (1.0-4.8) Monocytes # (Auto) 1.0 x10^3/uL (0.0-1.1) Eosinophils # (Auto) 0.0 x10^3/uL (0.0-0.7) Basophils # (Auto) 0.0 x10^3/uL (0.0-0.2) Glucose (Fingerstick) 51 mg/dL (70-99) 125 mg/dL (70-99) O2 Saturation 99 % (92-99) Arterial Blood pH 7.34 (7.35-7.45) Arterial Blood pCO2 at Patient Temp 52 mmHg (35-46) Arterial Blood pO2 at Patient Temp 135 mmHg (65-108) Arterial Blood HCO3 27 mmol/L (21-28) Arterial Blood Base Excess 1 mmol/L (-3-3) FiO2 3 lpm nc Test 05/29/21 11:47 05/29/21 14:55 05/29/21 16:36 05/29/21 18:50 Glucose (Fingerstick) 91 mg/dL (70-99) 159 mg/dL (70-99) 156 mg/dL (70-99) Hemoglobin 7.5 g/dL (12.0-15.5) Hematocrit 23.2 % (36.0-47.0) Test 05/29/21 22:25 05/30/21 04:33 05/30/21 07:07 Glucose (Fingerstick) 147 mg/dL (70-99) 186 mg/dL (70-99) White Blood Count 10.1 x10^3/uL (4.0-11.0) Red Blood Count 2.62 x10^6/uL (3.50-5.40) Hemoglobin 7.9 g/dL (12.0-15.5) Hematocrit 24.5 % (36.0-47.0) Mean Corpuscular Volume 94 fL (79-100) Mean Corpuscular Hemoglobin 30 pg (25-35) Mean Corpuscular Hemoglobin Concent 32 g/dL (31-37) Red Cell Distribution Width 15.6 % (11.5-14.5) Platelet Count 143 x10^3/uL (140-400) Neutrophils (%) (Auto) 83 % (31-73) Lymphocytes (%) (Auto) 7 % (24-48) Monocytes (%) (Auto) 8 % (0-9) Eosinophils (%) (Auto) 0 % (0-3) Basophils (%) (Auto) 1 % (0-3) Neutrophils # (Auto) 8.4 x10^3/uL (1.8-7.7) Lymphocytes # (Auto) 0.7 x10^3/uL (1.0-4.8) Monocytes # (Auto) 0.8 x10^3/uL (0.0-1.1) Eosinophils # (Auto) 0.0 x10^3/uL (0.0-0.7) Basophils # (Auto) 0.1 x10^3/uL (0.0-0.2) Sodium Level 137 mmol/L (136-145) Potassium Level 5.1 mmol/L (3.5-5.1) Chloride Level 102 mmol/L (98-107) Carbon Dioxide Level 29 mmol/L (21-32) Anion Gap 6 (6-14) Blood Urea Nitrogen 37 mg/dL (7-20) Creatinine 5.7 mg/dL (0.6-1.0) Estimated GFR (Cockcroft-Gault) 8.8 Glucose Level 180 mg/dL (70-99) Calcium Level 9.0 mg/dL (8.5-10.1) Laboratory Tests Test 05/29/21 14:55 05/29/21 16:36 05/29/21 18:50 05/29/21 22:25 Hemoglobin 7.5 g/dL (12.0-15.5) Hematocrit 23.2 % (36.0-47.0) Glucose (Fingerstick) 159 mg/dL (70-99) 156 mg/dL (70-99) 147 mg/dL (70-99) Test 05/30/21 04:33 05/30/21 07:07 White Blood Count 10.1 x10^3/uL (4.0-11.0) Red Blood Count 2.62 x10^6/uL (3.50-5.40) Hemoglobin 7.9 g/dL (12.0-15.5) Hematocrit 24.5 % (36.0-47.0) Mean Corpuscular Volume 94 fL (79-100) Mean Corpuscular Hemoglobin 30 pg (25-35) Mean Corpuscular Hemoglobin Concent 32 g/dL (31-37) Red Cell Distribution Width 15.6 % (11.5-14.5) Platelet Count 143 x10^3/uL (140-400) Neutrophils (%) (Auto) 83 % (31-73) Lymphocytes (%) (Auto) 7 % (24-48) Monocytes (%) (Auto) 8 % (0-9) Eosinophils (%) (Auto) 0 % (0-3) Basophils (%) (Auto) 1 % (0-3) Neutrophils # (Auto) 8.4 x10^3/uL (1.8-7.7) Lymphocytes # (Auto) 0.7 x10^3/uL (1.0-4.8) Monocytes # (Auto) 0.8 x10^3/uL (0.0-1.1) Eosinophils # (Auto) 0.0 x10^3/uL (0.0-0.7) Basophils # (Auto) 0.1 x10^3/uL (0.0-0.2) Sodium Level 137 mmol/L (136-145) Potassium Level 5.1 mmol/L (3.5-5.1) Chloride Level 102 mmol/L (98-107) Carbon Dioxide Level 29 mmol/L (21-32) Anion Gap 6 (6-14) Blood Urea Nitrogen 37 mg/dL (7-20) Creatinine 5.7 mg/dL (0.6-1.0) Estimated GFR (Cockcroft-Gault) 8.8 Glucose Level 180 mg/dL (70-99) Calcium Level 9.0 mg/dL (8.5-10.1) Glucose (Fingerstick) 186 mg/dL (70-99) Medications Active Scripts Medications Dose Route/Sig Max Daily Dose Days Date Category Zetia (Ezetimibe) 10 Mg Tablet 10 Mg PO DAILY 05/13/21 Reported Furosemide 40 Mg Tablet 1 Tab PO DAILY 05/13/21 Reported Hydrocodone-Apap 5-325 (Hydrocodone Bit/Acetaminophen) 1 Tab Tablet 1 Tab PO PRN BID PRN 05/13/21 Reported Allopurinol 100 Mg Tablet 1 Tab PO DAILY 05/13/21 Reported Aspirin 81 Mg Tab.chew 1 Tab PO DAILY 05/13/21 Reported Levothyroxine Sodium 175 Mcg Tablet 175 Mcg PO DAILYAC 05/13/21 Reported Amlodipine Besylate 5 Mg Tablet 5 Mg PO DAILY 05/13/21 Reported Hydralazine Hcl 25 Mg Tablet 1 Tab PO TID 05/13/21 Reported Gabapentin (Gabapentin) 100 Mg Capsule 100 Mg PO HS 05/13/21 Reported Atorvastatin Calcium 80 Mg Tablet 80 Mg PO DAILY 05/13/21 Reported Losartan Potassium 50 Mg Tablet 50 Mg PO DAILY 05/13/21 Reported Metformin Hcl 500 Mg Tablet 500 Mg PO BIDWMEALS 05/13/21 Reported Magnesium (Magnesium Oxide) 500 Mg Capsule 1 Cap PO BID 30 05/13/21 Reported Impression . 1. Acute hypercapnic respiratory failure secondary to likely congestive heart failure. Underlying COVID-19 pneumonia as well. 2. Abnormal chest x-ray with bilateral interstitial infiltrates, likely congestive heart failure. 3. COVID-19 positive by the rapid test. 4. End-stage renal disease, on hemodialysis. 5. Anemia, also contributing to her dyspnea. 6. Encephalopathy, improved post-BiPAP. 7. Mildly increased troponin level. 8. Severe protein-calorie malnutrition. Plan . 1. Continue BiPAP at bedtime and p.r.n. during the day. 2. Avoid hyperoxia. Her pO2 is too good. 3. Hemodialysis with ultrafiltration per renal. 4. PRN bronchodilators. 5. Transfuse with dialysis. 6. Okay to continue heparin for DVT prophylaxis for now. 7. Continue supportive care. 8. Discussed with RN and we will follow along with you. BRITTANY JOYCE MD May 30, 2021 11:55
[2021-05-30 12:10] VITALS: BP 125/62
--- NOTE | 2021-05-30 14:00 | NUR ---
PO medications held due to patient having increased drowsiness after dialysis.
[2021-05-30 15:00] VITALS: BP 139/63
[2021-05-30 19:00] VITALS: BP 119/49
[2021-05-30] MEDS: INSULIN GLARGINE SYRINGE. SQ SCH (21:00)
[2021-05-30] MEDS ORDERED: INSULIN GLARGINE SYRINGE. SQ SCH (21:00)
[2021-05-30] MEDS: ATORVASTATIN CALCIUM 40 MG TABLET. PO SCH (21:57)
[2021-05-30] MEDS: GABAPENTIN 100 MG CAPSULE. PO SCH (21:57)
[2021-05-30 22:37] VITALS: BP 135/49
[2021-05-31] MEDS: oxyCODONE/APAP 5/325 1 TAB TABLET PO PRN ×2 (01:07→08:31)
[2021-05-31 03:00] VITALS: BP 100/42
[2021-05-31] MEDS: HEPARIN for SUB-Q USE 5,000 UNIT/ML VIAL. SQ SCH ×3 (05:32→23:09)
[2021-05-31 07:00] VITALS: BP 151/55
[2021-05-31] MEDS: INSULIN LISPRO 300 UNITS/3 ML VIAL. SQ SCH ×4 (07:30→21:00)
[2021-05-31 07:56] LABS: BASO % 1 % (0-3); EOS % 1 % (0-3); HEMATOCRIT 23.7 % (36.0-47.0); HEMOGLOBIN 7.6 g/dL (12.0-15.5); LYMPH # 0.7 x10^3/uL (1.0-4.8); LYMPH % 9 % (24-48); MEAN CORPUSCULAR HEMOGLOBIN 30 pg (25-35); MEAN CORPUSCULAR HGB CONC 32 g/dL (31-37); MEAN CORPUSCULAR VOLUME 94 fL (79-100); MONO # 0.7 x10^3/uL (0.0-1.1); MONO % 10 % (0-9); NEUT % 80 % (31-73); PLATELET COUNT 148 x10^3/uL (140-400); RED BLOOD COUNT 2.51 x10^6/uL (3.50-5.40); RED CELL DISTRIBUTION WIDTH 15.4 % (11.5-14.5); WHITE BLOOD COUNT 7.5 x10^3/uL (4.0-11.0)
[2021-05-31] MEDS: EZETIMIBE 10 MG TABLET. PO SCH (08:30)
[2021-05-31] MEDS: MULTIVITAMIN with MINERAL TABLET. PO SCH (08:30)
[2021-05-31] MEDS: LACTOBACILLUS RHAMNOSUS GG 1 CAPSULE. PO SCH ×2 (08:30→23:04)
[2021-05-31] MEDS: PANTOPRAZOLE 40 MG TABLET.DR. PO SCH (08:30)
[2021-05-31] MEDS: ASPIRIN CHEWABLE 81 MG TABLET. PO SCH (08:30)
[2021-05-31] MEDS: ALLOPURINOL 100 MG TABLET. PO SCH (08:31)
[2021-05-31] MEDS: LEVOTHYROXINE 175 MCG TABLET PO SCH (08:31)
[2021-05-31] MEDS: hydrALAZINE 25 MG TABLET PO SCH ×3 (08:32→23:08)
[2021-05-31] MEDS: ISOSORBIDE MONONITRATE ER 30 MG TAB.ER.24H PO SCH (08:33)
[2021-05-31] MEDS: SENNOSIDES/DOCUSATE 8.6/50MG TABLET. PO SCH ×2 (08:34→23:03)
[2021-05-31] MEDS: NYSTATIN TOPICAL POWDER 15GM BOTTLE. TP SCH ×2 (08:34→23:11)
--- NOTE | 2021-05-31 10:06 | PDOC ---
PULMONARY PROGRESS NOTES DATE: 05/31/21 TIME: 10:04 Subjective doing well on 2 litres nc Vitals Vital Signs Date Time Temp Pulse Resp B/P (MAP) Pulse Ox O2 Delivery O2 Flow Rate FiO2 05/31/21 08:33 90 151/55 05/31/21 08:31 93 Nasal Cannula 1.0 05/31/21 07:00 98.5 18 98.5 General: Alert, No acute distress Lungs: Clear Cardiovascular: S1 Abdomen: Soft, Other (obese) Neuro Exam: Alert Extremities: No Edema Labs Laboratory Tests Test 05/29/21 11:47 05/29/21 14:55 05/29/21 16:36 05/29/21 18:50 Glucose (Fingerstick) 91 mg/dL (70-99) 159 mg/dL (70-99) 156 mg/dL (70-99) Hemoglobin 7.5 g/dL (12.0-15.5) Hematocrit 23.2 % (36.0-47.0) Test 05/29/21 22:25 05/30/21 04:33 05/30/21 07:07 05/30/21 12:18 Glucose (Fingerstick) 147 mg/dL (70-99) 186 mg/dL (70-99) 99 mg/dL (70-99) White Blood Count 10.1 x10^3/uL (4.0-11.0) Red Blood Count 2.62 x10^6/uL (3.50-5.40) Hemoglobin 7.9 g/dL (12.0-15.5) Hematocrit 24.5 % (36.0-47.0) Mean Corpuscular Volume 94 fL (79-100) Mean Corpuscular Hemoglobin 30 pg (25-35) Mean Corpuscular Hemoglobin Concent 32 g/dL (31-37) Red Cell Distribution Width 15.6 % (11.5-14.5) Platelet Count 143 x10^3/uL (140-400) Neutrophils (%) (Auto) 83 % (31-73) Lymphocytes (%) (Auto) 7 % (24-48) Monocytes (%) (Auto) 8 % (0-9) Eosinophils (%) (Auto) 0 % (0-3) Basophils (%) (Auto) 1 % (0-3) Neutrophils # (Auto) 8.4 x10^3/uL (1.8-7.7) Lymphocytes # (Auto) 0.7 x10^3/uL (1.0-4.8) Monocytes # (Auto) 0.8 x10^3/uL (0.0-1.1) Eosinophils # (Auto) 0.0 x10^3/uL (0.0-0.7) Basophils # (Auto) 0.1 x10^3/uL (0.0-0.2) Sodium Level 137 mmol/L (136-145) Potassium Level 5.1 mmol/L (3.5-5.1) Chloride Level 102 mmol/L (98-107) Carbon Dioxide Level 29 mmol/L (21-32) Anion Gap 6 (6-14) Blood Urea Nitrogen 37 mg/dL (7-20) Creatinine 5.7 mg/dL (0.6-1.0) Estimated GFR (Cockcroft-Gault) 8.8 Glucose Level 180 mg/dL (70-99) Calcium Level 9.0 mg/dL (8.5-10.1) Test 05/30/21 16:34 05/30/21 19:14 05/31/21 06:50 05/31/21 06:59 Glucose (Fingerstick) 89 mg/dL (70-99) 144 mg/dL (70-99) 127 mg/dL (70-99) White Blood Count 7.5 x10^3/uL (4.0-11.0) Red Blood Count 2.51 x10^6/uL (3.50-5.40) Hemoglobin 7.6 g/dL (12.0-15.5) Hematocrit 23.7 % (36.0-47.0) Mean Corpuscular Volume 94 fL (79-100) Mean Corpuscular Hemoglobin 30 pg (25-35) Mean Corpuscular Hemoglobin Concent 32 g/dL (31-37) Red Cell Distribution Width 15.4 % (11.5-14.5) Platelet Count 148 x10^3/uL (140-400) Neutrophils (%) (Auto) 80 % (31-73) Lymphocytes (%) (Auto) 9 % (24-48) Monocytes (%) (Auto) 10 % (0-9) Eosinophils (%) (Auto) 1 % (0-3) Basophils (%) (Auto) 1 % (0-3) Neutrophils # (Auto) 6.0 x10^3/uL (1.8-7.7) Lymphocytes # (Auto) 0.7 x10^3/uL (1.0-4.8) Monocytes # (Auto) 0.7 x10^3/uL (0.0-1.1) Eosinophils # (Auto) 0.0 x10^3/uL (0.0-0.7) Basophils # (Auto) 0.0 x10^3/uL (0.0-0.2) Laboratory Tests Test 05/30/21 12:18 05/30/21 16:34 05/30/21 19:14 05/31/21 06:50 Glucose (Fingerstick) 99 mg/dL (70-99) 89 mg/dL (70-99) 144 mg/dL (70-99) White Blood Count 7.5 x10^3/uL (4.0-11.0) Red Blood Count 2.51 x10^6/uL (3.50-5.40) Hemoglobin 7.6 g/dL (12.0-15.5) Hematocrit 23.7 % (36.0-47.0) Mean Corpuscular Volume 94 fL (79-100) Mean Corpuscular Hemoglobin 30 pg (25-35) Mean Corpuscular Hemoglobin Concent 32 g/dL (31-37) Red Cell Distribution Width 15.4 % (11.5-14.5) Platelet Count 148 x10^3/uL (140-400) Neutrophils (%) (Auto) 80 % (31-73) Lymphocytes (%) (Auto) 9 % (24-48) Monocytes (%) (Auto) 10 % (0-9) Eosinophils (%) (Auto) 1 % (0-3) Basophils (%) (Auto) 1 % (0-3) Neutrophils # (Auto) 6.0 x10^3/uL (1.8-7.7) Lymphocytes # (Auto) 0.7 x10^3/uL (1.0-4.8) Monocytes # (Auto) 0.7 x10^3/uL (0.0-1.1) Eosinophils # (Auto) 0.0 x10^3/uL (0.0-0.7) Basophils # (Auto) 0.0 x10^3/uL (0.0-0.2) Test 05/31/21 06:59 Glucose (Fingerstick) 127 mg/dL (70-99) Medications Active Scripts Medications Dose Route/Sig Max Daily Dose Days Date Category Zetia (Ezetimibe) 10 Mg Tablet 10 Mg PO DAILY 05/13/21 Reported Furosemide 40 Mg Tablet 1 Tab PO DAILY 05/13/21 Reported Hydrocodone-Apap 5-325 (Hydrocodone Bit/Acetaminophen) 1 Tab Tablet 1 Tab PO PRN BID PRN 05/13/21 Reported Allopurinol 100 Mg Tablet 1 Tab PO DAILY 05/13/21 Reported Aspirin 81 Mg Tab.chew 1 Tab PO DAILY 05/13/21 Reported Levothyroxine Sodium 175 Mcg Tablet 175 Mcg PO DAILYAC 05/13/21 Reported Amlodipine Besylate 5 Mg Tablet 5 Mg PO DAILY 05/13/21 Reported Hydralazine Hcl 25 Mg Tablet 1 Tab PO TID 05/13/21 Reported Gabapentin (Gabapentin) 100 Mg Capsule 100 Mg PO HS 05/13/21 Reported Atorvastatin Calcium 80 Mg Tablet 80 Mg PO DAILY 05/13/21 Reported Losartan Potassium 50 Mg Tablet 50 Mg PO DAILY 05/13/21 Reported Metformin Hcl 500 Mg Tablet 500 Mg PO BIDWMEALS 05/13/21 Reported Magnesium (Magnesium Oxide) 500 Mg Capsule 1 Cap PO BID 30 05/13/21 Reported Impression . 1. Acute hypercapnic respiratory failure secondary to likely congestive heart failure. Underlying COVID-19 pneumonia as well. 2. Abnormal chest x-ray with bilateral interstitial infiltrates, likely congestive heart failure. 3. COVID-19 positive by the rapid test. 4. End-stage renal disease, on hemodialysis. 5. Anemia, also contributing to her dyspnea. 6. Encephalopathy, improved post-BiPAP. 7. Mildly increased troponin level. 8. Severe protein-calorie malnutrition. Plan . 1. Continue BiPAP at bedtime and p.r.n. during the day. 2. Avoid hyperoxia. 3. Hemodialysis with ultrafiltration per renal. 4. PRN bronchodilators. 5. Transfuse with dialysis. 6. Okay to continue heparin for DVT prophylaxis for now. 7. Continue supportive care. 8. Discussed with RN and we will follow along with you. 9. Discharge plans per PCP BRITTANY JOYCE MD May 31, 2021 10:06
--- NOTE | 2021-05-31 10:22 | PDOC ---
Date of Service: DATE: 05/31/21 TIME: 10:19 Subjective: Subjective: Says hello. "I'm doing good. It doesn't hurt." Objective: Objective: D/w nurse - no GI concerns - ate well for breakfast, no assistance. Vital Signs: Vital Signs Date Time Temp Pulse Resp B/P (MAP) Pulse Ox O2 Delivery O2 Flow Rate FiO2 05/31/21 08:33 90 151/55 05/31/21 08:31 93 Nasal Cannula 1.0 05/31/21 07:00 98.5 18 98.5 Labs: Laboratory Tests Test 05/30/21 12:18 05/30/21 16:34 05/30/21 19:14 05/31/21 06:50 Glucose (Fingerstick) 99 mg/dL 89 mg/dL 144 mg/dL White Blood Count 7.5 x10^3/uL Red Blood Count 2.51 x10^6/uL Hemoglobin 7.6 g/dL Hematocrit 23.7 % Mean Corpuscular Volume 94 fL Mean Corpuscular Hemoglobin 30 pg Mean Corpuscular Hemoglobin Concent 32 g/dL Red Cell Distribution Width 15.4 % Platelet Count 148 x10^3/uL Neutrophils (%) (Auto) 80 % Lymphocytes (%) (Auto) 9 % Monocytes (%) (Auto) 10 % Eosinophils (%) (Auto) 1 % Basophils (%) (Auto) 1 % Neutrophils # (Auto) 6.0 x10^3/uL Lymphocytes # (Auto) 0.7 x10^3/uL Monocytes # (Auto) 0.7 x10^3/uL Eosinophils # (Auto) 0.0 x10^3/uL Basophils # (Auto) 0.0 x10^3/uL Test 05/31/21 06:59 Glucose (Fingerstick) 127 mg/dL PE: GEN: NAD LUNGS: diminished, NC 1L HEART: RRR ABD: S/ND/NT NEURO/PSYCH: more awake today A/P: Resp failure - better - COVID pneumonia, CHF CAD on ASA, CKD on HD "Dark" stools Anemia - Hgb stable in 7s, on PPI -- Continue same per GI. Justicifation of Admission Dx: Justifications for Admission: Justification of Admission Dx: Yes HARJINDER ALFLEUR May 31, 2021 10:22
--- NOTE | 2021-05-31 10:27 | NUR ---
[facility] following. Discussed with RN, pt from home with daughter, 1L, cardiac diet. [facility] faxed referral to [facility], awaiting acceptance decision[facility] will [facility] to follow. Addendum: 05/31/21 at 1138 by SCOTT APONTE Pt accepted with [facility]. Message left for [facility] to determine chair time. Addendum: 05/31/21 at 1546 by SCOTT APONTE [facility] sent Bipap referral to [facility] per Dr. Ponce's discussion with pt's daughters. Awaiting approval.
--- NOTE | 2021-05-31 10:37 | PDOC ---
DATE OF SERVICE DATE: 05/31/21 TIME: 10:32 SUBJECTIVE ROS stable,no n/v . No SOB at rest No acute concerns voiced by RN OBJECTIVE Vital Signs Vital Signs Date Time Temp Pulse Resp B/P (MAP) Pulse Ox O2 Delivery O2 Flow Rate FiO2 05/31/21 08:33 90 151/55 05/31/21 08:31 93 Nasal Cannula 1.0 05/31/21 07:00 98.5 18 98.5 I & 0 Intake and Output 05/31/21 07:00 Output Total 1 ml Balance -1 ml Stool Total 1 ml # Voids 2 # Bowel Movements 1 PHYSICAL EXAM Physical Exam General: No acute distress HEENT: OM moist , on o2 by NC Neck Supple Lungs: CTA ant, Non labored Heart: Regular rate Abdomen: obese, NT Extremities: trace bilateral LE edema Skin: No significant lesion, no rash Neuro: Normal speech, Sensation intact Psych/Mental Status: Mental status NL, Mood NL No sanchez, No CVA or SP tenderness DIAGNOSIS/ASSESSMENT Assessment & Plan SUZIE - Cr elevated at presentation to the ER to 2.5 worsening renal function . initiated dialysis , No clearance requiring dialysis, currently MWF schedule ACccess - Tunnelled HDC , OP chair time pending- please schedule with me CKD; 1.1 at [facility] 05/13/21 (no labs in our system) Acute respiratory failure secondary to COVID PNA Arrhythmia; 18-beat NSVT noted on tele. Otherwise SR. CAD s/p CABG 2004. Follows with [facility], Dr. Murillo. Chronic diastolic CHF; Echo 05/07 with preserved LV systolic function Accelerated hypertension; now controlled Diabetes, II Morbid obesity, BRITTANI. noncompliant with CPAP COMMENT/RELEVANT DATA Meds Current Medications Medications (Trade) Dose Ordered Sig/Lemuel Start Time Stop Time Status Last Admin Dose Admin Acetaminophen (Tylenol) 650 mg PRN Q6HRS PRN 05/13/21 17:00 05/13/21 21:00 650 MG Albumin Human 200 ml @ 200 mls/hr 1X PRN PRN 05/25/21 08:30 05/25/21 14:29 DC Albuterol Sulfate (Ventolin Hfa) 2 puff PRN Q4HRS PRN 05/16/21 20:00 05/19/21 13:29 2 PUFF Allopurinol (Zyloprim) 100 mg DAILY 05/14/21 09:00 05/31/21 08:31 100 MG Amino Acids/ Electrolytes/ Dextrose 1,000 ml @ 80 mls/hr [id number] 05/20/21 13:15 05/25/21 13:30 DC 05/24/21 05:37 80 MLS/HR Amlodipine Besylate (Norvasc) 5 mg DAILY 05/14/21 09:00 05/31/21 08:33 5 MG Aspirin (Aspirin Chewable) 81 mg DAILY 05/14/21 09:00 05/31/21 08:30 81 MG Aspirin (Ecotrin) 81 mg [id number] 05/14/21 08:00 05/13/21 18:10 DC Atorvastatin Calcium (Lipitor) 80 mg QHS 05/13/21 21:00 05/30/21 21:57 80 MG Azithromycin 250 ml @ 250 mls/hr 1X ONCE 05/13/21 16:15 05/13/21 17:14 DC 05/13/21 16:37 250 MLS/HR Calcium Carbonate/ Glycine (Tums) 500 mg PRN Q3HRS PRN 05/13/21 17:00 Cefazolin Sodium/ Dextrose 50 ml @ 100 mls/hr 1X ONCE 05/27/21 13:45 05/27/21 14:14 DC 05/27/21 13:45 100 MLS/HR Ceftriaxone Sodium (Rocephin) 1 gm 1X ONCE 05/13/21 16:00 05/13/21 16:02 DC 05/13/21 16:37 1 GM Dexamethasone Sodium Phosphate (Decadron) 6 mg DAILY 05/14/21 09:00 05/25/21 13:28 DC 05/25/21 09:09 6 MG Dextrose (Dextrose 50%-Water Syringe) 12.5 gm PRN Q15MIN PRN 05/14/21 17:30 05/29/21 07:38 12.5 GM EZETIMIBE (Zetia) 10 mg DAILY 05/14/21 09:00 05/31/21 08:30 10 MG Fentanyl Citrate (Fentanyl 2ml Vial) 100 mcg 1X ONCE 05/27/21 13:30 05/27/21 13:31 DC 05/27/21 13:30 50 MCG Furosemide (Lasix) 40 mg DAILY 05/14/21 09:00 05/16/21 14:56 DC 05/16/21 10:09 40 MG Gabapentin (Neurontin) 100 mg HS 05/13/21 21:00 05/30/21 21:57 100 MG Guaifenesin (Robitussin Dm) 10 ml PRN Q6HRS PRN 05/16/21 07:30 05/16/21 21:16 10 ML Guaifenesin/ Codeine Phosphate (Robitussin Ac) 5 ml PRN Q6HRS PRN 05/13/21 16:15 05/16/21 07:29 DC Heparin Sodium (Porcine) (Heparin Sodium) 2,500 unit 1X ONCE 05/21/21 12:45 05/21/21 12:46 DC 05/21/21 12:41 2,500 UNIT Hydralazine HCl (Apresoline Inj) 10 mg PRN Q4HRS PRN 05/16/21 15:00 05/22/21 02:55 10 MG Hydralazine HCl (Apresoline) 25 mg TID 05/21/21 10:30 05/31/21 08:32 25 MG Info (Non-Icu Electrolyte Protocol) 1 ea PRN DAILY PRN 05/13/21 17:00 Info (PHARMACY MONITORING -- do not chart) 1 each PRN DAILY PRN 05/30/21 08:30 Insulin Glargine (Lantus Syringe) 10 unit QHS 05/30/21 21:00 Insulin Human Lispro (HumaLOG) 9 units 1X ONCE 05/24/21 21:00 05/24/21 21:01 DC 05/24/21 23:04 9 UNITS Isosorbide Mononitrate (Imdur) 30 mg DAILY 05/17/21 09:00 05/31/21 08:33 30 MG Lactobacillus Rhamnosus (Culturelle) 1 cap BID 05/16/21 21:00 05/31/21 08:30 1 CAP Levothyroxine Sodium (Synthroid) 175 mcg DAILYAC 05/14/21 07:30 05/31/21 08:31 175 MCG Lidocaine HCl (Buffered Lidocaine 1%) 6 ml 1X ONCE 05/21/21 11:30 05/21/21 11:33 DC 05/21/21 12:10 4 ML Lidocaine/ Epinephrine (LIDOCAINE 1%-EPI 1:100,000 Multi-Dose) 20 ml 1X ONCE 05/27/21 13:30 05/27/21 13:31 DC 05/27/21 13:30 9 ML Losartan Potassium (Cozaar) 50 mg DAILY 05/14/21 09:00 05/16/21 14:56 DC 05/16/21 10:09 50 MG Magnesium Sulfate 50 ml @ 25 mls/hr 1X ONCE 05/13/21 16:15 05/13/21 18:14 Cancel Methylprednisolone Sodium Succinate (SOLU-Medrol 125MG VIAL) 125 mg 1X ONCE 05/13/21 15:45 05/13/21 15:46 DC 05/13/21 15:58 125 MG Midazolam HCl (Versed) 2 mg 1X ONCE 05/27/21 13:30 05/27/21 13:31 DC 05/27/21 13:30 1 MG Multivitamins (Thera M Plus) 1 tab DAILY 05/14/21 09:00 05/31/21 08:30 1 TAB Nystatin (Nystop) 1 mayela BID 05/31/21 09:00 05/31/21 08:34 1 MAYELA Ondansetron HCl (Zofran) 4 mg PRN Q6HRS PRN 05/13/21 17:00 Oxycodone HCl (Roxicodone) 5 mg PRN Q3HRS PRN 05/13/21 17:00 Oxycodone/ Acetaminophen (Percocet 5/325) 2 tab PRN Q4HRS PRN 05/13/21 17:00 05/22/21 10:01 2 TAB Pantoprazole Sodium (Protonix) 40 mg DAILYAC 05/19/21 16:30 05/31/21 08:30 40 MG Piperacillin Sod/ Tazobactam Sod (Zosyn Per Pharmacy) 1 each PRN DAILY PRN 05/13/21 16:15 05/25/21 13:28 DC Piperacillin Sod/ Tazobactam Sod 2.25 gm/Sodium Chloride 50 ml @ 100 mls/hr Q8HRS 05/20/21 14:00 05/25/21 13:28 DC 05/25/21 05:34 100 MLS/HR Remdesivir 100 mg/ Sodium Chloride 230 ml @ 460 mls/hr Q24H 05/14/21 17:00 05/17/21 17:29 DC 05/17/21 17:45 460 MLS/HR Remdesivir 200 mg/ Sodium Chloride 210 ml @ 210 mls/hr 1X ONCE 05/13/21 17:00 05/13/21 17:59 DC 05/13/21 20:59 210 MLS/HR Senna/Docusate Sodium (Senna Plus) 1 tab BID 05/13/21 21:00 05/30/21 21:57 1 TAB Sodium Chloride 1,000 ml @ 400 mls/hr Q2H30M PRN 05/30/21 08:30 05/30/21 20:29 DC Sodium Chloride (Normal Saline Flush) 10 ml 1X PRN PRN 05/25/21 08:30 05/26/21 08:29 DC Zolpidem Tartrate (Ambien) 5 mg PRN QHS PRN 05/13/21 17:00 05/16/21 07:29 DC Lab Laboratory Tests Test 05/30/21 12:18 05/30/21 16:34 05/30/21 19:14 05/31/21 06:50 Glucose (Fingerstick) 99 mg/dL (70-99) 89 mg/dL (70-99) 144 mg/dL (70-99) White Blood Count 7.5 x10^3/uL (4.0-11.0) Red Blood Count 2.51 x10^6/uL (3.50-5.40) Hemoglobin 7.6 g/dL (12.0-15.5) Hematocrit 23.7 % (36.0-47.0) Mean Corpuscular Volume 94 fL (79-100) Mean Corpuscular Hemoglobin 30 pg (25-35) Mean Corpuscular Hemoglobin Concent 32 g/dL (31-37) Red Cell Distribution Width 15.4 % (11.5-14.5) Platelet Count 148 x10^3/uL (140-400) Neutrophils (%) (Auto) 80 % (31-73) Lymphocytes (%) (Auto) 9 % (24-48) Monocytes (%) (Auto) 10 % (0-9) Eosinophils (%) (Auto) 1 % (0-3) Basophils (%) (Auto) 1 % (0-3) Neutrophils # (Auto) 6.0 x10^3/uL (1.8-7.7) Lymphocytes # (Auto) 0.7 x10^3/uL (1.0-4.8) Monocytes # (Auto) 0.7 x10^3/uL (0.0-1.1) Eosinophils # (Auto) 0.0 x10^3/uL (0.0-0.7) Basophils # (Auto) 0.0 x10^3/uL (0.0-0.2) Test 05/31/21 06:59 Glucose (Fingerstick) 127 mg/dL (70-99) Results All relevant outside records, renal labs, imaging studies, telemetry/EKG's were reviewed. Justicifation of Admission Dx: Justifications for Admission: Justification of Admission Dx: Yes AMINA MÁRQUEZ MD May 31, 2021 10:37
[2021-05-31 11:00] VITALS: BP 113/52
--- NOTE | 2021-05-31 11:05 | PDOC ---
[employer] PROGRESS NOTE Date of Service DOS: DATE: 05/31/21 TIME: 11:05 Chief Complaint Chief Complaint A/P: Pneumonia (Secondary to COVID-19 Infection) Acute Hypoxic Respiratory Failure COVID 19 Hypomagnesemia CAD CHF Type II Diabetes SUZIE Anemia Hypothyroidism FEN - Renal ADA diet PPX - heparin, PPI FULL CODE Dispo - inpatient, will need rehab on d/c History of Present Illness History of Present Illness Ms Braswell is a 75yo F w/ PMHx HTN, DM2, CHF, CAD s/p CABG who came to ED on 05/13/2020 progressive shortness of breath over the prior week. In ED with O2 saturations 86% on room air febrile to 101.3 F. Tested positive for COVID-19. She had not been fully vaccinated. 05/14: Weak and was resting. (Remdesivir, Dexamethsone, Heparin, Piperacillin/Tazobactam). Mrs. Braswell states that she only received 1 dose of the COVID-19 vaccination. 05/15: She is feeling better. This morning, she was able to eat her breakfast. 05/16: Afebrile overnight. Glucose in the 200s. O2 saturations 89 to 91% on 2 L nasal cannula oxygen. She is feeling short of breath and weak. No chest pain. 05/17: V. tach overnight. Afebrile. BUN over 88 and creatinine elevated. Holding furosemide and losartan. Baseline CR at [facility] was 1.1. Cardiology nephrology consulted today. 05/18: BUN over 88 and creatinine elevated 6.9. Completed remdesivir on 05/17 92: NO AV mariama block agents with bradycardia. Am labs 05/20: Continue empiric PPI. Follow hemoglobin. Confused, not eating well 05/21: Confused, not eating well pulled out temp dialysis cath 9- am 05/22: NON- TUNNELED Hemodialysis catheter via the right internal jugular vein approach, ready to utilize. Melena/fall in hemoglobin--hemoglobin stable x 2. 05/23: Seen and examined at bedside. Reports no complaints this morning, breathing feeling better. Denying bloody bowel movement. Mild drop in hemoglobin today, plan for dialysis 05/24: Patient seen and evaluated at bedside. She was on the phone talking. No complaints. Dialysis tomorrow. Will likely need rehab for discharge. 05/25: Mrs. Braswell was seen and evaluated in her room this morning. She was resting upon entering her room, but awoke and conversed with me. 05/26: Patient evaluated at bedside. No major clinical changes. Will need acute rehab placement. 05/27: Patient evaluated at bedside she was resting getting ready to go for tunnel cath placement. Will need outpatient dialysis likely rehab. 05/28: She stated that she had been experiencing chest pain and exhibited an arrhythmia, for which I have consulted Cardiology. Mrs. Braswell is on 3 L of Oxygen. 05/29: On 1L of Oxygen. Her Hgb was 6.4 L and orders have been placed to address this. Overnight, her blood sugar did drop and she was given breakfast with improvement. 05/30: Hb 7.9 after 1 u PRBC transfusion. BUN 37, CR 5.7. Seen on dialysis, still a bit confused. Still intermittently confused, oxygen off her face. Desaturations into the mid 80s with this. Was complaining of bilateral foot pain improved with massage. Family is requesting for her to go home with home health with outpatient dialysis. I have advised looking into skilled rehab. Awaiting dialysis chair placement as well Vitals/I&O Vitals/I&O: Vital Signs Date Time Temp Pulse Resp B/P (MAP) Pulse Ox O2 Delivery O2 Flow Rate FiO2 05/31/21 08:33 90 151/55 05/31/21 08:31 93 Nasal Cannula 1.0 05/31/21 07:00 98.5 18 98.5 I & O 05/30/21 05/30/21 05/31/21 15:00 23:00 07:00 Output Total 1 ml Balance -1 ml Physical Exam Physical Exam: pleasant, confused General: Alert, Cooperative, No acute distress Heart: Other (AFIB) Lungs: Clear Abdomen: Normal bowel sounds, Other (obese) Extremities: No clubbing, Other (trace bilateral LE edema ) Skin: No rashes, No significant lesion Labs Labs: Laboratory Tests Test 05/30/21 12:18 05/30/21 16:34 05/30/21 19:14 05/31/21 06:50 Glucose (Fingerstick) 99 mg/dL (70-99) 89 mg/dL (70-99) 144 mg/dL (70-99) White Blood Count 7.5 x10^3/uL (4.0-11.0) Red Blood Count 2.51 x10^6/uL (3.50-5.40) Hemoglobin 7.6 g/dL (12.0-15.5) Hematocrit 23.7 % (36.0-47.0) Mean Corpuscular Volume 94 fL (79-100) Mean Corpuscular Hemoglobin 30 pg (25-35) Mean Corpuscular Hemoglobin Concent 32 g/dL (31-37) Red Cell Distribution Width 15.4 % (11.5-14.5) Platelet Count 148 x10^3/uL (140-400) Neutrophils (%) (Auto) 80 % (31-73) Lymphocytes (%) (Auto) 9 % (24-48) Monocytes (%) (Auto) 10 % (0-9) Eosinophils (%) (Auto) 1 % (0-3) Basophils (%) (Auto) 1 % (0-3) Neutrophils # (Auto) 6.0 x10^3/uL (1.8-7.7) Lymphocytes # (Auto) 0.7 x10^3/uL (1.0-4.8) Monocytes # (Auto) 0.7 x10^3/uL (0.0-1.1) Eosinophils # (Auto) 0.0 x10^3/uL (0.0-0.7) Basophils # (Auto) 0.0 x10^3/uL (0.0-0.2) Test 05/31/21 06:59 Glucose (Fingerstick) 127 mg/dL (70-99) Assessment and Plan Assessmemt and Plan Problems Medical Problems: (1) Hypomagnesemia syndrome Status: Acute (2) Hypoxia Status: Acute (3) Pneumonia due to COVID-19 virus Status: Acute Comment Review of Relevant I have reviewed the following items maged (where applicable) has been applied. Medications: Current Medications Medications (Trade) Dose Ordered Sig/Lemuel Route PRN Reason Start Time Stop Time Status Last Admin Dose Admin Nystatin (Nystop) 1 mayela BID TP 05/31/21 09:00 05/31/21 08:34 Justifications for Admission Other Justification GENO YEBOAH MD May 31, 2021 11:05
[2021-05-31 15:00] VITALS: BP 102/47
[2021-05-31 19:00] VITALS: BP 119/49
[2021-05-31 23:00] VITALS: BP 148/71
[2021-05-31] MEDS: ATORVASTATIN CALCIUM 40 MG TABLET. PO SCH (23:03)
[2021-05-31] MEDS: GABAPENTIN 100 MG CAPSULE. PO SCH (23:04)
[2021-05-31] MEDS: INSULIN GLARGINE SYRINGE. SQ SCH (23:09)
[2021-06-01] VITALS (8 sets, daily range): BP systolic 117–158; BP diastolic 49–61
[2021-06-01] MEDS: HEPARIN for SUB-Q USE 5,000 UNIT/ML VIAL. SQ SCH (05:57)
[2021-06-01 07:18] LABS: CALCIUM 8.6 mg/dL (8.5-10.1); CREATININE 5.7 mg/dL (0.6-1.0); GFR 8.8; POTASSIUM 3.9 mmol/L (3.5-5.1)
[2021-06-01 07:21] LABS: BASO % 1 % (0-3); EOS # 0.1 x10^3/uL (0.0-0.7); EOS % 1 % (0-3); HEMATOCRIT 21.7 % (36.0-47.0); LYMPH # 0.6 x10^3/uL (1.0-4.8); LYMPH % 8 % (24-48); MEAN CORPUSCULAR HEMOGLOBIN 30 pg (25-35); MEAN CORPUSCULAR HGB CONC 32 g/dL (31-37); MEAN CORPUSCULAR VOLUME 93 fL (79-100); MONO # 0.8 x10^3/uL (0.0-1.1); MONO % 12 % (0-9); NEUT # 5.3 x10^3/uL (1.8-7.7); NEUT % 79 % (31-73); PLATELET COUNT 147 x10^3/uL (140-400); RED BLOOD COUNT 2.33 x10^6/uL (3.50-5.40); RED CELL DISTRIBUTION WIDTH 15.2 % (11.5-14.5); WHITE BLOOD COUNT 6.8 x10^3/uL (4.0-11.0)
[2021-06-01] MEDS: INSULIN LISPRO 300 UNITS/3 ML VIAL. SQ SCH ×4 (07:30→20:30)
[2021-06-01] MEDS: PANTOPRAZOLE 40 MG TABLET.DR. PO SCH (07:30)
[2021-06-01] MEDS: LEVOTHYROXINE 175 MCG TABLET PO SCH (07:30)
--- NOTE | 2021-06-01 07:54 | PDOC ---
[employer] PROGRESS NOTE Date of Service DOS: DATE: 06/01/21 TIME: 07:45 Chief Complaint Chief Complaint A/P: Pneumonia (Secondary to COVID-19 Infection) Acute Hypoxic Respiratory Failure COVID 19 Acute renal failure - now ESRD Hypomagnesemia CAD s/p CABG 2004. Follows with [facility], Dr. Murillo. Chronic diastolic CHF; Echo 05/07 with preserved LV systolic function Type II Diabetes Anemia Hypothyroidism BRITTANI - previously on CPAP in 2014, but it broke within the past year. Has required BIPAP 08/03 FEN - Renal ADA diet PPX - heparin, PPI FULL CODE Dispo - inpatient, will need rehab on d/c History of Present Illness History of Present Illness Ms Braswell is a 75yo F w/ PMHx HTN, DM2, CHF, CAD s/p CABG, BRITTANI previously on CPAP who came to ED on 05/13/2020 progressive shortness of breath over the prior week. In ED with O2 saturations 86% on room air febrile to 101.3 F. Tested positive for COVID-19. She had not been fully vaccinated. 05/14: Weak and was resting. (Remdesivir, Dexamethsone, Heparin, Piperacillin/Tazobactam). Mrs. Braswell states that she only received 1 dose of the COVID-19 vaccination. 05/15: She is feeling better. This morning, she was able to eat her breakfast. 05/16: Afebrile overnight. Glucose in the 200s. O2 saturations 89 to 91% on 2 L nasal cannula oxygen. She is feeling short of breath and weak. No chest pain. 05/17: V. tach overnight. Afebrile. BUN over 88 and creatinine elevated. Holding furosemide and losartan. Baseline CR at [facility] was 1.1. Cardiology nephrology consulted today. 05/18: BUN over 88 and creatinine elevated 6.9. Completed remdesivir on 05/17 9/2: NO AV mariama block agents with bradycardia. Am labs 05/20: Continue empiric PPI. Follow hemoglobin. Confused, not eating well 05/21: Confused, not eating well pulled out temp dialysis cath 9-4 am 05/22: NON- TUNNELED Hemodialysis catheter via the right internal jugular vein approach, ready to utilize. Melena/fall in hemoglobin--hemoglobin stable x 2. 05/23: Seen and examined at bedside. Reports no complaints this morning, breathing feeling better. Denying bloody bowel movement. Mild drop in hemoglobin today, plan for dialysis 05/24: Patient seen and evaluated at bedside. She was on the phone talking. No complaints. Dialysis tomorrow. Will likely need rehab for discharge. 05/25: Mrs. Braswell was seen and evaluated in her room this morning. She was resting upon entering her room, but awoke and conversed with me. 05/26: Patient evaluated at bedside. No major clinical changes. Will need acute rehab placement. 05/27: Patient evaluated at bedside she was resting getting ready to go for tunnel cath placement. Will need outpatient dialysis likely rehab. 05/28: She stated that she had been experiencing chest pain and exhibited an arrhythmia, for which I have consulted Cardiology. Mrs. Braswell is on 3 L of Oxygen. BIPAP 22/6 QHS 05/29: On 1L of Oxygen. Her Hgb was 6.4 L and orders have been placed to address this. Overnight, her blood sugar did drop and she was given breakfast with improvement. 05/30: Hb 7.9 after 1 u PRBC transfusion. BUN 37, CR 5.7. Seen on dialysis, still a bit confused. BIPAP overnight and while sleeping 05/31: Intermittently confused, taking O2 off, desats into 80s. C/o bilateral foot pain improved with massage. Family requesting home health with outpatient dialysis. Advised skilled rehab, they note 2 nurses in the family. Awaiting dialysis chair placement as well as home BIPAP Afebrile overnight. Used BIPAP 22/6. Hb 7. Very sleepy on dialysis today. D/w pulm to obtain ABG, transfuse 1 u PRBC with dialysis and hold heparin. Vitals/I&O Vitals/I&O: Vital Signs Date Time Temp Pulse Resp B/P (MAP) Pulse Ox O2 Delivery O2 Flow Rate FiO2 06/01/21 07:00 99.7 78 18 133/55 (81) 96 99.7 05/31/21 20:00 Nasal Cannula 1.0 I & O 0 05/31/21 05/31/21 06/01/21 15:00 23:00 07:00 Intake Total 120 ml Balance 120 ml Physical Exam Physical Exam: pleasant, confused General: Alert, Cooperative, No acute distress Heart: Other (AFIB) Lungs: Clear Abdomen: Normal bowel sounds, Other (obese) Extremities: No clubbing, Other (trace bilateral LE edema ) Skin: No rashes, No significant lesion Labs Labs: Laboratory Tests Test 05/31/21 11:10 05/31/21 16:06 05/31/21 20:26 06/01/21 06:15 Glucose (Fingerstick) 253 mg/dL (70-99) 226 mg/dL (70-99) 186 mg/dL (70-99) White Blood Count 6.8 x10^3/uL (4.0-11.0) Red Blood Count 2.33 x10^6/uL (3.50-5.40) Hemoglobin 7.0 g/dL (12.0-15.5) Hematocrit 21.7 % (36.0-47.0) Mean Corpuscular Volume 93 fL (79-100) Mean Corpuscular Hemoglobin 30 pg (25-35) Mean Corpuscular Hemoglobin Concent 32 g/dL (31-37) Red Cell Distribution Width 15.2 % (11.5-14.5) Platelet Count 147 x10^3/uL (140-400) Neutrophils (%) (Auto) 79 % (31-73) Lymphocytes (%) (Auto) 8 % (24-48) Monocytes (%) (Auto) 12 % (0-9) Eosinophils (%) (Auto) 1 % (0-3) Basophils (%) (Auto) 1 % (0-3) Neutrophils # (Auto) 5.3 x10^3/uL (1.8-7.7) Lymphocytes # (Auto) 0.6 x10^3/uL (1.0-4.8) Monocytes # (Auto) 0.8 x10^3/uL (0.0-1.1) Eosinophils # (Auto) 0.1 x10^3/uL (0.0-0.7) Basophils # (Auto) 0.0 x10^3/uL (0.0-0.2) Sodium Level 136 mmol/L (136-145) Potassium Level 3.9 mmol/L (3.5-5.1) Chloride Level 99 mmol/L (98-107) Carbon Dioxide Level 32 mmol/L (21-32) Anion Gap 5 (6-14) Blood Urea Nitrogen 32 mg/dL (7-20) Creatinine 5.7 mg/dL (0.6-1.0) Estimated GFR (Cockcroft-Gault) 8.8 Glucose Level 139 mg/dL (70-99) Calcium Level 8.6 mg/dL (8.5-10.1) Test 06/01/21 07:00 Glucose (Fingerstick) 142 mg/dL (70-99) Assessment and Plan Assessmemt and Plan Problems Medical Problems: (1) Hypomagnesemia syndrome Status: Acute (2) Hypoxia Status: Acute (3) Pneumonia due to COVID-19 virus Status: Acute Comment Review of Relevant I have reviewed the following items maged (where applicable) has been applied. Medications: Current Medications Medications (Trade) Dose Ordered Sig/Lemuel Route PRN Reason Start Time Stop Time Status Last Admin Dose Admin Nystatin (Nystop) 1 mayela BID TP 05/31/21 09:00 05/31/21 23:11 Justifications for Admission Other Justification GENO YEBOAH MD Jun 01, 2021 07:54
[2021-06-01] MEDS: NYSTATIN TOPICAL POWDER 15GM BOTTLE. TP SCH ×2 (08:26→20:28)
[2021-06-01] MEDS: LACTOBACILLUS RHAMNOSUS GG 1 CAPSULE. PO SCH ×2 (09:00→20:28)
[2021-06-01] MEDS: hydrALAZINE 25 MG TABLET PO SCH ×3 (09:00→20:28)
[2021-06-01] MEDS: MULTIVITAMIN with MINERAL TABLET. PO SCH (09:00)
[2021-06-01] MEDS: ASPIRIN CHEWABLE 81 MG TABLET. PO SCH (09:00)
[2021-06-01] MEDS: ALLOPURINOL 100 MG TABLET. PO SCH (09:00)
[2021-06-01] MEDS ORDERED: ALBUMIN HUMAN 25% 200 ML IV PRN (09:00)
[2021-06-01] MEDS ORDERED: DIALYSIS PATIENT. MC PRN ×2 (09:00)
[2021-06-01] MEDS ORDERED: 0.9 % SODIUM CHLORIDE 10 ML DISP.SYRIN. IV PRN ×2 (09:00)
[2021-06-01] MEDS: SENNOSIDES/DOCUSATE 8.6/50MG TABLET. PO SCH ×2 (09:00→20:28)
[2021-06-01] MEDS: ISOSORBIDE MONONITRATE ER 30 MG TAB.ER.24H PO SCH (09:00)
[2021-06-01] MEDS: EZETIMIBE 10 MG TABLET. PO SCH (09:00)
[2021-06-01] MEDS ORDERED: IV NORMAL SALINE 1000ML BAG 1,000 ML IV PRN ×2 (09:00)
--- NOTE | 2021-06-01 09:30 | PDOC ---
DATE OF SERVICE DATE: 06/01/21 TIME: 09:29 SUBJECTIVE ROS stable,no n/v . No SOB at rest No acute concerns voiced by RN OBJECTIVE Vital Signs Vital Signs Date Time Temp Pulse Resp B/P (MAP) Pulse Ox O2 Delivery O2 Flow Rate FiO2 06/01/21 08:00 Nasal Cannula 1.0 06/01/21 07:00 99.7 78 18 133/55 (81) 96 99.7 I & 0 Intake and Output 06/01/21 07:00 Intake Total 120 ml Balance 120 ml Intake Oral 120 ml # Voids 1 # Bowel Movements 1 PHYSICAL EXAM Physical Exam General: No acute distress HEENT: OM moist , on o2 by NC Neck Supple Lungs: CTA ant, Non labored Heart: Regular rate Abdomen: obese, NT Extremities: trace bilateral LE edema Skin: No significant lesion, no rash Neuro: Normal speech, Sensation intact Psych/Mental Status: Mental status NL, Mood NL No sanchez, No CVA or SP tenderness DIAGNOSIS/ASSESSMENT Assessment & Plan SUZIE - Cr elevated at presentation to the ER to 2.5 worsening renal function . initiated dialysis , No clearance requiring dialysis, currently MWF schedule . seen during dialysis, tolerating well. Continue as ordered. Enrique Najera ACccess - Tunnelled HDC , OP chair time scheduled for TTS [facility] starting tomorrow CKD; 1.1 at [facility] 05/13/21 (no labs in our system) Acute respiratory failure secondary to COVID PNA Arrhythmia; 18-beat NSVT noted on tele. Otherwise SR. CAD s/p CABG 2004. Follows with [facility], Dr. Murillo. Chronic diastolic CHF; Echo 05/07 with preserved LV systolic function Accelerated hypertension; now controlled Diabetes, II Morbid obesity, BRITATNI. noncompliant with CPAP COMMENT/RELEVANT DATA Meds Current Medications Medications (Trade) Dose Ordered Sig/Lemuel Start Time Stop Time Status Last Admin Dose Admin Acetaminophen (Tylenol) 650 mg PRN Q6HRS PRN 05/13/21 17:00 05/13/21 21:00 650 MG Albumin Human 200 ml @ 200 mls/hr 1X PRN PRN 06/01/21 09:00 06/01/21 14:59 Albuterol Sulfate (Ventolin Hfa) 2 puff PRN Q4HRS PRN 05/16/21 20:00 05/19/21 13:29 2 PUFF Allopurinol (Zyloprim) 100 mg DAILY 05/14/21 09:00 05/31/21 08:31 100 MG Amino Acids/ Electrolytes/ Dextrose 1,000 ml @ 80 mls/hr [id number] 05/20/21 13:15 05/25/21 13:30 DC 05/24/21 05:37 80 MLS/HR Amlodipine Besylate (Norvasc) 5 mg DAILY 05/14/21 09:00 05/31/21 08:33 5 MG Aspirin (Aspirin Chewable) 81 mg DAILY 05/14/21 09:00 05/31/21 08:30 81 MG Aspirin (Ecotrin) 81 mg [id number] 05/14/21 08:00 05/13/21 18:10 DC Atorvastatin Calcium (Lipitor) 80 mg QHS 05/13/21 21:00 05/31/21 23:03 80 MG Azithromycin 250 ml @ 250 mls/hr 1X ONCE 05/13/21 16:15 05/13/21 17:14 DC 05/13/21 16:37 250 MLS/HR Calcium Carbonate/ Glycine (Tums) 500 mg PRN Q3HRS PRN 05/13/21 17:00 Cefazolin Sodium/ Dextrose 50 ml @ 100 mls/hr 1X ONCE 05/27/21 13:45 05/27/21 14:14 DC 05/27/21 13:45 100 MLS/HR Ceftriaxone Sodium (Rocephin) 1 gm 1X ONCE 05/13/21 16:00 05/13/21 16:02 DC 05/13/21 16:37 1 GM Dexamethasone Sodium Phosphate (Decadron) 6 mg DAILY 05/14/21 09:00 05/25/21 13:28 DC 05/25/21 09:09 6 MG Dextrose (Dextrose 50%-Water Syringe) 12.5 gm PRN Q15MIN PRN 05/14/21 17:30 05/29/21 07:38 12.5 GM EZETIMIBE (Zetia) 10 mg DAILY 05/14/21 09:00 05/31/21 08:30 10 MG Fentanyl Citrate (Fentanyl 2ml Vial) 100 mcg 1X ONCE 05/27/21 13:30 05/27/21 13:31 DC 05/27/21 13:30 50 MCG Furosemide (Lasix) 40 mg DAILY 05/14/21 09:00 8/30/21 14:56 DC 05/16/21 10:09 40 MG Gabapentin (Neurontin) 100 mg HS 05/13/21 21:00 05/31/21 23:04 100 MG Guaifenesin (Robitussin Dm) 10 ml PRN Q6HRS PRN 05/16/21 07:30 05/16/21 21:16 10 ML Guaifenesin/ Codeine Phosphate (Robitussin Ac) 5 ml PRN Q6HRS PRN 05/13/21 16:15 05/16/21 07:29 DC Heparin Sodium (Porcine) (Heparin Sodium) 2,500 unit 1X ONCE 05/21/21 12:45 05/21/21 12:46 DC 05/21/21 12:41 2,500 UNIT Hydralazine HCl (Apresoline Inj) 10 mg PRN Q4HRS PRN 05/16/21 15:00 05/22/21 02:55 10 MG Hydralazine HCl (Apresoline) 25 mg TID 05/21/21 10:30 05/31/21 23:08 25 MG Info (Non-Icu Electrolyte Protocol) 1 ea PRN DAILY PRN 05/13/21 17:00 Info (PHARMACY MONITORING -- do not chart) 1 each PRN DAILY PRN 06/01/21 09:00 Insulin Glargine (Lantus Syringe) 10 unit QHS 05/30/21 21:00 05/31/21 23:09 10 UNIT Insulin Human Lispro (HumaLOG) 9 units 1X ONCE 05/24/21 21:00 05/24/21 21:01 DC 05/24/21 23:04 9 UNITS Isosorbide Mononitrate (Imdur) 30 mg DAILY 05/17/21 09:00 05/31/21 08:33 30 MG Lactobacillus Rhamnosus (Culturelle) 1 cap BID 05/16/21 21:00 05/31/21 23:04 1 CAP Levothyroxine Sodium (Synthroid) 175 mcg DAILYAC 05/14/21 07:30 05/31/21 08:31 175 MCG Lidocaine HCl (Buffered Lidocaine 1%) 6 ml 1X ONCE 05/21/21 11:30 05/21/21 11:33 DC 05/21/21 12:10 4 ML Lidocaine/ Epinephrine (LIDOCAINE 1%-EPI 1:100,000 Multi-Dose) 20 ml 1X ONCE 05/27/21 13:30 05/27/21 13:31 DC 05/27/21 13:30 9 ML Losartan Potassium (Cozaar) 50 mg DAILY 05/14/21 09:00 05/16/21 14:56 DC 05/16/21 10:09 50 MG Magnesium Sulfate 50 ml @ 25 mls/hr 1X ONCE 05/13/21 16:15 05/13/21 18:14 Cancel Methylprednisolone Sodium Succinate (SOLU-Medrol 125MG VIAL) 125 mg 1X ONCE 05/13/21 15:45 05/13/21 15:46 DC 05/13/21 15:58 125 MG Midazolam HCl (Versed) 2 mg 1X ONCE 05/27/21 13:30 05/27/21 13:31 DC 05/27/21 13:30 1 MG Multivitamins (Thera M Plus) 1 tab DAILY 05/14/21 09:00 05/31/21 08:30 1 TAB Nystatin (Nystop) 1 mayela BID 05/31/21 09:00 06/01/21 08:26 1 MAYELA Ondansetron HCl (Zofran) 4 mg PRN Q6HRS PRN 05/13/21 17:00 Oxycodone HCl (Roxicodone) 5 mg PRN Q3HRS PRN 05/13/21 17:00 Oxycodone/ Acetaminophen (Percocet 5/325) 2 tab PRN Q4HRS PRN 05/13/21 17:00 05/22/21 10:01 2 TAB Pantoprazole Sodium (Protonix) 40 mg DAILYAC 05/19/21 16:30 05/31/21 08:30 40 MG Piperacillin Sod/ Tazobactam Sod (Zosyn Per Pharmacy) 1 each PRN DAILY PRN 05/13/21 16:15 05/25/21 13:28 DC Piperacillin Sod/ Tazobactam Sod 2.25 gm/Sodium Chloride 50 ml @ 100 mls/hr Q8HRS 05/20/21 14:00 05/25/21 13:28 DC 05/25/21 05:34 100 MLS/HR Remdesivir 100 mg/ Sodium Chloride 230 ml @ 460 mls/hr Q24H 05/14/21 17:00 05/17/21 17:29 DC 05/17/21 17:45 460 MLS/HR Remdesivir 200 mg/ Sodium Chloride 210 ml @ 210 mls/hr 1X ONCE 05/13/21 17:00 05/13/21 17:59 DC 05/13/21 20:59 210 MLS/HR Senna/Docusate Sodium (Senna Plus) 1 tab BID 05/13/21 21:00 05/31/21 23:03 1 TAB Sodium Chloride 1,000 ml @ 400 mls/hr Q2H30M PRN 06/01/21 09:00 06/01/21 20:59 Sodium Chloride (Normal Saline Flush) 10 ml 1X PRN PRN 06/01/21 09:00 06/02/21 08:59 Zolpidem Tartrate (Ambien) 5 mg PRN QHS PRN 05/13/21 17:00 05/16/21 07:29 DC Lab Laboratory Tests Test 05/31/21 11:10 05/31/21 16:06 05/31/21 20:26 06/01/21 06:15 Glucose (Fingerstick) 253 mg/dL (70-99) 226 mg/dL (70-99) 186 mg/dL (70-99) White Blood Count 6.8 x10^3/uL (4.0-11.0) Red Blood Count 2.33 x10^6/uL (3.50-5.40) Hemoglobin 7.0 g/dL (12.0-15.5) Hematocrit 21.7 % (36.0-47.0) Mean Corpuscular Volume 93 fL (79-100) Mean Corpuscular Hemoglobin 30 pg (25-35) Mean Corpuscular Hemoglobin Concent 32 g/dL (31-37) Red Cell Distribution Width 15.2 % (11.5-14.5) Platelet Count 147 x10^3/uL (140-400) Neutrophils (%) (Auto) 79 % (31-73) Lymphocytes (%) (Auto) 8 % (24-48) Monocytes (%) (Auto) 12 % (0-9) Eosinophils (%) (Auto) 1 % (0-3) Basophils (%) (Auto) 1 % (0-3) Neutrophils # (Auto) 5.3 x10^3/uL (1.8-7.7) Lymphocytes # (Auto) 0.6 x10^3/uL (1.0-4.8) Monocytes # (Auto) 0.8 x10^3/uL (0.0-1.1) Eosinophils # (Auto) 0.1 x10^3/uL (0.0-0.7) Basophils # (Auto) 0.0 x10^3/uL (0.0-0.2) Sodium Level 136 mmol/L (136-145) Potassium Level 3.9 mmol/L (3.5-5.1) Chloride Level 99 mmol/L (98-107) Carbon Dioxide Level 32 mmol/L (21-32) Anion Gap 5 (6-14) Blood Urea Nitrogen 32 mg/dL (7-20) Creatinine 5.7 mg/dL (0.6-1.0) Estimated GFR (Cockcroft-Gault) 8.8 Glucose Level 139 mg/dL (70-99) Calcium Level 8.6 mg/dL (8.5-10.1) Test 06/01/21 07:00 Glucose (Fingerstick) 142 mg/dL (70-99) Results All relevant outside records, renal labs, imaging studies, telemetry/EKG's were reviewed. Justicifation of Admission Dx: Justifications for Admission: Justification of Admission Dx: Yes AMINA MÁRQUEZ MD Jun 01, 2021 09:30
--- NOTE | 2021-06-01 10:08 | PDOC ---
Date of Service: DATE: 06/01/21 TIME: 10:04 Objective: Objective: D/w nurse - edy stool reported, didn't eat as well today, more fatigued, plans for transfusion. Vital Signs: Vital Signs Date Time Temp Pulse Resp B/P (MAP) Pulse Ox O2 Delivery O2 Flow Rate FiO2 06/01/21 08:00 Nasal Cannula 1.0 06/01/21 07:00 99.7 78 18 133/55 (81) 96 99.7 Labs: Laboratory Tests Test 05/31/21 11:10 05/31/21 16:06 05/31/21 20:26 06/01/21 06:15 Glucose (Fingerstick) 253 mg/dL 226 mg/dL 186 mg/dL White Blood Count 6.8 x10^3/uL Red Blood Count 2.33 x10^6/uL Hemoglobin 7.0 g/dL Hematocrit 21.7 % Mean Corpuscular Volume 93 fL Mean Corpuscular Hemoglobin 30 pg Mean Corpuscular Hemoglobin Concent 32 g/dL Red Cell Distribution Width 15.2 % Platelet Count 147 x10^3/uL Neutrophils (%) (Auto) 79 % Lymphocytes (%) (Auto) 8 % Monocytes (%) (Auto) 12 % Eosinophils (%) (Auto) 1 % Basophils (%) (Auto) 1 % Neutrophils # (Auto) 5.3 x10^3/uL Lymphocytes # (Auto) 0.6 x10^3/uL Monocytes # (Auto) 0.8 x10^3/uL Eosinophils # (Auto) 0.1 x10^3/uL Basophils # (Auto) 0.0 x10^3/uL Sodium Level 136 mmol/L Potassium Level 3.9 mmol/L Chloride Level 99 mmol/L Carbon Dioxide Level 32 mmol/L Anion Gap 5 Blood Urea Nitrogen 32 mg/dL Creatinine 5.7 mg/dL Estimated GFR (Cockcroft-Gault) 8.8 Glucose Level 139 mg/dL Calcium Level 8.6 mg/dL Test 06/01/21 07:00 Glucose (Fingerstick) 142 mg/dL PE: GEN: dialyzing ABD: non-distended NEURO/PSYCH: resting, did not disturb A/P: COVID pneumonia, CHF, SUZIE (?ESRD) on HD Anemia, +Hemoccult - not iron or B12 deficient, requiring transfusions - no obvious GI bleeding -- Continue same per GI. Justicifation of Admission Dx: Justifications for Admission: Justification of Admission Dx: Yes HARJINDER LAFLEUR Jun 01, 2021 10:08
--- NOTE | 2021-06-01 10:14 | NUR ---
FADI following. Discussed with RN. Medina contacted [facility]I with chair time for pt - T, Th, Sa at [facility] at 1115am. Pt can start tomorrow (06/02/21) and will need to be there at 11am. Still awaiting confirmation of Bipap. Dr. Ponce has paperwork to complete to move forward. FADI will continue to follow. Addendum: 06/01/21 at 1558 by SCOTT APONTE FADI spoke with family to adivse [facility] had Bipap approved. Family then stated that [facility] had said they were bringing a bipap, as that is who the cpap is through. FADI spoke with Dr. Ponce - family had told them [facility] on 3 occasions. [facility]I verified with [facility] that the CPAP is through them and faxed Bipap referral. Awaiting approval. Pt will not be able to start at outpatient dialysis until Sunday, due to not being able to start at the weekend.
--- NOTE | 2021-06-01 12:01 | PDOC ---
PULMONARY PROGRESS NOTES DATE: 06/01/21 TIME: 11:59 Subjective sleepy today on HD Vitals Vital Signs Date Time Temp Pulse Resp B/P (MAP) Pulse Ox O2 Delivery O2 Flow Rate FiO2 06/01/21 08:00 Nasal Cannula 1.0 06/01/21 07:00 99.7 78 18 133/55 (81) 96 99.7 General: No acute distress, Lethargic Lungs: Clear Cardiovascular: S1 Abdomen: Soft, Other (obese) Extremities: No Edema Labs Laboratory Tests Test 05/30/21 12:18 05/30/21 16:34 05/30/21 19:14 05/31/21 06:50 Glucose (Fingerstick) 99 mg/dL (70-99) 89 mg/dL (70-99) 144 mg/dL (70-99) White Blood Count 7.5 x10^3/uL (4.0-11.0) Red Blood Count 2.51 x10^6/uL (3.50-5.40) Hemoglobin 7.6 g/dL (12.0-15.5) Hematocrit 23.7 % (36.0-47.0) Mean Corpuscular Volume 94 fL (79-100) Mean Corpuscular Hemoglobin 30 pg (25-35) Mean Corpuscular Hemoglobin Concent 32 g/dL (31-37) Red Cell Distribution Width 15.4 % (11.5-14.5) Platelet Count 148 x10^3/uL (140-400) Neutrophils (%) (Auto) 80 % (31-73) Lymphocytes (%) (Auto) 9 % (24-48) Monocytes (%) (Auto) 10 % (0-9) Eosinophils (%) (Auto) 1 % (0-3) Basophils (%) (Auto) 1 % (0-3) Neutrophils # (Auto) 6.0 x10^3/uL (1.8-7.7) Lymphocytes # (Auto) 0.7 x10^3/uL (1.0-4.8) Monocytes # (Auto) 0.7 x10^3/uL (0.0-1.1) Eosinophils # (Auto) 0.0 x10^3/uL (0.0-0.7) Basophils # (Auto) 0.0 x10^3/uL (0.0-0.2) Thyroid Stimulating Hormone (TSH) 0.777 uIU/mL (0.358-3.74) Test 05/31/21 06:59 05/31/21 11:10 05/31/21 16:06 05/31/21 20:26 Glucose (Fingerstick) 127 mg/dL (70-99) 253 mg/dL (70-99) 226 mg/dL (70-99) 186 mg/dL (70-99) Test 06/01/21 06:15 06/01/21 07:00 White Blood Count 6.8 x10^3/uL (4.0-11.0) Red Blood Count 2.33 x10^6/uL (3.50-5.40) Hemoglobin 7.0 g/dL (12.0-15.5) Hematocrit 21.7 % (36.0-47.0) Mean Corpuscular Volume 93 fL (79-100) Mean Corpuscular Hemoglobin 30 pg (25-35) Mean Corpuscular Hemoglobin Concent 32 g/dL (31-37) Red Cell Distribution Width 15.2 % (11.5-14.5) Platelet Count 147 x10^3/uL (140-400) Neutrophils (%) (Auto) 79 % (31-73) Lymphocytes (%) (Auto) 8 % (24-48) Monocytes (%) (Auto) 12 % (0-9) Eosinophils (%) (Auto) 1 % (0-3) Basophils (%) (Auto) 1 % (0-3) Neutrophils # (Auto) 5.3 x10^3/uL (1.8-7.7) Lymphocytes # (Auto) 0.6 x10^3/uL (1.0-4.8) Monocytes # (Auto) 0.8 x10^3/uL (0.0-1.1) Eosinophils # (Auto) 0.1 x10^3/uL (0.0-0.7) Basophils # (Auto) 0.0 x10^3/uL (0.0-0.2) Sodium Level 136 mmol/L (136-145) Potassium Level 3.9 mmol/L (3.5-5.1) Chloride Level 99 mmol/L (98-107) Carbon Dioxide Level 32 mmol/L (21-32) Anion Gap 5 (6-14) Blood Urea Nitrogen 32 mg/dL (7-20) Creatinine 5.7 mg/dL (0.6-1.0) Estimated GFR (Cockcroft-Gault) 8.8 Glucose Level 139 mg/dL (70-99) Calcium Level 8.6 mg/dL (8.5-10.1) Glucose (Fingerstick) 142 mg/dL (70-99) Laboratory Tests Test 05/31/21 16:06 05/31/21 20:26 06/01/21 06:15 06/01/21 07:00 Glucose (Fingerstick) 226 mg/dL (70-99) 186 mg/dL (70-99) 142 mg/dL (70-99) White Blood Count 6.8 x10^3/uL (4.0-11.0) Red Blood Count 2.33 x10^6/uL (3.50-5.40) Hemoglobin 7.0 g/dL (12.0-15.5) Hematocrit 21.7 % (36.0-47.0) Mean Corpuscular Volume 93 fL (79-100) Mean Corpuscular Hemoglobin 30 pg (25-35) Mean Corpuscular Hemoglobin Concent 32 g/dL (31-37) Red Cell Distribution Width 15.2 % (11.5-14.5) Platelet Count 147 x10^3/uL (140-400) Neutrophils (%) (Auto) 79 % (31-73) Lymphocytes (%) (Auto) 8 % (24-48) Monocytes (%) (Auto) 12 % (0-9) Eosinophils (%) (Auto) 1 % (0-3) Basophils (%) (Auto) 1 % (0-3) Neutrophils # (Auto) 5.3 x10^3/uL (1.8-7.7) Lymphocytes # (Auto) 0.6 x10^3/uL (1.0-4.8) Monocytes # (Auto) 0.8 x10^3/uL (0.0-1.1) Eosinophils # (Auto) 0.1 x10^3/uL (0.0-0.7) Basophils # (Auto) 0.0 x10^3/uL (0.0-0.2) Sodium Level 136 mmol/L (136-145) Potassium Level 3.9 mmol/L (3.5-5.1) Chloride Level 99 mmol/L (98-107) Carbon Dioxide Level 32 mmol/L (21-32) Anion Gap 5 (6-14) Blood Urea Nitrogen 32 mg/dL (7-20) Creatinine 5.7 mg/dL (0.6-1.0) Estimated GFR (Cockcroft-Gault) 8.8 Glucose Level 139 mg/dL (70-99) Calcium Level 8.6 mg/dL (8.5-10.1) Medications Active Scripts Medications Dose Route/Sig Max Daily Dose Days Date Category Zetia (Ezetimibe) 10 Mg Tablet 10 Mg PO DAILY 05/13/21 Reported Furosemide 40 Mg Tablet 1 Tab PO DAILY 05/13/21 Reported Hydrocodone-Apap 5-325 (Hydrocodone Bit/Acetaminophen) 1 Tab Tablet 1 Tab PO PRN BID PRN 05/13/21 Reported Allopurinol 100 Mg Tablet 1 Tab PO DAILY 05/13/21 Reported Aspirin 81 Mg Tab.chew 1 Tab PO DAILY 05/13/21 Reported Levothyroxine Sodium 175 Mcg Tablet 175 Mcg PO DAILYAC 05/13/21 Reported Amlodipine Besylate 5 Mg Tablet 5 Mg PO DAILY 05/13/21 Reported Hydralazine Hcl 25 Mg Tablet 1 Tab PO TID 05/13/21 Reported Gabapentin (Gabapentin) 100 Mg Capsule 100 Mg PO HS 05/13/21 Reported Atorvastatin Calcium 80 Mg Tablet 80 Mg PO DAILY 05/13/21 Reported Losartan Potassium 50 Mg Tablet 50 Mg PO DAILY 05/13/21 Reported Metformin Hcl 500 Mg Tablet 500 Mg PO BIDWMEALS 05/13/21 Reported Magnesium (Magnesium Oxide) 500 Mg Capsule 1 Cap PO BID 30 05/13/21 Reported Impression . 1. Acute hypercapnic respiratory failure secondary to likely congestive heart failure. Underlying COVID-19 pneumonia as well. 2. Abnormal chest x-ray with bilateral interstitial infiltrates, likely congestive heart failure. 3. COVID-19 positive by the rapid test. 4. End-stage renal disease, on hemodialysis. 5. Anemia, also contributing to her dyspnea. 6. Encephalopathy, improved post-BiPAP. 7. Mildly increased troponin level. 8. Severe protein-calorie malnutrition. Plan . 1. Continue BiPAP at bedtime and p.r.n. during the day. 2. Avoid hyperoxia. repeat ABG today 3. Hemodialysis with ultrafiltration per renal. 4. PRN bronchodilators. 5. Transfuse with dialysis.GI rec 6. consider dc heparin 7. Continue supportive care. 8. Discussed with RN and we will follow along with you. BRITTANY JOYCE MD Jun 01, 2021 12:01
[2021-06-01 15:24] LABS: BASE EXCESS ABG 5 mmol/L (-3-3); HCO3 ABG 31 mmol/L (21-28); PCO2 ABG 57 mmHg (35-46); PO2 ABG 65 mmHg (65-108); SAT O2 ABG 92 % (92-99)
[2021-06-01 15:33] LABS: FIO2 ABG 1L NC
[2021-06-01] MEDS: GABAPENTIN 100 MG CAPSULE. PO SCH (20:28)
[2021-06-01] MEDS: ATORVASTATIN CALCIUM 40 MG TABLET. PO SCH (20:28)
[2021-06-01] MEDS: INSULIN GLARGINE SYRINGE. SQ SCH (20:30)
[2021-06-01] MEDS: oxyCODONE/APAP 5/325 1 TAB TABLET PO PRN (20:37)
[2021-06-02 06:37] LABS: BASO % 1 % (0-3); EOS # 0.1 x10^3/uL (0.0-0.7); EOS % 1 % (0-3); HEMATOCRIT 23.5 % (36.0-47.0); HEMOGLOBIN 7.6 g/dL (12.0-15.5); LYMPH # 0.7 x10^3/uL (1.0-4.8); LYMPH % 13 % (24-48); MEAN CORPUSCULAR HEMOGLOBIN 30 pg (25-35); MEAN CORPUSCULAR HGB CONC 32 g/dL (31-37); MEAN CORPUSCULAR VOLUME 92 fL (79-100); MONO # 0.8 x10^3/uL (0.0-1.1); MONO % 15 % (0-9); NEUT # 3.9 x10^3/uL (1.8-7.7); NEUT % 71 % (31-73); PLATELET COUNT 148 x10^3/uL (140-400); RED BLOOD COUNT 2.56 x10^6/uL (3.50-5.40); RED CELL DISTRIBUTION WIDTH 16.6 % (11.5-14.5); WHITE BLOOD COUNT 5.5 x10^3/uL (4.0-11.0)
[2021-06-02 06:46] LABS: ALBUMIN/GLOBULIN RATIO 0.5 (1.0-1.7); CALCIUM 8.6 mg/dL (8.5-10.1); CREATININE 3.7 mg/dL (0.6-1.0); GFR 14.4; POTASSIUM 3.8 mmol/L (3.5-5.1); TOTAL BILIRUBIN 0.2 mg/dL (0.2-1.0); TOTAL PROTEIN 6.4 g/dL (6.4-8.2)
[2021-06-02 07:00] VITALS: BP 138/59
[2021-06-02] MEDS: INSULIN LISPRO 300 UNITS/3 ML VIAL. SQ SCH ×4 (07:30→21:00)
--- NOTE | 2021-06-02 08:40 | PDOC ---
[employer] PROGRESS NOTE Date of Service DOS: DATE: 06/02/21 TIME: 08:40 Chief Complaint Chief Complaint A/P: Pneumonia (Secondary to COVID-19 Infection) Acute Hypoxic Respiratory Failure COVID 19 Acute renal failure - now ESRD Hypomagnesemia CAD s/p CABG 2004. Follows with [facility], Dr. Murillo. Chronic diastolic CHF; Echo 05/07 with preserved LV systolic function Type II Diabetes Anemia Hypothyroidism BRITTANI - previously on CPAP in 2014, but it broke within the past year. Has required BIPAP 08/03 FEN - Renal ADA diet PPX - heparin, PPI FULL CODE Dispo - inpatient, will need rehab on d/c History of Present Illness History of Present Illness Ms Braswell is a 75yo F w/ PMHx HTN, DM2, CHF, CAD s/p CABG, BRITTANI previously on CPAP who came to ED on 05/13/2020 progressive shortness of breath over the prior week. In ED with O2 saturations 86% on room air febrile to 101.3 F. Tested positive for COVID-19. She had not been fully vaccinated. 05/14: Weak and was resting. (Remdesivir, Dexamethsone, Heparin, Piperacillin/Tazobactam). Mrs. Braswell states that she only received 1 dose of the COVID-19 vaccination. 05/15: She is feeling better. This morning, she was able to eat her breakfast. 05/16: Afebrile overnight. Glucose in the 200s. O2 saturations 89 to 91% on 2 L nasal cannula oxygen. She is feeling short of breath and weak. No chest pain. 05/17: V. tach overnight. Afebrile. BUN over 88 and creatinine elevated. Holding furosemide and losartan. Baseline CR at [facility] was 1.1. Cardiology nephrology consulted today. 05/18: BUN over 88 and creatinine elevated 6.9. Completed remdesivir on 05/17 9/2: NO AV mariama block agents with bradycardia. Am labs 05/20: Continue empiric PPI. Follow hemoglobin. Confused, not eating well 05/21: Confused, not eating well pulled out temp dialysis cath 9-4 am 05/22: NON- TUNNELED Hemodialysis catheter via the right internal jugular vein approach, ready to utilize. Melena/fall in hemoglobin--hemoglobin stable x 2. 05/23: Seen and examined at bedside. Reports no complaints this morning, breathing feeling better. Denying bloody bowel movement. Mild drop in hemoglobin today, plan for dialysis 05/24: Patient seen and evaluated at bedside. She was on the phone talking. No complaints. Dialysis tomorrow. Will likely need rehab for discharge. 05/25: Mrs. Braswell was seen and evaluated in her room this morning. She was resting upon entering her room, but awoke and conversed with me. 05/26: Patient evaluated at bedside. No major clinical changes. Will need acute rehab placement. 05/27: Patient evaluated at bedside she was resting getting ready to go for tunnel cath placement. Will need outpatient dialysis likely rehab. 05/28: She stated that she had been experiencing chest pain and exhibited an arrhythmia, for which I have consulted Cardiology. Mrs. Braswell is on 3 L of Oxygen. BIPAP 22/6 QHS 05/29: On 1L of Oxygen. Her Hgb was 6.4 L and orders have been placed to address this. Overnight, her blood sugar did drop and she was given breakfast with improvement. 05/30: Hb 7.9 after 1 u PRBC transfusion. BUN 37, CR 5.7. Seen on dialysis, still a bit confused. BIPAP overnight and while sleeping 05/31: Intermittently confused, taking O2 off, desats into 80s. C/o bilateral foot pain improved with massage. Family requesting home health with outpatient dialysis. Advised skilled rehab, they note 2 nurses in the family. Awaiting dialysis chair placement as well as home BIPAP 06/01: Afebrile overnight. Used BIPAP 22/6. Hb 7. Very sleepy on dialysis today. D/w pulm to obtain ABG, transfuse 1 u PRBC with dialysis and hold heparin. Afebrile overnight. Used BiPAP 22/6. She is now Hb 7.6 after transfusion. She is little more alert today. Complaining of pain in her bilateral feet. Daughters have been helpful getting ready for home health and home BiPAP and usually dialysis tentatively scheduled Sunday. Vitals/I&O Vitals/I&O: Vital Signs Date Time Temp Pulse Resp B/P (MAP) Pulse Ox O2 Delivery O2 Flow Rate FiO2 06/02/21 07:00 98.0 62 20 138/59 (85) 98 BiPAP/CPAP 98.0 06/01/21 22:47 1.0 I & O 06/01/21 06/01/21 06/02/21 15:00 23:00 07:00 Intake Total 100 ml 0 ml Balance 100 ml 0 ml Physical Exam Physical Exam: pleasant, confused General: Alert, Cooperative, No acute distress Heart: Other (AFIB) Lungs: Clear Abdomen: Normal bowel sounds, Other (obese) Extremities: No clubbing, Other (trace bilateral LE edema ) Skin: No rashes, No significant lesion Labs Labs: Laboratory Tests Test 06/01/21 13:01 06/01/21 15:20 06/01/21 16:38 06/01/21 18:32 Glucose (Fingerstick) 106 mg/dL (70-99) 96 mg/dL (70-99) 116 mg/dL (70-99) O2 Saturation 92 % (92-99) Arterial Blood pH 7.36 (7.35-7.45) Arterial Blood pCO2 at Patient Temp 57 mmHg (35-46) Arterial Blood pO2 at Patient Temp 65 mmHg (65-108) Arterial Blood HCO3 31 mmol/L (21-28) Arterial Blood Base Excess 5 mmol/L (-3-3) FiO2 1l nc Test 06/02/21 02:20 06/02/21 02:30 06/02/21 07:06 Sodium Level 139 mmol/L (136-145) Potassium Level 3.8 mmol/L (3.5-5.1) Chloride Level 100 mmol/L (98-107) Carbon Dioxide Level 32 mmol/L (21-32) Anion Gap 7 (6-14) Blood Urea Nitrogen 17 mg/dL (7-20) Creatinine 3.7 mg/dL (0.6-1.0) Estimated GFR (Cockcroft-Gault) 14.4 BUN/Creatinine Ratio 5 (6-20) Glucose Level 93 mg/dL (70-99) Calcium Level 8.6 mg/dL (8.5-10.1) Total Bilirubin 0.2 mg/dL (0.2-1.0) Aspartate Amino Transf (AST/SGOT) 35 U/L (15-37) Alanine Aminotransferase (ALT/SGPT) 34 U/L (14-59) Alkaline Phosphatase 181 U/L (46-116) Ammonia 13 mcmol/L (11-34) Total Protein 6.4 g/dL (6.4-8.2) Albumin 2.0 g/dL (3.4-5.0) Albumin/Globulin Ratio 0.5 (1.0-1.7) White Blood Count 5.5 x10^3/uL (4.0-11.0) Red Blood Count 2.56 x10^6/uL (3.50-5.40) Hemoglobin 7.6 g/dL (12.0-15.5) Hematocrit 23.5 % (36.0-47.0) Mean Corpuscular Volume 92 fL (79-100) Mean Corpuscular Hemoglobin 30 pg (25-35) Mean Corpuscular Hemoglobin Concent 32 g/dL (31-37) Red Cell Distribution Width 16.6 % (11.5-14.5) Platelet Count 148 x10^3/uL (140-400) Neutrophils (%) (Auto) 71 % (31-73) Lymphocytes (%) (Auto) 13 % (24-48) Monocytes (%) (Auto) 15 % (0-9) Eosinophils (%) (Auto) 1 % (0-3) Basophils (%) (Auto) 1 % (0-3) Neutrophils # (Auto) 3.9 x10^3/uL (1.8-7.7) Lymphocytes # (Auto) 0.7 x10^3/uL (1.0-4.8) Monocytes # (Auto) 0.8 x10^3/uL (0.0-1.1) Eosinophils # (Auto) 0.1 x10^3/uL (0.0-0.7) Basophils # (Auto) 0.0 x10^3/uL (0.0-0.2) Glucose (Fingerstick) 85 mg/dL (70-99) Assessment and Plan Assessmemt and Plan Problems Medical Problems: (1) Hypomagnesemia syndrome Status: Acute (2) Hypoxia Status: Acute (3) Pneumonia due to COVID-19 virus Status: Acute Comment Review of Relevant I have reviewed the following items maged (where applicable) has been applied. Justifications for Admission Other Justification GENO YEBOAH MD Jun 02, 2021 08:40
[2021-06-02] MEDS: SENNOSIDES/DOCUSATE 8.6/50MG TABLET. PO SCH ×2 (09:00→21:44)
--- NOTE | 2021-06-02 09:26 | PDOC ---
PULMONARY PROGRESS NOTES DATE: 06/02/21 TIME: 09:24 Subjective More awake today. Did not use BiPAP last night Vitals Vital Signs Date Time Temp Pulse Resp B/P (MAP) Pulse Ox O2 Delivery O2 Flow Rate FiO2 06/02/21 07:00 98.0 62 20 138/59 (85) 98 BiPAP/CPAP 98.0 06/01/21 22:47 1.0 General: No acute distress Lungs: Clear Cardiovascular: S1 Abdomen: Soft, Other (obese) Extremities: No Edema Labs Laboratory Tests Test 05/31/21 11:10 05/31/21 16:06 05/31/21 20:26 06/01/21 06:15 Glucose (Fingerstick) 253 mg/dL (70-99) 226 mg/dL (70-99) 186 mg/dL (70-99) White Blood Count 6.8 x10^3/uL (4.0-11.0) Red Blood Count 2.33 x10^6/uL (3.50-5.40) Hemoglobin 7.0 g/dL (12.0-15.5) Hematocrit 21.7 % (36.0-47.0) Mean Corpuscular Volume 93 fL (79-100) Mean Corpuscular Hemoglobin 30 pg (25-35) Mean Corpuscular Hemoglobin Concent 32 g/dL (31-37) Red Cell Distribution Width 15.2 % (11.5-14.5) Platelet Count 147 x10^3/uL (140-400) Neutrophils (%) (Auto) 79 % (31-73) Lymphocytes (%) (Auto) 8 % (24-48) Monocytes (%) (Auto) 12 % (0-9) Eosinophils (%) (Auto) 1 % (0-3) Basophils (%) (Auto) 1 % (0-3) Neutrophils # (Auto) 5.3 x10^3/uL (1.8-7.7) Lymphocytes # (Auto) 0.6 x10^3/uL (1.0-4.8) Monocytes # (Auto) 0.8 x10^3/uL (0.0-1.1) Eosinophils # (Auto) 0.1 x10^3/uL (0.0-0.7) Basophils # (Auto) 0.0 x10^3/uL (0.0-0.2) Sodium Level 136 mmol/L (136-145) Potassium Level 3.9 mmol/L (3.5-5.1) Chloride Level 99 mmol/L (98-107) Carbon Dioxide Level 32 mmol/L (21-32) Anion Gap 5 (6-14) Blood Urea Nitrogen 32 mg/dL (7-20) Creatinine 5.7 mg/dL (0.6-1.0) Estimated GFR (Cockcroft-Gault) 8.8 Glucose Level 139 mg/dL (70-99) Calcium Level 8.6 mg/dL (8.5-10.1) Test 06/01/21 07:00 06/01/21 13:01 06/01/21 15:20 06/01/21 16:38 Glucose (Fingerstick) 142 mg/dL (70-99) 106 mg/dL (70-99) 96 mg/dL (70-99) O2 Saturation 92 % (92-99) Arterial Blood pH 7.36 (7.35-7.45) Arterial Blood pCO2 at Patient Temp 57 mmHg (35-46) Arterial Blood pO2 at Patient Temp 65 mmHg (65-108) Arterial Blood HCO3 31 mmol/L (21-28) Arterial Blood Base Excess 5 mmol/L (-3-3) FiO2 1l nc Test 06/01/21 18:32 06/02/21 02:20 06/02/21 02:30 06/02/21 07:06 Glucose (Fingerstick) 116 mg/dL (70-99) 85 mg/dL (70-99) Sodium Level 139 mmol/L (136-145) Potassium Level 3.8 mmol/L (3.5-5.1) Chloride Level 100 mmol/L (98-107) Carbon Dioxide Level 32 mmol/L (21-32) Anion Gap 7 (6-14) Blood Urea Nitrogen 17 mg/dL (7-20) Creatinine 3.7 mg/dL (0.6-1.0) Estimated GFR (Cockcroft-Gault) 14.4 BUN/Creatinine Ratio 5 (6-20) Glucose Level 93 mg/dL (70-99) Calcium Level 8.6 mg/dL (8.5-10.1) Total Bilirubin 0.2 mg/dL (0.2-1.0) Aspartate Amino Transf (AST/SGOT) 35 U/L (15-37) Alanine Aminotransferase (ALT/SGPT) 34 U/L (14-59) Alkaline Phosphatase 181 U/L (46-116) Ammonia 13 mcmol/L (11-34) Total Protein 6.4 g/dL (6.4-8.2) Albumin 2.0 g/dL (3.4-5.0) Albumin/Globulin Ratio 0.5 (1.0-1.7) White Blood Count 5.5 x10^3/uL (4.0-11.0) Red Blood Count 2.56 x10^6/uL (3.50-5.40) Hemoglobin 7.6 g/dL (12.0-15.5) Hematocrit 23.5 % (36.0-47.0) Mean Corpuscular Volume 92 fL (79-100) Mean Corpuscular Hemoglobin 30 pg (25-35) Mean Corpuscular Hemoglobin Concent 32 g/dL (31-37) Red Cell Distribution Width 16.6 % (11.5-14.5) Platelet Count 148 x10^3/uL (140-400) Neutrophils (%) (Auto) 71 % (31-73) Lymphocytes (%) (Auto) 13 % (24-48) Monocytes (%) (Auto) 15 % (0-9) Eosinophils (%) (Auto) 1 % (0-3) Basophils (%) (Auto) 1 % (0-3) Neutrophils # (Auto) 3.9 x10^3/uL (1.8-7.7) Lymphocytes # (Auto) 0.7 x10^3/uL (1.0-4.8) Monocytes # (Auto) 0.8 x10^3/uL (0.0-1.1) Eosinophils # (Auto) 0.1 x10^3/uL (0.0-0.7) Basophils # (Auto) 0.0 x10^3/uL (0.0-0.2) Laboratory Tests Test 06/01/21 13:01 06/01/21 15:20 06/01/21 16:38 06/01/21 18:32 Glucose (Fingerstick) 106 mg/dL (70-99) 96 mg/dL (70-99) 116 mg/dL (70-99) O2 Saturation 92 % (92-99) Arterial Blood pH 7.36 (7.35-7.45) Arterial Blood pCO2 at Patient Temp 57 mmHg (35-46) Arterial Blood pO2 at Patient Temp 65 mmHg (65-108) Arterial Blood HCO3 31 mmol/L (21-28) Arterial Blood Base Excess 5 mmol/L (-3-3) FiO2 1l nc Test 06/02/21 02:20 06/02/21 02:30 06/02/21 07:06 Sodium Level 139 mmol/L (136-145) Potassium Level 3.8 mmol/L (3.5-5.1) Chloride Level 100 mmol/L (98-107) Carbon Dioxide Level 32 mmol/L (21-32) Anion Gap 7 (6-14) Blood Urea Nitrogen 17 mg/dL (7-20) Creatinine 3.7 mg/dL (0.6-1.0) Estimated GFR (Cockcroft-Gault) 14.4 BUN/Creatinine Ratio 5 (6-20) Glucose Level 93 mg/dL (70-99) Calcium Level 8.6 mg/dL (8.5-10.1) Total Bilirubin 0.2 mg/dL (0.2-1.0) Aspartate Amino Transf (AST/SGOT) 35 U/L (15-37) Alanine Aminotransferase (ALT/SGPT) 34 U/L (14-59) Alkaline Phosphatase 181 U/L (46-116) Ammonia 13 mcmol/L (11-34) Total Protein 6.4 g/dL (6.4-8.2) Albumin 2.0 g/dL (3.4-5.0) Albumin/Globulin Ratio 0.5 (1.0-1.7) White Blood Count 5.5 x10^3/uL (4.0-11.0) Red Blood Count 2.56 x10^6/uL (3.50-5.40) Hemoglobin 7.6 g/dL (12.0-15.5) Hematocrit 23.5 % (36.0-47.0) Mean Corpuscular Volume 92 fL (79-100) Mean Corpuscular Hemoglobin 30 pg (25-35) Mean Corpuscular Hemoglobin Concent 32 g/dL (31-37) Red Cell Distribution Width 16.6 % (11.5-14.5) Platelet Count 148 x10^3/uL (140-400) Neutrophils (%) (Auto) 71 % (31-73) Lymphocytes (%) (Auto) 13 % (24-48) Monocytes (%) (Auto) 15 % (0-9) Eosinophils (%) (Auto) 1 % (0-3) Basophils (%) (Auto) 1 % (0-3) Neutrophils # (Auto) 3.9 x10^3/uL (1.8-7.7) Lymphocytes # (Auto) 0.7 x10^3/uL (1.0-4.8) Monocytes # (Auto) 0.8 x10^3/uL (0.0-1.1) Eosinophils # (Auto) 0.1 x10^3/uL (0.0-0.7) Basophils # (Auto) 0.0 x10^3/uL (0.0-0.2) Glucose (Fingerstick) 85 mg/dL (70-99) Medications Active Scripts Medications Dose Route/Sig Max Daily Dose Days Date Category Zetia (Ezetimibe) 10 Mg Tablet 10 Mg PO DAILY 05/13/21 Reported Furosemide 40 Mg Tablet 1 Tab PO DAILY 05/13/21 Reported Hydrocodone-Apap 5-325 (Hydrocodone Bit/Acetaminophen) 1 Tab Tablet 1 Tab PO PRN BID PRN 05/13/21 Reported Allopurinol 100 Mg Tablet 1 Tab PO DAILY 05/13/21 Reported Aspirin 81 Mg Tab.chew 1 Tab PO DAILY 05/13/21 Reported Levothyroxine Sodium 175 Mcg Tablet 175 Mcg PO DAILYAC 05/13/21 Reported Amlodipine Besylate 5 Mg Tablet 5 Mg PO DAILY 05/13/21 Reported Hydralazine Hcl 25 Mg Tablet 1 Tab PO TID 05/13/21 Reported Gabapentin (Gabapentin) 100 Mg Capsule 100 Mg PO HS 05/13/21 Reported Atorvastatin Calcium 80 Mg Tablet 80 Mg PO DAILY 05/13/21 Reported Losartan Potassium 50 Mg Tablet 50 Mg PO DAILY 05/13/21 Reported Metformin Hcl 500 Mg Tablet 500 Mg PO BIDWMEALS 05/13/21 Reported Magnesium (Magnesium Oxide) 500 Mg Capsule 1 Cap PO BID 30 05/13/21 Reported Impression . 1. Acute hypercapnic respiratory failure secondary to likely congestive heart failure. Underlying COVID-19 pneumonia as well. 2. Abnormal chest x-ray with bilateral interstitial infiltrates, likely congestive heart failure. 3. COVID-19 positive by the rapid test. 4. End-stage renal disease, on hemodialysis. 5. Anemia, also contributing to her dyspnea. 6. Encephalopathy, improved post-BiPAP. 7. Mildly increased troponin level. 8. Severe protein-calorie malnutrition. Plan . 1. Continue BiPAP at bedtime and p.r.n. during the day. 2. Avoid hyperoxia. repeat ABG 06/01/2021 showed compensated hypercapnia. 3. Hemodialysis with ultrafiltration per renal. 4. PRN bronchodilators. 5. Transfuse with dialysis.as needed 6. Off subcu heparin 7. Continue supportive care. 8. Discussed with RN and we will follow along with you. BRITTANY JOYCE MD Jun 02, 2021 09:26
--- NOTE | 2021-06-02 09:32 | PDOC ---
DATE OF SERVICE DATE: 06/02/21 TIME: 09:31 SUBJECTIVE ROS stable,no n/v . No SOB at rest No acute concerns voiced by RN More awake today , UOP not recorded OBJECTIVE Vital Signs Vital Signs Date Time Temp Pulse Resp B/P (MAP) Pulse Ox O2 Delivery O2 Flow Rate FiO2 06/02/21 07:00 98.0 62 20 138/59 (85) 98 BiPAP/CPAP 98.0 06/01/21 22:47 1.0 I & 0 Intake and Output 06/02/21 07:00 Intake Total 100 ml Balance 100 ml Intake Oral 0 ml Blood Product IV Normal Saline Flush 100 ml PHYSICAL EXAM Physical Exam General: No acute distress HEENT: OM moist , on o2 by NC Neck Supple Lungs: CTA ant, Non labored Heart: Regular rate Abdomen: obese, NT Extremities: trace bilateral LE edema Skin: No significant lesion, no rash Neuro: Normal speech, Sensation intact Psych/Mental Status: Mental status NL, Mood NL No sanchez, No CVA or SP tenderness DIAGNOSIS/ASSESSMENT Assessment & Plan SUZIE - Cr elevated at presentation to the ER to 2.5 worsening renal function . initiated dialysis , No clearance -requiring dialysis, currently MWF schedule Currently no indication today ACccess - Tunnelled HDC , OP chair time scheduled for TTS at [facility] . Monitor for recovery, I/O, bladder scan prn CKD; 1.1 at [facility] 05/13/21 (no labs in our system) Acute respiratory failure secondary to COVID PNA Arrhythmia; 18-beat NSVT noted on tele. Otherwise SR. CAD s/p CABG 2004. Follows with MACDr. Murillo. Chronic diastolic CHF; Echo 05/07 with preserved LV systolic function Accelerated hypertension; now controlled Diabetes, II Morbid obesity, BRITTANI. noncompliant with CPAP COMMENT/RELEVANT DATA Meds Current Medications Medications (Trade) Dose Ordered Sig/Lemuel Start Time Stop Time Status Last Admin Dose Admin Acetaminophen (Tylenol) 650 mg PRN Q6HRS PRN 05/13/21 17:00 05/13/21 21:00 650 MG Albumin Human 200 ml @ 200 mls/hr 1X PRN PRN 06/01/21 09:00 06/01/21 14:59 DC Albuterol Sulfate (Ventolin Hfa) 2 puff PRN Q4HRS PRN 05/16/21 20:00 05/19/21 13:29 2 PUFF Allopurinol (Zyloprim) 100 mg DAILY 05/14/21 09:00 05/31/21 08:31 100 MG Amino Acids/ Electrolytes/ Dextrose 1,000 ml @ 80 mls/hr [id number] 05/20/21 13:15 05/25/21 13:30 DC 05/24/21 05:37 80 MLS/HR Amlodipine Besylate (Norvasc) 5 mg DAILY 05/14/21 09:00 05/31/21 08:33 5 MG Aspirin (Aspirin Chewable) 81 mg DAILY 05/14/21 09:00 05/31/21 08:30 81 MG Aspirin (Ecotrin) 81 mg [id number] 05/14/21 08:00 05/13/21 18:10 DC Atorvastatin Calcium (Lipitor) 80 mg QHS 05/13/21 21:00 06/01/21 20:28 80 MG Azithromycin 250 ml @ 250 mls/hr 1X ONCE 05/13/21 16:15 05/13/21 17:14 DC 05/13/21 16:37 250 MLS/HR Calcium Carbonate/ Glycine (Tums) 500 mg PRN Q3HRS PRN 05/13/21 17:00 Cefazolin Sodium/ Dextrose 50 ml @ 100 mls/hr 1X ONCE 05/27/21 13:45 05/27/21 14:14 DC 05/27/21 13:45 100 MLS/HR Ceftriaxone Sodium (Rocephin) 1 gm 1X ONCE 05/13/21 16:00 05/13/21 16:02 DC 05/13/21 16:37 1 GM Dexamethasone Sodium Phosphate (Decadron) 6 mg DAILY 05/14/21 09:00 05/25/21 13:28 DC 05/25/21 09:09 6 MG Dextrose (Dextrose 50%-Water Syringe) 12.5 gm PRN Q15MIN PRN 05/14/21 17:30 05/29/21 07:38 12.5 GM EZETIMIBE (Zetia) 10 mg DAILY 05/14/21 09:00 05/31/21 08:30 10 MG Fentanyl Citrate (Fentanyl 2ml Vial) 100 mcg 1X ONCE 05/27/21 13:30 05/27/21 13:31 DC 05/27/21 13:30 50 MCG Furosemide (Lasix) 40 mg DAILY 05/14/21 09:00 05/16/21 14:56 DC 05/16/21 10:09 40 MG Gabapentin (Neurontin) 100 mg HS 05/13/21 21:00 06/01/21 20:28 100 MG Guaifenesin (Robitussin Dm) 10 ml PRN Q6HRS PRN 05/16/21 07:30 05/16/21 21:16 10 ML Guaifenesin/ Codeine Phosphate (Robitussin Ac) 5 ml PRN Q6HRS PRN 05/13/21 16:15 05/16/21 07:29 DC Heparin Sodium (Porcine) (Heparin Sodium) 2,500 unit 1X ONCE 05/21/21 12:45 05/21/21 12:46 DC 05/21/21 12:41 2,500 UNIT Hydralazine HCl (Apresoline Inj) 10 mg PRN Q4HRS PRN 05/16/21 15:00 05/22/21 02:55 10 MG Hydralazine HCl (Apresoline) 25 mg TID 05/21/21 10:30 06/01/21 20:28 25 MG Info (Non-Icu Electrolyte Protocol) 1 ea PRN DAILY PRN 05/13/21 17:00 Info (PHARMACY MONITORING -- do not chart) 1 each PRN DAILY PRN 06/01/21 09:00 Insulin Glargine (Lantus Syringe) 10 unit QHS 05/30/21 21:00 06/01/21 20:30 10 UNIT Insulin Human Lispro (HumaLOG) 9 units 1X ONCE 05/24/21 21:00 05/24/21 21:01 DC 05/24/21 23:04 9 UNITS Isosorbide Mononitrate (Imdur) 30 mg DAILY 05/17/21 09:00 05/31/21 08:33 30 MG Lactobacillus Rhamnosus (Culturelle) 1 cap BID 05/16/21 21:00 06/01/21 20:28 1 CAP Levothyroxine Sodium (Synthroid) 175 mcg DAILYAC 05/14/21 07:30 05/31/21 08:31 175 MCG Lidocaine HCl (Buffered Lidocaine 1%) 6 ml 1X ONCE 05/21/21 11:30 05/21/21 11:33 DC 05/21/21 12:10 4 ML Lidocaine/ Epinephrine (LIDOCAINE 1%-EPI 1:100,000 Multi-Dose) 20 ml 1X ONCE 05/27/21 13:30 05/27/21 13:31 DC 05/27/21 13:30 9 ML Losartan Potassium (Cozaar) 50 mg DAILY 05/14/21 09:00 05/16/21 14:56 DC 05/16/21 10:09 50 MG Magnesium Sulfate 50 ml @ 25 mls/hr 1X ONCE 05/13/21 16:15 05/13/21 18:14 Cancel Methylprednisolone Sodium Succinate (SOLU-Medrol 125MG VIAL) 125 mg 1X ONCE 05/13/21 15:45 05/13/21 15:46 DC 05/13/21 15:58 125 MG Midazolam HCl (Versed) 2 mg 1X ONCE 05/27/21 13:30 05/27/21 13:31 DC 05/27/21 13:30 1 MG Multivitamins (Thera M Plus) 1 tab DAILY 05/14/21 09:00 05/31/21 08:30 1 TAB Nystatin (Nystop) 1 mayela BID 05/31/21 09:00 06/01/21 20:28 1 MAYELA Ondansetron HCl (Zofran) 4 mg PRN Q6HRS PRN 05/13/21 17:00 Oxycodone HCl (Roxicodone) 5 mg PRN Q3HRS PRN 05/13/21 17:00 Oxycodone/ Acetaminophen (Percocet 5/325) 2 tab PRN Q4HRS PRN 05/13/21 17:00 06/01/21 20:37 2 TAB Pantoprazole Sodium (Protonix) 40 mg DAILYAC 05/19/21 16:30 05/31/21 08:30 40 MG Piperacillin Sod/ Tazobactam Sod (Zosyn Per Pharmacy) 1 each PRN DAILY PRN 05/13/21 16:15 05/25/21 13:28 DC Piperacillin Sod/ Tazobactam Sod 2.25 gm/Sodium Chloride 50 ml @ 100 mls/hr Q8HRS 05/20/21 14:00 05/25/21 13:28 DC 05/25/21 05:34 100 MLS/HR Remdesivir 100 mg/ Sodium Chloride 230 ml @ 460 mls/hr Q24H 05/14/21 17:00 05/17/21 17:29 DC 05/17/21 17:45 460 MLS/HR Remdesivir 200 mg/ Sodium Chloride 210 ml @ 210 mls/hr 1X ONCE 05/13/21 17:00 05/13/21 17:59 DC 05/13/21 20:59 210 MLS/HR Senna/Docusate Sodium (Senna Plus) 1 tab BID 05/13/21 21:00 06/01/21 20:28 1 TAB Sodium Chloride 1,000 ml @ 400 mls/hr Q2H30M PRN 06/01/21 09:00 06/01/21 20:59 DC Sodium Chloride (Normal Saline Flush) 10 ml 1X PRN PRN 06/01/21 09:00 06/02/21 08:59 DC Zolpidem Tartrate (Ambien) 5 mg PRN QHS PRN 05/13/21 17:00 05/16/21 07:29 DC Lab Laboratory Tests Test 06/01/21 13:01 06/01/21 15:20 06/01/21 16:38 06/01/21 18:32 Glucose (Fingerstick) 106 mg/dL (70-99) 96 mg/dL (70-99) 116 mg/dL (70-99) O2 Saturation 92 % (92-99) Arterial Blood pH 7.36 (7.35-7.45) Arterial Blood pCO2 at Patient Temp 57 mmHg (35-46) Arterial Blood pO2 at Patient Temp 65 mmHg (65-108) Arterial Blood HCO3 31 mmol/L (21-28) Arterial Blood Base Excess 5 mmol/L (-3-3) FiO2 1l nc Test 06/02/21 02:20 06/02/21 02:30 06/02/21 07:06 Sodium Level 139 mmol/L (136-145) Potassium Level 3.8 mmol/L (3.5-5.1) Chloride Level 100 mmol/L (98-107) Carbon Dioxide Level 32 mmol/L (21-32) Anion Gap 7 (6-14) Blood Urea Nitrogen 17 mg/dL (7-20) Creatinine 3.7 mg/dL (0.6-1.0) Estimated GFR (Cockcroft-Gault) 14.4 BUN/Creatinine Ratio 5 (6-20) Glucose Level 93 mg/dL (70-99) Calcium Level 8.6 mg/dL (8.5-10.1) Total Bilirubin 0.2 mg/dL (0.2-1.0) Aspartate Amino Transf (AST/SGOT) 35 U/L (15-37) Alanine Aminotransferase (ALT/SGPT) 34 U/L (14-59) Alkaline Phosphatase 181 U/L (46-116) Ammonia 13 mcmol/L (11-34) Total Protein 6.4 g/dL (6.4-8.2) Albumin 2.0 g/dL (3.4-5.0) Albumin/Globulin Ratio 0.5 (1.0-1.7) White Blood Count 5.5 x10^3/uL (4.0-11.0) Red Blood Count 2.56 x10^6/uL (3.50-5.40) Hemoglobin 7.6 g/dL (12.0-15.5) Hematocrit 23.5 % (36.0-47.0) Mean Corpuscular Volume 92 fL (79-100) Mean Corpuscular Hemoglobin 30 pg (25-35) Mean Corpuscular Hemoglobin Concent 32 g/dL (31-37) Red Cell Distribution Width 16.6 % (11.5-14.5) Platelet Count 148 x10^3/uL (140-400) Neutrophils (%) (Auto) 71 % (31-73) Lymphocytes (%) (Auto) 13 % (24-48) Monocytes (%) (Auto) 15 % (0-9) Eosinophils (%) (Auto) 1 % (0-3) Basophils (%) (Auto) 1 % (0-3) Neutrophils # (Auto) 3.9 x10^3/uL (1.8-7.7) Lymphocytes # (Auto) 0.7 x10^3/uL (1.0-4.8) Monocytes # (Auto) 0.8 x10^3/uL (0.0-1.1) Eosinophils # (Auto) 0.1 x10^3/uL (0.0-0.7) Basophils # (Auto) 0.0 x10^3/uL (0.0-0.2) Glucose (Fingerstick) 85 mg/dL (70-99) Results All relevant outside records, renal labs, imaging studies, telemetry/EKG's were reviewed. Justicifation of Admission Dx: Justifications for Admission: Justification of Admission Dx: Yes AMINA MÁRQUEZ MD Jun 02, 2021 09:32
[2021-06-02] MEDS: PANTOPRAZOLE 40 MG TABLET.DR. PO SCH (10:02)
[2021-06-02] MEDS: MULTIVITAMIN with MINERAL TABLET. PO SCH (10:03)
[2021-06-02] MEDS: ISOSORBIDE MONONITRATE ER 30 MG TAB.ER.24H PO SCH (10:03)
[2021-06-02] MEDS: EZETIMIBE 10 MG TABLET. PO SCH (10:03)
[2021-06-02] MEDS: LEVOTHYROXINE 175 MCG TABLET PO SCH (10:03)
[2021-06-02] MEDS: ASPIRIN CHEWABLE 81 MG TABLET. PO SCH (10:03)
[2021-06-02] MEDS: ALLOPURINOL 100 MG TABLET. PO SCH (10:04)
[2021-06-02] MEDS: NYSTATIN TOPICAL POWDER 15GM BOTTLE. TP SCH ×2 (10:04→21:00)
[2021-06-02] MEDS: hydrALAZINE 25 MG TABLET PO SCH ×3 (10:04→21:45)
[2021-06-02] MEDS: LACTOBACILLUS RHAMNOSUS GG 1 CAPSULE. PO SCH ×2 (10:04→21:44)
--- NOTE | 2021-06-02 10:57 | PDOC ---
Date of Service: DATE: 06/02/21 TIME: 10:54 Subjective: Subjective: Says she's doing pretty good but she's bored and would like someone to talk to. Objective: Objective: D/w nurse - better today, fed herself, has mittens because messing with HD cath sometimes, possible DC over the weekend. Vital Signs: Vital Signs Date Time Temp Pulse Resp B/P (MAP) Pulse Ox O2 Delivery O2 Flow Rate FiO2 06/02/21 10:04 62 138/59 06/02/21 08:00 Nasal Cannula 1.0 06/02/21 07:00 98.0 20 98 98.0 Labs: Laboratory Tests Test 06/01/21 13:01 06/01/21 15:20 06/01/21 16:38 06/01/21 18:32 Glucose (Fingerstick) 106 mg/dL 96 mg/dL 116 mg/dL O2 Saturation 92 % Arterial Blood pH 7.36 Arterial Blood pCO2 at Patient Temp 57 mmHg Arterial Blood pO2 at Patient Temp 65 mmHg Arterial Blood HCO3 31 mmol/L Arterial Blood Base Excess 5 mmol/L FiO2 1l nc Test 06/02/21 02:20 06/02/21 02:30 06/02/21 07:06 Sodium Level 139 mmol/L Potassium Level 3.8 mmol/L Chloride Level 100 mmol/L Carbon Dioxide Level 32 mmol/L Anion Gap 7 Blood Urea Nitrogen 17 mg/dL Creatinine 3.7 mg/dL Estimated GFR (Cockcroft-Gault) 14.4 BUN/Creatinine Ratio 5 Glucose Level 93 mg/dL Calcium Level 8.6 mg/dL Total Bilirubin 0.2 mg/dL Aspartate Amino Transf (AST/SGOT) 35 U/L Alanine Aminotransferase (ALT/SGPT) 34 U/L Alkaline Phosphatase 181 U/L Ammonia 13 mcmol/L Total Protein 6.4 g/dL Albumin 2.0 g/dL Albumin/Globulin Ratio 0.5 White Blood Count 5.5 x10^3/uL Red Blood Count 2.56 x10^6/uL Hemoglobin 7.6 g/dL Hematocrit 23.5 % Mean Corpuscular Volume 92 fL Mean Corpuscular Hemoglobin 30 pg Mean Corpuscular Hemoglobin Concent 32 g/dL Red Cell Distribution Width 16.6 % Platelet Count 148 x10^3/uL Neutrophils (%) (Auto) 71 % Lymphocytes (%) (Auto) 13 % Monocytes (%) (Auto) 15 % Eosinophils (%) (Auto) 1 % Basophils (%) (Auto) 1 % Neutrophils # (Auto) 3.9 x10^3/uL Lymphocytes # (Auto) 0.7 x10^3/uL Monocytes # (Auto) 0.8 x10^3/uL Eosinophils # (Auto) 0.1 x10^3/uL Basophils # (Auto) 0.0 x10^3/uL Glucose (Fingerstick) 85 mg/dL PE: GEN: more perky today, has mittens LUNGS: clear anteriorly, NC 1L HEART: RR ABD: soft, non-tender NEURO/PSYCH: pleasant, probably intermittently confused A/P: COVID pneumonia, CHF, ESRD Anemia - requires transfusions, no obvious GI bleeding, on ASA -- Continue same per GI. Justicifation of Admission Dx: Justifications for Admission: Justification of Admission Dx: Yes HARJINDER LAFLEUR Jun 02, 2021 10:57
[2021-06-02 11:00] VITALS: BP 117/56
[2021-06-02] MEDS: DICLOFENAC SODIUM 1% TOPICAL GEL 100GM TUBE. TP SCH ×2 (12:21→21:44)
--- NOTE | 2021-06-02 13:29 | NUR ---
SW following. Discussed with RN, pt's Bipap set up at pt's home with [facility]. Pt's daughter called [facility] and asked it be set up. Pt's chair time remains as in previous note, however pt cannot do the first session on the Sunday - will have to start on Sunday. Pt will need oxygen arranged through [facility] also, when closer to discharge. SW will continue to follow.
[2021-06-02 15:00] VITALS: BP 117/38
[2021-06-02 19:00] VITALS: BP 144/56
[2021-06-02] MEDS: ATORVASTATIN CALCIUM 40 MG TABLET. PO SCH (21:45)
[2021-06-02] MEDS: GABAPENTIN 100 MG CAPSULE. PO SCH (21:46)
[2021-06-02] MEDS: INSULIN GLARGINE SYRINGE. SQ SCH (21:48)
[2021-06-02 23:00] VITALS: BP 128/46
[2021-06-03 03:00] VITALS: BP 129/51
[2021-06-03 07:00] VITALS: BP 160/72
--- NOTE | 2021-06-03 07:06 | PDOC ---
[employer] PROGRESS NOTE Date of Service DOS: DATE: 06/03/21 TIME: 07:06 Chief Complaint Chief Complaint A/P: Pneumonia (Secondary to COVID-19 Infection) Acute Hypoxic Respiratory Failure COVID 19 Acute renal failure - now ESRD Hypomagnesemia CAD s/p CABG 2004. Follows with [facility], Dr. Murillo. Chronic diastolic CHF; Echo 05/07 with preserved LV systolic function Type II Diabetes Anemia - of CKD likely, s/p RBC transfusion 05/29 and 06/01 Hypothyroidism BRITTANI - previously on CPAP in 2014, but it broke within the past year. Has required BIPAP 08/03 - will need at home. has been prescribed in addition to home health FEN - Renal ADA diet PPX - heparin, PPI FULL CODE Dispo - inpatient, will need rehab on d/c History of Present Illness History of Present Illness Ms Braswell is a 75yo F w/ PMHx HTN, DM2, CHF, CAD s/p CABG, BRITTANI previously on CPAP who came to ED on 05/13/2020 progressive shortness of breath over the prior week. In ED with O2 saturations 86% on room air febrile to 101.3 F. Tested positive for COVID-19. She had not been fully vaccinated. 05/14: Weak and was resting. (Remdesivir, Dexamethsone, Heparin, Piperacillin/Tazobactam). Mrs. Braswell states that she only received 1 dose of the COVID-19 vaccination. 05/15: She is feeling better. This morning, she was able to eat her breakfast. 05/16: Afebrile overnight. Glucose in the 200s. O2 saturations 89 to 91% on 2 L nasal cannula oxygen. She is feeling short of breath and weak. No chest pain. 05/17: V. tach overnight. Afebrile. BUN over 88 and creatinine elevated. Holding furosemide and losartan. Baseline CR at [facility] was 1.1. Cardiology nephrology consulted today. 05/18: BUN over 88 and creatinine elevated 6.9. Completed remdesivir on 05/172: NO AV mariama block agents with bradycardia. Am labs 05/20: Continue empiric PPI. Follow hemoglobin. Confused, not eating well 05/21: Confused, not eating well pulled out temp dialysis cath 9- am 05/22: NON- TUNNELED Hemodialysis catheter via the right internal jugular vein approach, ready to utilize. Melena/fall in hemoglobin--hemoglobin stable x 2. 05/23: Seen and examined at bedside. Reports no complaints this morning, breathing feeling better. Denying bloody bowel movement. Mild drop in hemoglobin today, plan for dialysis 05/24: Patient seen and evaluated at bedside. She was on the phone talking. No complaints. Dialysis tomorrow. Will likely need rehab for discharge. 05/25: Mrs. Braswell was seen and evaluated in her room this morning. She was resting upon entering her room, but awoke and conversed with me. 05/26: Patient evaluated at bedside. No major clinical changes. Will need acute rehab placement. 05/27: Patient evaluated at bedside she was resting getting ready to go for tunnel cath placement. Will need outpatient dialysis likely rehab. 05/28: She stated that she had been experiencing chest pain and exhibited an arrhythmia, for which I have consulted Cardiology. Mrs. Braswell is on 3 L of Oxygen. BIPAP 22/6 QHS 05/29: On 1L of Oxygen. Her Hgb was 6.4 L and orders have been placed to address this. Overnight, her blood sugar did drop and she was given breakfast with improvement. 05/30: Hb 7.9 after 1 u PRBC transfusion. BUN 37, CR 5.7. Seen on dialysis, still a bit confused. BIPAP overnight and while sleeping 05/31: Intermittently confused, taking O2 off, desats into 80s. C/o bilateral foot pain improved with massage. Family requesting home health with outpatient dialysis. Advised skilled rehab, they note 2 nurses in the family. Awaiting dialysis chair placement as well as home BIPAP 06/01: Afebrile overnight. Used BIPAP 22/6. Hb 7. Very sleepy on dialysis today. D/w pulm to obtain ABG, transfuse 1 u PRBC with dialysis and hold heparin. 06/02: Afebrile overnight. Used BiPAP 22/6. She is now Hb 7.6 after transfusion. She is little more alert today. Complaining of pain in her bilateral feet. Daughters have been helpful getting ready for home health and home BiPAP and usually dialysis tentatively scheduled Sunday. Afebrile. No SOB or CP. Foot pain improved with voltaren gel. Still profoundly weak. Tolerated BIPAP 22/6, more alert today, Hb 7.4. To dialysis today. Her [facility] outpatient dialysis has been scheduled as well as home health, and BIPAP is being delivered. Daughters have requested continuous glucometer prescription as well as 09/04 care resources, I have advised acute rehab or SNF, they say they can take care of her 09/04 just want to have someone else available. Vitals/I&O Vitals/I&O: Vital Signs Date Time Temp Pulse Resp B/P (MAP) Pulse Ox O2 Delivery O2 Flow Rate FiO2 06/03/21 03:50 100 BiPAP/CPAP 06/03/21 03:00 97.0 79 18 129/51 (77) 97.0 06/02/21 20:00 1.0 I & O 06/02/21 06/02/21 06/03/21 15:00 23:00 07:00 Intake Total 100 ml 0 ml Balance 100 ml 0 ml Physical Exam Physical Exam: pleasant, confused General: Alert, Cooperative, No acute distress Heart: Other (AFIB) Lungs: Clear Abdomen: Normal bowel sounds, Other (obese) Extremities: No clubbing, Other (trace bilateral LE edema ) Skin: No rashes, No significant lesion Labs Labs: Laboratory Tests Test 06/02/21 11:14 06/02/21 16:39 06/02/21 21:08 Glucose (Fingerstick) 164 mg/dL (70-99) 141 mg/dL (70-99) 218 mg/dL (70-99) Assessment and Plan Assessmemt and Plan Problems Medical Problems: (1) Hypomagnesemia syndrome Status: Acute (2) Hypoxia Status: Acute (3) Pneumonia due to COVID-19 virus Status: Acute Comment Review of Relevant I have reviewed the following items maged (where applicable) has been applied. Medications: Current Medications Medications (Trade) Dose Ordered Sig/Lemuel Route PRN Reason Start Time Stop Time Status Last Admin Dose Admin Diclofenac Sodium (Voltaren) 1 mayela BID TP 06/02/21 12:00 06/02/21 21:44 Justifications for Admission Other Justification GENO YEBOAH MD Jun 03, 2021 07:06
[2021-06-03] MEDS: INSULIN LISPRO 300 UNITS/3 ML VIAL. SQ SCH ×4 (07:30→21:00)
[2021-06-03] MEDS: PANTOPRAZOLE 40 MG TABLET.DR. PO SCH (07:30)
[2021-06-03] MEDS: LEVOTHYROXINE 175 MCG TABLET PO SCH (07:30)
[2021-06-03 08:14] LABS: BASO % 0 % (0-3); EOS # 0.1 x10^3/uL (0.0-0.7); EOS % 1 % (0-3); HEMATOCRIT 22.9 % (36.0-47.0); HEMOGLOBIN 7.4 g/dL (12.0-15.5); LYMPH # 0.8 x10^3/uL (1.0-4.8); LYMPH % 14 % (24-48); MEAN CORPUSCULAR HEMOGLOBIN 30 pg (25-35); MEAN CORPUSCULAR HGB CONC 32 g/dL (31-37); MEAN CORPUSCULAR VOLUME 92 fL (79-100); MONO # 0.6 x10^3/uL (0.0-1.1); MONO % 12 % (0-9); NEUT % 73 % (31-73); PLATELET COUNT 153 x10^3/uL (140-400); RED CELL DISTRIBUTION WIDTH 16.3 % (11.5-14.5); WHITE BLOOD COUNT 5.5 x10^3/uL (4.0-11.0)
[2021-06-03 08:18] LABS: CALCIUM 8.6 mg/dL (8.5-10.1); CREATININE 5.5 mg/dL (0.6-1.0); GFR 9.1
[2021-06-03] MEDS: LACTOBACILLUS RHAMNOSUS GG 1 CAPSULE. PO SCH ×2 (09:00→21:01)
[2021-06-03] MEDS: EZETIMIBE 10 MG TABLET. PO SCH (09:00)
[2021-06-03] MEDS: ASPIRIN CHEWABLE 81 MG TABLET. PO SCH (09:00)
[2021-06-03] MEDS: hydrALAZINE 25 MG TABLET PO SCH ×3 (09:00→21:01)
[2021-06-03] MEDS: NYSTATIN TOPICAL POWDER 15GM BOTTLE. TP SCH ×2 (09:00→21:00)
[2021-06-03] MEDS: MULTIVITAMIN with MINERAL TABLET. PO SCH (09:00)
[2021-06-03] MEDS: ISOSORBIDE MONONITRATE ER 30 MG TAB.ER.24H PO SCH (09:00)
[2021-06-03] MEDS: DICLOFENAC SODIUM 1% TOPICAL GEL 100GM TUBE. TP SCH ×2 (09:00→21:01)
[2021-06-03] MEDS: ALLOPURINOL 100 MG TABLET. PO SCH (09:00)
[2021-06-03] MEDS: SENNOSIDES/DOCUSATE 8.6/50MG TABLET. PO SCH ×2 (09:00→21:01)
[2021-06-03] MEDS ORDERED: DIALYSIS PATIENT. MC PRN ×2 (09:45)
[2021-06-03] MEDS ORDERED: IV NORMAL SALINE 1000ML BAG 1,000 ML IV PRN ×2 (09:45)
[2021-06-03] MEDS ORDERED: ALBUMIN HUMAN 25% 200 ML IV PRN (09:45)
[2021-06-03] MEDS ORDERED: 0.9 % SODIUM CHLORIDE 10 ML DISP.SYRIN. IV PRN ×2 (09:45)
--- NOTE | 2021-06-03 10:23 | NUR ---
SW following. Discussed with RN, pt from home with family. Dialysis today and possibly tomorrow. Plans for discharge over the weekend with [facility]. Family already has Bipap delivered and aware of the chair time. SW will continue to follow.
--- NOTE | 2021-06-03 10:32 | PDOC ---
Date of Service: DATE: 06/03/21 TIME: 10:30 Objective: Objective: Reviewed chart - plans for DC over the weekend. Vital Signs: Vital Signs Date Time Temp Pulse Resp B/P (MAP) Pulse Ox O2 Delivery O2 Flow Rate FiO2 06/03/21 07:00 98.8 72 24 160/72 (101) 98 BiPAP/CPAP 98.8 06/02/21 20:00 1.0 Labs: Laboratory Tests Test 06/02/21 11:14 06/02/21 16:39 06/02/21 21:08 06/03/21 06:30 Glucose (Fingerstick) 164 mg/dL 141 mg/dL 218 mg/dL White Blood Count 5.5 x10^3/uL Red Blood Count 2.50 x10^6/uL Hemoglobin 7.4 g/dL Hematocrit 22.9 % Mean Corpuscular Volume 92 fL Mean Corpuscular Hemoglobin 30 pg Mean Corpuscular Hemoglobin Concent 32 g/dL Red Cell Distribution Width 16.3 % Platelet Count 153 x10^3/uL Neutrophils (%) (Auto) 73 % Lymphocytes (%) (Auto) 14 % Monocytes (%) (Auto) 12 % Eosinophils (%) (Auto) 1 % Basophils (%) (Auto) 0 % Neutrophils # (Auto) 4.0 x10^3/uL Lymphocytes # (Auto) 0.8 x10^3/uL Monocytes # (Auto) 0.6 x10^3/uL Eosinophils # (Auto) 0.1 x10^3/uL Basophils # (Auto) 0.0 x10^3/uL Sodium Level 137 mmol/L Potassium Level 4.0 mmol/L Chloride Level 100 mmol/L Carbon Dioxide Level 32 mmol/L Anion Gap 5 Blood Urea Nitrogen 26 mg/dL Creatinine 5.5 mg/dL Estimated GFR (Cockcroft-Gault) 9.1 Glucose Level 153 mg/dL Calcium Level 8.6 mg/dL Test 06/03/21 07:34 Glucose (Fingerstick) 153 mg/dL PE: GEN: eating enthusiastically when I saw - did not disturb A/P: COVID pneumonia, CHF, ESRD Anemia - Hgb stable in 7s -- Stable GI-mar, awaiting DC. Justicifation of Admission Dx: Justifications for Admission: Justification of Admission Dx: Yes HARJINDER LAFLEUR Jun 03, 2021 10:32
--- NOTE | 2021-06-03 11:04 | PDOC ---
PULMONARY PROGRESS NOTES DATE: 06/03/21 TIME: 11:03 Subjective Denies any shortness of breath. Fully awake Vitals Vital Signs Date Time Temp Pulse Resp B/P (MAP) Pulse Ox O2 Delivery O2 Flow Rate FiO2 06/03/21 07:00 98.8 72 24 160/72 (101) 98 BiPAP/CPAP 98.8 06/02/21 20:00 1.0 General: Alert, No acute distress Lungs: Clear Cardiovascular: S1 Abdomen: Soft, Other (obese) Extremities: No Edema Labs Laboratory Tests Test 06/01/21 13:01 06/01/21 15:20 06/01/21 16:38 06/01/21 18:32 Glucose (Fingerstick) 106 mg/dL (70-99) 96 mg/dL (70-99) 116 mg/dL (70-99) O2 Saturation 92 % (92-99) Arterial Blood pH 7.36 (7.35-7.45) Arterial Blood pCO2 at Patient Temp 57 mmHg (35-46) Arterial Blood pO2 at Patient Temp 65 mmHg (65-108) Arterial Blood HCO3 31 mmol/L (21-28) Arterial Blood Base Excess 5 mmol/L (-3-3) FiO2 1l nc Test 06/02/21 02:20 06/02/21 02:30 06/02/21 07:06 06/02/21 11:14 Sodium Level 139 mmol/L (136-145) Potassium Level 3.8 mmol/L (3.5-5.1) Chloride Level 100 mmol/L (98-107) Carbon Dioxide Level 32 mmol/L (21-32) Anion Gap 7 (6-14) Blood Urea Nitrogen 17 mg/dL (7-20) Creatinine 3.7 mg/dL (0.6-1.0) Estimated GFR (Cockcroft-Gault) 14.4 BUN/Creatinine Ratio 5 (6-20) Glucose Level 93 mg/dL (70-99) Calcium Level 8.6 mg/dL (8.5-10.1) Total Bilirubin 0.2 mg/dL (0.2-1.0) Aspartate Amino Transf (AST/SGOT) 35 U/L (15-37) Alanine Aminotransferase (ALT/SGPT) 34 U/L (14-59) Alkaline Phosphatase 181 U/L (46-116) Ammonia 13 mcmol/L (11-34) Total Protein 6.4 g/dL (6.4-8.2) Albumin 2.0 g/dL (3.4-5.0) Albumin/Globulin Ratio 0.5 (1.0-1.7) White Blood Count 5.5 x10^3/uL (4.0-11.0) Red Blood Count 2.56 x10^6/uL (3.50-5.40) Hemoglobin 7.6 g/dL (12.0-15.5) Hematocrit 23.5 % (36.0-47.0) Mean Corpuscular Volume 92 fL (79-100) Mean Corpuscular Hemoglobin 30 pg (25-35) Mean Corpuscular Hemoglobin Concent 32 g/dL (31-37) Red Cell Distribution Width 16.6 % (11.5-14.5) Platelet Count 148 x10^3/uL (140-400) Neutrophils (%) (Auto) 71 % (31-73) Lymphocytes (%) (Auto) 13 % (24-48) Monocytes (%) (Auto) 15 % (0-9) Eosinophils (%) (Auto) 1 % (0-3) Basophils (%) (Auto) 1 % (0-3) Neutrophils # (Auto) 3.9 x10^3/uL (1.8-7.7) Lymphocytes # (Auto) 0.7 x10^3/uL (1.0-4.8) Monocytes # (Auto) 0.8 x10^3/uL (0.0-1.1) Eosinophils # (Auto) 0.1 x10^3/uL (0.0-0.7) Basophils # (Auto) 0.0 x10^3/uL (0.0-0.2) Glucose (Fingerstick) 85 mg/dL (70-99) 164 mg/dL (70-99) Test 06/02/21 16:39 06/02/21 21:08 06/03/21 06:30 06/03/21 07:34 Glucose (Fingerstick) 141 mg/dL (70-99) 218 mg/dL (70-99) 153 mg/dL (70-99) White Blood Count 5.5 x10^3/uL (4.0-11.0) Red Blood Count 2.50 x10^6/uL (3.50-5.40) Hemoglobin 7.4 g/dL (12.0-15.5) Hematocrit 22.9 % (36.0-47.0) Mean Corpuscular Volume 92 fL (79-100) Mean Corpuscular Hemoglobin 30 pg (25-35) Mean Corpuscular Hemoglobin Concent 32 g/dL (31-37) Red Cell Distribution Width 16.3 % (11.5-14.5) Platelet Count 153 x10^3/uL (140-400) Neutrophils (%) (Auto) 73 % (31-73) Lymphocytes (%) (Auto) 14 % (24-48) Monocytes (%) (Auto) 12 % (0-9) Eosinophils (%) (Auto) 1 % (0-3) Basophils (%) (Auto) 0 % (0-3) Neutrophils # (Auto) 4.0 x10^3/uL (1.8-7.7) Lymphocytes # (Auto) 0.8 x10^3/uL (1.0-4.8) Monocytes # (Auto) 0.6 x10^3/uL (0.0-1.1) Eosinophils # (Auto) 0.1 x10^3/uL (0.0-0.7) Basophils # (Auto) 0.0 x10^3/uL (0.0-0.2) Sodium Level 137 mmol/L (136-145) Potassium Level 4.0 mmol/L (3.5-5.1) Chloride Level 100 mmol/L (98-107) Carbon Dioxide Level 32 mmol/L (21-32) Anion Gap 5 (6-14) Blood Urea Nitrogen 26 mg/dL (7-20) Creatinine 5.5 mg/dL (0.6-1.0) Estimated GFR (Cockcroft-Gault) 9.1 Glucose Level 153 mg/dL (70-99) Calcium Level 8.6 mg/dL (8.5-10.1) Laboratory Tests Test 06/02/21 11:14 06/02/21 16:39 06/02/21 21:08 06/03/21 06:30 Glucose (Fingerstick) 164 mg/dL (70-99) 141 mg/dL (70-99) 218 mg/dL (70-99) White Blood Count 5.5 x10^3/uL (4.0-11.0) Red Blood Count 2.50 x10^6/uL (3.50-5.40) Hemoglobin 7.4 g/dL (12.0-15.5) Hematocrit 22.9 % (36.0-47.0) Mean Corpuscular Volume 92 fL (79-100) Mean Corpuscular Hemoglobin 30 pg (25-35) Mean Corpuscular Hemoglobin Concent 32 g/dL (31-37) Red Cell Distribution Width 16.3 % (11.5-14.5) Platelet Count 153 x10^3/uL (140-400) Neutrophils (%) (Auto) 73 % (31-73) Lymphocytes (%) (Auto) 14 % (24-48) Monocytes (%) (Auto) 12 % (0-9) Eosinophils (%) (Auto) 1 % (0-3) Basophils (%) (Auto) 0 % (0-3) Neutrophils # (Auto) 4.0 x10^3/uL (1.8-7.7) Lymphocytes # (Auto) 0.8 x10^3/uL (1.0-4.8) Monocytes # (Auto) 0.6 x10^3/uL (0.0-1.1) Eosinophils # (Auto) 0.1 x10^3/uL (0.0-0.7) Basophils # (Auto) 0.0 x10^3/uL (0.0-0.2) Sodium Level 137 mmol/L (136-145) Potassium Level 4.0 mmol/L (3.5-5.1) Chloride Level 100 mmol/L (98-107) Carbon Dioxide Level 32 mmol/L (21-32) Anion Gap 5 (6-14) Blood Urea Nitrogen 26 mg/dL (7-20) Creatinine 5.5 mg/dL (0.6-1.0) Estimated GFR (Cockcroft-Gault) 9.1 Glucose Level 153 mg/dL (70-99) Calcium Level 8.6 mg/dL (8.5-10.1) Test 06/03/21 07:34 Glucose (Fingerstick) 153 mg/dL (70-99) Medications Active Scripts Medications Dose Route/Sig Max Daily Dose Days Date Category Zetia (Ezetimibe) 10 Mg Tablet 10 Mg PO DAILY 05/13/21 Reported Furosemide 40 Mg Tablet 1 Tab PO DAILY 05/13/21 Reported Hydrocodone-Apap 5-325 (Hydrocodone Bit/Acetaminophen) 1 Tab Tablet 1 Tab PO PRN BID PRN 05/13/21 Reported Allopurinol 100 Mg Tablet 1 Tab PO DAILY 05/13/21 Reported Aspirin 81 Mg Tab.chew 1 Tab PO DAILY 05/13/21 Reported Levothyroxine Sodium 175 Mcg Tablet 175 Mcg PO DAILYAC 05/13/21 Reported Amlodipine Besylate 5 Mg Tablet 5 Mg PO DAILY 05/13/21 Reported Hydralazine Hcl 25 Mg Tablet 1 Tab PO TID 05/13/21 Reported Gabapentin (Gabapentin) 100 Mg Capsule 100 Mg PO HS 05/13/21 Reported Atorvastatin Calcium 80 Mg Tablet 80 Mg PO DAILY 05/13/21 Reported Losartan Potassium 50 Mg Tablet 50 Mg PO DAILY 05/13/21 Reported Metformin Hcl 500 Mg Tablet 500 Mg PO BIDWMEALS 05/13/21 Reported Magnesium (Magnesium Oxide) 500 Mg Capsule 1 Cap PO BID 30 05/13/21 Reported Impression . 1. Acute hypercapnic respiratory failure secondary to likely congestive heart failure. Underlying COVID-19 pneumonia as well. 2. Abnormal chest x-ray with bilateral interstitial infiltrates, likely congestive heart failure. 3. COVID-19 positive by the rapid test. 4. End-stage renal disease, on hemodialysis. 5. Anemia, also contributing to her dyspnea. 6. Encephalopathy, improved post-BiPAP. 7. Mildly increased troponin level. 8. Severe protein-calorie malnutrition. Plan . 1. Continue BiPAP at bedtime and p.r.n. during the day. Patient is approved for home BiPAP. 2. Avoid hyperoxia. repeat ABG 06/01/2021 showed compensated hypercapnia. 3. Hemodialysis with ultrafiltration per renal. 4. PRN bronchodilators. 5. Transfuse with dialysis.as needed 6. Off subcu heparin 7. Discussed with Dr. Ponce. BRITTANY JOYCE MD Jun 03, 2021 11:04
--- NOTE | 2021-06-03 11:47 | PDOC ---
DATE OF SERVICE DATE: 06/03/21 TIME: 11:45 SUBJECTIVE ROS stable,no n/v . No SOB at rest awake OBJECTIVE Vital Signs Vital Signs Date Time Temp Pulse Resp B/P (MAP) Pulse Ox O2 Delivery O2 Flow Rate FiO2 06/03/21 09:00 72 160/72 06/03/21 07:00 98.8 24 98 BiPAP/CPAP 98.8 06/02/21 20:00 1.0 I & 0 Intake and Output 06/03/21 07:00 Intake Total 100 ml Balance 100 ml Intake Oral 100 ml # Voids 1 PHYSICAL EXAM Physical Exam General: No acute distress HEENT: OM moist , on o2 by NC Neck Supple Lungs: CTA ant, Non labored Heart: Regular rate Abdomen: obese, NT Extremities: trace bilateral LE edema Skin: No significant lesion, no rash Neuro: Normal speech, Sensation intact Psych/Mental Status: Mental status NL, Mood NL No sanchez, No CVA or SP tenderness DIAGNOSIS/ASSESSMENT Assessment & Plan SUZIE - Cr elevated at presentation to the ER to 2.5 with worsening renal function . initiated dialysis , No clearance -requiring dialysis, currently MWF schedule at [facility], seen durion treatment , tolerating well . Continue as ordered. Enrique Najera ACccess - Tunnelled HDC , OP chair time scheduled for TTS at [facility] . Monitor for recovery, I/O, (UOP not recorded) bladder scan prn CKD; 1.1 at [facility] 05/13/21 (no labs in our system) Acute respiratory failure secondary to COVID PNA Arrhythmia; 18-beat NSVT noted on tele. Otherwise SR. CAD s/p CABG 2004. Follows with [facility], Dr. Murillo. Chronic diastolic CHF; Echo 05/07 with preserved LV systolic function Accelerated hypertension; now controlled Diabetes, II Morbid obesity, BRITTANI. noncompliant with CPAP COMMENT/RELEVANT DATA Meds Current Medications Medications (Trade) Dose Ordered Sig/Lemuel Start Time Stop Time Status Last Admin Dose Admin Acetaminophen (Tylenol) 650 mg PRN Q6HRS PRN 05/13/21 17:00 05/13/21 21:00 650 MG Albumin Human 200 ml @ 200 mls/hr 1X PRN PRN 06/03/21 09:45 06/03/21 15:44 Albuterol Sulfate (Ventolin Hfa) 2 puff PRN Q4HRS PRN 05/16/21 20:00 9/2/21 13:29 2 PUFF Allopurinol (Zyloprim) 100 mg DAILY 05/14/21 09:00 06/02/21 10:04 100 MG Amino Acids/ Electrolytes/ Dextrose 1,000 ml @ 80 mls/hr [id number] 05/20/21 13:15 05/25/21 13:30 DC 05/24/21 05:37 80 MLS/HR Amlodipine Besylate (Norvasc) 5 mg DAILY 05/14/21 09:00 06/02/21 10:03 5 MG Aspirin (Aspirin Chewable) 81 mg DAILY 05/14/21 09:00 06/02/21 10:03 81 MG Aspirin (Ecotrin) 81 mg [id number] 05/14/21 08:00 05/13/21 18:10 DC Atorvastatin Calcium (Lipitor) 80 mg QHS 05/13/21 21:00 06/02/21 21:45 80 MG Azithromycin 250 ml @ 250 mls/hr 1X ONCE 05/13/21 16:15 05/13/21 17:14 DC 05/13/21 16:37 250 MLS/HR Calcium Carbonate/ Glycine (Tums) 500 mg PRN Q3HRS PRN 05/13/21 17:00 Cefazolin Sodium/ Dextrose 50 ml @ 100 mls/hr 1X ONCE 05/27/21 13:45 05/27/21 14:14 DC 05/27/21 13:45 100 MLS/HR Ceftriaxone Sodium (Rocephin) 1 gm 1X ONCE 05/13/21 16:00 05/13/21 16:02 DC 05/13/21 16:37 1 GM Dexamethasone Sodium Phosphate (Decadron) 6 mg DAILY 05/14/21 09:00 05/25/21 13:28 DC 05/25/21 09:09 6 MG Dextrose (Dextrose 50%-Water Syringe) 12.5 gm PRN Q15MIN PRN 05/14/21 17:30 05/29/21 07:38 12.5 GM Diclofenac Sodium (Voltaren) 1 mayela BID 06/02/21 12:00 06/02/21 21:44 1 MAYELA EZETIMIBE (Zetia) 10 mg DAILY 05/14/21 09:00 06/02/21 10:03 10 MG Fentanyl Citrate (Fentanyl 2ml Vial) 100 mcg 1X ONCE 05/27/21 13:30 05/27/21 13:31 DC 05/27/21 13:30 50 MCG Furosemide (Lasix) 40 mg DAILY 05/14/21 09:00 05/16/21 14:56 DC 05/16/21 10:09 40 MG Gabapentin (Neurontin) 100 mg HS 05/13/21 21:00 06/02/21 21:46 100 MG Guaifenesin (Robitussin Dm) 10 ml PRN Q6HRS PRN 05/16/21 07:30 05/16/21 21:16 10 ML Guaifenesin/ Codeine Phosphate (Robitussin Ac) 5 ml PRN Q6HRS PRN 05/13/21 16:15 05/16/21 07:29 DC Heparin Sodium (Porcine) (Heparin Sodium) 2,500 unit 1X ONCE 05/21/21 12:45 05/21/21 12:46 DC 05/21/21 12:41 2,500 UNIT Hydralazine HCl (Apresoline Inj) 10 mg PRN Q4HRS PRN 05/16/21 15:00 05/22/21 02:55 10 MG Hydralazine HCl (Apresoline) 25 mg TID 05/21/21 10:30 06/02/21 21:45 25 MG Info (Non-Icu Electrolyte Protocol) 1 ea PRN DAILY PRN 05/13/21 17:00 Info (PHARMACY MONITORING -- do not chart) 1 each PRN DAILY PRN 06/03/21 09:45 Insulin Glargine (Lantus Syringe) 10 unit QHS 05/30/21 21:00 06/02/21 21:48 10 UNIT Insulin Human Lispro (HumaLOG) 9 units 1X ONCE 05/24/21 21:00 05/24/21 21:01 DC 05/24/21 23:04 9 UNITS Isosorbide Mononitrate (Imdur) 30 mg DAILY 05/17/21 09:00 06/02/21 10:03 30 MG Lactobacillus Rhamnosus (Culturelle) 1 cap BID 05/16/21 21:00 06/02/21 21:44 1 CAP Levothyroxine Sodium (Synthroid) 175 mcg DAILYAC 05/14/21 07:30 06/02/21 10:03 175 MCG Lidocaine HCl (Buffered Lidocaine 1%) 6 ml 1X ONCE 05/21/21 11:30 05/21/21 11:33 DC 05/21/21 12:10 4 ML Lidocaine/ Epinephrine (LIDOCAINE 1%-EPI 1:100,000 Multi-Dose) 20 ml 1X ONCE 05/27/21 13:30 05/27/21 13:31 DC 05/27/21 13:30 9 ML Losartan Potassium (Cozaar) 50 mg DAILY 05/14/21 09:00 05/16/21 14:56 DC 05/16/21 10:09 50 MG Magnesium Sulfate 50 ml @ 25 mls/hr 1X ONCE 05/13/21 16:15 05/13/21 18:14 Cancel Methylprednisolone Sodium Succinate (SOLU-Medrol 125MG VIAL) 125 mg 1X ONCE 05/13/21 15:45 05/13/21 15:46 DC 05/13/21 15:58 125 MG Midazolam HCl (Versed) 2 mg 1X ONCE 05/27/21 13:30 05/27/21 13:31 DC 05/27/21 13:30 1 MG Multivitamins (Thera M Plus) 1 tab DAILY 05/14/21 09:00 06/02/21 10:03 1 TAB Nystatin (Nystop) 1 mayela BID 05/31/21 09:00 06/02/21 21:00 1 MAYELA Ondansetron HCl (Zofran) 4 mg PRN Q6HRS PRN 05/13/21 17:00 Oxycodone HCl (Roxicodone) 5 mg PRN Q3HRS PRN 05/13/21 17:00 Oxycodone/ Acetaminophen (Percocet 5/325) 2 tab PRN Q4HRS PRN 05/13/21 17:00 06/01/21 20:37 2 TAB Pantoprazole Sodium (Protonix) 40 mg DAILYAC 05/19/21 16:30 06/02/21 10:02 40 MG Piperacillin Sod/ Tazobactam Sod (Zosyn Per Pharmacy) 1 each PRN DAILY PRN 05/13/21 16:15 05/25/21 13:28 DC Piperacillin Sod/ Tazobactam Sod 2.25 gm/Sodium Chloride 50 ml @ 100 mls/hr Q8HRS 05/20/21 14:00 05/25/21 13:28 DC 05/25/21 05:34 100 MLS/HR Remdesivir 100 mg/ Sodium Chloride 230 ml @ 460 mls/hr Q24H 05/14/21 17:00 05/17/21 17:29 DC 05/17/21 17:45 460 MLS/HR Remdesivir 200 mg/ Sodium Chloride 210 ml @ 210 mls/hr 1X ONCE 05/13/21 17:00 05/13/21 17:59 DC 05/13/21 20:59 210 MLS/HR Senna/Docusate Sodium (Senna Plus) 1 tab BID 05/13/21 21:00 06/02/21 21:44 1 TAB Sodium Chloride 1,000 ml @ 400 mls/hr Q2H30M PRN 06/03/21 09:45 06/03/21 21:44 Sodium Chloride (Normal Saline Flush) 10 ml 1X PRN PRN 06/03/21 09:45 06/04/21 09:44 Zolpidem Tartrate (Ambien) 5 mg PRN QHS PRN 05/13/21 17:00 05/16/21 07:29 DC Lab Laboratory Tests Test 06/02/21 16:39 06/02/21 21:08 06/03/21 06:30 06/03/21 07:34 Glucose (Fingerstick) 141 mg/dL (70-99) 218 mg/dL (70-99) 153 mg/dL (70-99) White Blood Count 5.5 x10^3/uL (4.0-11.0) Red Blood Count 2.50 x10^6/uL (3.50-5.40) Hemoglobin 7.4 g/dL (12.0-15.5) Hematocrit 22.9 % (36.0-47.0) Mean Corpuscular Volume 92 fL (79-100) Mean Corpuscular Hemoglobin 30 pg (25-35) Mean Corpuscular Hemoglobin Concent 32 g/dL (31-37) Red Cell Distribution Width 16.3 % (11.5-14.5) Platelet Count 153 x10^3/uL (140-400) Neutrophils (%) (Auto) 73 % (31-73) Lymphocytes (%) (Auto) 14 % (24-48) Monocytes (%) (Auto) 12 % (0-9) Eosinophils (%) (Auto) 1 % (0-3) Basophils (%) (Auto) 0 % (0-3) Neutrophils # (Auto) 4.0 x10^3/uL (1.8-7.7) Lymphocytes # (Auto) 0.8 x10^3/uL (1.0-4.8) Monocytes # (Auto) 0.6 x10^3/uL (0.0-1.1) Eosinophils # (Auto) 0.1 x10^3/uL (0.0-0.7) Basophils # (Auto) 0.0 x10^3/uL (0.0-0.2) Sodium Level 137 mmol/L (136-145) Potassium Level 4.0 mmol/L (3.5-5.1) Chloride Level 100 mmol/L (98-107) Carbon Dioxide Level 32 mmol/L (21-32) Anion Gap 5 (6-14) Blood Urea Nitrogen 26 mg/dL (7-20) Creatinine 5.5 mg/dL (0.6-1.0) Estimated GFR (Cockcroft-Gault) 9.1 Glucose Level 153 mg/dL (70-99) Calcium Level 8.6 mg/dL (8.5-10.1) Results All relevant outside records, renal labs, imaging studies, telemetry/EKG's were reviewed. Justicifation of Admission Dx: Justifications for Admission: Justification of Admission Dx: Yes AMINA MÁRQUEZ MD Jun 03, 2021 11:47
[2021-06-03 15:00] VITALS: BP 146/61
--- NOTE | 2021-06-03 17:54 | NUR ---
went to check on patient while eating dinner and noticed she pulled out the right upper arm accucath. no bleeding noted and tip was intact. will place mitts back on after she finishes dinner and will continue to monitor.
[2021-06-03 19:00] VITALS: BP 116/46
[2021-06-03] MEDS: ATORVASTATIN CALCIUM 40 MG TABLET. PO SCH (21:01)
[2021-06-03] MEDS: GABAPENTIN 100 MG CAPSULE. PO SCH (21:01)
[2021-06-03] MEDS: INSULIN GLARGINE SYRINGE. SQ SCH (21:04)
[2021-06-03 23:00] VITALS: BP 116/50
[2021-06-04 03:00] VITALS: BP 146/63
--- NOTE | 2021-06-04 06:35 | PDOC ---
PULMONARY PROGRESS NOTES DATE: 06/04/21 TIME: 06:34 Subjective on bipap overnight on 02 yesterday feeling better Vitals Vital Signs Date Time Temp Pulse Resp B/P (MAP) Pulse Ox O2 Delivery O2 Flow Rate FiO2 06/04/21 04:11 100 BiPAP/CPAP 06/04/21 03:00 98.9 58 18 146/63 (90) 1.0 98.9 General: No acute distress Lungs: Clear Cardiovascular: S1 Abdomen: Soft, Other (obese) Extremities: No Edema Skin: Warm Labs Laboratory Tests Test 06/02/21 07:06 06/02/21 11:14 06/02/21 16:39 06/02/21 21:08 Glucose (Fingerstick) 85 mg/dL (70-99) 164 mg/dL (70-99) 141 mg/dL (70-99) 218 mg/dL (70-99) Test 06/03/21 06:30 06/03/21 07:34 06/03/21 16:44 06/03/21 19:10 White Blood Count 5.5 x10^3/uL (4.0-11.0) Red Blood Count 2.50 x10^6/uL (3.50-5.40) Hemoglobin 7.4 g/dL (12.0-15.5) Hematocrit 22.9 % (36.0-47.0) Mean Corpuscular Volume 92 fL (79-100) Mean Corpuscular Hemoglobin 30 pg (25-35) Mean Corpuscular Hemoglobin Concent 32 g/dL (31-37) Red Cell Distribution Width 16.3 % (11.5-14.5) Platelet Count 153 x10^3/uL (140-400) Neutrophils (%) (Auto) 73 % (31-73) Lymphocytes (%) (Auto) 14 % (24-48) Monocytes (%) (Auto) 12 % (0-9) Eosinophils (%) (Auto) 1 % (0-3) Basophils (%) (Auto) 0 % (0-3) Neutrophils # (Auto) 4.0 x10^3/uL (1.8-7.7) Lymphocytes # (Auto) 0.8 x10^3/uL (1.0-4.8) Monocytes # (Auto) 0.6 x10^3/uL (0.0-1.1) Eosinophils # (Auto) 0.1 x10^3/uL (0.0-0.7) Basophils # (Auto) 0.0 x10^3/uL (0.0-0.2) Sodium Level 137 mmol/L (136-145) Potassium Level 4.0 mmol/L (3.5-5.1) Chloride Level 100 mmol/L (98-107) Carbon Dioxide Level 32 mmol/L (21-32) Anion Gap 5 (6-14) Blood Urea Nitrogen 26 mg/dL (7-20) Creatinine 5.5 mg/dL (0.6-1.0) Estimated GFR (Cockcroft-Gault) 9.1 Glucose Level 153 mg/dL (70-99) Calcium Level 8.6 mg/dL (8.5-10.1) Glucose (Fingerstick) 153 mg/dL (70-99) 133 mg/dL (70-99) 191 mg/dL (70-99) Laboratory Tests Test 06/03/21 07:34 06/03/21 16:44 06/03/21 19:10 Glucose (Fingerstick) 153 mg/dL (70-99) 133 mg/dL (70-99) 191 mg/dL (70-99) Medications Active Scripts Medications Dose Route/Sig Max Daily Dose Days Date Category Zetia (Ezetimibe) 10 Mg Tablet 10 Mg PO DAILY 05/13/21 Reported Furosemide 40 Mg Tablet 1 Tab PO DAILY 05/13/21 Reported Hydrocodone-Apap 5-325 (Hydrocodone Bit/Acetaminophen) 1 Tab Tablet 1 Tab PO PRN BID PRN 05/13/21 Reported Allopurinol 100 Mg Tablet 1 Tab PO DAILY 05/13/21 Reported Aspirin 81 Mg Tab.chew 1 Tab PO DAILY 05/13/21 Reported Levothyroxine Sodium 175 Mcg Tablet 175 Mcg PO DAILYAC 05/13/21 Reported Amlodipine Besylate 5 Mg Tablet 5 Mg PO DAILY 05/13/21 Reported Hydralazine Hcl 25 Mg Tablet 1 Tab PO TID 05/13/21 Reported Gabapentin (Gabapentin) 100 Mg Capsule 100 Mg PO HS 05/13/21 Reported Atorvastatin Calcium 80 Mg Tablet 80 Mg PO DAILY 05/13/21 Reported Losartan Potassium 50 Mg Tablet 50 Mg PO DAILY 05/13/21 Reported Metformin Hcl 500 Mg Tablet 500 Mg PO BIDWMEALS 8/27/21 Reported Magnesium (Magnesium Oxide) 500 Mg Capsule 1 Cap PO BID 30 05/13/21 Reported Impression . 1. Acute hypercapnic respiratory failure secondary to likely congestive heart failure. Underlying COVID-19 pneumonia as well. 2. Abnormal chest x-ray with bilateral interstitial infiltrates, likely congestive heart failure. 3. COVID-19 positive by the rapid test. 4. End-stage renal disease, on hemodialysis. 5. Anemia, also contributing to her dyspnea. 6. Encephalopathy, improved post-BiPAP. 7. Mildly increased troponin level. 8. Severe protein-calorie malnutrition. Plan . 1. Continue BiPAP at bedtime and p.r.n. during the day. Patient is approved for home BiPAP. titrate fio2 to keep sat 90% not higher 2. Avoid hyperoxia. repeat ABG 06/01/2021 showed compensated hypercapnia. 3. Hemodialysis with ultrafiltration per renal. 4. PRN bronchodilators. 5. Transfuse with dialysis.as needed 6. Off subcut heparin 7. Discussed with ASH Schaefer MD Jun 04, 2021 06:35
[2021-06-04 07:00] VITALS: BP 145/70
[2021-06-04] MEDS: INSULIN LISPRO 300 UNITS/3 ML VIAL. SQ SCH ×4 (07:30→20:52)
[2021-06-04 07:39] LABS: BASO % 0 % (0-3); EOS # 0.1 x10^3/uL (0.0-0.7); EOS % 2 % (0-3); HEMOGLOBIN 8.1 g/dL (12.0-15.5); LYMPH # 0.8 x10^3/uL (1.0-4.8); LYMPH % 18 % (24-48); MEAN CORPUSCULAR HEMOGLOBIN 30 pg (25-35); MEAN CORPUSCULAR HGB CONC 33 g/dL (31-37); MEAN CORPUSCULAR VOLUME 92 fL (79-100); MONO # 0.7 x10^3/uL (0.0-1.1); MONO % 15 % (0-9); NEUT # 3.1 x10^3/uL (1.8-7.7); NEUT % 65 % (31-73); PLATELET COUNT 163 x10^3/uL (140-400); RED BLOOD COUNT 2.72 x10^6/uL (3.50-5.40); RED CELL DISTRIBUTION WIDTH 16.5 % (11.5-14.5); WHITE BLOOD COUNT 4.7 x10^3/uL (4.0-11.0)
[2021-06-04] MEDS: NYSTATIN TOPICAL POWDER 15GM BOTTLE. TP SCH ×2 (09:00→21:00)
[2021-06-04] MEDS: SENNOSIDES/DOCUSATE 8.6/50MG TABLET. PO SCH ×2 (09:00→20:51)
--- NOTE | 2021-06-04 09:28 | NUR ---
patients family wants to speak with the GI doctor to find out why patients Hgb keeps decreasing and what to do when they take patient home to monitor labs.
[2021-06-04] MEDS: EZETIMIBE 10 MG TABLET. PO SCH (09:59)
[2021-06-04] MEDS: LACTOBACILLUS RHAMNOSUS GG 1 CAPSULE. PO SCH ×2 (09:59→20:50)
[2021-06-04] MEDS: MULTIVITAMIN with MINERAL TABLET. PO SCH (09:59)
[2021-06-04] MEDS: ISOSORBIDE MONONITRATE ER 30 MG TAB.ER.24H PO SCH (09:59)
[2021-06-04] MEDS: ASPIRIN CHEWABLE 81 MG TABLET. PO SCH (10:00)
[2021-06-04] MEDS: PANTOPRAZOLE 40 MG TABLET.DR. PO SCH (10:00)
[2021-06-04] MEDS: hydrALAZINE 25 MG TABLET PO SCH ×3 (10:00→20:51)
[2021-06-04] MEDS: ALLOPURINOL 100 MG TABLET. PO SCH (10:01)
[2021-06-04] MEDS: LEVOTHYROXINE 175 MCG TABLET PO SCH (10:01)
[2021-06-04] MEDS: DICLOFENAC SODIUM 1% TOPICAL GEL 100GM TUBE. TP SCH ×2 (10:03→20:52)
[2021-06-04 11:00] VITALS: BP 120/54
--- NOTE | 2021-06-04 13:48 | PDOC ---
DATE OF SERVICE DATE: 06/04/21 TIME: 13:47 SUBJECTIVE ROS stable,no n/v . No SOB at rest OBJECTIVE Vital Signs Vital Signs Date Time Temp Pulse Resp B/P (MAP) Pulse Ox O2 Delivery O2 Flow Rate FiO2 06/04/21 11:00 98.2 73 18 120/54 (76) 95 Nasal Cannula 1.0 98.2 I & 0 Intake and Output 06/04/21 07:00 Intake Total 100 ml Balance 100 ml Intake Oral 100 ml # Bowel Movements 1 PHYSICAL EXAM Physical Exam General: No acute distress HEENT: OM moist , on o2 by NC Neck Supple Lungs: CTA ant, Non labored Heart: Regular rate Abdomen: obese, NT Extremities: trace bilateral LE edema Skin: No significant lesion, no rash Neuro: Normal speech, Sensation intact Psych/Mental Status: Mental status NL, Mood NL No sanchez, No CVA or SP tenderness DIAGNOSIS/ASSESSMENT Assessment & Plan SUZIE - Cr elevated at presentation to the ER to 2.5 with worsening renal function . initiated dialysis , No clearance -requiring dialysis, currently MWF schedule at [facility], No indication today ACccess - Tunnelled HDC , OP chair time scheduled for TTS at [facility] . Monitor for recovery, I/O, (UOP not recorded) bladder scan prn CKD; 1.1 at [facility] 05/13/21 (no labs in our system) Acute respiratory failure secondary to COVID PNA Arrhythmia; 18-beat NSVT noted on tele. Otherwise SR. CAD s/p CABG 2004. Follows with [facility], Dr. Murillo. Chronic diastolic CHF; Echo 05/07 with preserved LV systolic function Accelerated hypertension; now controlled Diabetes, II Morbid obesity, BRITTANI. noncompliant with CPAP COMMENT/RELEVANT DATA Meds Current Medications Medications (Trade) Dose Ordered Sig/Lemuel Start Time Stop Time Status Last Admin Dose Admin Acetaminophen (Tylenol) 650 mg PRN Q6HRS PRN 05/13/21 17:00 05/13/21 21:00 650 MG Albumin Human 200 ml @ 200 mls/hr 1X PRN PRN 06/03/21 09:45 06/03/21 15:44 DC Albuterol Sulfate (Ventolin Hfa) 2 puff PRN Q4HRS PRN 05/16/21 20:00 05/19/21 13:29 2 PUFF Allopurinol (Zyloprim) 100 mg DAILY 05/14/21 09:00 06/04/21 10:01 100 MG Amino Acids/ Electrolytes/ Dextrose 1,000 ml @ 80 mls/hr [id number] 05/20/21 13:15 05/25/21 13:30 DC 05/24/21 05:37 80 MLS/HR Amlodipine Besylate (Norvasc) 5 mg DAILY 05/14/21 09:00 06/04/21 10:01 5 MG Aspirin (Aspirin Chewable) 81 mg DAILY 05/14/21 09:00 06/04/21 10:00 81 MG Aspirin (Ecotrin) 81 mg [id number] 05/14/21 08:00 05/13/21 18:10 DC Atorvastatin Calcium (Lipitor) 80 mg QHS 05/13/21 21:00 06/03/21 21:01 80 MG Azithromycin 250 ml @ 250 mls/hr 1X ONCE 05/13/21 16:15 05/13/21 17:14 DC 05/13/21 16:37 250 MLS/HR Calcium Carbonate/ Glycine (Tums) 500 mg PRN Q3HRS PRN 05/13/21 17:00 Cefazolin Sodium/ Dextrose 50 ml @ 100 mls/hr 1X ONCE 05/27/21 13:45 05/27/21 14:14 DC 05/27/21 13:45 100 MLS/HR Ceftriaxone Sodium (Rocephin) 1 gm 1X ONCE 05/13/21 16:00 05/13/21 16:02 DC 05/13/21 16:37 1 GM Dexamethasone Sodium Phosphate (Decadron) 6 mg DAILY 05/14/21 09:00 05/25/21 13:28 DC 05/25/21 09:09 6 MG Dextrose (Dextrose 50%-Water Syringe) 12.5 gm PRN Q15MIN PRN 05/14/21 17:30 05/29/21 07:38 12.5 GM Diclofenac Sodium (Voltaren) 1 mayela BID 06/02/21 12:00 06/04/21 10:03 1 MAYELA EZETIMIBE (Zetia) 10 mg DAILY 05/14/21 09:00 06/04/21 09:59 10 MG Fentanyl Citrate (Fentanyl 2ml Vial) 100 mcg 1X ONCE 05/27/21 13:30 05/27/21 13:31 DC 05/27/21 13:30 50 MCG Furosemide (Lasix) 40 mg DAILY 05/14/21 09:00 05/16/21 14:56 DC 05/16/21 10:09 40 MG Gabapentin (Neurontin) 100 mg HS 05/13/21 21:00 06/03/21 21:01 100 MG Guaifenesin (Robitussin Dm) 10 ml PRN Q6HRS PRN 05/16/21 07:30 05/16/21 21:16 10 ML Guaifenesin/ Codeine Phosphate (Robitussin Ac) 5 ml PRN Q6HRS PRN 05/13/21 16:15 05/16/21 07:29 DC Heparin Sodium (Porcine) (Heparin Sodium) 2,500 unit 1X ONCE 05/21/21 12:45 05/21/21 12:46 DC 05/21/21 12:41 2,500 UNIT Hydralazine HCl (Apresoline Inj) 10 mg PRN Q4HRS PRN 05/16/21 15:00 05/22/21 02:55 10 MG Hydralazine HCl (Apresoline) 25 mg TID 05/21/21 10:30 06/04/21 10:00 25 MG Info (Non-Icu Electrolyte Protocol) 1 ea PRN DAILY PRN 05/13/21 17:00 Info (PHARMACY MONITORING -- do not chart) 1 each PRN DAILY PRN 06/03/21 09:45 Insulin Glargine (Lantus Syringe) 10 unit QHS 05/30/21 21:00 06/03/21 21:04 10 UNIT Insulin Human Lispro (HumaLOG) 9 units 1X ONCE 05/24/21 21:00 05/24/21 21:01 DC 05/24/21 23:04 9 UNITS Isosorbide Mononitrate (Imdur) 30 mg DAILY 05/17/21 09:00 06/04/21 09:59 30 MG Lactobacillus Rhamnosus (Culturelle) 1 cap BID 05/16/21 21:00 06/04/21 09:59 1 CAP Levothyroxine Sodium (Synthroid) 175 mcg DAILYAC 05/14/21 07:30 06/04/21 10:01 175 MCG Lidocaine HCl (Buffered Lidocaine 1%) 6 ml 1X ONCE 05/21/21 11:30 05/21/21 11:33 DC 05/21/21 12:10 4 ML Lidocaine/ Epinephrine (LIDOCAINE 1%-EPI 1:100,000 Multi-Dose) 20 ml 1X ONCE 05/27/21 13:30 05/27/21 13:31 DC 05/27/21 13:30 9 ML Losartan Potassium (Cozaar) 50 mg DAILY 05/14/21 09:00 05/16/21 14:56 DC 05/16/21 10:09 50 MG Magnesium Sulfate 50 ml @ 25 mls/hr 1X ONCE 05/13/21 16:15 05/13/21 18:14 Cancel Methylprednisolone Sodium Succinate (SOLU-Medrol 125MG VIAL) 125 mg 1X ONCE 05/13/21 15:45 05/13/21 15:46 DC 05/13/21 15:58 125 MG Midazolam HCl (Versed) 2 mg 1X ONCE 05/27/21 13:30 05/27/21 13:31 DC 05/27/21 13:30 1 MG Multivitamins (Thera M Plus) 1 tab DAILY 05/14/21 09:00 06/04/21 09:59 1 TAB Nystatin (Nystop) 1 mayela BID 05/31/21 09:00 06/04/21 09:00 1 MAYELA Ondansetron HCl (Zofran) 4 mg PRN Q6HRS PRN 05/13/21 17:00 Oxycodone HCl (Roxicodone) 5 mg PRN Q3HRS PRN 05/13/21 17:00 Oxycodone/ Acetaminophen (Percocet 5/325) 2 tab PRN Q4HRS PRN 05/13/21 17:00 06/01/21 20:37 2 TAB Pantoprazole Sodium (Protonix) 40 mg DAILYAC 05/19/21 16:30 06/04/21 10:00 40 MG Piperacillin Sod/ Tazobactam Sod (Zosyn Per Pharmacy) 1 each PRN DAILY PRN 05/13/21 16:15 05/25/21 13:28 DC Piperacillin Sod/ Tazobactam Sod 2.25 gm/Sodium Chloride 50 ml @ 100 mls/hr Q8HRS 05/20/21 14:00 05/25/21 13:28 DC 05/25/21 05:34 100 MLS/HR Remdesivir 100 mg/ Sodium Chloride 230 ml @ 460 mls/hr Q24H 05/14/21 17:00 05/17/21 17:29 DC 05/17/21 17:45 460 MLS/HR Remdesivir 200 mg/ Sodium Chloride 210 ml @ 210 mls/hr 1X ONCE 05/13/21 17:00 05/13/21 17:59 DC 05/13/21 20:59 210 MLS/HR Senna/Docusate Sodium (Senna Plus) 1 tab BID 05/13/21 21:00 06/03/21 21:01 1 TAB Sodium Chloride 1,000 ml @ 400 mls/hr Q2H30M PRN 06/03/21 09:45 06/03/21 21:44 DC Sodium Chloride (Normal Saline Flush) 10 ml 1X PRN PRN 06/03/21 09:45 06/04/21 09:44 DC Zolpidem Tartrate (Ambien) 5 mg PRN QHS PRN 05/13/21 17:00 05/16/21 07:29 DC Lab Laboratory Tests Test 06/03/21 16:44 06/03/21 19:10 06/04/21 05:50 06/04/21 07:51 Glucose (Fingerstick) 133 mg/dL (70-99) 191 mg/dL (70-99) 132 mg/dL (70-99) White Blood Count 4.7 x10^3/uL (4.0-11.0) Red Blood Count 2.72 x10^6/uL (3.50-5.40) Hemoglobin 8.1 g/dL (12.0-15.5) Hematocrit 25.0 % (36.0-47.0) Mean Corpuscular Volume 92 fL (79-100) Mean Corpuscular Hemoglobin 30 pg (25-35) Mean Corpuscular Hemoglobin Concent 33 g/dL (31-37) Red Cell Distribution Width 16.5 % (11.5-14.5) Platelet Count 163 x10^3/uL (140-400) Neutrophils (%) (Auto) 65 % (31-73) Lymphocytes (%) (Auto) 18 % (24-48) Monocytes (%) (Auto) 15 % (0-9) Eosinophils (%) (Auto) 2 % (0-3) Basophils (%) (Auto) 0 % (0-3) Neutrophils # (Auto) 3.1 x10^3/uL (1.8-7.7) Lymphocytes # (Auto) 0.8 x10^3/uL (1.0-4.8) Monocytes # (Auto) 0.7 x10^3/uL (0.0-1.1) Eosinophils # (Auto) 0.1 x10^3/uL (0.0-0.7) Basophils # (Auto) 0.0 x10^3/uL (0.0-0.2) Test 06/04/21 11:23 Glucose (Fingerstick) 185 mg/dL (70-99) Results All relevant outside records, renal labs, imaging studies, telemetry/EKG's were reviewed. Justicifation of Admission Dx: Justifications for Admission: Justification of Admission Dx: Yes AMINA MÁRQUEZ MD Jun 04, 2021 13:48
--- NOTE | 2021-06-04 14:11 | PDOC ---
GENERAL General: Patient examined chart reviewed today is hospital day 23 for this patient with hypoxic respiratory failure secondary to COVID-19, acute on chronic renal failure resulting in end-stage renal disease now on hemodialysis, anemia of chronic disease, morbid obesity, and generalized debility. She is slowly clinically improving. It sounds like the plan is that she would be best in rehab to continue her healing but her family is insisting on bringing her home with home health. That is unlikely to happen over the weekend given that patient will need 24/ care and it is unclear how much of that the family can deliver. Appreciate subspecialty support. We will continue current management. Time spent today is 30 minutes with greater than 50% in counseling and coordination of care most of which in discussion with patient and nursing. Problems: (1) Anemia in chronic kidney disease (2) ESRD on hemodialysis (3) Pneumonia due to COVID-19 virus (4) Hypoxia VITAL SIGNS Vital Signs/I&O: Vital Signs Date Time Temp Pulse Resp B/P (MAP) Pulse Ox O2 Delivery O2 Flow Rate FiO2 06/04/21 13:54 73 120/54 06/04/21 11:00 98.2 18 95 Nasal Cannula 1.0 98.2 I & O 06/03/21 06/03/21 06/04/21 15:00 23:00 07:00 Intake Total 50 ml 50 ml Balance 50 ml 50 ml In general the patient is pleasant at baseline orientation in no acute distress HEENT exam is unremarkable Chest bilateral equal air entry though diminished throughout no crackles or wheezes are noted Heart S1-S2 normal regular rate and rhythm no murmurs or gallops are noted Abdomen is obese soft nontender nondistended no masses organomegaly noted Extremity exam is unremarkable for acute abnormality ALLERGIES Allergies: Allergies Coded Allergies Type Severity Reaction Last Updated Verified No Known Drug Allergies 05/13/21 No MEDS Medications: Current Medications Medications (Trade) Dose Ordered Sig/Lemuel Start Time Stop Time Status Last Admin Dose Admin Acetaminophen (Tylenol) 650 mg PRN Q6HRS PRN 05/13/21 17:00 05/13/21 21:00 Albumin Human 200 ml @ 200 mls/hr 1X PRN PRN 06/03/21 09:45 06/03/21 15:44 DC Albuterol Sulfate (Ventolin Hfa) 2 puff PRN Q4HRS PRN 05/16/21 20:00 05/19/21 13:29 Allopurinol (Zyloprim) 100 mg DAILY 05/14/21 09:00 06/04/21 10:01 Amino Acids/ Electrolytes/ Dextrose 1,000 ml @ 80 mls/hr [id number] 05/20/21 13:15 05/25/21 13:30 DC 05/24/21 05:37 Amlodipine Besylate (Norvasc) 5 mg DAILY 05/14/21 09:00 06/04/21 10:01 Aspirin (Aspirin Chewable) 81 mg DAILY 05/14/21 09:00 06/04/21 10:00 Aspirin (Ecotrin) 81 mg [id number] 05/14/21 08:00 05/13/21 18:10 DC Atorvastatin Calcium (Lipitor) 80 mg QHS 05/13/21 21:00 06/03/21 21:01 Azithromycin 250 ml @ 250 mls/hr 1X ONCE 05/13/21 16:15 05/13/21 17:14 DC 05/13/21 16:37 Calcium Carbonate/ Glycine (Tums) 500 mg PRN Q3HRS PRN 05/13/21 17:00 Cefazolin Sodium/ Dextrose 50 ml @ 100 mls/hr 1X ONCE 05/27/21 13:45 05/27/21 14:14 DC 05/27/21 13:45 Ceftriaxone Sodium (Rocephin) 1 gm 1X ONCE 05/13/21 16:00 05/13/21 16:02 DC 05/13/21 16:37 Dexamethasone Sodium Phosphate (Decadron) 6 mg DAILY 05/14/21 09:00 05/25/21 13:28 DC 05/25/21 09:09 Dextrose (Dextrose 50%-Water Syringe) 12.5 gm PRN Q15MIN PRN 05/14/21 17:30 05/29/21 07:38 Diclofenac Sodium (Voltaren) 1 mayela BID 06/02/21 12:00 06/04/21 10:03 EZETIMIBE (Zetia) 10 mg DAILY 05/14/21 09:00 06/04/21 09:59 Fentanyl Citrate (Fentanyl 2ml Vial) 100 mcg 1X ONCE 05/27/21 13:30 05/27/21 13:31 DC 05/27/21 13:30 Furosemide (Lasix) 40 mg DAILY 05/14/21 09:00 05/16/21 14:56 DC 05/16/21 10:09 Gabapentin (Neurontin) 100 mg HS 05/13/21 21:00 06/03/21 21:01 Guaifenesin (Robitussin Dm) 10 ml PRN Q6HRS PRN 05/16/21 07:30 05/16/21 21:16 Guaifenesin/ Codeine Phosphate (Robitussin Ac) 5 ml PRN Q6HRS PRN 05/13/21 16:15 05/16/21 07:29 DC Heparin Sodium (Porcine) (Heparin Sodium) 2,500 unit 1X ONCE 05/21/21 12:45 05/21/21 12:46 DC 05/21/21 12:41 Hydralazine HCl (Apresoline Inj) 10 mg PRN Q4HRS PRN 05/16/21 15:00 05/22/21 02:55 Hydralazine HCl (Apresoline) 25 mg TID 05/21/21 10:30 06/04/21 13:54 Info (Non-Icu Electrolyte Protocol) 1 ea PRN DAILY PRN 05/13/21 17:00 Info (PHARMACY MONITORING -- do not chart) 1 each PRN DAILY PRN 06/03/21 09:45 Insulin Glargine (Lantus Syringe) 10 unit QHS 05/30/21 21:00 06/03/21 21:04 Insulin Human Lispro (HumaLOG) 9 units 1X ONCE 05/24/21 21:00 05/24/21 21:01 DC 05/24/21 23:04 Isosorbide Mononitrate (Imdur) 30 mg DAILY 05/17/21 09:00 06/04/21 09:59 Lactobacillus Rhamnosus (Culturelle) 1 cap BID 05/16/21 21:00 06/04/21 09:59 Levothyroxine Sodium (Synthroid) 175 mcg DAILYAC 05/14/21 07:30 06/04/21 10:01 Lidocaine HCl (Buffered Lidocaine 1%) 6 ml 1X ONCE 05/21/21 11:30 05/21/21 11:33 DC 05/21/21 12:10 Lidocaine/ Epinephrine (LIDOCAINE 1%-EPI 1:100,000 Multi-Dose) 20 ml 1X ONCE 05/27/21 13:30 05/27/21 13:31 DC 05/27/21 13:30 Losartan Potassium (Cozaar) 50 mg DAILY 05/14/21 09:00 05/16/21 14:56 DC 05/16/21 10:09 Magnesium Sulfate 50 ml @ 25 mls/hr 1X ONCE 05/13/21 16:15 05/13/21 18:14 Cancel Methylprednisolone Sodium Succinate (SOLU-Medrol 125MG VIAL) 125 mg 1X ONCE 05/13/21 15:45 05/13/21 15:46 DC 05/13/21 15:58 Midazolam HCl (Versed) 2 mg 1X ONCE 05/27/21 13:30 05/27/21 13:31 DC 05/27/21 13:30 Multivitamins (Thera M Plus) 1 tab DAILY 05/14/21 09:00 06/04/21 09:59 Nystatin (Nystop) 1 mayela BID 05/31/21 09:00 06/04/21 09:00 Ondansetron HCl (Zofran) 4 mg PRN Q6HRS PRN 05/13/21 17:00 Oxycodone HCl (Roxicodone) 5 mg PRN Q3HRS PRN 05/13/21 17:00 Oxycodone/ Acetaminophen (Percocet 5/325) 2 tab PRN Q4HRS PRN 05/13/21 17:00 06/01/21 20:37 Pantoprazole Sodium (Protonix) 40 mg DAILYAC 05/19/21 16:30 06/04/21 10:00 Piperacillin Sod/ Tazobactam Sod (Zosyn Per Pharmacy) 1 each PRN DAILY PRN 05/13/21 16:15 05/25/21 13:28 DC Piperacillin Sod/ Tazobactam Sod 2.25 gm/Sodium Chloride 50 ml @ 100 mls/hr Q8HRS 05/20/21 14:00 05/25/21 13:28 DC 05/25/21 05:34 Remdesivir 100 mg/ Sodium Chloride 230 ml @ 460 mls/hr Q24H 05/14/21 17:00 05/17/21 17:29 DC 05/17/21 17:45 Remdesivir 200 mg/ Sodium Chloride 210 ml @ 210 mls/hr 1X ONCE 05/13/21 17:00 05/13/21 17:59 DC 05/13/21 20:59 Senna/Docusate Sodium (Senna Plus) 1 tab BID 05/13/21 21:00 06/03/21 21:01 Sodium Chloride 1,000 ml @ 400 mls/hr Q2H30M PRN 06/03/21 09:45 06/03/21 21:44 DC Sodium Chloride (Normal Saline Flush) 10 ml 1X PRN PRN 06/03/21 09:45 06/04/21 09:44 DC Zolpidem Tartrate (Ambien) 5 mg PRN QHS PRN 05/13/21 17:00 05/16/21 07:29 DC LAB Lab: Laboratory Tests Test 06/03/21 16:44 06/03/21 19:10 06/04/21 05:50 06/04/21 07:51 Glucose (Fingerstick) 133 mg/dL (70-99) H 191 mg/dL (70-99) H 132 mg/dL (70-99) H White Blood Count 4.7 x10^3/uL (4.0-11.0) Red Blood Count 2.72 x10^6/uL (3.50-5.40) L Hemoglobin 8.1 g/dL (12.0-15.5) L Hematocrit 25.0 % (36.0-47.0) L Mean Corpuscular Volume 92 fL (79-100) Mean Corpuscular Hemoglobin 30 pg (25-35) Mean Corpuscular Hemoglobin Concent 33 g/dL (31-37) Red Cell Distribution Width 16.5 % (11.5-14.5) H Platelet Count 163 x10^3/uL (140-400) Neutrophils (%) (Auto) 65 % (31-73) Lymphocytes (%) (Auto) 18 % (24-48) L Monocytes (%) (Auto) 15 % (0-9) H Eosinophils (%) (Auto) 2 % (0-3) Basophils (%) (Auto) 0 % (0-3) Neutrophils # (Auto) 3.1 x10^3/uL (1.8-7.7) Lymphocytes # (Auto) 0.8 x10^3/uL (1.0-4.8) L Monocytes # (Auto) 0.7 x10^3/uL (0.0-1.1) Eosinophils # (Auto) 0.1 x10^3/uL (0.0-0.7) Basophils # (Auto) 0.0 x10^3/uL (0.0-0.2) Test 06/04/21 11:23 Glucose (Fingerstick) 185 mg/dL (70-99) H Laboratory Tests 06/04/21 05:50 ASSESSMENT & PLAN A&P Plan as noted above This note was created using [employer] and may have omissions and/or errors due to the nature of 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 Justifications for Admission Other Justification GEETHA PETTY MD Jun 04, 2021 14:11
[2021-06-04 15:00] VITALS: BP 119/56
[2021-06-04 19:00] VITALS: BP 111/51
[2021-06-04] MEDS: ATORVASTATIN CALCIUM 40 MG TABLET. PO SCH (20:50)
[2021-06-04] MEDS: GABAPENTIN 100 MG CAPSULE. PO SCH (20:51)
[2021-06-04] MEDS: INSULIN GLARGINE SYRINGE. SQ SCH (20:53)
[2021-06-04 23:00] VITALS: BP 129/58
[2021-06-05 03:00] VITALS: BP 123/50
[2021-06-05 06:50] LABS: BASO % 1 % (0-3); EOS # 0.1 x10^3/uL (0.0-0.7); EOS % 2 % (0-3); HEMATOCRIT 22.8 % (36.0-47.0); HEMOGLOBIN 7.2 g/dL (12.0-15.5); LYMPH # 0.9 x10^3/uL (1.0-4.8); LYMPH % 19 % (24-48); MEAN CORPUSCULAR HEMOGLOBIN 29 pg (25-35); MEAN CORPUSCULAR HGB CONC 32 g/dL (31-37); MEAN CORPUSCULAR VOLUME 92 fL (79-100); MONO # 0.5 x10^3/uL (0.0-1.1); MONO % 11 % (0-9); NEUT # 3.2 x10^3/uL (1.8-7.7); NEUT % 67 % (31-73); PLATELET COUNT 185 x10^3/uL (140-400); RED BLOOD COUNT 2.47 x10^6/uL (3.50-5.40); RED CELL DISTRIBUTION WIDTH 16.7 % (11.5-14.5); WHITE BLOOD COUNT 4.8 x10^3/uL (4.0-11.0)
[2021-06-05 07:00] VITALS: BP 122/55
[2021-06-05 07:00] LABS: ALBUMIN 1.9 g/dL (3.4-5.0); ALBUMIN/GLOBULIN RATIO 0.5 (1.0-1.7); CALCIUM 8.4 mg/dL (8.5-10.1); CREATININE 4.9 mg/dL (0.6-1.0); GFR 10.4; TOTAL BILIRUBIN 0.2 mg/dL (0.2-1.0); TOTAL PROTEIN 6.1 g/dL (6.4-8.2)
--- NOTE | 2021-06-05 07:24 | PDOC ---
PULMONARY PROGRESS NOTES DATE: 06/05/21 TIME: 07:24 Subjective used bipap overnight on 02 now feeling better Vitals Vital Signs Date Time Temp Pulse Resp B/P (MAP) Pulse Ox O2 Delivery O2 Flow Rate FiO2 06/05/21 05:05 100 BiPAP/CPAP 06/05/21 03:00 98.1 67 20 123/50 (74) 98.1 06/04/21 23:00 1.0 General: No acute distress Lungs: Clear Cardiovascular: S1 Abdomen: Soft, Other (obese) Extremities: No Edema Skin: Warm Labs Laboratory Tests Test 06/03/21 07:34 06/03/21 16:44 06/03/21 19:10 06/04/21 05:50 Glucose (Fingerstick) 153 mg/dL (70-99) 133 mg/dL (70-99) 191 mg/dL (70-99) White Blood Count 4.7 x10^3/uL (4.0-11.0) Red Blood Count 2.72 x10^6/uL (3.50-5.40) Hemoglobin 8.1 g/dL (12.0-15.5) Hematocrit 25.0 % (36.0-47.0) Mean Corpuscular Volume 92 fL (79-100) Mean Corpuscular Hemoglobin 30 pg (25-35) Mean Corpuscular Hemoglobin Concent 33 g/dL (31-37) Red Cell Distribution Width 16.5 % (11.5-14.5) Platelet Count 163 x10^3/uL (140-400) Neutrophils (%) (Auto) 65 % (31-73) Lymphocytes (%) (Auto) 18 % (24-48) Monocytes (%) (Auto) 15 % (0-9) Eosinophils (%) (Auto) 2 % (0-3) Basophils (%) (Auto) 0 % (0-3) Neutrophils # (Auto) 3.1 x10^3/uL (1.8-7.7) Lymphocytes # (Auto) 0.8 x10^3/uL (1.0-4.8) Monocytes # (Auto) 0.7 x10^3/uL (0.0-1.1) Eosinophils # (Auto) 0.1 x10^3/uL (0.0-0.7) Basophils # (Auto) 0.0 x10^3/uL (0.0-0.2) Test 06/04/21 07:51 06/04/21 11:23 06/04/21 16:36 06/04/21 20:29 Glucose (Fingerstick) 132 mg/dL (70-99) 185 mg/dL (70-99) 226 mg/dL (70-99) 192 mg/dL (70-99) Test 06/05/21 05:25 White Blood Count 4.8 x10^3/uL (4.0-11.0) Red Blood Count 2.47 x10^6/uL (3.50-5.40) Hemoglobin 7.2 g/dL (12.0-15.5) Hematocrit 22.8 % (36.0-47.0) Mean Corpuscular Volume 92 fL (79-100) Mean Corpuscular Hemoglobin 29 pg (25-35) Mean Corpuscular Hemoglobin Concent 32 g/dL (31-37) Red Cell Distribution Width 16.7 % (11.5-14.5) Platelet Count 185 x10^3/uL (140-400) Neutrophils (%) (Auto) 67 % (31-73) Lymphocytes (%) (Auto) 19 % (24-48) Monocytes (%) (Auto) 11 % (0-9) Eosinophils (%) (Auto) 2 % (0-3) Basophils (%) (Auto) 1 % (0-3) Neutrophils # (Auto) 3.2 x10^3/uL (1.8-7.7) Lymphocytes # (Auto) 0.9 x10^3/uL (1.0-4.8) Monocytes # (Auto) 0.5 x10^3/uL (0.0-1.1) Eosinophils # (Auto) 0.1 x10^3/uL (0.0-0.7) Basophils # (Auto) 0.0 x10^3/uL (0.0-0.2) Sodium Level 136 mmol/L (136-145) Potassium Level 4.0 mmol/L (3.5-5.1) Chloride Level 101 mmol/L (98-107) Carbon Dioxide Level 32 mmol/L (21-32) Anion Gap 3 (6-14) Blood Urea Nitrogen 23 mg/dL (7-20) Creatinine 4.9 mg/dL (0.6-1.0) Estimated GFR (Cockcroft-Gault) 10.4 BUN/Creatinine Ratio 5 (6-20) Glucose Level 130 mg/dL (70-99) Calcium Level 8.4 mg/dL (8.5-10.1) Total Bilirubin 0.2 mg/dL (0.2-1.0) Aspartate Amino Transf (AST/SGOT) 17 U/L (15-37) Alanine Aminotransferase (ALT/SGPT) 10 U/L (14-59) Alkaline Phosphatase 134 U/L (46-116) Total Protein 6.1 g/dL (6.4-8.2) Albumin 1.9 g/dL (3.4-5.0) Albumin/Globulin Ratio 0.5 (1.0-1.7) Laboratory Tests Test 06/04/21 07:51 06/04/21 11:23 06/04/21 16:36 06/04/21 20:29 Glucose (Fingerstick) 132 mg/dL (70-99) 185 mg/dL (70-99) 226 mg/dL (70-99) 192 mg/dL (70-99) Test 06/05/21 05:25 White Blood Count 4.8 x10^3/uL (4.0-11.0) Red Blood Count 2.47 x10^6/uL (3.50-5.40) Hemoglobin 7.2 g/dL (12.0-15.5) Hematocrit 22.8 % (36.0-47.0) Mean Corpuscular Volume 92 fL (79-100) Mean Corpuscular Hemoglobin 29 pg (25-35) Mean Corpuscular Hemoglobin Concent 32 g/dL (31-37) Red Cell Distribution Width 16.7 % (11.5-14.5) Platelet Count 185 x10^3/uL (140-400) Neutrophils (%) (Auto) 67 % (31-73) Lymphocytes (%) (Auto) 19 % (24-48) Monocytes (%) (Auto) 11 % (0-9) Eosinophils (%) (Auto) 2 % (0-3) Basophils (%) (Auto) 1 % (0-3) Neutrophils # (Auto) 3.2 x10^3/uL (1.8-7.7) Lymphocytes # (Auto) 0.9 x10^3/uL (1.0-4.8) Monocytes # (Auto) 0.5 x10^3/uL (0.0-1.1) Eosinophils # (Auto) 0.1 x10^3/uL (0.0-0.7) Basophils # (Auto) 0.0 x10^3/uL (0.0-0.2) Sodium Level 136 mmol/L (136-145) Potassium Level 4.0 mmol/L (3.5-5.1) Chloride Level 101 mmol/L (98-107) Carbon Dioxide Level 32 mmol/L (21-32) Anion Gap 3 (6-14) Blood Urea Nitrogen 23 mg/dL (7-20) Creatinine 4.9 mg/dL (0.6-1.0) Estimated GFR (Cockcroft-Gault) 10.4 BUN/Creatinine Ratio 5 (6-20) Glucose Level 130 mg/dL (70-99) Calcium Level 8.4 mg/dL (8.5-10.1) Total Bilirubin 0.2 mg/dL (0.2-1.0) Aspartate Amino Transf (AST/SGOT) 17 U/L (15-37) Alanine Aminotransferase (ALT/SGPT) 10 U/L (14-59) Alkaline Phosphatase 134 U/L (46-116) Total Protein 6.1 g/dL (6.4-8.2) Albumin 1.9 g/dL (3.4-5.0) Albumin/Globulin Ratio 0.5 (1.0-1.7) Medications Active Scripts Medications Dose Route/Sig Max Daily Dose Days Date Category Zetia (Ezetimibe) 10 Mg Tablet 10 Mg PO DAILY 05/13/21 Reported Furosemide 40 Mg Tablet 1 Tab PO DAILY 05/13/21 Reported Hydrocodone-Apap 5-325 (Hydrocodone Bit/Acetaminophen) 1 Tab Tablet 1 Tab PO PRN BID PRN 05/13/21 Reported Allopurinol 100 Mg Tablet 1 Tab PO DAILY 05/13/21 Reported Aspirin 81 Mg Tab.chew 1 Tab PO DAILY 05/13/21 Reported Levothyroxine Sodium 175 Mcg Tablet 175 Mcg PO DAILYAC 05/13/21 Reported Amlodipine Besylate 5 Mg Tablet 5 Mg PO DAILY 05/13/21 Reported Hydralazine Hcl 25 Mg Tablet 1 Tab PO TID 05/13/21 Reported Gabapentin (Gabapentin) 100 Mg Capsule 100 Mg PO HS 05/13/21 Reported Atorvastatin Calcium 80 Mg Tablet 80 Mg PO DAILY 05/13/21 Reported Losartan Potassium 50 Mg Tablet 50 Mg PO DAILY 05/13/21 Reported Metformin Hcl 500 Mg Tablet 500 Mg PO BIDWMEALS 05/13/21 Reported Magnesium (Magnesium Oxide) 500 Mg Capsule 1 Cap PO BID 30 05/13/21 Reported Impression . 1. Acute hypercapnic respiratory failure secondary to likely congestive heart failure. Underlying COVID-19 pneumonia as well. 2. Abnormal chest x-ray with bilateral interstitial infiltrates, likely congestive heart failure. 3. COVID-19 positive by the rapid test. 4. End-stage renal disease, on hemodialysis. 5. Anemia, also contributing to her dyspnea. 6. Encephalopathy, improved post-BiPAP. 7. Mildly increased troponin level. 8. Severe protein-calorie malnutrition. Plan . 1. Continue BiPAP at bedtime and p.r.n. during the day. Patient is approved for home BiPAP. titrate fio2 to keep sat 90% not higher 6 min walk at dc 2. Avoid hyperoxia. repeat ABG 06/01/2021 showed compensated hypercapnia. 3. Hemodialysis with ultrafiltration per renal. 4. PRN bronchodilators. 5. Transfuse with dialysis.as needed 6. Off subcut heparin 7. Discussed with ASH Schaefer MD Jun 05, 2021 07:24
[2021-06-05] MEDS: INSULIN LISPRO 300 UNITS/3 ML VIAL. SQ SCH ×2 (07:30→12:29)
[2021-06-05] MEDS: NYSTATIN TOPICAL POWDER 15GM BOTTLE. TP SCH (09:00)
[2021-06-05] MEDS: LACTOBACILLUS RHAMNOSUS GG 1 CAPSULE. PO SCH (09:25)
[2021-06-05] MEDS: PANTOPRAZOLE 40 MG TABLET.DR. PO SCH (09:25)
[2021-06-05] MEDS: SENNOSIDES/DOCUSATE 8.6/50MG TABLET. PO SCH (09:25)
[2021-06-05] MEDS: EZETIMIBE 10 MG TABLET. PO SCH (09:25)
[2021-06-05] MEDS: ASPIRIN CHEWABLE 81 MG TABLET. PO SCH (09:25)
[2021-06-05] MEDS: LEVOTHYROXINE 175 MCG TABLET PO SCH (09:25)
[2021-06-05] MEDS: MULTIVITAMIN with MINERAL TABLET. PO SCH (09:26)
[2021-06-05] MEDS: ISOSORBIDE MONONITRATE ER 30 MG TAB.ER.24H PO SCH (09:26)
[2021-06-05] MEDS: ALLOPURINOL 100 MG TABLET. PO SCH (09:26)
[2021-06-05] MEDS: hydrALAZINE 25 MG TABLET PO SCH ×2 (09:27→13:46)
[2021-06-05] MEDS: DICLOFENAC SODIUM 1% TOPICAL GEL 100GM TUBE. TP SCH (09:27)
[2021-06-05 11:00] VITALS: BP 136/60
[2021-06-05] MEDS ORDERED: NYST15PO2 TP (11:53)
[2021-06-05] MEDS ORDERED: ISOS30TA68 PO (11:53)
--- NOTE | 2021-06-05 11:55 | SNU/HH DC ---
DISCHARGE WITH HOME HEALTH DISCHARGE INFORMATION: Discharge Date: Jun 05, 2021 Final Diagnosis: Problems Medical Problems: (1) Hypomagnesemia syndrome Status: Acute (2) Hypoxia Status: Acute (3) Pneumonia due to COVID-19 virus Status: Acute Condition on Discharge: Stable CODE STATUS: Code Status: Full HOME HEALTH: Face to Face: I certify this patient is under my care and that I, or a nurse practitioner or physician's assistant professor of mathematics working with me, had a face to face encounter that meets the physician face to face encounter requirements with this patient on []. Medical Complications: Other Alf For: Assess & Educate Safety, Assess/Skilled Observatio, Medication Management RN For Eval/Treatment: Yes Physical Therapy For: Evalulation/Treatment Occupational Therapy For: Evaluation/Treatment Pt Meets Homebound Status: Poor coordination w/ amb., Unsteady balance w/ amb,, Extreme weakness w/ amb. POST DISCHARGE ORDERS: Activity Instructions for Disc: Activity as tolerated CHECKS AFTER DISCHARGE: Comment: IJ/chest CERTIFICATION STATEMENT: Certification Statement: Certification Statement: Based on the above finding, I certify that this patient is confined to the home and needs intermittent penitentiary care, physical therapy and/or speech therapy, or continues to need occupational therapy.~ This patient is under my care, and I have initiated the establishment of the plan of care.~ This patient will be followed by myself or a community physician who will periodically review the plan of care. Home Meds Active Scripts Nystatin (NYAMYC) 15 Gm Powder, 1 TOMER TP BID for antifungal for 30 Days, #1 MISC Prov:GEETHA PETTY MD 06/05/21 Isosorbide Mononitrate (ISOSORBIDE MONONITRATE ER) 30 Mg Tab.er.24h, 30 MG PO DAILY for cardiac for 30 Days, #30 TAB.SR Prov:GEETHA PETTY MD 06/05/21 Reported Medications Ezetimibe (ZETIA) 10 Mg Tablet, 10 MG PO DAILY, TAB 05/13/21 Furosemide (FUROSEMIDE) 40 Mg Tablet, 1 TAB PO DAILY, #30 TAB 5 Refills 05/13/21 Hydrocodone Bit/Acetaminophen (HYDROCODONE-APAP 5-325 ) 1 Tab Tablet, 1 TAB PO PRN BID PRN for PAIN, TAB 0 Refills 05/13/21 Allopurinol (ALLOPURINOL) 100 Mg Tablet, 1 TAB PO DAILY, #30 TAB 5 Refills 05/13/21 Aspirin (ASPIRIN) 81 Mg Tab.chew, 1 TAB PO DAILY, #30 TAB 3 Refills 05/13/21 Levothyroxine Sodium (LEVOTHYROXINE SODIUM) 175 Mcg Tablet, 175 MCG PO DAILYAC for THYROID SUPPLEMENT, #30 TAB 0 Refills 05/13/21 Amlodipine Besylate (AMLODIPINE BESYLATE) 5 Mg Tablet, 5 MG PO DAILY, TAB 05/13/21 Hydralazine Hcl (HYDRALAZINE HCL) 25 Mg Tablet, 1 TAB PO TID, #90 TAB 5 Refills 05/13/21 Gabapentin (GABAPENTIN ) 100 Mg Capsule, 100 MG PO HS for NEUROGENIC PAIN, CAP 05/13/21 Atorvastatin Calcium (Atorvastatin Calcium) 80 Mg Tablet, 80 MG PO DAILY for FOR HIGH CHOLESTEROL, TAB 05/13/21 Losartan Potassium (LOSARTAN POTASSIUM) 50 Mg Tablet, 50 MG PO DAILY for HYPERTENSION, TAB 05/13/21 Metformin Hcl (METFORMIN HCL) 500 Mg Tablet, 500 MG PO BIDWMEALS for ANTI- DIABETIC, TAB 0 Refills 05/13/21 Magnesium Oxide (MAGNESIUM) 500 Mg Capsule, 1 CAP PO BID for 30 Days, #60 CAP 0 Refills 05/13/21 GEETHA PETTY MD Jun 05, 2021 11:55
--- NOTE | 2021-06-05 12:24 | PDOC ---
GENERAL General: Discharge summary [id number] VITAL SIGNS Vital Signs/I&O: Vital Signs Date Time Temp Pulse Resp B/P (MAP) Pulse Ox O2 Delivery O2 Flow Rate FiO2 06/05/21 09:27 69 122/55 06/05/21 08:00 Nasal Cannula 1.0 06/05/21 07:00 98.4 18 94 98.4 I & O 06/04/21 06/04/21 06/05/21 15:00 23:00 07:00 Intake Total 0 ml Balance 0 ml ALLERGIES Allergies: Allergies Coded Allergies Type Severity Reaction Last Updated Verified No Known Drug Allergies 05/13/21 No LAB Lab: Laboratory Tests Test 06/04/21 16:36 06/04/21 20:29 06/05/21 05:25 06/05/21 07:26 Glucose (Fingerstick) 226 mg/dL (70-99) H 192 mg/dL (70-99) H 132 mg/dL (70-99) H White Blood Count 4.8 x10^3/uL (4.0-11.0) Red Blood Count 2.47 x10^6/uL (3.50-5.40) L Hemoglobin 7.2 g/dL (12.0-15.5) L Hematocrit 22.8 % (36.0-47.0) L Mean Corpuscular Volume 92 fL (79-100) Mean Corpuscular Hemoglobin 29 pg (25-35) Mean Corpuscular Hemoglobin Concent 32 g/dL (31-37) Red Cell Distribution Width 16.7 % (11.5-14.5) H Platelet Count 185 x10^3/uL (140-400) Neutrophils (%) (Auto) 67 % (31-73) Lymphocytes (%) (Auto) 19 % (24-48) L Monocytes (%) (Auto) 11 % (0-9) H Eosinophils (%) (Auto) 2 % (0-3) Basophils (%) (Auto) 1 % (0-3) Neutrophils # (Auto) 3.2 x10^3/uL (1.8-7.7) Lymphocytes # (Auto) 0.9 x10^3/uL (1.0-4.8) L Monocytes # (Auto) 0.5 x10^3/uL (0.0-1.1) Eosinophils # (Auto) 0.1 x10^3/uL (0.0-0.7) Basophils # (Auto) 0.0 x10^3/uL (0.0-0.2) Sodium Level 136 mmol/L (136-145) Potassium Level 4.0 mmol/L (3.5-5.1) Chloride Level 101 mmol/L (98-107) Carbon Dioxide Level 32 mmol/L (21-32) Anion Gap 3 (6-14) L Blood Urea Nitrogen 23 mg/dL (7-20) H Creatinine 4.9 mg/dL (0.6-1.0) H Estimated GFR (Cockcroft-Gault) 10.4 BUN/Creatinine Ratio 5 (6-20) L Glucose Level 130 mg/dL (70-99) H Calcium Level 8.4 mg/dL (8.5-10.1) L Total Bilirubin 0.2 mg/dL (0.2-1.0) Aspartate Amino Transferase (AST) 17 U/L (15-37) Alanine Aminotransferase (ALT) 10 U/L (14-59) L Alkaline Phosphatase 134 U/L (46-116) H Total Protein 6.1 g/dL (6.4-8.2) L Albumin 1.9 g/dL (3.4-5.0) L Albumin/Globulin Ratio 0.5 (1.0-1.7) L Test 06/05/21 11:50 Glucose (Fingerstick) 252 mg/dL (70-99) H Laboratory Tests 06/05/21 05:25 Laboratory Tests 06/05/21 05:25 Justifications for Admission Other Justification GEETHA PETTY MD Jun 05, 2021 12:24
--- NOTE | 2021-06-05 13:25 | DS ---
DATE OF DISCHARGE: 06/05/2021 HOSPITAL COURSE: This patient is a 75-year-old woman who is a continuity primary care patient of Dr. Tana Mcnamara who uses the [facility] hospitalist here at [facility]. I am rounding for them this weekend. Today is day 24 for this patient admitted with acute hypoxic respiratory failure secondary to COVID pneumonia. She had a long and complicated stay and had marked decline of her kidney function due to hemodynamic instability during her illness and is now hemodialysis dependent. She was seen by Cardiology, Nephrology, and Gastroenterology during her stay given acute blood loss anemia on top of her anemia of chronic disease. She has a chronic history of diastolic congestive heart failure and that was acutely worsened during her stay. She was encephalopathic for a period of time as well. All of these issues have slowly clinically improved and she is ready now for discharge home with home health for RN, PT as well as occupational therapy. The only change that has been made in her medication regimen is addition of Imdur 30 mg daily as well as nystatin topical powder. The patient is in good spirits this afternoon and denies any acute issues. She has been set up for hemodialysis. Her first appointment is tomorrow morning. PHYSICAL EXAMINATION: VITAL SIGNS: Today is notable for that the patient has been afebrile. Blood pressure has been in the 120s/50s, heart rate is in the 60s and regular. She is breathing comfortably and saturating 95% on room air. GENERAL: The patient is a pleasant 75-year-old woman sitting up on the side of her bed at baseline orientation, in no acute distress. HEENT: Unremarkable for acute abnormality. CHEST: Bilateral equal air entry, though diminished throughout. No crackles or wheezes are noted. HEART: S1, S2 normal. Regular rate and rhythm. No murmurs or gallops are noted. ABDOMEN: Obese, soft, nontender, nondistended. No masses or organomegaly noted. EXTREMITIES: Unremarkable for acute abnormality. Greater than 30 minutes were spent on coordinating this discharge with greater than 50% in counseling and coordination of care, most of which in discussion with the patient and nursing. FINAL DIAGNOSES: 1. Acute hypoxic respiratory failure secondary to COVID-19 pneumonia. 2. Acute blood loss anemia on top of anemia of chronic disease. 3. Acute on chronic stage 3 renal failure, now end-stage, hemodialysis dependent. 4. Acute on chronic diastolic congestive heart failure. 5. Acute metabolic encephalopathy, now resolved. ZULLY/BLAYNE/CAROLYN DR: Kiah TID: [id number] CC: TANA MCNAMARA MD [facility]
[2021-06-05 15:00] VITALS: BP 116/56
--- NOTE | 2021-06-05 15:10 | PDOC ---
DATE OF SERVICE DATE: 06/05/21 TIME: 15:10 SUBJECTIVE ROS stable,no n/v . No SOB at rest OBJECTIVE Vital Signs Vital Signs Date Time Temp Pulse Resp B/P (MAP) Pulse Ox O2 Delivery O2 Flow Rate FiO2 06/05/21 13:46 77 136/60 06/05/21 11:00 98.2 18 91 Room Air 98.2 06/05/21 08:00 1.0 I & 0 Intake and Output 06/05/21 07:00 Intake Total 0 ml Balance 0 ml Intake Oral 0 ml # Voids 1 PHYSICAL EXAM Physical Exam General: No acute distress HEENT: OM moist , on o2 by NC Neck Supple Lungs: CTA ant, Non labored Heart: Regular rate Abdomen: obese, NT Extremities: trace bilateral LE edema Skin: No significant lesion, no rash Neuro: Normal speech, Sensation intact Psych/Mental Status: Mental status NL, Mood NL No sanchez, No CVA or SP tenderness DIAGNOSIS/ASSESSMENT Assessment & Plan SUZIE - Cr elevated at presentation to the ER to 2.5 with worsening renal function . initiated dialysis , No clearance -requiring dialysis, currently MWF schedule at [facility], No indication today ACccess - Tunnelled HDC , OP chair time scheduled for TTS at [facility] . Monitor for recovery, I/O, (UOP not recorded) bladder scan prn CKD; 1.1 at [facility] 05/13/21 (no labs in our system) Acute respiratory failure secondary to COVID PNA Arrhythmia; 18-beat NSVT noted on tele. Otherwise SR. CAD s/p CABG 2004. Follows with [facility], Dr. Murillo. Chronic diastolic CHF; Echo 05/07 with preserved LV systolic function Accelerated hypertension; now controlled Diabetes, II Morbid obesity, BRITTANI. noncompliant with CPAP COMMENT/RELEVANT DATA Meds Current Medications Medications (Trade) Dose Ordered Sig/Lemuel Start Time Stop Time Status Last Admin Dose Admin Acetaminophen (Tylenol) 650 mg PRN Q6HRS PRN 05/13/21 17:00 05/13/21 21:00 650 MG Albumin Human 200 ml @ 200 mls/hr 1X PRN PRN 06/03/21 09:45 06/03/21 15:44 DC Albuterol Sulfate (Ventolin Hfa) 2 puff PRN Q4HRS PRN 05/16/21 20:00 05/19/21 13:29 2 PUFF Allopurinol (Zyloprim) 100 mg DAILY 05/14/21 09:00 06/05/21 09:26 100 MG Amino Acids/ Electrolytes/ Dextrose 1,000 ml @ 80 mls/hr [id number] 05/20/21 13:15 05/25/21 13:30 DC 05/24/21 05:37 80 MLS/HR Amlodipine Besylate (Norvasc) 5 mg DAILY 05/14/21 09:00 06/05/21 09:26 5 MG Aspirin (Aspirin Chewable) 81 mg DAILY 05/14/21 09:00 06/05/21 09:25 81 MG Aspirin (Ecotrin) 81 mg [id number] 05/14/21 08:00 05/13/21 18:10 DC Atorvastatin Calcium (Lipitor) 80 mg QHS 05/13/21 21:00 06/04/21 20:50 80 MG Azithromycin 250 ml @ 250 mls/hr 1X ONCE 05/13/21 16:15 05/13/21 17:14 DC 05/13/21 16:37 250 MLS/HR Calcium Carbonate/ Glycine (Tums) 500 mg PRN Q3HRS PRN 05/13/21 17:00 Cefazolin Sodium/ Dextrose 50 ml @ 100 mls/hr 1X ONCE 05/27/21 13:45 05/27/21 14:14 DC 05/27/21 13:45 100 MLS/HR Ceftriaxone Sodium (Rocephin) 1 gm 1X ONCE 05/13/21 16:00 05/13/21 16:02 DC 05/13/21 16:37 1 GM Dexamethasone Sodium Phosphate (Decadron) 6 mg DAILY 05/14/21 09:00 05/25/21 13:28 DC 05/25/21 09:09 6 MG Dextrose (Dextrose 50%-Water Syringe) 12.5 gm PRN Q15MIN PRN 05/14/21 17:30 05/29/21 07:38 12.5 GM Diclofenac Sodium (Voltaren) 1 mayela BID 06/02/21 12:00 06/05/21 09:27 1 MAYELA EZETIMIBE (Zetia) 10 mg DAILY 05/14/21 09:00 06/05/21 09:25 10 MG Fentanyl Citrate (Fentanyl 2ml Vial) 100 mcg 1X ONCE 05/27/21 13:30 05/27/21 13:31 DC 05/27/21 13:30 50 MCG Furosemide (Lasix) 40 mg DAILY 05/14/21 09:00 05/16/21 14:56 DC 05/16/21 10:09 40 MG Gabapentin (Neurontin) 100 mg HS 05/13/21 21:00 06/04/21 20:51 100 MG Guaifenesin (Robitussin Dm) 10 ml PRN Q6HRS PRN 05/16/21 07:30 05/16/21 21:16 10 ML Guaifenesin/ Codeine Phosphate (Robitussin Ac) 5 ml PRN Q6HRS PRN 05/13/21 16:15 05/16/21 07:29 DC Heparin Sodium (Porcine) (Heparin Sodium) 2,500 unit 1X ONCE 05/21/21 12:45 05/21/21 12:46 DC 05/21/21 12:41 2,500 UNIT Hydralazine HCl (Apresoline Inj) 10 mg PRN Q4HRS PRN 05/16/21 15:00 05/22/21 02:55 10 MG Hydralazine HCl (Apresoline) 25 mg TID 05/21/21 10:30 06/05/21 13:46 25 MG Info (Non-Icu Electrolyte Protocol) 1 ea PRN DAILY PRN 05/13/21 17:00 Info (PHARMACY MONITORING -- do not chart) 1 each PRN DAILY PRN 06/03/21 09:45 Insulin Glargine (Lantus Syringe) 10 unit QHS 05/30/21 21:00 06/04/21 20:53 10 UNIT Insulin Human Lispro (HumaLOG) 9 units 1X ONCE 05/24/21 21:00 05/24/21 21:01 DC 05/24/21 23:04 9 UNITS Isosorbide Mononitrate (Imdur) 30 mg DAILY 05/17/21 09:00 06/05/21 09:26 30 MG Lactobacillus Rhamnosus (Culturelle) 1 cap BID 05/16/21 21:00 06/05/21 09:25 1 CAP Levothyroxine Sodium (Synthroid) 175 mcg DAILYAC 05/14/21 07:30 06/05/21 09:25 175 MCG Lidocaine HCl (Buffered Lidocaine 1%) 6 ml 1X ONCE 05/21/21 11:30 05/21/21 11:33 DC 05/21/21 12:10 4 ML Lidocaine/ Epinephrine (LIDOCAINE 1%-EPI 1:100,000 Multi-Dose) 20 ml 1X ONCE 05/27/21 13:30 05/27/21 13:31 DC 05/27/21 13:30 9 ML Losartan Potassium (Cozaar) 50 mg DAILY 05/14/21 09:00 05/16/21 14:56 DC 05/16/21 10:09 50 MG Magnesium Sulfate 50 ml @ 25 mls/hr 1X ONCE 05/13/21 16:15 05/13/21 18:14 Cancel Methylprednisolone Sodium Succinate (SOLU-Medrol 125MG VIAL) 125 mg 1X ONCE 05/13/21 15:45 05/13/21 15:46 DC 05/13/21 15:58 125 MG Midazolam HCl (Versed) 2 mg 1X ONCE 05/27/21 13:30 05/27/21 13:31 DC 05/27/21 13:30 1 MG Multivitamins (Thera M Plus) 1 tab DAILY 05/14/21 09:00 06/05/21 09:26 1 TAB Nystatin (Nystop) 1 mayela BID 05/31/21 09:00 06/05/21 09:00 1 MAYELA Ondansetron HCl (Zofran) 4 mg PRN Q6HRS PRN 05/13/21 17:00 Oxycodone HCl (Roxicodone) 5 mg PRN Q3HRS PRN 05/13/21 17:00 Oxycodone/ Acetaminophen (Percocet 5/325) 2 tab PRN Q4HRS PRN 05/13/21 17:00 06/01/21 20:37 2 TAB Pantoprazole Sodium (Protonix) 40 mg DAILYAC 05/19/21 16:30 06/05/21 09:25 40 MG Piperacillin Sod/ Tazobactam Sod (Zosyn Per Pharmacy) 1 each PRN DAILY PRN 05/13/21 16:15 05/25/21 13:28 DC Piperacillin Sod/ Tazobactam Sod 2.25 gm/Sodium Chloride 50 ml @ 100 mls/hr Q8HRS 05/20/21 14:00 05/25/21 13:28 DC 05/25/21 05:34 100 MLS/HR Remdesivir 100 mg/ Sodium Chloride 230 ml @ 460 mls/hr Q24H 05/14/21 17:00 05/17/21 17:29 DC 05/17/21 17:45 460 MLS/HR Remdesivir 200 mg/ Sodium Chloride 210 ml @ 210 mls/hr 1X ONCE 05/13/21 17:00 05/13/21 17:59 DC 05/13/21 20:59 210 MLS/HR Senna/Docusate Sodium (Senna Plus) 1 tab BID 05/13/21 21:00 06/05/21 09:25 1 TAB Sodium Chloride 1,000 ml @ 400 mls/hr Q2H30M PRN 06/03/21 09:45 06/03/21 21:44 DC Sodium Chloride (Normal Saline Flush) 10 ml 1X PRN PRN 06/03/21 09:45 06/04/21 09:44 DC Zolpidem Tartrate (Ambien) 5 mg PRN QHS PRN 05/13/21 17:00 05/16/21 07:29 DC Lab Laboratory Tests Test 06/04/21 16:36 06/04/21 20:29 06/05/21 05:25 06/05/21 07:26 Glucose (Fingerstick) 226 mg/dL (70-99) 192 mg/dL (70-99) 132 mg/dL (70-99) White Blood Count 4.8 x10^3/uL (4.0-11.0) Red Blood Count 2.47 x10^6/uL (3.50-5.40) Hemoglobin 7.2 g/dL (12.0-15.5) Hematocrit 22.8 % (36.0-47.0) Mean Corpuscular Volume 92 fL (79-100) Mean Corpuscular Hemoglobin 29 pg (25-35) Mean Corpuscular Hemoglobin Concent 32 g/dL (31-37) Red Cell Distribution Width 16.7 % (11.5-14.5) Platelet Count 185 x10^3/uL (140-400) Neutrophils (%) (Auto) 67 % (31-73) Lymphocytes (%) (Auto) 19 % (24-48) Monocytes (%) (Auto) 11 % (0-9) Eosinophils (%) (Auto) 2 % (0-3) Basophils (%) (Auto) 1 % (0-3) Neutrophils # (Auto) 3.2 x10^3/uL (1.8-7.7) Lymphocytes # (Auto) 0.9 x10^3/uL (1.0-4.8) Monocytes # (Auto) 0.5 x10^3/uL (0.0-1.1) Eosinophils # (Auto) 0.1 x10^3/uL (0.0-0.7) Basophils # (Auto) 0.0 x10^3/uL (0.0-0.2) Sodium Level 136 mmol/L (136-145) Potassium Level 4.0 mmol/L (3.5-5.1) Chloride Level 101 mmol/L (98-107) Carbon Dioxide Level 32 mmol/L (21-32) Anion Gap 3 (6-14) Blood Urea Nitrogen 23 mg/dL (7-20) Creatinine 4.9 mg/dL (0.6-1.0) Estimated GFR (Cockcroft-Gault) 10.4 BUN/Creatinine Ratio 5 (6-20) Glucose Level 130 mg/dL (70-99) Calcium Level 8.4 mg/dL (8.5-10.1) Total Bilirubin 0.2 mg/dL (0.2-1.0) Aspartate Amino Transf (AST/SGOT) 17 U/L (15-37) Alanine Aminotransferase (ALT/SGPT) 10 U/L (14-59) Alkaline Phosphatase 134 U/L (46-116) Total Protein 6.1 g/dL (6.4-8.2) Albumin 1.9 g/dL (3.4-5.0) Albumin/Globulin Ratio 0.5 (1.0-1.7) Test 06/05/21 11:50 Glucose (Fingerstick) 252 mg/dL (70-99) Results All relevant outside records, renal labs, imaging studies, telemetry/EKG's were reviewed. Justicifation of Admission Dx: Justifications for Admission: Justification of Admission Dx: Yes AMINA MÁRQUEZ MD Jun 05, 2021 15:10
--- NOTE | 2021-06-05 19:36 | NUR ---
Per Dr. Lee, upon discharge patient to have 1L oxygen via nasal cannula at bedtime and as needed daily for hypoxia.
--- NOTE | 2021-06-07 13:59 | RAD ---
Procedure: Tunneled hemodialysis catheter placement 06/07/2021 6:10 AM Clinical Indication: End-stage renal disease Sterility: All elements of maximal sterile barrier technique including the use of a cap, mask, sterile gown, sterile gloves, large sterile sheet, appropriate hand hygiene, and 2% chlorhexidine for cutaneous antisepsis (or acceptable alternative antiseptic per current guidelines) were followed for this procedure. Consent: The procedure was explained in its entirety to the patient or the patients designated technology sales representative by a member of the treatment team, including a discussion of the risks, benefits and commonly accepted alternatives to the procedure, as well as the expected consequences of no therapy whatsoever. Discussion of the risks included, but was not limited to, those that are most frequent and those that are rare but possibly severe or life-threatening, as well as the possibility of unforeseen complications. Technique and Findings: Temporary dialysis catheter was removed prior to procedure. Following informed consent, a timeout procedure was performed. The patient was prepped and draped in the usual sterile fashion. Ultrasound interrogation of the right neck revealed patency and compressibility of the right internal jugular vein. A 21-gauge micropuncture was then used to gain access to this vein under ultrasound guidance. A hard copy ultrasound image was recorded. The needle was exchanged over a wire for a 4 Divehi sheath which was used to guide an guidewire into the IVC. The skin over the right anterior chest wall was copiously anesthetized with 1% Lidocaine and a small dermatotomy was made. A 23 cm tipped cuff palindrome tunneled hemodialysis catheter was then tunneled subcutaneously towards the neck dermatotomy and deployed through a large caliber peel-away sheath under fluoroscopic guidance such that the distal tip resided in the mid right atrium. Manual flow rates were assessed and found to be within normal limits. The neck dermatotomy was closed with Dermabond. No immediate complications were identified. Sedation: Conscious sedation was administered for 20 minutes. The patient was monitored by a qualified independent observer throughout the time of sedation. Please refer to the medical record for exact doses of medications utilized to achieve moderate sedation. Fluoroscopy time: 1 minute Dose area product: 3 stanton centimeter squared Impression: Tunneled hemodialysis catheter placement as described
== END 2021-06-05 19:39 | disposition home health service (06) | DRG 177 ==
LOC: ER 13:48 → 5 NORTH 17:16 → ED HOLD 17:16 → 5 NORTH 19:19
PROVIDERS: ADMIT Student in an Organized Health Care Education/Training Program; ATTEND Student in an Organized Health Care Education/Training Program
PROC: XW033E5 Introduction of Remdesivir Anti-infective into Peripheral Vein, Percutaneous Approach, New Technology Group 5 (ICD-10-PCS; principal; 2021-05-13)
PROC: 5A1D70Z Performance of Urinary Filtration, Intermittent, Less than 6 Hours Per Day (ICD-10-PCS; 2021-05-19)
PROC: 02HV33Z Insertion of Infusion Device into Superior Vena Cava, Percutaneous Approach (ICD-10-PCS; 2021-05-19)
PROC: B548ZZA Ultrasonography of Superior Vena Cava, Guidance (ICD-10-PCS; 2021-05-19)
PROC: 5A1D70Z Performance of Urinary Filtration, Intermittent, Less than 6 Hours Per Day (ICD-10-PCS; 2021-05-20)
PROC: 02HV33Z Insertion of Infusion Device into Superior Vena Cava, Percutaneous Approach (ICD-10-PCS; 2021-05-21)
PROC: B548ZZA Ultrasonography of Superior Vena Cava, Guidance (ICD-10-PCS; 2021-05-21)
PROC: 5A1D70Z Performance of Urinary Filtration, Intermittent, Less than 6 Hours Per Day (ICD-10-PCS; 2021-05-23)
PROC: 5A1D70Z Performance of Urinary Filtration, Intermittent, Less than 6 Hours Per Day (ICD-10-PCS; 2021-05-25)
PROC: 5A1D70Z Performance of Urinary Filtration, Intermittent, Less than 6 Hours Per Day (ICD-10-PCS; 2021-05-27)
PROC: 0JH63XZ Insertion of Tunneled Vascular Access Device into Chest Subcutaneous Tissue and Fascia, Percutaneous Approach (ICD-10-PCS; 2021-05-27)
PROC: 02H633Z Insertion of Infusion Device into Right Atrium, Percutaneous Approach (ICD-10-PCS; 2021-05-27)
PROC: B518ZZA Fluoroscopy of Superior Vena Cava, Guidance (ICD-10-PCS; 2021-05-27)
PROC: B548ZZA Ultrasonography of Superior Vena Cava, Guidance (ICD-10-PCS; 2021-05-27)
PROC: 5A09357 Assistance with Respiratory Ventilation, Less than 24 Consecutive Hours, Continuous Positive Airway Pressure (ICD-10-PCS; 2021-05-28)
PROC: 30233N1 Transfusion of Nonautologous Red Blood Cells into Peripheral Vein, Percutaneous Approach (ICD-10-PCS; 2021-05-29)
PROC: 5A09357 Assistance with Respiratory Ventilation, Less than 24 Consecutive Hours, Continuous Positive Airway Pressure (ICD-10-PCS; 2021-05-30)
PROC: 5A1D70Z Performance of Urinary Filtration, Intermittent, Less than 6 Hours Per Day (ICD-10-PCS; 2021-05-30)
PROC: 5A1D70Z Performance of Urinary Filtration, Intermittent, Less than 6 Hours Per Day (ICD-10-PCS; 2021-06-01)
PROC: 5A09357 Assistance with Respiratory Ventilation, Less than 24 Consecutive Hours, Continuous Positive Airway Pressure (ICD-10-PCS; 2021-06-02)
PROC: 5A09357 Assistance with Respiratory Ventilation, Less than 24 Consecutive Hours, Continuous Positive Airway Pressure (ICD-10-PCS; 2021-06-03)
PROC: 5A1D70Z Performance of Urinary Filtration, Intermittent, Less than 6 Hours Per Day (ICD-10-PCS; 2021-06-03)
PROC: 5A09357 Assistance with Respiratory Ventilation, Less than 24 Consecutive Hours, Continuous Positive Airway Pressure (ICD-10-PCS; 2021-06-04)
PROC: 5A09357 Assistance with Respiratory Ventilation, Less than 24 Consecutive Hours, Continuous Positive Airway Pressure (ICD-10-PCS; 2021-06-05)
DX: U07.1 COVID-19 (principal); J12.82 Pneumonia due to coronavirus disease 2019; J96.01 Acute respiratory failure with hypoxia; E43 Unspecified severe protein-calorie malnutrition; G93.41 Metabolic encephalopathy; I50.33 Acute on chronic diastolic (congestive) heart failure; J96.02 Acute respiratory failure with hypercapnia; N17.0 Acute kidney failure with tubular necrosis; N18.6 End stage renal disease; D62 Acute posthemorrhagic anemia; I47.2 Ventricular tachycardia; J44.0 Chronic obstructive pulmonary disease with (acute) lower respiratory infection; J98.11 Atelectasis; Z68.41 Body mass index [BMI] 40.0-44.9, adult; I13.2 Hypertensive heart and chronic kidney disease with heart failure and with stage 5 chronic kidney disease, or end stage renal disease; K92.1 Melena; D63.1 Anemia in chronic kidney disease; E03.9 Hypothyroidism, unspecified; E66.01 Morbid (severe) obesity due to excess calories; E11.22 Type 2 diabetes mellitus with diabetic chronic kidney disease; E78.5 Hyperlipidemia, unspecified; E83.42 Hypomagnesemia; G47.33 Obstructive sleep apnea (adult) (pediatric); I25.10 Atherosclerotic heart disease of native coronary artery without angina pectoris; Z79.82 Long term (current) use of aspirin; Z79.899 Other long term (current) drug therapy; Z82.49 Family history of ischemic heart disease and other diseases of the circulatory system; Z91.19 Patient's noncompliance with other medical treatment and regimen; Z95.1 Presence of aortocoronary bypass graft; Z99.2 Dependence on renal dialysis
CPT/HCPCS: 36415; 36430; 36556; 36558; 36600; 71045; 76770; 76937; 77001; 80048; 80053; 80069; 81001; 81256; 82140; 82274; 82550; 82607; 82805; 82962; 83540; 83550; 83605; 83735; 83880; 84100; 84443; 84484; 85007; 85014; 85018; 85025; 85027; 85610; 86317; 86704; 86706; 86850; 86900; 86901; 86920; 87040; 87340; 87426; 87493; 93005; 94660; 94760; 96365; 96366; 96368; 96375; 99152; 99153; C1750; C1892; J0360; J0456; J0690; J0696; J1100; J1644; J1815; J2250; J2543; J2930; J3010; J3475; J3490; J7030; J7050; P9016; 97110-GO; 97110-GP; 97116-GP; 97530-GO; 97530-GP; 97535-GO; 99285-25; G0378

== ENCOUNTER → 2021-06-15 | Outpatient (CLI) | payer MEDICARE, OTHER ==
[2021-06-05 15:00] VITALS: BP 116/56
[~2021-06-15] MED LIST: ALLO100T PO; AMLO-186 PO; ASPI-630 PO; ATOR80TA72 PO; EZET10TA20 PO; FURO40TA4 PO; GABA-585 PO; HYDR-2761 PO; HYDR-2868 PO; ISOS30TA68 PO; LEVO175T5 PO; LOSA-73 PO; MAGN500C10 PO; METF500T16 PO; NYST15PO2 TP
--- NOTE | 2021-06-15 18:19 | RAD ---
EXAM: XR CHEST 2V 06/15/2021 12:49 PM CLINICAL INDICATION: COPD with acute exacerbation COMPARISON: Chest radiograph 05/28/2021 TECHNIQUE: PA and lateral views of the chest FINDINGS: There is a right IJ dialysis catheter with tip over the superior vena cava, unchanged. The heart is enlarged. A. Pulmonary vascularity is indistinct and there are scattered interstitial opaci ties, similar to prior exam. Small pleural effusions. No pneumothorax. There are median sternotomy wi res. Kyphosis and degenerative disc disease is unchanged. IMPRESSION: Cardiomegaly with scattered interstitial opacities suspicious for pulmonary edema. Small pleural effusions. This is similar to prior exam. Electronically signed by: Dorinda Kate MD (06/15/2021 6:17 PM) [id number]
== END ==
LOC: RAD 12:20
PROVIDERS: ATTEND Pediatrics
DX: I51.7 Cardiomegaly (principal); J90 Pleural effusion, not elsewhere classified; J44.1 Chronic obstructive pulmonary disease with (acute) exacerbation
CPT/HCPCS: 71046